=== PATIENT | male | born 1935 | race Caucasian/White ===

== ENCOUNTER 2016-03-12 15:58 | Inpatient (IN) | payer OTHER ==
[2016-03-12 16:07] VITALS: BMI 34.0
--- NOTE | 2016-03-12 17:07 | PDOC ---
History of Present Illness - General History Source: Patient - History of Present Illness Initial Comments: 03/12/16 18:50 Mr. Patel is a 80 y/o male witha PMH of HTN, CHF, Afib, DM Type 1 presenting to the ED today complaining of SOB and back pain x one week. He states that he has been having increasing SOB over the past week. The SOB is worse with exertion. He states he also has a productive cough and rhinorrhea. He has had associated back pain over the past week. ItsDenies fevers, chest pain, palpitations, edema, orthopnea, N/V/D, sick contacts and recent travel. He had his flu shot this year. GENERAL/CONSTITUTIONAL: No fever or chills. No weakness. No weight change. HEAD, EYES, EARS, NOSE AND THROAT: No change in vision. No ear pain or discharge. No sore throat. CARDIOVASCULAR: No chest pain or palpitations. RESPIRATORY: (+) cough, shortness of breath, dyspnea on exersion. (-)wheezing, GASTROINTESTINAL: No nausea, vomiting, diarrhea or constipation. GENITOURINARY: No dysuria, frequency, or change in urination. MUSCULOSKELETAL: No joint or muscle swelling or pain. No neck or back pain. SKIN: No rash or easy bruising. NEUROLOGIC: No headache, vertigo, loss of consciousness, or loss of sensation. PSYCHIATRIC: No depression or anxiety. ENDOCRINE: No increased thirst. No abnormal weight change. HEMATOLOGIC/LYMPHATIC: No anemia, easy bleeding, or history of blood clots. ALLERGIC/IMMUNOLOGIC: No hives or skin allergy. No latex allergy. <Amara Pino - Last Filed: 03/12/16 18:50> <Sumeet Washington - Last Filed: 03/12/16 21:26> - General Chief Complaint: Lightheaded Stated Complaint: BACK PAIN, SOB Time Seen by Provider: 03/12/16 16:53 Past History - Past Medical History Anemia: No Asthma: No Cancer: No Cardiac Disorders: Yes CVA: No COPD: Yes CHF: No Dementia: No Diabetes: Yes GI Disorders: No Disorders: Yes HTN: Yes Hypercholesterolemia: Yes Liver Disease: No Suicide Attempt (Hx): No Seizures: No Thyroid Disease: No - Surgical History Abdominal Surgery: Yes (Hernia repair) Appendectomy: No Cardiac Surgery: Yes (Stents X 4) Cholecystectomy: No Lung Surgery: No Neurologic Surgery: No Orthopedic Surgery: No - Immunization History Td Vaccination: Yes Immunization Up to Date: Yes - Psycho/Social/Smoking Cessation Hx Anxiety: No Suicidal Ideation: No Smoking Status: No Smoking History: Never smoked Years of Tobacco Use: 5 Have you smoked in the past 12 months: No Number of Cigarettes Smoked Daily: 0 If you are a former smoker, when did you quit?: 1955 Cigars Per Day: 4 'Breaking Loose' booklet given: 04/01/15 Hx Alcohol Use: No Drug/Substance Use Hx: No Substance Use Type: None Hx Substance Use Treatment: No <Amara Pino - Last Filed: 03/12/16 18:50> <Sumeet Washington - Last Filed: 03/12/16 21:26> - Past Medical History Allergies/Adverse Reactions: Allergies Allergy/AdvReac Type Severity Reaction Status Date / Time No Known Allergies Allergy Verified 03/12/16 16:08 Home Medications: Ambulatory Orders Atorvastatin Ca [Lipitor] 40 mg PO HS tablet 03/01/15 Diltiazem Cd [Cardizem Cd -] 180 mg PO DAILY cap.cd.24h 03/01/15 Insulin (Novolog 70/30) [Novolog Mix 70/30 Vial -] 20 units SQ BIDAC vial 03/01 Metoprolol Tartrate [Lopressor -] 25 mg PO BID tablet 03/01/15 Aspirin [Ecotrin] 81 mg PO DAILY 03/04/15 Apixaban [Eliquis] 2.5 mg PO DAILY 03/12/16 Budesonide/Formeterol Fumarate [SYMBICORT 160/4.5mcg -] 1 inh PO BID 03/12/16 Enalapril Maleate [Vasotec -] 2.5 mg PO DAILY 03/12/16 Furosemide [Lasix -] 20 mg PO DAILY 03/12/16 Nitroglycerin Patch [Nitro-Dur] 0.2 mg TD DAILY 03/12/16 *Physical Exam - Vital Signs Last Vital Signs Temp Pulse Resp BP Pulse Ox 98.3 F 64 20 102/63 98 03/12/16 16:05 03/12/16 16:05 03/12/16 16:05 03/12/16 16:05 03/12/16 16:05 - Physical Exam Comments: 03/12/16 19:04 GENERAL: The patient is awake, alert, and fully oriented, in no acute distress. Pt. is resting comfortably with an O2 sat of 98 ORA. HEAD: Normal with no signs of trauma. ENT: Pupils equal, round and reactive to light, extraocular movements intact, sclera anicteric, conjunctiva clear. Neck supple. LUNGS: Bibasilar rales. Normal excursion. No respiratory distress or use of accessory muscles. CV: RRR, S1/S2, no MRG. Cap refill < 2 sec. ABDOMEN: Soft, non-distended, non-tender. EXTREMITIES: Normal range of motion, no edema. No bowel or bladder incontinence. NEUROLOGICAL: Normal speech, normal gait. CN II-XII grossly intact. PSYCH: Normal mood, normal affect. SKIN: Warm, dry, normal turgor, no rashes or lesions noted. <Amara Pino - Last Filed: 03/12/16 18:50> - Vital Signs Last Vital Signs Temp Pulse Resp BP Pulse Ox 98.3 F 64 20 102/63 98 03/12/16 16:05 03/12/16 16:05 03/12/16 16:05 03/12/16 16:05 03/12/16 16:05 <Sumeet Washington - Last Filed: 03/12/16 21:26> ED Treatment Course - LABORATORY CBC & Chemistry Diagram: 03/12/16 17:45 03/12/16 17:45 <Amara Pino - Last Filed: 03/12/16 18:50> - LABORATORY CBC & Chemistry Diagram: 03/12/16 17:45 03/12/16 17:45 - ADDITIONAL ORDERS Additional order review: Laboratory Results 03/12/16 03/12/16 17:45 17:39 Sodium 143 Potassium 4.3 Chloride 103 Carbon Dioxide 29 Anion Gap 11 BUN 35 H Creatinine 2.1 H D Creat Clearance w eGFR 30.54 Random Glucose 60 L D Calcium 9.2 Total Bilirubin 1.1 H D AST 26 ALT 26 D Alkaline Phosphatase 172 H D Creatine Kinase 77 Troponin I < 0.02 B-Natriuretic Peptide 5142.05 H Total Protein 7.4 Albumin 3.4 D 03/12/16 17:45 Influenza Types A,B Antigen (MARIEL) - Final Nasopharyngeal Swab - Final 03/12/16 17:45 RBC 5.93 H D MCV 84.9 MCHC 32.9 RDW 15.9 D MPV 10.8 Neutrophils % 63.4 Lymphocytes % 21.9 D Monocytes % 9.2 Eosinophils % 4.2 Basophils % 1.3 - Medications Given in the ED: ED Medications Discontinued Medications Generic Name Dose Route Start Last Admin Trade Name Freq PRN Reason Stop Dose Admin Levofloxacin 150 mls @ 100 mls/hr 03/12/16 18:35 03/12/16 19:54 Levaquin 750 Mg Premixed Ivpb - IVPB 03/12/16 20:04 100 mls/hr ONCE ONE Administration <Sumeet Washington - Last Filed: 03/12/16 21:26> Medical Decision Making - Medical Decision Making 03/12/16 18:05 Mr. Patel is an 80 y/o male PHM for HTN, Afib, CHF, Type 1 DM, presents to the ED with shortness of breath x1 week. Most concerned for pneumonia vs CHF exacerbation. Exam is positive for bibasilar rales and dyspnea on exertion. Will also screen for influenza, ACS. Less likely PE d/t low criteria via PERC. Will order CXR, CBC, CMP, UA to screen for peumonia vs CHF Cardiac profile BNP, EKG to evaluate for CHF exacerbation. Will obtain influenza swab. Will re-evaluate 03/12/16 19:05 EKG shows an irregularly irregular rhythm with a mean rate of 80, no acute ST changes. CXR read by radiology states no acute pathology; however, upon reading the image it appears that there is an opacitiy over the L lung base. Will order antibiotics to cover probably pneumonia. WBC is also elevated at 11.5. 19:15 Sign out was given to Felix Fay OIL WELL DRILLER. Discussed the case and results of EKG and CXR. Still to look for labs including cardiac panel and BNP. Disposition will determined based on the rest of the lab work. <Amara Pino - Last Filed: 03/12/16 18:50> *DC/Admit/Observation/Transfer <Amara Pino - Last Filed: 03/12/16 18:50> - Discharge Dispostion Admit: Yes Decision to Admit order Date/Time: 03/12/16 21:[address] WALKER. WILL ADMIT INPATIENT. <Sumeet Washington - Last Filed: 03/12/16 21:26> Diagnosis at time of Disposition: CHF (congestive heart failure) Qualifiers: Congestive heart failure type: unspecified congestive heart failure type Congestive heart failure chronicity: acute on chronic Qualified Code(s): I50.9 - Heart failure, unspecified Pneumonia Qualifiers: Pneumonia type: due to unspecified organism Laterality: right Lung location: upper lobe of lung Qualified Code(s): J18.9 - Pneumonia, unspecified organism Type 2 diabetes mellitus with diabetic neuropathy, unspecified Qualifiers: Diabetes mellitus ad terminal makeup operator insulin use: unspecified care home insulin use status Qualified Code(s): E11.40 - Type 2 diabetes mellitus with diabetic neuropathy, unspecified - Discharge Dispostion Condition at time of disposition: Fair
[2016-03-12 18:02] LABS: BASOPHIL 1.3 % (0-2.0); EOSINOPHIL 4.2 % (0-4.5); MCH 27.9 pg (25.7-33.7); MCHC 32.9 g/dl (32.0-35.9); MEAN CELL VOLUME 84.9 fl (80-96); MEAN PLT VOLUME 10.8 fl (7.5-11.1); NEUTROPHILS 63.4 % (42.8-82.8); PLATELET COUNT 176 K/MM3 (134-434); RDW 15.9 % (11.9-15.9); WHITE BLOOD COUNT 11.5 K/mm3 (4.0-10.0)
[2016-03-12] MEDS ORDERED: LEVOFLOXACIN 750 MG IVPB 150 ML IVPB ONE (18:35)
[2016-03-12 19:01] LABS: ALBUMIN 3.4 g/dl (3.4-5.0); BILIRUBIN,TOTAL 1.1 mg/dL (0.2-1.0); CALCIUM 9.2 mg/dL (8.5-10.1); CREATININE 2.1 mg/dL (0.7-1.3); TOT PROT 7.4 g/dl (6.4-8.2)
--- NOTE | 2016-03-12 19:09 | PDOC ---
[id number] 98 03/12/16 16:05 03/12/16 16:05 03/12/16 16:05 03/12/16 16:05 03/12/16 16:05 ED Treatment Course - LABORATORY CBC & Chemistry Diagram: 03/14/16 06:30 03/15/16 06:15 - ADDITIONAL ORDERS Additional order review: Laboratory Results 03/12/16 17:45 Sodium 143 Potassium 4.3 Chloride 103 Carbon Dioxide 29 Anion Gap 11 BUN 35 H Creatinine 2.1 H D Creat Clearance w eGFR 30.54 Random Glucose 60 L D Calcium 9.2 Total Bilirubin 1.1 H D AST 26 ALT 26 D Alkaline Phosphatase 172 H D B-Natriuretic Peptide 5142.05 H Total Protein 7.4 Albumin 3.4 D 03/12/16 17:45 Influenza Types A,B Antigen (MARIEL) - Final Nasopharyngeal Swab - Final 03/12/16 17:45 RBC 5.93 H D MCV 84.9 MCHC 32.9 RDW 15.9 D MPV 10.8 Neutrophils % 63.4 Lymphocytes % 21.9 D Monocytes % 9.2 Eosinophils % 4.2 Basophils % 1.3 Progress Note - Progress Note Progress Note: I have discussed the case with the PA and I agree with her HPI and PE as noted in the EMR. My personal findings include an 80 y/o male with h/o HTN and DM who presents to the ED with c/o progressive SOB but several days of cough and fatigue. He denies chest pain but has had labored breathing all day. He denies fevers and chills at home. VSS; he is afebrile. His lungs are significant for bibasilar crackles. Differential diagnosis includes but is not limited to: PNA, CHF exacerbation, influenza, anemia, electrolyte abnormality, toxic/metabolic derangement. Plan: Agree with PA plan. Will get CXR, labs, EKG and influenza PCR. the patient will likely require admission to observation for serial cardiac enzymes pending results of labs, CXR. 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
[2016-03-12 19:49] LABS: TROPONIN I < 0.02 ng/ml (0.00-0.05)
[2016-03-12] MEDS ORDERED: FUROSEMIDE 40 MG/4 ML INJECTABLE VIAL IVPB ONE (21:29)
[2016-03-12] MEDS ORDERED: DEXTROSE 5%-0.45% SALINE 1,000 ML IV SCH (21:30)
[2016-03-12] MEDS ORDERED: FUROSEMIDE 40 MG/4 ML INJECTABLE VIAL ONE (21:36)
[2016-03-12] MEDS ORDERED: ACETAMINOPHEN 325 MG TABLET (FP) PO PRN (22:23)
[2016-03-12 23:42] LABS: TROPONIN I < 0.02 ng/ml (0.00-0.05)
[2016-03-13 07:12] LABS: BASOPHIL 0.8 % (0-2.0); EOSINOPHIL 5.5 % (0-4.5); MCH 28.2 pg (25.7-33.7); MCHC 32.7 g/dl (32.0-35.9); MEAN CELL VOLUME 86.1 fl (80-96); MEAN PLT VOLUME 10.2 fl (7.5-11.1); NEUTROPHILS 60.1 % (42.8-82.8); PLATELET COUNT 128 K/MM3 (134-434); RDW 15.5 % (11.9-15.9); WHITE BLOOD COUNT 9.8 K/mm3 (4.0-10.0)
[2016-03-13 07:45] LABS: ALBUMIN 2.9 g/dl (3.4-5.0); ANION GAP 15 (8-16); CO2 24 mmol/L (21-32); MAGNESIUM 2.3 mg/dL (1.8-2.4)
[2016-03-13 08:04] LABS: ALK PHOS 151 U/L (45-117); BILIRUBIN,TOTAL 1.1 mg/dL (0.2-1.0); CALCIUM 8.6 mg/dL (8.5-10.1); CHOLESTEROL 109 mg/dL (50-200); CREATININE 2.3 mg/dL (0.7-1.3); GLUCOSE,RANDOM 83 mg/dL (74-106); SGOT/AST 20 U/L (15-37); SGPT/ALT 23 U/L (12-78); TOT PROT 6.6 g/dl (6.4-8.2); TROPONIN I < 0.02 ng/ml (0.00-0.05)
[2016-03-13] MEDS: INSULIN (NOVOLOG MIX 70/30) 100 UNITS/ML MDV SQ SCH ×2 (09:40→18:07)
[2016-03-13 09:41] LABS: LDL CHOLESTEROL (ONLY SJRH) 74 mg/dL (5-100)
[2016-03-13] MEDS ORDERED: INSULIN (NOVOLOG MIX 70/30) 100 UNITS/ML MDV SQ ONE (09:51)
[2016-03-13] MEDS ORDERED: ASPIRIN 81 MG CHEWABLE TABLETS ONE (09:54)
[2016-03-13] MEDS ORDERED: METOPROLOL TARTRATE 25 MG TABLET (FP) ONE (09:55)
[2016-03-13] MEDS ORDERED: ENALAPRIL MALEATE 5 MG TABLET (FP) ONE (09:55)
[2016-03-13] MEDS ORDERED: FUROSEMIDE 40 MG/4 ML INJECTABLE VIAL ONE (09:55)
[2016-03-13] MEDS ORDERED: FUROSEMIDE 40 MG/4 ML INJECTABLE VIAL IVPB SCH (10:00)
[2016-03-13] MEDS ORDERED: FUROSEMIDE 20 MG TABLET (FP) PO SCH (10:00)
[2016-03-13] MEDS ORDERED: ENALAPRIL MALEATE 2.5 MG TABLET (FP) PO SCH (10:00)
[2016-03-13] MEDS: ASPIRIN COATED 81 MG TABLET.EC PO SCH (10:03)
[2016-03-13] MEDS: METOPROLOL TARTRATE 25 MG TABLET (FP) PO SCH ×2 (10:04→22:19)
--- NOTE | 2016-03-13 11:20 | HP ---
Admitting History and Physical - Primary Care Physician PCP: Vickey Johnson - Admission History of Present Illness: Mr. Patel is a 80 y/o male witha PMH of HTN, CHF, Afib, DM Type 1 presenting to the ED today complaining of SOB and back pain x one week. He states that he has been having increasing SOB over the past week. The SOB is worse with exertion. He states he also has a productive cough and rhinorrhea. He has had associated back pain over the past week. Denies fevers, chest pain, palpitations , edema, orthopnea, N/V/D, sick contacts and recent travel. He had his flu shot this year. 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 No: CHF Pulmonary: Yes: Bronchitis, COPD Gastrointestinal: Yes: Irritable Bowel Disease Infectious Disease: Yes: Other (INFECTED FOOT) Musculoskeletal: Yes: Other (RECURRENT FOOT INFECTION) Endocrine: Yes: Diabetes Mellitus - Past Surgical History Past Surgical History: Yes: Colonoscopy - Smoking History Smoking history: Never smoked Have you smoked in the past 12 months: No Aproximately how many cigarettes per day: 0 If you are a former smoker, when did you quit?: 1955 - Alcohol/Substance Use Hx Alcohol Use: No Home Medications - Allergies Allergies/Adverse Reactions: Allergies Allergy/AdvReac Type Severity Reaction Status Date / Time No Known Allergies Allergy Verified 03/12/16 16:08 - Home Medications Home Medications: Ambulatory Orders Atorvastatin Ca [Lipitor] 40 mg PO HS tablet 03/01/15 Diltiazem Cd [Cardizem Cd -] 180 mg PO DAILY cap.cd.24h 03/01/15 Insulin (Novolog 70/30) [Novolog Mix 70/30 Vial -] 20 units SQ BIDAC vial 03/01 Metoprolol Tartrate [Lopressor -] 25 mg PO BID tablet 03/01/15 Aspirin [Ecotrin] 81 mg PO DAILY 03/04/15 Apixaban [Eliquis] 2.5 mg PO DAILY 03/12/16 Budesonide/Formeterol Fumarate [SYMBICORT 160/4.5mcg -] 1 inh PO BID 03/12/16 Enalapril Maleate [Vasotec -] 2.5 mg PO DAILY 03/12/16 Furosemide [Lasix -] 20 mg PO DAILY 03/12/16 Nitroglycerin Patch [Nitro-Dur] 0.2 mg TD DAILY 03/12/16 Family Disease History - Family Disease History Family Disease History: Heart Disease: Father, Mother Review of Systems - Review of Systems Respiratory: reports: Cough Physical Examination Vital Signs: Vital Signs Temperature 98.3 F 03/13/16 02:00 Pulse Rate 80 03/13/16 06:44 Respiratory Rate 18 03/13/16 06:44 Blood Pressure 118/73 03/13/16 06:44 O2 Sat by Pulse Oximetry (%) 98 03/13/16 06:44 Constitutional: Yes: Calm Cardiovascular: Yes: Regular Rate and Rhythm, S1, S2 Respiratory: Yes: Diminished, Rhonchi Gastrointestinal: Yes: Normal Bowel Sounds, Soft Edema: No Neurological: Yes: Alert, Oriented Labs: CBC, BMP 03/13/16 06:15 03/13/16 06:15 Imaging - Results Cat Scan: Report Reviewed Problem List - Problems (1) CHF (congestive heart failure) Assessment/Plan: iv lasix echo monitior lytes and renal function Code(s): I50.9 - HEART FAILURE, UNSPECIFIED Qualifiers: Congestive heart failure type: unspecified congestive heart failure type Congestive heart failure chronicity: acute on chronic Qualified Code(s): I50.9 - Heart failure, unspecified (2) Pneumonia Assessment/Plan: iv abx wbc is trending down Code(s): J18.9 - PNEUMONIA, UNSPECIFIED ORGANISM Qualifiers: Pneumonia type: due to unspecified organism Laterality: right Lung location: upper lobe of lung Qualified Code(s): J18.9 - Pneumonia, unspecified organism (3) Type 2 diabetes mellitus with diabetic neuropathy, unspecified Assessment/Plan: hga1c endo insulin Code(s): E11.40 - TYPE 2 DIABETES MELLITUS WITH DIABETIC NEUROPATHY, UNSP Qualifiers: 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
[2016-03-13] MEDS: APIXABAN 2.5 MG TABLET PO SCH ×2 (11:43→22:19)
[2016-03-13] MEDS: BUDESONIDE/FORMETEROL FUMARATE 160/4.5 mcg INHALER IH SCH ×2 (11:43→22:19)
[2016-03-13] MEDS: NITROGLYCERIN 0.2 MG/HOUR TD PATCH TD SCH (11:43)
--- NOTE | 2016-03-13 14:09 | EKG ---
Test Reason : Blood Pressure : / mmHG Vent. Rate : 116 BPM Atrial Rate : 086 BPM P-R Int : 000 ms QRS Dur : 094 ms QT Int : 362 ms P-R-T Axes : 000 -19 016 degrees QTc Int : 503 ms ATRIAL FIBRILLATION WITH RAPID VENTRICULAR RESPONSE INCOMPLETE RIGHT BUNDLE BRANCH BLOCK NONSPECIFIC ST ABNORMALITY ABNORMAL ECG WHEN COMPARED WITH ECG OF 12-MAR-2016 21:27, NO SIGNIFICANT CHANGE WAS FOUND Confirmed by EZ DALE, MAXIM ([id number]) on 03/13/2016 2:09:24 PM Referred By: HARRIS WALKER Confirmed By:MAXIM HUI MD
--- NOTE | 2016-03-13 14:15 | EKG ---
Test Reason : Blood Pressure : / mmHG Vent. Rate : 099 BPM Atrial Rate : 141 BPM P-R Int : 000 ms QRS Dur : 100 ms QT Int : 366 ms P-R-T Axes : 000 -19 003 degrees QTc Int : 469 ms ATRIAL FIBRILLATION INCOMPLETE RIGHT BUNDLE BRANCH BLOCK NONSPECIFIC ST AND T WAVE ABNORMALITY ABNORMAL ECG WHEN COMPARED WITH ECG OF 16-JUN-2015 08:47, NO SIGNIFICANT CHANGE WAS FOUND Confirmed by MAXIM HUI MD ([id number]) on 03/13/2016 2:15:37 PM Referred By: Confirmed By:MAXIM HUI MD
[2016-03-13] MEDS ORDERED: LEVOFLOXACIN 250 MG IVPB 50 ML IVPB ONE (14:24)
--- NOTE | 2016-03-13 15:51 | CONSULT ---
Consult - text type - Consultation Consultation Note: Renal Consult for ABDULLAHI on CKD This is a 80 year old Gentleman with PMhx of CKD Stage 3 (baseline Cr 1.5-1.7), Hypertension, CAD, Pulmonary Hypertension, Afib who presented with complains of cough, chest pain and weakness and admitted for CHF/PNA with BUN/Cr of 5/2.1. Pt denies any CKD. Denies any history of kidney stones or contrast exposure. Denies any flank pain. No NSAID use. No recent abx use. No body rash. No fever or chills . No N/V/D. No FIELDS, confusion or lethargy. S/P IV lasix in the ED. PMhx: as above Allergies: NDKA Family hx: NC Social Hx: + second hand smoke exposure Home Meds: Medication Instructions Recorded Atorvastatin Ca [Lipitor] 40 mg PO HS tablet 03/01/15 Diltiazem Cd [Cardizem Cd -] 180 mg PO DAILY cap.cd.24h 03/01/15 Insulin (Novolog 70/30) [Novolog 20 units SQ BIDAC vial 03/01/15 Mix 70/30 Vial -] Metoprolol Tartrate [Lopressor -] 25 mg PO BID tablet 03/01/15 Aspirin [Ecotrin] 81 mg PO DAILY 03/04/15 Apixaban [Eliquis] 2.5 mg PO DAILY 03/12/16 Budesonide/Formeterol Fumarate 1 inh PO BID 03/12/16 [SYMBICORT 160/4.5mcg -] Enalapril Maleate [Vasotec -] 2.5 mg PO DAILY 03/12/16 Furosemide [Lasix -] 20 mg PO DAILY 03/12/16 Nitroglycerin Patch [Nitro-Dur] 0.2 mg TD DAILY 03/12/16 Vital Signs Temperature 97.9 F 03/13/16 14:29 Pulse Rate 89 03/13/16 14:29 Respiratory Rate 16 03/13/16 14:29 Blood Pressure 98/55 03/13/16 14:29 O2 Sat by Pulse Oximetry (%) 95 03/13/16 14:29 Intake & Output 03/10/16 03/11/16 03/12/16 03/13/16 23:59 23:59 23:59 23:59 Weight 198 lb 185 lb 8 oz Gen: NAD, awake and alert HEENT: NC/AT, MMM, No JVD, Neck supple CVS: RRR, No M/R Lungs: + fine crackles, no rales Abd: soft NT/ND Ext: trace edema, no clubbing or cyanosis : No bladder distension Neuro: No focal defects CBC, BMP 03/13/16 06:15 03/13/16 06:15 Laboratory Tests 03/13/16 03/13/16 06:15 06:15 Hemoglobin A1c % 7.6 H D Calcium 8.6 Magnesium 2.3 Albumin 2.9 L Current Medications Acetaminophen (Tylenol -) 650 mg PO Q4H PRN PRN Reason: FEVER OR PAIN Apixaban (Eliquis -) 2.5 mg PO BID [facility] Last Admin: 03/13/16 11:43 Dose: 2.5 mg Aspirin (Ecotrin -) 81 mg PO DAILY [facility] Last Admin: 03/13/16 10:03 Dose: 81 mg Atorvastatin Calcium (Lipitor -) 40 mg PO [facility] Budesonide/Formoterol Fumarate (Symbicort 160/4.5mcg -) 1 puff IH BID [facility] Last Admin: 03/13/16 11:43 Dose: 1 puff Diltiazem HCl (Cardizem Cd -) 180 mg PO DAILY [facility] Last Admin: 03/13/16 11:43 Dose: 180 mg Furosemide (Lasix Injection -) 40 mg IVPB DAILY [facility] Last Admin: 03/13/16 10:03 Dose: 40 mg Levofloxacin (Levaquin 250 Mg Premixed Ivpb -) 50 mls @ 50 mls/hr IVPB DAILY [facility] Insulin Aspart (Novolog Mix 70/30 Vial) 20 units SQ BIDAC [facility] Last Admin: 03/13/16 09:40 Dose: 20 units Metoprolol Tartrate (Lopressor -) 25 mg PO BID [facility] Last Admin: 03/13/16 10:04 Dose: 25 mg Nitroglycerin (Nitro-Dur Patch -) 0.2 mg TD DAILY [facility] Last Admin: 03/13/16 11:43 Dose: 0.2 mg A/P 80 year old Gentleman with PMhx of CKD Stage 3 (baseline Cr 1.5-1.7), Hypertension, CAD, Pulmonary Hypertension, Afib who presented with complains of cough, chest pain and weakness and admitted for CHF/PNA with BUN/Cr of 5/2.1. #Acute on Chronic Renal Insufficiency ? Cardio-renal syndrome vs. intravascular volume depletion vs. obstruction Check UA, UCPR, FeNA, FeUrea Check Renal and bladder US r/o obstruction Continue IV lasix daily for now hold ACEi until renal function stable Dose all meds for Cr Cl less then 20 avid IV contrast or nsaids #SOB/PNA/CHF Prior echo showed normal LV function but + pulmonary hypertension continue Lasix and empiric abx CT scan showed no effusions or infiltrate ? COPD (chronic second hand smoke exposure) may benefit from PFT's #Hypertension BP is marginal hold ACEi continue metoprolol/Cardizem for rate control Thank you Will follow Karel Cisneros DO
[2016-03-13] MEDS: LEVOFLOXACIN 250 MG IVPB 50 ML IVPB SCH (16:07)
[2016-03-13] MEDS ORDERED: PT OWN MED DRAWER 7, Y5N ONE (20:41)
[2016-03-13] MEDS: ATORVASTATIN CA 40 MG TABLET (FP) PO SCH (22:19)
[2016-03-14] MEDS: INSULIN (NOVOLOG MIX 70/30) 100 UNITS/ML MDV SQ SCH (06:51)
[2016-03-14 08:28] LABS: BASOPHIL 0.7 % (0-2.0); EOSINOPHIL 6.7 % (0-4.5); MCH 28.2 pg (25.7-33.7); MCHC 33.1 g/dl (32.0-35.9); MEAN CELL VOLUME 85.1 fl (80-96); MEAN PLT VOLUME 10.7 fl (7.5-11.1); NEUTROPHILS 58.8 % (42.8-82.8); PLATELET COUNT 123 K/MM3 (134-434); RDW 15.9 % (11.9-15.9); WHITE BLOOD COUNT 9.9 K/mm3 (4.0-10.0)
--- NOTE | 2016-03-14 09:28 | DS ---
Physical Examination Vital Signs: Vital Signs Temperature 97.7 F 03/14/16 09:00 Pulse Rate 79 03/14/16 09:00 Respiratory Rate 18 03/14/16 09:00 Blood Pressure 124/71 03/14/16 09:00 O2 Sat by Pulse Oximetry (%) 96 03/13/16 21:00 Labs: CBC, BMP 03/14/16 06:30 Discharge Summary Reason For Visit: CHF/PNEUMONIA / TYPE II DIABETES LO Current Active Problems CHF (congestive heart failure) (Acute) Pneumonia (Acute) Type 2 diabetes mellitus with diabetic neuropathy, unspecified (Acute) Hospital Course: Mr. Patel is a 80 y/o male witha PMH of HTN, CHF, Afib, DM Type 1 presenting to the ED today complaining of SOB and back pain x one week. He states that he has been having increasing SOB over the past week. The SOB is worse with exertion. He states he also has a productive cough and rhinorrhea. He has had associated back pain over the past week. Denies fevers, chest pain, palpitations , edema, orthopnea, N/V/D, sick contacts and recent travel. He had his flu shot this year. 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 No: CHF Pulmonary: Yes: Bronchitis, COPD Gastrointestinal: Yes: Irritable Bowel Disease Infectious Disease: Yes: Other (INFECTED FOOT) Musculoskeletal: Yes: Other (RECURRENT FOOT INFECTION) Endocrine: Yes: Diabetes Mellitus - Problems (1) CHF (congestive heart failure) Assessment/Plan: DC iv lasix--PO echo QA LEAD LV CT NO EVIDENCE OF FAILURE monitior lytes and renal function Code(s): I50.9 - HEART FAILURE, UNSPECIFIED Qualifiers: Congestive heart failure type: unspecified congestive heart failure type Congestive heart failure chronicity: acute on chronic Qualified Code(s): I50.9 - Heart failure, unspecified (2) Pneumonia Assessment/Plan: iv abx wbc is trending down Code(s): J18.9 - PNEUMONIA, UNSPECIFIED ORGANISM Qualifiers: Pneumonia type: due to unspecified organism Laterality: right Lung location: upper lobe of lung Qualified Code(s): J18.9 - Pneumonia, unspecified organism (3) Type 2 diabetes mellitus with diabetic neuropathy, unspecified Assessment/Plan: hga1c endo insulin Code(s): E11.40 - TYPE 2 DIABETES MELLITUS WITH DIABETIC NEUROPATHY, UNSP Qualifiers: 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: unspecified intermediate insulin use status Qualified Code(s): E11.40 - Type 2 diabetes mellitus with diabetic neuropathy, unspecified (4) Afib Assessment/Plan: eliquis rate control Code(s): I48.91 - UNSPECIFIED ATRIAL FIBRILLATION Qualifiers: Atrial fibrillation type: chronic Qualified Code(s): I48.2 - Chronic atrial fibrillation (5) COPD (chronic obstructive pulmonary disease) Assessment/Plan: bronchodilator oxygen as needed Code(s): J44.9 - CHRONIC OBSTRUCTIVE PULMONARY DISEASE, UNSPECIFIED (6) CKD Assessment/Plan: WORSENING DUE TO DIURETICS DC IV LASIX Condition: Improved - Instructions Referrals: Vickey Johnson MD [Primary Care Provider] - 1 Week Disposition: HOME - Home Medications Comprehensive Discharge Medication List: Ambulatory Orders Atorvastatin Ca [Lipitor] 40 mg PO HS tablet 03/01/15 Diltiazem Cd [Cardizem Cd -] 180 mg PO DAILY cap.cd.24h 03/01/15 Insulin (Novolog 70/30) [Novolog Mix 70/30 Vial -] 20 units SQ BIDAC vial 03/01 Metoprolol Tartrate [Lopressor -] 25 mg PO BID tablet 03/01/15 Aspirin [Ecotrin] 81 mg PO DAILY 03/04/15 Apixaban [Eliquis] 2.5 mg PO DAILY 03/12/16 Budesonide/Formeterol Fumarate [SYMBICORT 160/4.5mcg -] 1 inh PO BID 03/12/16 Enalapril Maleate [Vasotec -] 2.5 mg PO DAILY 03/12/16 Furosemide [Lasix -] 20 mg PO DAILY 03/12/16 Nitroglycerin Patch [Nitro-Dur Patch -] 0.2 mg TD DAILY 03/12/16 Levofloxacin [Levaquin -] 250 mg PO DAILY #7 tablet 03/14/16
[2016-03-14] MEDS ORDERED: FUROSEMIDE 40 MG TABLET (FP) PO SCH ×2 (10:00→10:32)
[2016-03-14 10:01] LABS: ALBUMIN 2.9 g/dl (3.4-5.0); BILIRUBIN,TOTAL 0.6 mg/dL (0.2-1.0); CALCIUM 8.2 mg/dL (8.5-10.1); CREATININE 2.4 mg/dL (0.7-1.3); MAGNESIUM 2.2 mg/dL (1.8-2.4); PHOSPHOROUS 4.4 mg/dL (2.5-4.9)
[2016-03-14] MEDS: METOPROLOL TARTRATE 25 MG TABLET (FP) PO SCH ×2 (10:09→21:59)
[2016-03-14] MEDS: ASPIRIN COATED 81 MG TABLET.EC PO SCH (10:09)
[2016-03-14] MEDS: APIXABAN 2.5 MG TABLET PO SCH ×2 (10:09→21:59)
[2016-03-14] MEDS: LEVOFLOXACIN 250 MG IVPB 50 ML IVPB SCH (10:10)
[2016-03-14] MEDS: BUDESONIDE/FORMETEROL FUMARATE 160/4.5 mcg INHALER IH SCH ×2 (10:12→22:00)
[2016-03-14] MEDS: NITROGLYCERIN 0.2 MG/HOUR TD PATCH TD SCH ×3 (10:13→17:49)
--- NOTE | 2016-03-14 11:49 | PN ---
Progress Note (short form) - Note Progress Note: Renal Follow up for ABDULLAHI on CKD Pt seen and examined at the bedside reports improvement in sob no chest pain still feels a little dizzy at times no chest pain or sob Vital Signs Temperature 97.7 F 03/14/16 09:00 Pulse Rate 79 03/14/16 09:00 Respiratory Rate 18 03/14/16 09:00 Blood Pressure 124/71 03/14/16 09:00 O2 Sat by Pulse Oximetry (%) 96 03/13/16 21:00 Intake & Output 03/11/16 03/12/16 03/13/16 03/14/16 23:59 23:59 23:59 23:59 Intake Total 450 Output Total 1 1 Balance 449 -1 Weight 198 lb 185 lb 8 oz 189 lb 3.2 oz Gen: NAD, awake and alert CVS: RRR, No M/R Lungs: + fine crackles, no rales Abd: soft NT/ND Ext: trace edema, no clubbing or cyanosis Neuro: No focal defects CBC, BMP 03/14/16 06:30 03/14/16 06:30 Current Medications Acetaminophen (Tylenol -) 650 mg PO Q4H PRN PRN Reason: FEVER OR PAIN Apixaban (Eliquis -) 2.5 mg PO BID [facility] Last Admin: 03/14/16 10:09 Dose: 2.5 mg Aspirin (Ecotrin -) 81 mg PO DAILY [facility] Last Admin: 03/14/16 10:09 Dose: 81 mg Atorvastatin Calcium (Lipitor -) 40 mg PO HS [facility] Last Admin: 03/13/16 22:19 Dose: 40 mg Budesonide/Formoterol Fumarate (Symbicort 160/4.5mcg -) 1 puff IH BID [facility] Last Admin: 03/14/16 10:12 Dose: 1 puff Diltiazem HCl (Cardizem Cd -) 180 mg PO DAILY [facility] Last Admin: 03/14/16 10:09 Dose: 180 mg Furosemide (Lasix -) 20 mg PO DAILY [facility] Levofloxacin (Levaquin 250 Mg Premixed Ivpb -) 50 mls @ 50 mls/hr IVPB DAILY [facility] Last Admin: 03/14/16 10:10 Dose: 50 mls/hr Insulin Aspart (Novolog Mix 70/30 Vial) 20 units SQ [facility] Last Admin: 03/14/16 06:51 Dose: 20 units Metoprolol Tartrate (Lopressor -) 25 mg PO BID [facility] Last Admin: 03/14/16 10:09 Dose: 25 mg Nitroglycerin (Nitro-Dur Patch -) 0.2 mg TD DAILY [facility] Last Admin: 03/14/16 10:13 Dose: 0.2 mg A/P 80 year old Gentleman with PMhx of CKD Stage 3 (baseline Cr 1.5-1.7), Hypertension, CAD, Pulmonary Hypertension, Afib who presented with complains of cough, chest pain and weakness and admitted for CHF/PNA with BUN/Cr of 5/2.1. #Acute on Chronic Renal Insufficiency Renal US showed showed normal size kidneys with mildly dilated collected system w/o evidence of obstruction. No prostate enlargement. Urine studies are pending Cr stable but BUN elevated with IV diuretics -> agree with holding IV Diuretics at this time Continue to hold Enalapril for now No indication for STRAND GALVANIZER hold IVF at this time given suspicion for HF Trend BUN/Cr daily if pt to be discharged would hold ACEi and have pt follow up in 1 3-4 days with repeat labs #SOB/PNA/CHF Prior echo showed normal LV function but + pulmonary hypertension on Oral lasix and Levaquin CT scan showed no effusions or infiltrate ? COPD (chronic second hand smoke exposure) may benefit from PFT's #Hypertension/Afib BP is marginal continue metoprolol/Cardizem for rate control Karel Cisneros DO
[2016-03-14 12:59] LABS: URINE APPEARANCE CLEAR; URINE BILIRUBIN NEGATIVE (NEGATIVE); URINE BLOOD NEGATIVE (NEGATIVE); URINE COLOR LTYELLOW; URINE GLUCOSE (UA) NEGATIVE (NEGATIVE); URINE KETONE NEGATIVE (NEGATIVE); URINE NITRITE NEGATIVE (NEGATIVE); URINE PROTEIN NEGATIVE (NEGATIVE); URINE UROBILINOGEN NEGATIVE E.U./dl (0.2-1.0)
[2016-03-14 13:01] LABS: URINE LEUK ESTERASE TRACE (NEGATIVE)
[2016-03-14 13:19] LABS: URINE MUCUS RARE; URINE RBC <1 /hpf (0-3); URINE WBC 5 /hpf (3-5)
[2016-03-14] MEDS ORDERED: PT OWN MED DRAWER 7, Y5N ONE (20:28)
[2016-03-14] MEDS: ATORVASTATIN CA 40 MG TABLET (FP) PO SCH (21:59)
--- NOTE | 2016-03-15 00:10 | CONSULT ---
Consult Consult Specialty:: endocrine Referred by:: dr.saba licona Reason for Consultation:: iddm - History of Present Illness Chief Complaint: high blood sugar cough and congestion History of Present Illness: 80 y/o male witha PMH of HTN, CHF, Afib, DM Type 1 presenting to the ED today complaining of SOB and back pain x one week. He states that he has been having increasing SOB over the past week. The SOB is worse with exertion. 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 No: CHF Pulmonary: Yes: Bronchitis, COPD Gastrointestinal: Yes: Irritable Bowel Disease Infectious Disease: Yes: Other (INFECTED FOOT) Musculoskeletal: Yes: Other (RECURRENT FOOT INFECTION) Endocrine: Yes: Diabetes Mellitus - Past Surgical History Past Surgical History: Yes: Colonoscopy - Alcohol/Substance Use Hx Alcohol Use: No - Smoking History Smoking history: Never smoked Have you smoked in the past 12 months: No Aproximately how many cigarettes per day: 0 If you are a former smoker, when did you quit?: 1955 Home Medications - Allergies Allergies/Adverse Reactions: Allergies Allergy/AdvReac Type Severity Reaction Status Date / Time No Known Allergies Allergy Verified 03/12/16 16:08 - Home Medications Home Medications: Ambulatory Orders Atorvastatin Ca [Lipitor] 40 mg PO HS tablet 03/01/15 Diltiazem Cd [Cardizem Cd -] 180 mg PO DAILY cap.cd.24h 03/01/15 Insulin (Novolog 70/30) [Novolog Mix 70/30 Vial -] 20 units SQ BIDAC vial 03/01 Metoprolol Tartrate [Lopressor -] 25 mg PO BID tablet 03/01/15 Aspirin [Ecotrin] 81 mg PO DAILY 03/04/15 Apixaban [Eliquis] 2.5 mg PO DAILY 03/12/16 Budesonide/Formeterol Fumarate [SYMBICORT 160/4.5mcg -] 1 inh PO BID 03/12/16 Enalapril Maleate [Vasotec -] 2.5 mg PO DAILY 03/12/16 Furosemide [Lasix -] 20 mg PO DAILY 03/12/16 Nitroglycerin Patch [Nitro-Dur Patch -] 0.2 mg TD DAILY 03/12/16 Levofloxacin [Levaquin -] 250 mg PO DAILY #7 tablet 03/14/16 Family Disease History - Family Disease History Family Disease History: Heart Disease: Father, Mother Review of Systems - Review of Systems Constitutional: reports: Loss of Appetite Eyes: reports: Blurred Vision HENT: reports: No Symptoms Neck: reports: No Symptoms Cardiovascular: reports: Palpitations, Shortness of Breath Respiratory: reports: Exercise Intolerance, SOB on Exertion Gastrointestinal: reports: Bloating Genitourinary: reports: No Symptoms Breasts: reports: No Symptoms Reported Musculoskeletal: reports: Extremity Pain, Muscle Pain, Muscle Cramps, Muscle Weakness Integumentary: reports: No Symptoms Neurological: reports: Dizziness, Unsteady Gait, Weakness Endocrine: reports: Unexplained Weight Gain Physical Exam Vital Signs: Vital Signs Temperature 97.6 F 03/14/16 16:56 Pulse Rate 74 03/14/16 16:56 Respiratory Rate 20 03/14/16 16:56 Blood Pressure 105/61 03/14/16 16:56 O2 Sat by Pulse Oximetry (%) 96 03/14/16 09:00 Constitutional: Yes: Anxious Eyes: Yes: EOM Intact HENT: Yes: Normocephalic Neck: Yes: Trachea Midline Cardiovascular: Yes: Tachycardia, Pulse Irregular Respiratory: Yes: SOB, Tachypnea Gastrointestinal: Yes: Normal Bowel Sounds ...Rectal Exam: Yes: Deferred Renal/: Yes: WNL Breast(s): Yes: WNL Musculoskeletal: Yes: WNL Extremities: Yes: WNL Edema: Yes Edema: LLE: Trace, RLE: 1+ Peripheral Pulses WNL: Yes Integumentary: Yes: WNL Neurological: Yes: Alert, Oriented Labs: CBC, BMP 03/14/16 06:30 03/14/16 06:30 Problem List - Problems (1) CHF (congestive heart failure) Code(s): I50.9 - HEART FAILURE, UNSPECIFIED Qualifiers: Congestive heart failure type: unspecified congestive heart failure type Congestive heart failure chronicity: acute on chronic Qualified Code(s): I50.9 - Heart failure, unspecified (2) Pneumonia Code(s): J18.9 - PNEUMONIA, UNSPECIFIED ORGANISM Qualifiers: Pneumonia type: due to unspecified organism Laterality: right Lung location: upper lobe of lung Qualified Code(s): J18.9 - Pneumonia, unspecified organism (3) Type 2 diabetes mellitus with diabetic neuropathy, unspecified Code(s): E11.40 - TYPE 2 DIABETES MELLITUS WITH DIABETIC NEUROPATHY, UNSP Qualifiers: Diabetes mellitus intermediate project manager insulin use: unspecified intermediate project manager insulin use status Qualified Code(s): E11.40 - Type 2 diabetes mellitus with diabetic neuropathy, unspecified (4) CAD (coronary artery disease) Code(s): I25.10 - ATHSCL HEART DISEASE OF [place] CORONARY ARTERY W/O ANG PCTRS Qualifiers: Coronary Disease-Associated Artery/Lesion type: [place] coronary artery (5) CHF exacerbation Code(s): I50.9 - HEART FAILURE, UNSPECIFIED Assessment/Plan diabetes mellitus iddm hyperglycemia Current Active Problems CHF (congestive heart failure) (Acute) Pneumonia (Acute) Type 2 diabetes mellitus with diabetic neuropathy, unspecified (Acute) Abnormal Lab Results 03/14/16 03/14/16 03/14/16 06:30 06:30 06:30 Plt Count 123 L Eosinophils % 6.7 H BUN 51 H D Creatinine 2.4 H Hemoglobin A1c % 8.0 H D Calcium 8.2 L Alkaline Phosphatase 134 H Total Protein 6.0 L Albumin 2.9 L HDL Cholesterol 20 L Ur Leukocyte Esterase 03/14/16 11:30 Plt Count Eosinophils % BUN Creatinine Hemoglobin A1c % Calcium Alkaline Phosphatase Total Protein Albumin HDL Cholesterol Ur Leukocyte Esterase Trace H Laboratory Tests 03/14/16 03/14/16 03/14/16 06:30 06:30 06:30 WBC 9.9 RBC 4.99 Hgb 14.0 D Hct 42.4 MCV 85.1 MCHC 33.1 RDW 15.9 Plt Count 123 L Neutrophils % 58.8 Sodium 141 Potassium 4.2 Chloride 103 Carbon Dioxide 23 Anion Gap 15 BUN 51 H D Creatinine 2.4 H Creat Clearance w eGFR 26.18 POC Glucometer Hemoglobin A1c % 8.0 H D 03/14/16 19:32 WBC RBC Hgb Hct MCV MCHC RDW Plt Count Neutrophils % Sodium Potassium Chloride Carbon Dioxide Anion Gap BUN Creatinine Creat Clearance w eGFR POC Glucometer 186 Hemoglobin A1c % Current Medications Generic Name Dose Route Start Last Admin Trade Name Freq PRN Reason Stop Dose Admin Acetaminophen 650 mg 03/12/16 22:23 Tylenol - PO Q4H PRN FEVER OR PAIN Apixaban 2.5 mg 03/13/16 10:00 03/14/16 21:59 Eliquis - PO 2.5 mg BID KIRSTEN Administration Aspirin 81 mg 03/13/16 10:00 03/14/16 10:09 Ecotrin - PO 81 mg DAILY KIRSTEN Administration Atorvastatin Calcium 40 mg 03/13/16 22:00 03/14/16 21:59 Lipitor - PO 40 mg HS KIRSTEN Administration Budesonide/Formoterol Fumarate 1 puff 03/13/16 10:00 03/14/16 22:00 Symbicort 160/4.5mcg - IH 1 puff BID KIRSTEN Administration Diltiazem HCl 180 mg 03/13/16 10:00 03/14/16 10:09 Cardizem Cd - PO 180 mg DAILY KIRSTEN Administration Furosemide 20 mg 03/14/16 10:32 Lasix - PO DAILY KIRSTEN Levofloxacin 50 mls @ 50 mls/hr 03/13/16 13:15 03/14/16 10:10 Levaquin 250 Mg Premixed Ivpb - IVPB 50 mls/hr DAILY KIRSTEN Administration Insulin Aspart 20 units 03/13/16 07:00 03/14/16 06:51 Novolog Mix 70/30 Vial SQ 20 units BIDAC KIRSTEN Administration Metoprolol Tartrate 25 mg 03/13/16 10:00 03/14/16 21:59 Lopressor - PO 25 mg BID KIRSTEN Administration Nitroglycerin 0.2 mg 03/14/16 15:30 03/14/16 17:17 Nitro-Dur Patch - TD 0.2 mg DAILY KIRSTEN Administration plan: bgm qid novolog coverage novolog 70/30 bid 20 units social service technician for intermediate project manager care diet consult
[2016-03-15] MEDS: INSULIN (NOVOLOG MIX 70/30) 100 UNITS/ML MDV SQ SCH (07:09)
[2016-03-15 08:36] LABS: CALCIUM 8.4 mg/dL (8.5-10.1); CREATININE 2.1 mg/dL (0.7-1.3)
[2016-03-15] MEDS ORDERED: PT OWN MED DRAWER 7, Y5N ONE ×2 (09:34→09:41)
[2016-03-15] MEDS: APIXABAN 2.5 MG TABLET PO SCH (09:39)
[2016-03-15] MEDS: ASPIRIN COATED 81 MG TABLET.EC PO SCH (09:39)
[2016-03-15] MEDS: METOPROLOL TARTRATE 25 MG TABLET (FP) PO SCH (09:39)
[2016-03-15] MEDS: LEVOFLOXACIN 250 MG IVPB 50 ML IVPB SCH (09:39)
[2016-03-15] MEDS: BUDESONIDE/FORMETEROL FUMARATE 160/4.5 mcg INHALER IH SCH (09:42)
--- NOTE | 2016-03-15 10:07 | DS ---
Physical Examination Vital Signs: Vital Signs Temperature 97.6 F 03/15/16 06:00 Pulse Rate 72 03/15/16 06:00 Respiratory Rate 20 03/15/16 06:00 Blood Pressure 104/68 03/15/16 06:00 O2 Sat by Pulse Oximetry (%) 96 03/14/16 21:00 Labs: CBC, BMP 03/14/16 06:30 03/15/16 06:15 Discharge Summary Reason For Visit: CHF/PNEUMONIA / TYPE II DIABETES LO Current Active Problems CHF (congestive heart failure) (Acute) Pneumonia (Acute) Type 2 diabetes mellitus with diabetic neuropathy, unspecified (Acute) Hospital Course: Mr. Patel is a 80 y/o male witha PMH of HTN, CHF, Afib, DM Type 1 presenting to the ED today complaining of SOB and back pain x one week. He states that he has been having increasing SOB over the past week. The SOB is worse with exertion. He states he also has a productive cough and rhinorrhea. He has had associated back pain over the past week. Denies fevers, chest pain, palpitations , edema, orthopnea, N/V/D, sick contacts and recent travel. He had his flu shot this year. 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 LV CT NO EVIDENCE OF FAILURE monitior lytes and renal function Code(s): I50.9 - HEART FAILURE, UNSPECIFIED Qualifiers: Congestive heart failure type: unspecified congestive heart failure type Congestive heart failure chronicity: acute on chronic Qualified Code(s): I50.9 - Heart failure, unspecified (2) Pneumonia Assessment/Plan: iv abx wbc is trending down Code(s): J18.9 - PNEUMONIA, UNSPECIFIED ORGANISM Qualifiers: Pneumonia type: due to unspecified organism Laterality: right Lung location: upper lobe of lung Qualified Code(s): J18.9 - Pneumonia, unspecified organism (3) Type 2 diabetes mellitus with diabetic neuropathy, unspecified Assessment/Plan: hga1c endo insulin Code(s): E11.40 - TYPE 2 DIABETES MELLITUS WITH DIABETIC NEUROPATHY, UNSP Qualifiers: Diabetes mellitus buttermaker continuous churn insulin use: unspecified custodial insulin use status Qualified Code(s): E11.40 - Type 2 diabetes mellitus with diabetic neuropathy, unspecified (4) Afib Assessment/Plan: eliquis rate control Code(s): I48.91 - UNSPECIFIED ATRIAL FIBRILLATION Qualifiers: Atrial fibrillation type: chronic Qualified Code(s): I48.2 - Chronic atrial fibrillation (5) COPD (chronic obstructive pulmonary disease) Assessment/Plan: bronchodilator oxygen as needed Code(s): J44.9 - CHRONIC OBSTRUCTIVE PULMONARY DISEASE, UNSPECIFIED (6) CKD Assessment/Plan: WORSENING DUE TO DIURETICS DC IV LASIX ON PO CR 2.1 Condition: Improved REFUSING SNF Condition: Improved - Instructions Referrals: Vickey Johnson MD [Primary Care Provider] - 1 Week Disposition: HOME - Home Medications Comprehensive Discharge Medication List: Ambulatory Orders Atorvastatin Ca [Lipitor] 40 mg PO HS tablet 03/01/15 Diltiazem Cd [Cardizem Cd -] 180 mg PO DAILY cap.cd.24h 03/01/15 Insulin (Novolog 70/30) [Novolog Mix 70/30 Vial -] 20 units SQ BIDAC vial 03/01 Metoprolol Tartrate [Lopressor -] 25 mg PO BID tablet 03/01/15 Aspirin [Ecotrin] 81 mg PO DAILY 03/04/15 Apixaban [Eliquis] 2.5 mg PO DAILY 03/12/16 Budesonide/Formeterol Fumarate [SYMBICORT 160/4.5mcg -] 1 inh PO BID 03/12/16 Enalapril Maleate [Vasotec -] 2.5 mg PO DAILY 03/12/16 Furosemide [Lasix -] 20 mg PO DAILY 03/12/16 Nitroglycerin Patch [Nitro-Dur Patch -] 0.2 mg TD DAILY 03/12/16 Levofloxacin [Levaquin -] 250 mg PO DAILY #7 tablet 03/14/16
--- NOTE | 2016-03-15 11:35 | PN ---
Progress Note (short form) - Note Progress Note: Renal Follow up for ABDULLAHI on CKD Pt seen and examined at the bedside no acute complaints Vital Signs Temperature 97.6 F 03/15/16 06:00 Pulse Rate 72 03/15/16 06:00 Respiratory Rate 20 03/15/16 06:00 Blood Pressure 104/68 03/15/16 06:00 O2 Sat by Pulse Oximetry (%) 96 03/14/16 21:00 Gen: NAD, awake and alert CVS: RRR, No M/R Lungs: + fine crackles, no rales Abd: soft NT/ND Ext: trace edema, no clubbing or cyanosis Neuro: No focal defects CBC, BMP 03/14/16 06:30 03/15/16 06:15 Current Medications Acetaminophen (Tylenol -) 650 mg PO Q4H PRN PRN Reason: FEVER OR PAIN Apixaban (Eliquis -) 2.5 mg PO BID [facility] Last Admin: 03/15/16 09:39 Dose: 2.5 mg Aspirin (Ecotrin -) 81 mg PO DAILY [facility] Last Admin: 03/15/16 09:39 Dose: 81 mg Atorvastatin Calcium (Lipitor -) 40 mg PO HS [facility] Last Admin: 03/14/16 21:59 Dose: 40 mg Budesonide/Formoterol Fumarate (Symbicort 160/4.5mcg -) 1 puff IH BID [facility] Last Admin: 03/15/16 09:42 Dose: 1 puff Diltiazem HCl (Cardizem Cd -) 180 mg PO DAILY [facility] Last Admin: 03/15/16 09:40 Dose: 180 mg Furosemide (Lasix -) 20 mg PO DAILY [facility] Last Admin: 03/15/16 09:38 Dose: 20 mg Levofloxacin (Levaquin 250 Mg Premixed Ivpb -) 50 mls @ 50 mls/hr IVPB DAILY [facility] Last Admin: 03/15/16 09:39 Dose: 50 mls/hr Insulin Aspart (Novolog Mix 70/30 Vial) 20 units SQ BIDAC [facility] Last Admin: 03/15/16 07:09 Dose: 20 units Metoprolol Tartrate (Lopressor -) 25 mg PO BID [facility] Last Admin: 03/15/16 09:39 Dose: 25 mg Nitroglycerin (Nitro-Dur Patch -) 0.2 mg TD DAILY [facility] Last Admin: 03/14/16 17:17 Dose: 0.2 mg A/P 80 year old Gentleman with PMhx of CKD Stage 3 (baseline Cr 1.5-1.7), Hypertension, CAD, Pulmonary Hypertension, Afib who presented with complains of cough, chest pain and weakness and admitted for CHF/PNA with BUN/Cr of 5/2.1. #Acute on Chronic Renal Insufficiency Renal US showed showed normal size kidneys with mildly dilated collected system w/o evidence of obstruction. No prostate enlargement. No significnat proteinuria renal function stable during the admission continue oral diuretics continue to hold [place]/ARB Follow up in the office in 1-2 weeks Repeat labs in 1 week avoid nsadis, IV contrast, Fleet enemas #SOB/PNA/CHF Prior echo showed normal LV function but + pulmonary hypertension Continue oral Lasix and Abx as per primary #Hypertension/Afib BP is marginal continue metoprolol/Cardizem for rate control Karel Cisneros DO
[2016-03-15] MEDS: NITROGLYCERIN 0.2 MG/HOUR TD PATCH TD SCH (14:01)
[2016-03-15 14:43] VITALS: BP 124/64; PULSE 73; TEMP 98.3
--- NOTE | 2016-03-18 23:31 | EKG ---
Test Reason : Blood Pressure : / mmHG Vent. Rate : 129 BPM Atrial Rate : 141 BPM P-R Int : 000 ms QRS Dur : 094 ms QT Int : 354 ms P-R-T Axes : 000 -24 -25 degrees QTc Int : 518 ms ATRIAL FIBRILLATION WITH RAPID VENTRICULAR RESPONSE WITH PREMATURE VENTRICULAR OR ABERRANTLY CONDUCTED COMPLEXES INCOMPLETE RIGHT BUNDLE BRANCH BLOCK NONSPECIFIC ST ABNORMALITY ABNORMAL ECG WHEN COMPARED WITH ECG OF 12-MAR-2016 18:13, NO SIGNIFICANT CHANGE WAS FOUND Confirmed by AMISH GONZALEZ MD ([id number]) on 03/18/2016 11:30:57 PM Referred By: Confirmed By:AMISH GONZALEZ MD
== END 2016-03-15 14:53 | disposition home or self-care (01) | DRG 291 ==
LOC: JER 15:58 → JERBED 22:23 → J8W 03-13 15:12
PROVIDERS: ADMIT Family Medicine; ATTEND Family Medicine
DX: I13.0 Hypertensive heart and chronic kidney disease with heart failure and stage 1 through stage 4 chronic kidney disease, or unspecified chronic kidney disease (principal); J18.9 Pneumonia, unspecified organism; N17.9 Acute kidney failure, unspecified; I50.9 Heart failure, unspecified; E11.40 Type 2 diabetes mellitus with diabetic neuropathy, unspecified; I48.2 Chronic atrial fibrillation; J44.9 Chronic obstructive pulmonary disease, unspecified; N18.3 Chronic kidney disease, stage 3 (moderate)
CPT/HCPCS: 36415; 71020-TC; 71250-TC; 76775-TC; 76856-TC; 80048; 80053; 80061; 81003; 81015; 82550; 82570; 83036; 83721; 83735; 83880; 84100; 84156; 84484; 84540; 85025; 87086; 87804; 93005; 93010; 93306-TC; 99282-25

== ENCOUNTER 2016-03-17 10:20 | Emergency (ER) | payer OTHER ==
[2016-03-17 10:42] VITALS: BP 127/61; PULSE 97; TEMP 97.6; BMI 31.7
--- NOTE | 2016-03-17 12:04 | PDOC ---
History of Present Illness <Scott Wakefield - Last Filed: 03/17/16 13:45> - General History Source: Patient, Old Records Exam Limitations: No Limitations - History of Present Illness Initial Comments: 03/17/16 12:28 The patient is a 80 year old male presenting with his daughter, with a significant past medical history of, who presents to the emergency department with left 4th digit pain for a month, swelling for last 5-6 days and a sudden sharp pain from the finger up the wrist and arm onset today. He notes that his pain ranges from mild to moderate, without radiation or modifying factors. He denies taking anything for the pain. He denies any kind of trauma. The patient was recently discharged from the hospital on 03/15/16 after a 3 day stay for pneumonia. The patient denies chest pain, shortness of breath, headache and dizziness. Denies fever, chills, nausea, vomit, diarrhea and constipation. Allergies: None Past surgical history: Cardiac Surgery (sents x4), abdominal hernia Social history: No alcohol, tobacco or drug use reported PMD - Dr. Vickey Johnson <Abdias Jaramillo - Last Filed: 03/17/16 13:54> - General Chief Complaint: Injury Stated Complaint: SWOLLEN LT RING FINGER Time Seen by Provider: 03/17/16 12:03 Past History - Past Medical History Anemia: No Asthma: No Cancer: No Cardiac Disorders: Yes CVA: No COPD: Yes CHF: No Dementia: No Diabetes: Yes GI Disorders: No Disorders: Yes HTN: Yes Hypercholesterolemia: Yes Liver Disease: No Suicide Attempt (Hx): No Seizures: No Thyroid Disease: No - Surgical History Abdominal Surgery: Yes (Hernia repair) Appendectomy: No Cardiac Surgery: Yes (Stents X 4) Cholecystectomy: No Lung Surgery: No Neurologic Surgery: No Orthopedic Surgery: No - Immunization History Td Vaccination: Yes Immunization Up to Date: Yes - Psycho/Social/Smoking Cessation Hx Anxiety: No Suicidal Ideation: No Smoking Status: No Smoking History: Never smoked Years of Tobacco Use: 5 Have you smoked in the past 12 months: No Number of Cigarettes Smoked Daily: 0 If you are a former smoker, when did you quit?: 1956 Cigars Per Day: 4 Information on smoking cessation initiated: No 'Breaking Loose' booklet given: 04/01/15 Hx Alcohol Use: No Drug/Substance Use Hx: No Substance Use Type: None Hx Substance Use Treatment: No <Scott Wakefield - Last Filed: 03/17/16 13:45> <Abdias Jaramillo - Last Filed: 03/17/16 13:54> - Past Medical History Allergies/Adverse Reactions: Allergies Allergy/AdvReac Type Severity Reaction Status Date / Time No Known Allergies Allergy Verified 03/17/16 10:39 Home Medications: Ambulatory Orders Atorvastatin Ca [Lipitor] 40 mg PO HS tablet 03/01/15 Diltiazem Cd [Cardizem Cd -] 180 mg PO DAILY cap.cd.24h 03/01/15 Insulin (Novolog 70/30) [Novolog Mix 70/30 Vial -] 20 units SQ BIDAC vial 03/01 Metoprolol Tartrate [Lopressor -] 25 mg PO BID tablet 03/01/15 Aspirin [Ecotrin] 81 mg PO DAILY 03/04/15 Apixaban [Eliquis] 2.5 mg PO DAILY 03/12/16 Budesonide/Formeterol Fumarate [SYMBICORT 160/4.5mcg -] 1 inh PO BID 03/12/16 Enalapril Maleate [Vasotec -] 2.5 mg PO DAILY 03/12/16 Furosemide [Lasix -] 20 mg PO DAILY 03/12/16 Nitroglycerin Patch [Nitro-Dur Patch -] 0.2 mg TD DAILY 03/12/16 Levofloxacin [Levaquin -] 250 mg PO DAILY #7 tablet 03/14/16 Indomethacin [Indocin -] 50 mg PO BID #14 capsule 03/17/16 Review of Systems - Review of Systems Constitutional: No: Chills, Fever Musculoskeletal: Yes: See HPI, Joint Pain Neurological: No: Tingling, Weakness <Scott Wakefield - Last Filed: 03/17/16 13:45> - Review of Systems Able to Perform ROS?: Yes <Abdias Jaramillo - Last Filed: 03/17/16 13:54> *Physical Exam - Vital Signs Last Vital Signs Temp Pulse Resp BP Pulse Ox 97.6 F 97 H 19 127/61 99 03/17/16 10:39 03/17/16 10:39 03/17/16 10:39 03/17/16 10:39 03/17/16 10:39 <Scott Wakefield - Last Filed: 03/17/16 13:45> - Vital Signs Last Vital Signs Temp Pulse Resp BP Pulse Ox 97.6 F 97 H 19 127/61 99 03/17/16 10:39 03/17/16 10:39 03/17/16 10:39 03/17/16 10:39 03/17/16 10:39 - Physical Exam Comments: 03/17/16 12:28 GENERAL: The patient is awake, alert, and fully oriented, in no acute distress. HEAD: Normal with no signs of trauma. EYES: Pupils equal, round and reactive to light, extraocular movements intact, sclera anicteric, conjunctiva clear. EXTREMITIES: +Arthritic changes in both hands in joints PIP and CIP, calcified deposits at DIP joint throughout. Left 4th digit soft tissue swelling and redness, no tracing cellulitis. No focal joint effusion, neurovascularly intact , limited flexion of the left 4th PIP due to swelling. Reproducible tenderness proximal phalange, no obvious deformity. NEUROLOGICAL: Normal speech, normal gait. PSYCH: Normal mood, normal affect. SKIN: Warm, Dry, normal turgor, no rashes or lesions noted. <Abdias Jaramillo - Last Filed: 03/17/16 13:54> ED Treatment Course - RADIOLOGY Radiograph Interpretation: 03/17/16 13:53 Left hand X-Ray Reviewed by: Dr. Hector Morris Impression: Focal erosive changes at the ulnar aspect of the head of the proximal phalanx of the fourth digit with soft tissue swelling about the PIP joint of the 4th digit. <Abdias Jaramillo - Last Filed: 03/17/16 13:54> Medical Decision Making - Medical Decision Making 03/17/16 12:16 A portion of this note was documented by scribe services under my direction. I have reviewed the details of the note, within reason, and agree with the documentation with the following case summary and management plan written by me. 80-year-old male with multiple medical problems, recent admission for pneumonia with CHF exacerbation status post discharge on 03/15 presents to the ED complaining of left fourth digit pain for one month and swelling for 5 days, did not have an evaluation while in inpatient. Patient states he fell about one month ago prior to the onset of the pain, has not taken anything for pain, denies any tracking cellulitis or fevers or chills or discharge. Afebrile. Exam as noted with swollen and tender left fourth digit, no expanding cellulitis or warmth or discharge. Patient has chronic changes in his hands consistent with rheumatoid arthritis. 80-year-old male with left fourth digit pain, question arthritis flare versus old traumatic injury. Neurovascular intact. No evidence of cellulitis or septic joint. Left hand x-ray Declines pain medicine Reassess and dispo 03/17/16 13:22 On my preliminary review of the x-ray, there is extensive arthritic changes but no obvious fracture. Patient is on antibiotics at home, will continue for pneumonia. Offered splint for comfort but declined. Accepted naproxen for pain control. Recommend ice and elevation, nsaid course - would avoid steroids given his diabetes. Hand follow-up, understands return criteria. 03/17/16 13:46 Reviewed with radiologist, ? erosive arthritis but head of proximal phalanx of L 4th digit does have suggestion of gout or infection. Again, given the chronicity of the complaint, much more likely inflammatory process especially since he's been on course of antibiotics without improvement. Will treat with anti-inflammatory, refer to rheumatology. Understands return criteria. <Scott Wakefield - Last Filed: 03/17/16 13:45> *DC/Admit/Observation/Transfer <Scott Wakefield - Last Filed: 03/17/16 13:45> - Attestations Scribe Attestion: 03/17/16 12:29 Documentation prepared by Abdias Jaramillo, acting as medical delivery driver for Scott Wakefield MD. <Abdias Jaramillo - Last Filed: 03/17/16 13:54> Diagnosis at time of Disposition: Pain in finger of left hand Rheumatoid arthritis Qualifiers: Rheumatoid arthritis location: hand Rheumatoid factor presence: unspecified presence Laterality: bilateral Qualified Code(s): M06.9 - Rheumatoid arthritis, unspecified - Discharge Dispostion Disposition: HOME Condition at time of disposition: Stable - Prescriptions Prescriptions: Indomethacin [Indocin -] 50 mg PO BID #14 capsule - Referrals Referrals: Vickey Johnson MD [Primary Care Provider] - Braydon Ballesteros MD [Staff Physician] - - Patient Instructions Printed Discharge Instructions: DI for Rheumatoid Arthritis Additional Instructions: Activity as tolerated. Stay hydrated. Your symptoms are likely due to arthritis in the hand joints, possibly worsened by the recent injury or pneumonia. Tylenol 1000 mg every 8 hours and/or naproxen 400 mg every 8 hours as needed for pain. Ice and elevate the affected areas for 20 minutes every 3-4 hours to reduce swelling. Continue your medications as previously prescribed by your physician. You should follow up with your primary doctor as soon as possible regarding today's emergency department visit. You should also see a hand specialist, consider calling Dr. Ballesteros. Return to the emergency department for any new or concerning symptoms, particularly persistent or worsening redness or swelling, fevers or chills, pus or bleeding, weakness.
[2016-03-17] MEDS ORDERED: NAPROXEN 500 MG TABLET (FP) PO ONE (13:08)
[2016-03-17] MEDS ORDERED: NAPROXEN 500 MG TABLET (FP) ONE (13:13)
== END 2016-03-17 13:53 | disposition home or self-care (01) ==
LOC: JERFT 10:20 → JER 10:20
DX: M06.842 Other specified rheumatoid arthritis, left hand (principal); I25.10 Atherosclerotic heart disease of native coronary artery without angina pectoris; I10 Essential (primary) hypertension; Z95.5 Presence of coronary angioplasty implant and graft; E11.9 Type 2 diabetes mellitus without complications; Z79.4 Long term (current) use of insulin; E78.00 Pure hypercholesterolemia, unspecified
CPT/HCPCS: 73130-TC-LT; 99281-25

== ENCOUNTER 2016-07-03 17:44 | Inpatient (IN) | payer OTHER ==
[2016-07-03] MEDS ORDERED: SODIUM CHLORIDE 0.9% 1000 ML INFUS.BAG IV PRN (19:34)
[2016-07-03 20:10] LABS: VENOUS BLOOD GAS HCO3 27.9 meq/L (19-25); VENOUS PH 7.41 (7.32-7.42)
[2016-07-03 20:14] LABS: EOSINOPHIL 4.3 % (0-4.5); MCH 27.8 pg (25.7-33.7); MCHC 32.8 g/dl (32.0-35.9); MEAN CELL VOLUME 84.7 fl (80-96); MEAN PLT VOLUME 10.3 fl (7.5-11.1); NEUTROPHILS 68.6 % (42.8-82.8); PLATELET COUNT 130 K/MM3 (134-434); RDW 15.9 % (11.9-15.9); WHITE BLOOD COUNT 10.2 K/mm3 (4.0-10.0)
[2016-07-03] MEDS ORDERED: ACETAMINOPHEN 1000 MG/100 ML VIAL (NON FORMULARY) IVPB ONE (20:33)
[2016-07-03 20:36] LABS: INR 1.28 (0.82-1.09); PROTHROMBIN TIME (PATIENT) 14.2 SEC (9.98-11.88)
[2016-07-03 20:39] LABS: ACTIVATED PTT 38.1 SECONDS (26.9-34.4)
[2016-07-03 20:44] LABS: ALBUMIN 3.5 g/dl (3.4-5.0); ANION GAP 10 (8-16); CALCIUM 8.8 mg/dL (8.5-10.1); CO2 28 mmol/L (21-32); COCKROFT - GAULT 44.02; CREATININE 1.7 mg/dL (0.7-1.3); GLUCOSE,RANDOM 105 mg/dL (74-106); SGOT/AST 20 U/L (15-37); SGPT/ALT 20 U/L (12-78)
[2016-07-03 20:47] LABS: ALK PHOS 137 U/L (45-117); BILIRUBIN,TOTAL 1.7 mg/dL (0.2-1.0); TOT PROT 7.3 g/dl (6.4-8.2); TROPONIN I < 0.02 ng/ml (0.00-0.05)
[2016-07-03] MEDS ORDERED: ACETAMINOPHEN INJECTION 100 ML IVPB ONE (20:55)
--- NOTE | 2016-07-03 21:39 | PDOC ---
History of Present Illness - General Chief Complaint: Cold Symptoms Stated Complaint: WEAKNESS Time Seen by Provider: 07/03/16 19:30 - History of Present Illness Initial Comments: 07/03/16 22:34 CHIEF COMPLAINT: cough, SOB HISTORY OF PRESENT ILLNESS: 80 yo M with hx of HTN, CHF, Afib, DM Type 1 presents to ED with shortness of breath and cough since yesterday. Patient reports feeling chills but is unsure of any fever. He denies any chest pain or palpitations. No recent travel or sick contacts. PAST MEDICAL HISTORY: Denies past medical history FAMILY HISTORY: Denies SOCIAL HISTORY: Former smoker. SURGICAL HISTORY: Denies ALLERGIES: No known drug allergies REVIEW OF SYSTEMS General/Constitutional: Chills, weakness. Denies weight change. HEENT: Denies change in vision. Denies ear pain or discharge. Denies sore throat. Cardiovascular: Denies chest pain. Respiratory: Cough, SOB. Denies wheezing, or hemoptysis. Gastrointestinal: Denies nausea, vomiting, diarrhea or constipation. Denies rectal bleeding. Genitourinary: Denies dysuria, frequency, or change in urination. Musculoskeletal: Denies joint or muscle swelling or pain. Denies neck or back pain. Skin and breasts: Denies rash or easy bruising. PHYSICAL EXAM General Appearance: Well-appearing, appropriately dressed. No apparent distress , no intoxication. HEENT: EOMI, PERRLA, normal ENT inspection, normal voice, TMs normal, pharynx normal. No conjunctival pallor. No photophobia, scleral icterus. Respiratory/Chest: Minimally decreased lung sounds to LLL. No wheezing, crackles appreciated. Cardiovascular: RRR. S1, S2. Gastrointestinal/Abdominal: Normal bowel sounds. Abdomen soft, non-distended. No tenderness or rebound tenderness. No organomegaly, pulsatile mass, guarding , hernia, hepatomegaly, splenomegaly. Musculoskeletal/Extremities: Normal inspection. FROM of all extremities, normal capillary refill. Pelvis Stable. No CVA tenderness. No tenderness to extremities, pedal edema, swelling, erythema or deformity. Integumentary: Appropriate color, dry, warm. 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 Fully oriented, alert. Appropriate mood/affect. Motor strength 5/5. No appreciable EOM palsy, facial droop or sensory deficit. 07/04/16 00:11 Past History - Past Medical History Allergies/Adverse Reactions: Allergies Allergy/AdvReac Type Severity Reaction Status Date / Time No Known Allergies Allergy Verified 07/03/16 17:56 Home Medications: Ambulatory Orders Atorvastatin Ca [Lipitor] 40 mg PO HS tablet 03/01/15 Insulin (Novolog 70/30) [Novolog Mix 70/30 Vial -] 20 units SQ BIDAC vial 03/01 Metoprolol Tartrate [Lopressor -] 25 mg PO BID tablet 03/01/15 Aspirin [Ecotrin] 81 mg PO DAILY 03/04/15 Apixaban [Eliquis] 2.5 mg PO DAILY 03/12/16 Budesonide/Formeterol Fumarate [SYMBICORT 160/4.5mcg -] 1 inh PO BID 03/12/16 Enalapril Maleate [Vasotec -] 2.5 mg PO DAILY 03/12/16 Furosemide [Lasix -] 40 mg PO DAILY 03/12/16 Nitroglycerin Patch [Nitro-Dur Patch -] 0.2 mg TD DAILY 03/12/16 Anemia: No Asthma: No Cancer: No Cardiac Disorders: Yes CVA: No COPD: Yes CHF: No Dementia: No Diabetes: Yes GI Disorders: No Disorders: Yes HTN: Yes Hypercholesterolemia: Yes Liver Disease: No Suicide Attempt (Hx): No Seizures: No Thyroid Disease: No - Surgical History Abdominal Surgery: Yes (Hernia repair) Appendectomy: No Cardiac Surgery: Yes (Stents X 4) Cholecystectomy: No Lung Surgery: No Neurologic Surgery: No Orthopedic Surgery: No - Immunization History Td Vaccination: Yes Immunization Up to Date: Yes - Psycho/Social/Smoking Cessation Hx Anxiety: No Suicidal Ideation: No Smoking Status: No Smoking History: Never smoked Years of Tobacco Use: 5 Have you smoked in the past 12 months: No Number of Cigarettes Smoked Daily: 0 If you are a former smoker, when did you quit?: 1955 Cigars Per Day: 4 'Breaking Loose' booklet given: 04/01/15 Hx Alcohol Use: No Drug/Substance Use Hx: No Substance Use Type: None Hx Substance Use Treatment: No *Physical Exam - Vital Signs Last Vital Signs Temp Pulse Resp BP Pulse Ox 101 F H 109 H 18 116/59 97 07/03/16 20:15 07/03/16 17:56 07/03/16 17:56 07/03/16 17:56 07/03/16 17:56 ED Treatment Course - LABORATORY CBC & Chemistry Diagram: 07/03/16 20:00 07/03/16 20:00 - ADDITIONAL ORDERS Additional order review: Laboratory Results 07/03/16 07/03/16 07/03/16 20:07 20:00 20:00 INR PTT (Actin FS) VBG pH POC VBG pCO2 POC VBG pO2 Mixed VBG HCO3 Sodium 141 Potassium 4.0 Chloride 103 Carbon Dioxide 28 D Anion Gap 10 BUN 27 H D Creatinine 1.7 H Creat Clearance w eGFR 38.97 Random Glucose 105 D Lactic Acid 1.466 Calcium 8.8 Total Bilirubin 1.7 H D AST 20 ALT 20 Alkaline Phosphatase 137 H Creatine Kinase 82 Troponin I < 0.02 Total Protein 7.3 D Albumin 3.5 D Blood Type Cancelled Antibody Screen Cancelled Spec Expiration Date Cancelled 07/03/16 07/03/16 20:00 20:00 INR 1.28 H PTT (Actin FS) 38.1 H VBG pH 7.41 POC VBG pCO2 45.2 POC VBG pO2 39.3 Mixed VBG HCO3 27.9 H Sodium Potassium Chloride Carbon Dioxide Anion Gap BUN Creatinine Creat Clearance w eGFR Random Glucose Lactic Acid Calcium Total Bilirubin AST ALT Alkaline Phosphatase Creatine Kinase Troponin I Total Protein Albumin Blood Type Antibody Screen Spec Expiration Date 07/03/16 20:00 RBC 5.69 H MCV 84.7 MCHC 32.8 RDW 15.9 MPV 10.3 Neutrophils % 68.6 Lymphocytes % 14.4 D Monocytes % 11.7 H Eosinophils % 4.3 Basophils % 1.0 - RADIOLOGY Radiology Studies Ordered: Category Date Time Status CHEST X-RAY PORTABLE* [RAD] Stat Radiology 07/03/16 19:34 Taken Medical Decision Making - Medical Decision Making 07/03/16 22:34 80 yo M with hx of HTN, CHF, Afib, DM presents to ED with shortness of breath and cough x 2 days. Vital signs notable for HR 109. Full sepsis workup. Rectal temp 101F. Chest x-ray with congestion to left lower lobe, possible pneumonia vs radiology read of pericardial effusion or cardiomegaly. Patient meets sepsis criteria, will admit for inpatient services. Labs. WBC 10.6, creatinine 1.7 (at baseline), BNP 2300 (decreased from prior 2 levels of 5000+) -Levaquin 500 mg IV Discussed case with admitting MD Zambrano who accepts patient for inpatient services. *DC/Admit/Observation/Transfer Diagnosis at time of Disposition: Cough, Diabetes, Pneumonia CHF (congestive heart failure) Qualifiers: Congestive heart failure type: unspecified congestive heart failure type Congestive heart failure chronicity: acute on chronic Qualified Code(s): I50.9 - Heart failure, unspecified - Discharge Dispostion Admit: Yes - Referrals
[2016-07-03 22:57] LABS: URINE APPEARANCE CLEAR; URINE BILIRUBIN NEGATIVE (NEGATIVE); URINE COLOR STRAW; URINE GLUCOSE (UA) NEGATIVE (NEGATIVE); URINE KETONE NEGATIVE (NEGATIVE); URINE LEUK ESTERASE NEGATIVE (NEGATIVE); URINE NITRITE NEGATIVE (NEGATIVE); URINE PROTEIN NEGATIVE (NEGATIVE); URINE UROBILINOGEN NEGATIVE E.U./dl (0.2-1.0)
[2016-07-03] MEDS ORDERED: LEVOFLOXACIN 500 MG IVPB 100 ML IVPB ONE ×2 (23:11→23:18)
[2016-07-03 23:18] LABS: URINE BLOOD 1+ (NEGATIVE)
[2016-07-03 23:20] LABS: URINE HYALINE CAST 6 /lpf; URINE MUCUS RARE; URINE RBC 1 /hpf (0-3); URINE WBC 1 /hpf (3-5)
[2016-07-04] MEDS ORDERED: ACETAMINOPHEN 325 MG TABLET (FP) PO PRN (01:42)
--- NOTE | 2016-07-04 01:47 | PDOC ---
*Physical Exam - Vital Signs Last Vital Signs Temp Pulse Resp BP Pulse Ox 97.8 F 80 20 107/76 97 07/04/16 01:35 07/04/16 01:35 07/04/16 01:35 07/04/16 01:35 07/03/16 23:14 ED Treatment Course - LABORATORY CBC & Chemistry Diagram: 07/03/16 20:00 07/03/16 20:00 - ADDITIONAL ORDERS Additional order review: Laboratory Results 07/03/16 07/03/16 07/03/16 22:45 22:30 20:46 INR PTT (Actin FS) VBG pH POC VBG pCO2 POC VBG pO2 Mixed VBG HCO3 Sodium Potassium Chloride Carbon Dioxide Anion Gap BUN Creatinine Creat Clearance w eGFR Random Glucose Lactic Acid Calcium Total Bilirubin AST ALT Alkaline Phosphatase Creatine Kinase Troponin I B-Natriuretic Peptide 2301.04 H Total Protein Albumin Urine Color Straw Urine Appearance Clear Urine pH 5.0 Urine Protein Negative Urine Glucose (UA) Negative Urine Ketones Negative Urine Blood 1+ H Urine Nitrite Negative Urine Bilirubin Negative Urine Urobilinogen Negative Ur Leukocyte Esterase Negative Urine RBC 1 Urine WBC 1 Hyaline Casts 6 Urine Mucus Rare Blood Type A NEGATIVE Antibody Screen Negative Spec Expiration Date 07/03/16 07/03/16 07/03/16 20:07 20:00 20:00 INR PTT (Actin FS) VBG pH POC VBG pCO2 POC VBG pO2 Mixed VBG HCO3 Sodium 141 Potassium 4.0 Chloride 103 Carbon Dioxide 28 D Anion Gap 10 BUN 27 H D Creatinine 1.7 H Creat Clearance w eGFR 38.97 Random Glucose 105 D Lactic Acid 1.466 Calcium 8.8 Total Bilirubin 1.7 H D AST 20 ALT 20 Alkaline Phosphatase 137 H Creatine Kinase 82 Troponin I < 0.02 B-Natriuretic Peptide Total Protein 7.3 D Albumin 3.5 D Urine Color Urine Appearance Urine pH Urine Protein Urine Glucose (UA) Urine Ketones Urine Blood Urine Nitrite Urine Bilirubin Urine Urobilinogen Ur Leukocyte Esterase Urine RBC Urine WBC Hyaline Casts Urine Mucus Blood Type Cancelled Antibody Screen Cancelled Spec Expiration Date Cancelled 07/03/16 07/03/16 20:00 20:00 INR 1.28 H PTT (Actin FS) 38.1 H VBG pH 7.41 POC VBG pCO2 45.2 POC VBG pO2 39.3 Mixed VBG HCO3 27.9 H Sodium Potassium Chloride Carbon Dioxide Anion Gap BUN Creatinine Creat Clearance w eGFR Random Glucose Lactic Acid Calcium Total Bilirubin AST ALT Alkaline Phosphatase Creatine Kinase Troponin I B-Natriuretic Peptide Total Protein Albumin Urine Color Urine Appearance Urine pH Urine Protein Urine Glucose (UA) Urine Ketones Urine Blood Urine Nitrite Urine Bilirubin Urine Urobilinogen Ur Leukocyte Esterase Urine RBC Urine WBC Hyaline Casts Urine Mucus Blood Type Antibody Screen Spec Expiration Date 07/03/16 20:00 RBC 5.69 H MCV 84.7 MCHC 32.8 RDW 15.9 MPV 10.3 Neutrophils % 68.6 Lymphocytes % 14.4 D Monocytes % 11.7 H Eosinophils % 4.3 Basophils % 1.0 - Medications Given in the ED: ED Medications Discontinued Medications Generic Name Dose Route Start Last Admin Trade Name Freq PRN Reason Stop Dose Admin Acetaminophen 1,000 mg 07/03/16 20:33 07/03/16 21:02 Ofirmev Injection - IVPB 07/03/16 20:34 1,000 mg ONCE ONE Administration Levofloxacin 100 mls @ 100 mls/hr 07/03/16 23:11 07/03/16 23:22 Levaquin 500 Mg Premixed Ivpb - IVPB 07/04/16 00:10 100 mls/hr ONCE ONE Administration Medical Decision Making - Medical Decision Making 07/04/16 01:47 agree with care from SURJIT Martinez *DC/Admit/Observation/Transfer Diagnosis at time of Disposition: Cough, Diabetes, Pneumonia CHF (congestive heart failure) Qualifiers: Congestive heart failure type: unspecified congestive heart failure type Congestive heart failure chronicity: acute on chronic Qualified Code(s): I50.9 - Heart failure, unspecified
[2016-07-04 03:47] VITALS: BMI 33.3
[2016-07-04] MEDS: SODIUM CHLORIDE 0.45%/POT 1,000 ML IV SCH ×2 (05:52→22:52)
[2016-07-04] MEDS: INSULIN (NOVOLOG MIX 70/30) 100 UNITS/ML MDV SQ SCH ×2 (06:51→18:09)
[2016-07-04] MEDS: INSULIN SLIDING SCALE (NOVOLOG) 1 VIAL SQ SCH ×4 (06:53→21:54)
--- NOTE | 2016-07-04 08:57 | HP ---
Admitting History and Physical - Primary Care Physician PCP: Vannesa Zambrano - Admission Chief Complaint: DYSPNEA/COUGH History of Present Illness: 80 Y/O MALE HISTORY OF DM,HTN, FORMER TOBACCO USER COPD HERE WITH SOB/DYSPNEA WITH A COUGH FOR 2 DAYS WORSENED YESTERDAY AND CAME TO ED FOUND TO HAVE ELEVATED BNP, LAST ECHO 2015 EF 63% WITH MITRAL REGURGE AND HIGH RIGHT SIDED PRESSURES. 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 No: CHF Pulmonary: Yes: Bronchitis, COPD Gastrointestinal: Yes: Irritable Bowel Disease Infectious Disease: Yes: Other (INFECTED FOOT) Musculoskeletal: Yes: Other (RECURRENT FOOT INFECTION) Endocrine: Yes: Diabetes Mellitus - Past Surgical History Past Surgical History: Yes: Colonoscopy - Smoking History Smoking history: Never smoked Have you smoked in the past 12 months: No Aproximately how many cigarettes per day: 0 If you are a former smoker, when did you quit?: 1955 - Alcohol/Substance Use Hx Alcohol Use: No Home Medications - Allergies Allergies/Adverse Reactions: Allergies Allergy/AdvReac Type Severity Reaction Status Date / Time No Known Allergies Allergy Verified 07/03/16 17:56 - Home Medications Home Medications: Ambulatory Orders Atorvastatin Ca [Lipitor] 40 mg PO HS tablet 03/01/15 Insulin (Novolog 70/30) [Novolog Mix 70/30 Vial -] 20 units SQ BIDAC vial 03/01 Metoprolol Tartrate [Lopressor -] 25 mg PO BID tablet 03/01/15 Aspirin [Ecotrin] 81 mg PO DAILY 03/04/15 Apixaban [Eliquis] 2.5 mg PO DAILY 03/12/16 Budesonide/Formeterol Fumarate [SYMBICORT 160/4.5mcg -] 1 inh PO BID 03/12/16 Enalapril Maleate [Vasotec -] 2.5 mg PO DAILY 03/12/16 Furosemide [Lasix -] 40 mg PO DAILY 03/12/16 Nitroglycerin Patch [Nitro-Dur Patch -] 0.2 mg TD DAILY 03/12/16 Family Disease History - Family Disease History Family Disease History: Heart Disease: Father, Mother Review of Systems - Review of Systems Constitutional: reports: Weakness Eyes: reports: No Symptoms HENT: reports: No Symptoms Neck: reports: No Symptoms Cardiovascular: reports: Shortness of Breath Respiratory: reports: Cough, Orthopnea, SOB Gastrointestinal: reports: No Symptoms Genitourinary: reports: No Symptoms Musculoskeletal: reports: Muscle Weakness Integumentary: reports: No Symptoms Neurological: reports: No Symptoms Endocrine: reports: No Symptoms Hematology/Lymphatic: reports: No Symptoms Psychiatric: reports: No Symptoms Physical Examination Vital Signs: Vital Signs Temperature 97.9 F 07/04/16 03:32 Pulse Rate 80 07/04/16 01:35 Respiratory Rate 20 07/04/16 03:32 Blood Pressure 108/71 07/04/16 03:32 O2 Sat by Pulse Oximetry (%) 97 07/04/16 03:32 Constitutional: Yes: Moderate Distress Eyes: Yes: WNL HENT: Yes: WNL Neck: Yes: WNL Cardiovascular: Yes: Murmur, Other Respiratory: Yes: Cough, Diminished, On Nasal O2, Poor Air Entry, SOB, SOB on Exertion Gastrointestinal: Yes: WNL Renal/: Yes: WNL Musculoskeletal: Yes: Muscle Weakness Extremities: Yes: WNL Edema: No Peripheral Pulses WNL: Yes Integumentary: Yes: WNL Wound/Incision: Yes: Clean/Dry Neurological: Yes: WNL ...Motor Strength: WNL Psychiatric: Yes: WNL Imaging - Results Chest X-ray: Report Reviewed Problem List - Problems (1) CHF (congestive heart failure) Code(s): I50.9 - HEART FAILURE, UNSPECIFIED Qualifiers: Congestive heart failure type: unspecified congestive heart failure type Congestive heart failure chronicity: acute on chronic Qualified Code(s): I50.9 - Heart failure, unspecified (2) Cough Code(s): R05 - COUGH (3) Diabetes Code(s): E11.9 - TYPE 2 DIABETES MELLITUS WITHOUT COMPLICATIONS Qualifiers: Diabetes mellitus complication status: with neurologic complications (4) Pneumonia Code(s): J18.9 - PNEUMONIA, UNSPECIFIED ORGANISM (5) Afib Code(s): I48.91 - UNSPECIFIED ATRIAL FIBRILLATION Qualifiers: (6) Bacteremia Code(s): R78.81 - BACTEREMIA (7) CAD (coronary artery disease) Code(s): I25.10 - ATHSCL HEART DISEASE OF [place] CORONARY ARTERY W/O ANG PCTRS (8) CHF exacerbation Code(s): I50.9 - HEART FAILURE, UNSPECIFIED (9) COPD (chronic obstructive pulmonary disease) Code(s): J44.9 - CHRONIC OBSTRUCTIVE PULMONARY DISEASE, UNSPECIFIED (10) Diabetes 1.5, managed as type 2 Code(s): E13.9 - OTHER SPECIFIED DIABETES MELLITUS WITHOUT COMPLICATIONS (11) Renal insufficiency Code(s): N28.9 - DISORDER OF KIDNEY AND URETER, UNSPECIFIED (12) Shortness of breath on exertion Code(s): R06.02 - SHORTNESS OF BREATH (13) Type 2 diabetes mellitus with diabetic neuropathy, unspecified Code(s): E11.40 - TYPE 2 DIABETES MELLITUS WITH DIABETIC NEUROPATHY, UNSP Assessment/Plan CARDIOLOGY/PULMONARY EVAL CONSULTED NEBS LASIX GENTLY WILL NEED SPIRIVA OUTPATIENT TO AVOID EXACERBATIONS OF COPD WEIGHT AND FLUID MANAGEMENT DIETARY CONSULT DAILY WEIGHTS 02 SUPPORT IV ABX CEFTRIAXONE/AZITHRO
--- NOTE | 2016-07-04 09:36 | CON.CARD ---
Consult Consult Specialty:: cardiology Referred by:: chris Reason for Consultation:: SOB - History of Present Illness Chief Complaint: sob/cough History of Present Illness: 80 year old male with a pmhx of dm, htn, ex-tobacco use, copd, and afib on apixaban who presents with dyspnea and cough. As per the patient, the last 2-3 days has been having progressively worse dry cough and sob. Feels like he just can't do much. Denies any chest pain or palpitations. No pnd, orthopnea, or edema. Denies fever but temp 101 on admission. Echo: nl rv/lv size and systolic function, mild lad, trace MR, RVSP 30-40mmHg, mod TR. 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 No: CHF Pulmonary: Yes: Bronchitis, COPD Gastrointestinal: Yes: Irritable Bowel Disease Infectious Disease: Yes: Other (INFECTED FOOT) Musculoskeletal: Yes: Other (RECURRENT FOOT INFECTION) Endocrine: Yes: Diabetes Mellitus - Past Surgical History Past Surgical History: Yes: Colonoscopy - Alcohol/Substance Use Hx Alcohol Use: No - Smoking History Smoking history: Never smoked Have you smoked in the past 12 months: No Aproximately how many cigarettes per day: 0 If you are a former smoker, when did you quit?: 1955 Home Medications - Allergies Allergies/Adverse Reactions: Allergies Allergy/AdvReac Type Severity Reaction Status Date / Time No Known Allergies Allergy Verified 07/03/16 17:56 - Home Medications Home Medications: Ambulatory Orders Atorvastatin Ca [Lipitor] 40 mg PO HS tablet 03/01/15 Insulin (Novolog 70/30) [Novolog Mix 70/30 Vial -] 20 units SQ BIDAC vial 03/01 Metoprolol Tartrate [Lopressor -] 25 mg PO BID tablet 03/01/15 Aspirin [Ecotrin] 81 mg PO DAILY 03/04/15 Apixaban [Eliquis] 2.5 mg PO DAILY 03/12/16 Budesonide/Formeterol Fumarate [SYMBICORT 160/4.5mcg -] 1 inh PO BID 03/12/16 Enalapril Maleate [Vasotec -] 2.5 mg PO DAILY 03/12/16 Furosemide [Lasix -] 40 mg PO DAILY 03/12/16 Nitroglycerin Patch [Nitro-Dur Patch -] 0.2 mg TD DAILY 03/12/16 Family Disease History - Family Disease History Family Disease History: Heart Disease: Father, Mother Vital Signs: Vital Signs Temperature 97.9 F 07/04/16 03:32 Pulse Rate 80 07/04/16 01:35 Respiratory Rate 20 07/04/16 03:32 Blood Pressure 108/71 07/04/16 03:32 O2 Sat by Pulse Oximetry (%) 97 07/04/16 03:32 Constitutional: Yes: No Distress Neck: Yes: WNL, Supple Respiratory: Yes: CTA Bilaterally Gastrointestinal: Yes: Normal Bowel Sounds, Soft Cardiovascular: Yes: Tachycardia, Pulse Irregular JVD: No Carotid Bruit: No Heart Sounds: Yes: S1, S2 Edema: No - Other Data Labs, Other Data: INR, PTT INR 1.28 (0.82-1.09) H 07/03/16 20:00 Echo: Report Reviewed Imaging - Results Chest X-ray: Report Reviewed Problem List - Problems (1) CHF (congestive heart failure) Code(s): I50.9 - HEART FAILURE, UNSPECIFIED Qualifiers: Congestive heart failure type: unspecified congestive heart failure type Congestive heart failure chronicity: acute on chronic Qualified Code(s): I50.9 - Heart failure, unspecified (2) Afib Code(s): I48.91 - UNSPECIFIED ATRIAL FIBRILLATION Qualifiers: Assessment/Plan 80 year old male with a pmhx of dm, htn, ex-tobacco use, copd, diastolic chf, and afib on apixaban who presents with dyspnea and cough. As per the patient, the last 2-3 days has been having progressively worse dry cough and sob. Feels like he just can't do much. Denies any chest pain or palpitations. No pnd, orthopnea, or edema. Denies fever but temp 101 on admission. Echo: nl rv/lv size and systolic function, mild lad, trace MR, RVSP 30-40mmHg, mod TR. CXF: no pna or chf 1) Dyspnea/sob -patient with history of diastolic chf and copd. Pulmonary evaluation for possible copd Patient's bnp level mildly elevated in but physical exam is not impressive for volume overload and no chf on cxray. Mild pulmonary htn on past echo. -Would continue PO furosemide 40mg daily. Would stop IVF's if giving furosemide -Patient reports recent stress test at his private doctors office. Says he was told it was fine but consider getting results. -Please get an ekg as patients is tachycardic on exam and if in afib rvr may be contributing to his current condition. If significant afib with rvr on ekg than would transfer to tele. 2) Afib -continue home low dose metoprolol On apixaban 2.5mg bid -EKG to assess HR patients is tachycardic on exam and if in afib rvr may be contributing to his current condition. If significant afib with rvr on ekg than would transfer to tele If significant tachycardia than would stop enalapril and increase metoprolol dose
[2016-07-04] MEDS ORDERED: CEFTRIAXONE 1 GM in DEXTROSE 5%-WATER - 100 ML IVPB SCH (10:00)
[2016-07-04] MEDS: PANTOPRAZOLE 40 MG TABLET (FP) PO SCH (10:37)
[2016-07-04] MEDS: cefTRIAXone 1 GM/50 ML BAG (PRE-DOCKED) IVPB SCH (10:37)
[2016-07-04] MEDS: FUROSEMIDE 40 MG TABLET (FP) PO SCH (10:37)
[2016-07-04] MEDS: METOPROLOL TARTRATE 25 MG TABLET (FP) PO SCH ×2 (10:37→21:49)
[2016-07-04] MEDS: ASPIRIN COATED 81 MG TABLET.EC PO SCH (10:37)
[2016-07-04] MEDS ORDERED: PT OWN MED DRAWER 7, Y5N ONE ×2 (11:14→20:43)
--- NOTE | 2016-07-04 13:11 | PN ---
Progress Note, Physician Chief Complaint: ID Full note dictated Feeling better Denies SOB fever minimal couph - Current Medication List Current Medications: Active Medications Acetaminophen (Tylenol -) 650 mg PO Q4H PRN PRN Reason: FEVER OR PAIN Apixaban (Eliquis -) 2.5 mg PO BID [facility] Aspirin (Ecotrin -) 81 mg PO DAILY [facility] Last Admin: 07/04/16 10:37 Dose: 81 mg Atorvastatin Calcium (Lipitor -) 40 mg PO HS [facility] Budesonide/Formoterol Fumarate (Symbicort 160/4.5mcg -) 1 puff IH BID [facility] Ceftriaxone Sodium (Rocephin 1gm Ivpb (Pre-Docked)) 1 gm IVPB DAILY [facility] Last Admin: 07/04/16 10:37 Dose: 1 gm Enalapril Maleate (Vasotec -) 2.5 mg PO DAILY [facility] Furosemide (Lasix -) 40 mg PO DAILY [facility] Last Admin: 07/04/16 10:37 Dose: 40 mg Potassium Chloride/Sodium Chloride (1/2ns+20meq Kcl) 1,000 mls @ 83 mls/hr IV ASDIR [facility] Last Admin: 07/04/16 05:52 Dose: 83 mls/hr Insulin Aspart (Novolog Mix 70/30 Vial) 20 units SQ BIDAC [facility] Last Admin: 07/04/16 06:51 Dose: Not Given Insulin Aspart (Novolog Vial Sliding Scale -) 1 vial SQ ACHS KIRSTEN PRN Reason: Protocol Last Admin: 07/04/16 06:53 Dose: Not Given Metoprolol Tartrate (Lopressor -) 25 mg PO BID [facility] Last Admin: 07/04/16 10:37 Dose: 25 mg Nitroglycerin (Nitro-Dur Patch -) 0.2 mg TD DAILY [facility] Pantoprazole Sodium (Protonix -) 40 mg PO DAILY [facility] Last Admin: 07/04/16 10:37 Dose: 40 mg Sodium Chloride (Normal Saline -) 1,000 ml IV Q20M PRN PRN Reason: MAP<65mm Hg OR SBP <90 - Objective Vital Signs: Vital Signs Temperature 97.9 F 07/04/16 03:32 Pulse Rate 80 07/04/16 01:35 Respiratory Rate 20 07/04/16 03:32 Blood Pressure 108/71 07/04/16 03:32 O2 Sat by Pulse Oximetry (%) 97 07/04/16 03:32 Constitutional: Yes: Well Nourished, No Distress Cardiovascular: Yes: S1, S2. No: Murmur Respiratory: Yes: WNL, Regular, CTA Bilaterally, Rales Gastrointestinal: Yes: Soft Edema: No Labs: INR, PTT INR 1.28 (0.82-1.09) H 07/03/16 20:00 Problem List - Problems (1) CHF (congestive heart failure) Code(s): I50.9 - HEART FAILURE, UNSPECIFIED Qualifiers: Congestive heart failure type: unspecified congestive heart failure type Congestive heart failure chronicity: acute on chronic Qualified Code(s): I50.9 - Heart failure, unspecified (2) COPD (chronic obstructive pulmonary disease) with acute bronchitis Code(s): J44.0 - CHRONIC OBSTRUCTIVE PULMON DISEASE W ACUTE LOWER RESP INFCT Assessment/Plan Microbiology Laboratory Tests 07/03/16 07/03/16 20:00 20:00 WBC 10.2 H Hgb 15.8 D Plt Count 130 L Creat Clearance w eGFR 38.97 Total Bilirubin 1.7 H D Assessment COPD with exacerbation acute bronchitis with fever 101 Plan Ceftriaxone alone adequate short cource then Ceftin Pulmonary consult Tom DALE
--- NOTE | 2016-07-04 14:12 | PN ---
Progress Note (short form) - Note Progress Note: PULMONARY CONSULTATION DICTATED 07/04/16 IMP DYSPNEA COPD EXACERBATION ACUTE BRONCHITIS ASHD S/P STENT AFIB PULMONARY HTN DIASTOLIC HF DM ACUTE ON CHRONIC KIDNEY DISEASE PLAN INHALED BRONCHODILATORS O2 ANTIBIOTICS CULTURES CHEST CT MONITOR CASH PEDRO Problem List - Problems (1) COPD (chronic obstructive pulmonary disease) with acute bronchitis Code(s): J44.0 - CHRONIC OBSTRUCTIVE PULMON DISEASE W ACUTE LOWER RESP INFCT (2) Cough Code(s): R05 - COUGH (3) Diabetes Code(s): E11.9 - TYPE 2 DIABETES MELLITUS WITHOUT COMPLICATIONS Qualifiers: Diabetes mellitus complication status: with neurologic complications (4) Afib Code(s): I48.91 - UNSPECIFIED ATRIAL FIBRILLATION Qualifiers: (5) CAD (coronary artery disease) Code(s): I25.10 - ATHSCL HEART DISEASE OF [place] CORONARY ARTERY W/O ANG PCTRS (6) COPD (chronic obstructive pulmonary disease) Code(s): J44.9 - CHRONIC OBSTRUCTIVE PULMONARY DISEASE, UNSPECIFIED (7) Hypertension Code(s): I10 - ESSENTIAL (PRIMARY) HYPERTENSION (8) PAD (peripheral artery disease) Code(s): I73.9 - PERIPHERAL VASCULAR DISEASE, UNSPECIFIED (9) Renal insufficiency Code(s): N28.9 - DISORDER OF KIDNEY AND URETER, UNSPECIFIED (10) Shortness of breath on exertion Code(s): R06.02 - SHORTNESS OF BREATH
[2016-07-04] MEDS: NITROGLYCERIN 0.2 MG/HOUR TD PATCH TD SCH (14:13)
[2016-07-04] MEDS: BUDESONIDE/FORMETEROL FUMARATE 160/4.5 mcg INHALER IH SCH ×2 (14:14→21:54)
[2016-07-04] MEDS: ENALAPRIL MALEATE 2.5 MG TABLET (FP) PO SCH (14:14)
[2016-07-04] MEDS: APIXABAN 2.5 MG TABLET PO SCH ×2 (14:14→22:20)
--- NOTE | 2016-07-04 15:09 | CONSULT ---
Consult Consult Specialty:: endocrine Referred by:: dr.rabadi lópez Reason for Consultation:: iddm - History of Present Illness Chief Complaint: difficulty breathing coughing History of Present Illness: 80year old male with a pmhx of dm, htn, ex-tobacco use, copd, and afib on apixaban who presents with dyspnea and cough. As per the patient, the last 2-3 days has been having progressively worse dry cough and sob. Feels like he just can't do much. Denies any chest pain or palpitations. No pnd, orthopnea, or edema. Denies fever but temp 101. 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 No: CHF Pulmonary: Yes: Bronchitis, COPD Gastrointestinal: Yes: Irritable Bowel Disease Infectious Disease: Yes: Other (INFECTED FOOT) Musculoskeletal: Yes: Other (RECURRENT FOOT INFECTION) Endocrine: Yes: Diabetes Mellitus - Past Surgical History Past Surgical History: Yes: Colonoscopy - Alcohol/Substance Use Hx Alcohol Use: No - Smoking History Smoking history: Never smoked Have you smoked in the past 12 months: No Aproximately how many cigarettes per day: 0 If you are a former smoker, when did you quit?: 1955 Home Medications - Allergies Allergies/Adverse Reactions: Allergies Allergy/AdvReac Type Severity Reaction Status Date / Time No Known Allergies Allergy Verified 07/03/16 17:56 - Home Medications Home Medications: Ambulatory Orders Atorvastatin Ca [Lipitor] 40 mg PO HS tablet 03/01/15 Insulin (Novolog 70/30) [Novolog Mix 70/30 Vial -] 20 units SQ BIDAC vial 03/01 Metoprolol Tartrate [Lopressor -] 25 mg PO BID tablet 03/01/15 Aspirin [Ecotrin] 81 mg PO DAILY 03/04/15 Apixaban [Eliquis] 2.5 mg PO DAILY 03/12/16 Budesonide/Formeterol Fumarate [SYMBICORT 160/4.5mcg -] 1 inh PO BID 03/12/16 Enalapril Maleate [Vasotec -] 2.5 mg PO DAILY 03/12/16 Furosemide [Lasix -] 40 mg PO DAILY 03/12/16 Nitroglycerin Patch [Nitro-Dur Patch -] 0.2 mg TD DAILY 03/12/16 Family Disease History - Family Disease History Family Disease History: Heart Disease: Father, Mother Review of Systems - Review of Systems Constitutional: reports: Weakness Eyes: reports: No Symptoms HENT: reports: No Symptoms Neck: reports: No Symptoms Cardiovascular: reports: Shortness of Breath Respiratory: reports: Exercise Intolerance, Snoring, SOB, SOB on Exertion Gastrointestinal: reports: No Symptoms Genitourinary: reports: No Symptoms Breasts: reports: No Symptoms Reported Musculoskeletal: reports: Muscle Pain, Muscle Cramps Integumentary: reports: No Symptoms Neurological: reports: Weakness Endocrine: reports: Unexplained Weight Gain Hematology/Lymphatic: reports: No Symptoms Physical Exam Vital Signs: Vital Signs Temperature 97.9 F 07/04/16 03:32 Pulse Rate 80 07/04/16 01:35 Respiratory Rate 20 07/04/16 03:32 Blood Pressure 108/71 07/04/16 03:32 O2 Sat by Pulse Oximetry (%) 97 07/04/16 03:32 Constitutional: Yes: Anxious Eyes: Yes: EOM Intact HENT: Yes: Normocephalic Neck: Yes: Trachea Midline Cardiovascular: Yes: Tachycardia Respiratory: Yes: Rhonchi, SOB, Tachypnea Gastrointestinal: Yes: Normal Bowel Sounds, Abdomen, Obese ...Rectal Exam: Yes: Deferred Renal/: Yes: WNL Breast(s): Yes: WNL Musculoskeletal: Yes: Back Pain Extremities: Yes: WNL Edema: No Peripheral Pulses WNL: Yes Neurological: Yes: Alert, Oriented Problem List - Problems (1) CHF (congestive heart failure) Code(s): I50.9 - HEART FAILURE, UNSPECIFIED Qualifiers: Congestive heart failure type: unspecified congestive heart failure type Congestive heart failure chronicity: acute on chronic Qualified Code(s): I50.9 - Heart failure, unspecified (2) COPD (chronic obstructive pulmonary disease) with acute bronchitis Code(s): J44.0 - CHRONIC OBSTRUCTIVE PULMON DISEASE W ACUTE LOWER RESP INFCT (3) Diabetes Code(s): E11.9 - TYPE 2 DIABETES MELLITUS WITHOUT COMPLICATIONS Qualifiers: Diabetes mellitus complication status: with neurologic complications Assessment/Plan Current Active Problems CHF (congestive heart failure) (Acute) COPD (chronic obstructive pulmonary disease) with acute bronchitis (Acute) Cough (Acute) Diabetes (Acute) Pneumonia (Acute) iddm uncontrolled;ckd insulin requiring diet non compliant Abnormal Lab Results 07/03/16 07/03/16 07/03/16 20:00 20:00 20:00 WBC 10.2 H RBC 5.69 H Plt Count 130 L Monocytes % 11.7 H INR 1.28 H PTT (Actin FS) 38.1 H Mixed VBG HCO3 27.9 H BUN Creatinine Total Bilirubin Alkaline Phosphatase B-Natriuretic Peptide Urine Blood 07/03/16 07/03/16 07/03/16 20:00 20:46 22:45 WBC RBC Plt Count Monocytes % INR PTT (Actin FS) Mixed VBG HCO3 BUN 27 H D Creatinine 1.7 H Total Bilirubin 1.7 H D Alkaline Phosphatase 137 H B-Natriuretic Peptide 2301.04 H Urine Blood 1+ H plan: bgm with novolog insulin coverage achs novolog 70/30 bid dosing Current Medications Generic Name Dose Route Start Last Admin Trade Name Freq PRN Reason Stop Dose Admin Acetaminophen 650 mg 07/04/16 01:42 Tylenol - PO Q4H PRN FEVER OR PAIN Apixaban 2.5 mg 07/04/16 10:00 07/04/16 14:14 Eliquis - PO 2.5 mg BID KIRSTEN Administration Aspirin 81 mg 07/04/16 10:00 07/04/16 10:37 Ecotrin - PO 81 mg DAILY KIRSTEN Administration Atorvastatin Calcium 40 mg 07/04/16 22:00 Lipitor - PO HS KIRSTEN Budesonide/Formoterol Fumarate 1 puff 07/04/16 10:00 07/04/16 14:14 Symbicort 160/4.5mcg - IH Not Given BID KIRSTEN Ceftriaxone Sodium 1 gm 07/04/16 10:00 07/04/16 10:37 Rocephin 1gm Ivpb (Pre-Docked) IVPB 1 gm DAILY KIRSTEN Administration Enalapril Maleate 2.5 mg 07/04/16 10:00 07/04/16 14:14 Vasotec - PO 2.5 mg DAILY KIRSTEN Administration Furosemide 40 mg 07/04/16 10:00 07/04/16 10:37 Lasix - PO 40 mg DAILY KIRSTEN Administration Potassium Chloride/Sodium Chloride 1,000 mls @ 83 mls/hr 07/04/16 01:45 05:52 1/2ns+20meq Kcl IV 83 mls/hr ASDIR KIRSTEN Administration Insulin Aspart 20 units 07/04/16 07:00 07/04/16 06:51 Novolog Mix 70/30 Vial SQ Not Given BIDAC KIRSTEN Insulin Aspart 1 vial 07/04/16 07:00 07/04/16 06:53 Novolog Vial Sliding Scale - SQ Not Given ACHS [facility] Protocol Metoprolol Tartrate 25 mg 07/04/16 10:00 07/04/16 10:37 Lopressor - PO 25 mg BID KIRSTEN Administration Nitroglycerin 0.2 mg 07/04/16 10:00 07/04/16 14:13 Nitro-Dur Patch - TD 0.2 mg DAILY KIRSTEN Administration Pantoprazole Sodium 40 mg 07/04/16 10:00 07/04/16 10:37 Protonix - PO 40 mg DAILY KIRSTEN Administration Sodium Chloride 1,000 ml 07/03/16 19:34 Normal Saline - IV Q20M PRN MAP<65mm Hg OR SBP <90
--- NOTE | 2016-07-04 16:14 | EKG ---
Test Reason : Blood Pressure : / mmHG Vent. Rate : 131 BPM Atrial Rate : 153 BPM P-R Int : 000 ms QRS Dur : 092 ms QT Int : 328 ms P-R-T Axes : 000 -23 036 degrees QTc Int : 484 ms ATRIAL FIBRILLATION WITH RAPID VENTRICULAR RESPONSE INCOMPLETE RIGHT BUNDLE BRANCH BLOCK NONSPECIFIC ST ABNORMALITY ABNORMAL ECG WHEN COMPARED WITH ECG OF 03-JUL-2016 19:52, NO SIGNIFICANT CHANGE WAS FOUND Confirmed by JOSE DALE, SHAWN ([id number]) on 07/04/2016 4:13:48 PM Referred By: CALDERON MORA Confirmed By:SHAWN GARCIA MD
--- NOTE | 2016-07-04 16:16 | EKG ---
Test Reason : Blood Pressure : / mmHG Vent. Rate : 102 BPM Atrial Rate : 156 BPM P-R Int : 000 ms QRS Dur : 096 ms QT Int : 356 ms P-R-T Axes : 000 -09 028 degrees QTc Int : 463 ms ATRIAL FIBRILLATION WITH RAPID VENTRICULAR RESPONSE WITH PREMATURE VENTRICULAR OR ABERRANTLY CONDUCTED COMPLEXES INCOMPLETE RIGHT BUNDLE BRANCH BLOCK NONSPECIFIC ST ABNORMALITY ABNORMAL ECG WHEN COMPARED WITH ECG OF 13-MAR-2016 08:50, NO SIGNIFICANT CHANGE WAS FOUND Confirmed by SHAWN GARCIA MD ([id number]) on 07/04/2016 4:15:38 PM Referred By: Confirmed By:SHAWN GARCIA MD
--- NOTE | 2016-07-04 16:48 | CONSULT ---
Consult - text type - Consultation Consultation Note: Renal Consult for CKD This is a 80 year old Gentleman with PMhx of CKD Stage 3 (baseline Cr 1.5-1.6), DM Type 1, Hypertension, COPD (hx of Tobacco use and 2nd hand smoke) presents with dyspnea and admitted with COPD exacerbation and found to have BUN/Cr of 27/ 1.7. Pt denies any NSAID use, no recent contrast exposure. Denies kidney stones , flank pain, dysuria or obstructive symptoms. No recent Abx use. No N/V/D. Has good oral intake. No chest pain. SOB is improved but not at baseline yet. PMhx: as above Allergies: NKDA Family Hx: NC Social Hx: Former smoker ROS: as per HPI Home Meds: Home Medications Medication Instructions Recorded Atorvastatin Ca [Lipitor] 40 mg PO HS tablet 03/01/15 Insulin (Novolog 70/30) [Novolog 20 units SQ BIDAC vial 03/01/15 Mix 70/30 Vial -] Metoprolol Tartrate [Lopressor -] 25 mg PO BID tablet 03/01/15 Aspirin [Ecotrin] 81 mg PO DAILY 03/04/15 Apixaban [Eliquis] 2.5 mg PO DAILY 03/12/16 Budesonide/Formeterol Fumarate 1 inh PO BID 03/12/16 [SYMBICORT 160/4.5mcg -] Enalapril Maleate [Vasotec -] 2.5 mg PO DAILY 03/12/16 Furosemide [Lasix -] 40 mg PO DAILY 03/12/16 Nitroglycerin Patch [Nitro-Dur 0.2 mg TD DAILY 03/12/16 Patch -] Vital Signs Temperature 97.9 F 07/04/16 03:32 Pulse Rate 80 07/04/16 01:35 Respiratory Rate 20 07/04/16 03:32 Blood Pressure 108/71 07/04/16 03:32 O2 Sat by Pulse Oximetry (%) 97 07/04/16 03:32 Intake & Output 07/01/16 07/02/16 07/03/16 07/04/16 23:59 23:59 23:59 23:59 Weight 198 lb 194 lb 8 oz Gen: NAD, awake and alert HEENT: NC/AT, MMM, No JVD CVS: RRR, No M/R Lung: Dec BS at lung bases but no wheeze or rales Abd: soft, Obese, NT/ND. Ext: No edema, clubbing or cyanosis : no bladder distension Neuro No focal defects CBC, BMP 07/03/16 20:00 07/03/16 20:00 Laboratory Tests 07/03/16 07/03/16 07/03/16 20:00 20:46 22:45 Calcium 8.8 B-Natriuretic Peptide 2301.04 H Albumin 3.5 D Urine Protein Negative Current Medications Acetaminophen (Tylenol -) 650 mg PO Q4H PRN PRN Reason: FEVER OR PAIN Apixaban (Eliquis -) 2.5 mg PO BID [facility] Last Admin: 07/04/16 14:14 Dose: 2.5 mg Aspirin (Ecotrin -) 81 mg PO DAILY [facility] Last Admin: 07/04/16 10:37 Dose: 81 mg Atorvastatin Calcium (Lipitor -) 40 mg PO HS [facility] Budesonide/Formoterol Fumarate (Symbicort 160/4.5mcg -) 1 puff IH BID [facility] Last Admin: 07/04/16 14:14 Dose: Not Given Ceftriaxone Sodium (Rocephin 1gm Ivpb (Pre-Docked)) 1 gm IVPB DAILY [facility] Last Admin: 07/04/16 10:37 Dose: 1 gm Enalapril Maleate (Vasotec -) 2.5 mg PO DAILY [facility] Last Admin: 07/04/16 14:14 Dose: 2.5 mg Furosemide (Lasix -) 40 mg PO DAILY [facility] Last Admin: 07/04/16 10:37 Dose: 40 mg Potassium Chloride/Sodium Chloride (1/2ns+20meq Kcl) 1,000 mls @ 83 mls/hr IV ASDIR [facility] Last Admin: 07/04/16 05:52 Dose: 83 mls/hr Insulin Aspart (Novolog Mix 70/30 Vial) 20 units SQ BIDAC [facility] Last Admin: 07/04/16 06:51 Dose: Not Given Insulin Aspart (Novolog Vial Sliding Scale -) 1 vial SQ ACHS [facility] PRN Reason: Protocol Last Admin: 07/04/16 06:53 Dose: Not Given Metoprolol Tartrate (Lopressor -) 25 mg PO BID [facility] Last Admin: 07/04/16 10:37 Dose: 25 mg Nitroglycerin (Nitro-Dur Patch -) 0.2 mg TD DAILY [facility] Last Admin: 07/04/16 14:13 Dose: 0.2 mg Pantoprazole Sodium (Protonix -) 40 mg PO DAILY [facility] Last Admin: 07/04/16 10:37 Dose: 40 mg Sodium Chloride (Normal Saline -) 1,000 ml IV Q20M PRN PRN Reason: MAP<65mm Hg OR SBP <90 A/p 80 year old Gentleman with PMhx of CKD Stage 3 (baseline Cr 1.5-1.6), DM Type 1 , Hypertension, COPD (hx of Tobacco use and 2nd hand smoke) presents with dyspnea and admitted with COPD exacerbation and found to have BUN/Cr of 27/1.7. 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
[2016-07-04] MEDS ORDERED: INSULIN (NOVOLOG MIX 70/30) 100 UNITS/ML MDV SQ ONE (18:04)
--- NOTE | 2016-07-04 18:08 | CONS ---
DATE OF CONSULTATION: 07/04/2016 PULMONARY CONSULTATION REFERRING PHYSICIAN: Rocio Coto M.D. HISTORY OF PRESENT ILLNESS: The patient is an 80-year-old white male with extensive past medical history includes insulin dependent diabetes mellitus, hypertension, COPD, atrial fibrillation on apixaban, history of ASHD status post stents, pulmonary hypertension, diastolic heart failure, admitted to [facility] on July 03 with complaint of 2-day history of increasing shortness of breath, cough, mild chest congestion. Patient denied any fever but was noted to have temperature of 101 on admission. He presented to the emergency department. In the ER on admission he was evaluated by Dr. Dorado of infectious disease and placed on antibiotics possible bronchitis versus pneumonia. Chest x-ray on admission revealed no acute infiltrates, did reveal evidence of cardiomegaly. Patient has a history of smoking, quit many years ago. 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 He denies any recent travel. There is no history of DVT or PE in the past. Denies any hemoptysis. Denies any history of recent travel. PAST MEDICAL HISTORY: Again includes atrial fibrillation, ASHD status post stents, diabetes mellitus, hypertension, COPD, pulmonary hypertension, bronchitis. CURRENT MEDICATIONS: Include Protonix, Ecotrin, Nitro-Dur, Lasix, Novolog, Lipitor, Lopressor, Eliquis, Rocephin, Vasotec, Symbicort. REVIEW OF SYSTEMS: Positive cough. Positive sputum. No chest pain. No palpitations. Positive fever. No chills. No hemoptysis. No abdominal pain. Positive shortness of breath. PHYSICAL EXAMINATION: General: The patient is a well-developed, well-nourished male, awake, alert, currently in no acute distress. Vital signs: T-max 101, currently 97.9, respiratory rate 18, blood pressure 98/65, O2 saturation is 97% on 2 L. HEENT: Head is normocephalic, atraumatic. Neck: Supple. Heart: Irregularly irregular. Normal S1, S2. Chest: A few crackles bilaterally at the bases. Abdomen: Soft. Bowel sounds positive. Extremities: No cyanosis, edema. LABORATORY: WBC is 10.2, hemoglobin 15.8, hematocrit 48.2 and platelet count of 130,000. INR 1.28. Venous blood gas: pH 7.41, pCO2 of 45, pO2 of 39. Chemistries: BUN 27, creatinine 1.7, BNP is 2301. Chest x-ray with cardiomegaly but no acute infiltrates and effusions. IMPRESSION: 1. Mild chronic obstructive pulmonary disease with exacerbation, most likely secondary to acute bronchitis or urinary tract infection. 2. Acute bronchitis. 3. Atrial fibrillation. 4. Atherosclerotic heart disease status post stent. 5. History of hypertension. 6. Pulmonary hypertension. 7. Diabetes. PLAN: Continue inhaled bronchodilators. Antibiotics as per infectious disease. Sputum for C&S. Plain chest CT to further evaluate pulmonary parenchyma underlying infiltrates, nasal O2, monitor heart rate. SCOTT PEDRO M.D. [id number]
--- NOTE | 2016-07-04 18:46 | CONS ---
DATE OF CONSULTATION: DATE OF DICTATION: 07/04/2016 HISTORY OF PRESENT ILLNESS: This is an 80-year-old male with a history of COPD, diabetes, hypertension and atrial fibrillation who presents to the hospital with shortness of breath, cough and fever to 101. He is a poor historian but notes that over the last 2-3 days, he has been feeling progressively weak, noting that he had difficulty moving his arms and legs, primarily as a result of weakness. He also noted a dry cough, which he says has already improved, and shortness of breath, which once again has also improved. He was empirically treated with ceftriaxone per Dr. Zambrano, and an echocardiogram shows normal systolic function with trace mitral regurgitation. His x-ray was negative for pneumonia or heart failure. PAST MEDICAL HISTORY: As noted above. CURRENT MEDICATIONS: Atorvastatin, insulin, metoprolol, aspirin, Eliquis, Symbicort, enalapril, Lasix, nitroglycerin patch. ALLERGIES: None known. SOCIAL HISTORY: Former smoker, quit many years ago. Denies alcohol use. Lives locally, no travel. FAMILY HISTORY: Positive for cardiovascular heart disease. REVIEW OF SYSTEMS: Respiratory: Shortness of breath, nonproductive cough as noted. Cardiac: No history of palpitations, syncope, chest pain. GI: No weight loss, abdominal pain, nausea or vomiting. : No dysuria, hematuria, urinary frequency. PHYSICAL EXAM: General: He was an alert male in no acute distress. Vital signs: The temperature was 97.9, pulse 88, blood pressure 108/71, respirations 20. O2 saturation 97% room air. Neck: Supple. Lungs: Clear with a few basilar rales. Heart: S1, S2. Irregularly irregular rhythm without murmur. Abdomen: Soft, nontender, without organomegaly. Extremities: Without clubbing, cyanosis or edema. LABS: The white count is 10.2, hemoglobin 15.8, platelets of 130. BUN of 227, creatinine 1.7. BNP 2300. Urinalysis: 1 RBC, 1 WBC. Chest x-ray dated July 03 shows no acute pulmonary disease. ASSESSMENT: Suspect exacerbation of COPD with acute bronchitis. Patient presents with fever to 101, cough now improved, fever resolved, blood cultures negative. PLAN: 1. Currently on ceftriaxone. Would continue for 24-48 hours. 2. Would switch to Ceftin, assuming clinical course continues to improve. 3. Pulmonary consult should be obtained for short-term and long-term management of COPD. TANYA JOE M.D. [id number]
[2016-07-04] MEDS: ATORVASTATIN CA 40 MG TABLET (FP) PO SCH (21:49)
[2016-07-05] MEDS: SODIUM CHLORIDE 0.45%/POT 1,000 ML IV SCH (06:05)
[2016-07-05] MEDS: INSULIN SLIDING SCALE (NOVOLOG) 1 VIAL SQ SCH ×4 (06:05→21:17)
[2016-07-05] MEDS: INSULIN (NOVOLOG MIX 70/30) 100 UNITS/ML MDV SQ SCH ×2 (06:50→17:42)
[2016-07-05 08:30] LABS: BASOPHIL 0.8 % (0-2.0); EOSINOPHIL 7.7 % (0-4.5); MCH 28.2 pg (25.7-33.7); MCHC 33.2 g/dl (32.0-35.9); MEAN CELL VOLUME 84.8 fl (80-96); MEAN PLT VOLUME 10.6 fl (7.5-11.1); NEUTROPHILS 50.8 % (42.8-82.8); PLATELET COUNT 108 K/MM3 (134-434); RDW 16.2 % (11.9-15.9); WHITE BLOOD COUNT 7.6 K/mm3 (4.0-10.0)
[2016-07-05 09:07] LABS: ALBUMIN 3.2 g/dl (3.4-5.0); ANION GAP 10 (8-16); CALCIUM 8.5 mg/dL (8.5-10.1); CO2 27 mmol/L (21-32); COCKROFT - GAULT 43.49; CREATININE 1.7 mg/dL (0.7-1.3); GLUCOSE,RANDOM 101 mg/dL (74-106); MAGNESIUM 2.1 mg/dL (1.8-2.4); PHOSPHOROUS 4.1 mg/dL (2.5-4.9); SGOT/AST 20 U/L (15-37); SGPT/ALT 16 U/L (12-78)
[2016-07-05 09:12] LABS: ALK PHOS 124 U/L (45-117); TOT PROT 6.9 g/dl (6.4-8.2); TROPONIN I < 0.02 ng/ml (0.00-0.05)
[2016-07-05] MEDS ORDERED: PT OWN MED DRAWER 7, Y5N ONE ×3 (09:31→20:22)
[2016-07-05] MEDS: ASPIRIN COATED 81 MG TABLET.EC PO SCH (09:51)
[2016-07-05] MEDS: FUROSEMIDE 40 MG TABLET (FP) PO SCH (09:51)
[2016-07-05] MEDS: PANTOPRAZOLE 40 MG TABLET (FP) PO SCH (09:51)
[2016-07-05] MEDS: cefTRIAXone 1 GM/50 ML BAG (PRE-DOCKED) IVPB SCH (09:51)
[2016-07-05] MEDS: METOPROLOL TARTRATE 25 MG TABLET (FP) PO SCH (09:51)
[2016-07-05] MEDS: APIXABAN 2.5 MG TABLET PO SCH ×2 (09:52→22:06)
[2016-07-05] MEDS: ENALAPRIL MALEATE 2.5 MG TABLET (FP) PO SCH (09:52)
[2016-07-05] MEDS: BUDESONIDE/FORMETEROL FUMARATE 160/4.5 mcg INHALER IH SCH ×2 (09:52→22:07)
--- NOTE | 2016-07-05 11:31 | PN ---
Progress Note, Physician History of Present Illness: PULMLONARY ALERT,FEELING BETTER,-LESS DYSPEIC,-CP,-COUGH - Current Medication List Current Medications: Active Medications Acetaminophen (Tylenol -) 650 mg PO Q4H PRN PRN Reason: FEVER OR PAIN Apixaban (Eliquis -) 2.5 mg PO BID [facility] Last Admin: 07/05/16 09:52 Dose: 2.5 mg Aspirin (Ecotrin -) 81 mg PO DAILY [facility] Last Admin: 07/05/16 09:51 Dose: 81 mg Atorvastatin Calcium (Lipitor -) 40 mg PO HS [facility] Last Admin: 07/04/16 21:49 Dose: 40 mg Budesonide/Formoterol Fumarate (Symbicort 160/4.5mcg -) 1 puff IH BID [facility] Last Admin: 07/05/16 09:52 Dose: 1 puff Ceftriaxone Sodium (Rocephin 1gm Ivpb (Pre-Docked)) 1 gm IVPB DAILY [facility] Last Admin: 07/05/16 09:51 Dose: 1 gm Enalapril Maleate (Vasotec -) 2.5 mg PO DAILY [facility] Last Admin: 07/05/16 09:52 Dose: 2.5 mg Furosemide (Lasix -) 40 mg PO DAILY [facility] Last Admin: 07/05/16 09:51 Dose: 40 mg Potassium Chloride/Sodium Chloride (1/2ns+20meq Kcl) 1,000 mls @ 83 mls/hr IV ASDIR [facility] Last Admin: 07/05/16 06:05 Dose: Not Given Insulin Aspart (Novolog Mix 70/30 Vial) 20 units SQ BIDAC [facility] Last Admin: 07/05/16 06:50 Dose: 20 units Insulin Aspart (Novolog Vial Sliding Scale -) 1 vial SQ ACHS [facility] PRN Reason: Protocol Last Admin: 07/05/16 06:05 Dose: Not Given Metoprolol Tartrate (Lopressor -) 25 mg PO BID [facility] Last Admin: 07/05/16 09:51 Dose: 25 mg Nitroglycerin (Nitro-Dur Patch -) 0.2 mg TD DAILY [facility] Last Admin: 07/04/16 14:13 Dose: 0.2 mg Pantoprazole Sodium (Protonix -) 40 mg PO DAILY [facility] Last Admin: 07/05/16 09:51 Dose: 40 mg Sodium Chloride (Normal Saline -) 1,000 ml IV Q20M PRN PRN Reason: MAP<65mm Hg OR SBP <90 - Objective Vital Signs: Vital Signs Temperature 97.7 F 07/05/16 06:00 Pulse Rate 86 07/05/16 06:00 Respiratory Rate 18 07/05/16 06:00 Blood Pressure 129/83 07/05/16 06:00 O2 Sat by Pulse Oximetry (%) 97 07/04/16 21:00 Constitutional: Yes: Well Nourished, Calm Eyes: Yes: WNL HENT: Yes: WNL Neck: Yes: WNL Cardiovascular: Yes: Regular Rate and Rhythm, S1, S2 Respiratory: Yes: CTA Bilaterally Gastrointestinal: Yes: Normal Bowel Sounds, Soft Extremities: Yes: WNL Edema: No Labs: CBC, BMP 07/05/16 07:30 07/05/16 07:30 INR, PTT INR 1.28 (0.82-1.09) H 07/03/16 20:00 Problem List - Problems (1) COPD (chronic obstructive pulmonary disease) with acute bronchitis Code(s): J44.0 - CHRONIC OBSTRUCTIVE PULMON DISEASE W ACUTE LOWER RESP INFCT (2) Cough Code(s): R05 - COUGH (3) Diabetes Code(s): E11.9 - TYPE 2 DIABETES MELLITUS WITHOUT COMPLICATIONS Qualifiers: Diabetes mellitus complication status: with neurologic complications (4) Afib Code(s): I48.91 - UNSPECIFIED ATRIAL FIBRILLATION Qualifiers: (5) CAD (coronary artery disease) Code(s): I25.10 - ATHSCL HEART DISEASE OF [place] CORONARY ARTERY W/O ANG PCTRS (6) COPD (chronic obstructive pulmonary disease) Code(s): J44.9 - CHRONIC OBSTRUCTIVE PULMONARY DISEASE, UNSPECIFIED (7) Hypertension Code(s): I10 - ESSENTIAL (PRIMARY) HYPERTENSION (8) PAD (peripheral artery disease) Code(s): I73.9 - PERIPHERAL VASCULAR DISEASE, UNSPECIFIED (9) Renal insufficiency Code(s): N28.9 - DISORDER OF KIDNEY AND URETER, UNSPECIFIED (10) Shortness of breath on exertion Code(s): R06.02 - SHORTNESS OF BREATH Assessment/Plan IMP DYSPNEA COPD EXACERBATION IMPROVING ACUTE BRONCHITIS ASHD S/P STENT AFIB PULMONARY HTN DIASTOLIC HF DM ACUTE ON CHRONIC KIDNEY DISEASE PLAN INHALED BRONCHODILATORS O2 ANTIBIOTICS MONITOR LYTES,RENAL FUNCTION CHEST CT DR PEDRO Problem List - Problems (1) COPD (chronic obstructive pulmonary disease) with acute bronchitis Code(s): J44.0 - CHRONIC OBSTRUCTIVE PULMON DISEASE W ACUTE LOWER RESP INFCT (2) Cough Code(s): R05 - COUGH (3) Diabetes Code(s): E11.9 - TYPE 2 DIABETES MELLITUS WITHOUT COMPLICATIONS Qualifiers: Diabetes mellitus complication status: with neurologic complications (4) Afib Code(s): I48.91 - UNSPECIFIED ATRIAL FIBRILLATION Qualifiers: (5) CAD (coronary artery disease) Code(s): I25.10 - ATHSCL HEART DISEASE OF [place] CORONARY ARTERY W/O ANG PCTRS (6) COPD (chronic obstructive pulmonary disease) Code(s): J44.9 - CHRONIC OBSTRUCTIVE PULMONARY DISEASE, UNSPECIFIED (7) Hypertension Code(s): I10 - ESSENTIAL (PRIMARY) HYPERTENSION (8) PAD (peripheral artery disease) Code(s): I73.9 - PERIPHERAL VASCULAR DISEASE, UNSPECIFIED (9) Renal insufficiency Code(s): N28.9 - DISORDER OF KIDNEY AND URETER, UNSPECIFIED (10) Shortness of breath on exertion Code(s): R06.02 - SHORTNESS OF BREATH
[2016-07-05] MEDS: NITROGLYCERIN 0.2 MG/HOUR TD PATCH TD SCH (12:10)
--- NOTE | 2016-07-05 12:47 | PN ---
Progress Note, Physician Chief Complaint: Dyspnea improved No chest pain No palpitations but elevated HR's History of Present Illness: 80 year old male with a pmhx of dm, htn, ex-tobacco use, copd, diastolic chf, and afib on apixaban who presents with dyspnea and cough. As per the patient, the last 2-3 days has been having progressively worse dry cough and sob. Feels like he just can't do much. Denies any chest pain or palpitations. No pnd, orthopnea, or edema. Denies fever but temp 101 on admission. Echo: nl rv/lv size and systolic function, mild lad, trace MR, RVSP 30-40mmHg, mod TR. CXF: no pna or chf - Current Medication List Current Medications: Active Medications Acetaminophen (Tylenol -) 650 mg PO Q4H PRN PRN Reason: FEVER OR PAIN Apixaban (Eliquis -) 2.5 mg PO BID [facility] Last Admin: 07/05/16 09:52 Dose: 2.5 mg Aspirin (Ecotrin -) 81 mg PO DAILY [facility] Last Admin: 07/05/16 09:51 Dose: 81 mg Atorvastatin Calcium (Lipitor -) 40 mg PO HS [facility] Last Admin: 07/04/16 21:49 Dose: 40 mg Budesonide/Formoterol Fumarate (Symbicort 160/4.5mcg -) 1 puff IH BID [facility] Last Admin: 07/05/16 09:52 Dose: 1 puff Ceftriaxone Sodium (Rocephin 1gm Ivpb (Pre-Docked)) 1 gm IVPB DAILY [facility] Last Admin: 07/05/16 09:51 Dose: 1 gm Enalapril Maleate (Vasotec -) 2.5 mg PO DAILY [facility] Last Admin: 07/05/16 09:52 Dose: 2.5 mg Furosemide (Lasix -) 40 mg PO DAILY [facility] Last Admin: 07/05/16 09:51 Dose: 40 mg Potassium Chloride/Sodium Chloride (1/2ns+20meq Kcl) 1,000 mls @ 83 mls/hr IV ASDIR [facility] Last Admin: 07/05/16 06:05 Dose: Not Given Insulin Aspart (Novolog Mix 70/30 Vial) 20 units SQ BIDAC [facility] Last Admin: 07/05/16 06:50 Dose: 20 units Insulin Aspart (Novolog Vial Sliding Scale -) 1 vial SQ ACHS [facility] PRN Reason: Protocol Last Admin: 07/05/16 12:05 Dose: Not Given Metoprolol Tartrate (Lopressor -) 25 mg PO BID [facility] Last Admin: 07/05/16 09:51 Dose: 25 mg Nitroglycerin (Nitro-Dur Patch -) 0.2 mg TD DAILY [facility] Last Admin: 07/05/16 12:10 Dose: 0.2 mg Pantoprazole Sodium (Protonix -) 40 mg PO DAILY [facility] Last Admin: 07/05/16 09:51 Dose: 40 mg Sodium Chloride (Normal Saline -) 1,000 ml IV Q20M PRN PRN Reason: MAP<65mm Hg OR SBP <90 - Objective Vital Signs: Vital Signs Temperature 97.7 F 07/05/16 06:00 Pulse Rate 86 07/05/16 06:00 Respiratory Rate 18 07/05/16 06:00 Blood Pressure 129/83 07/05/16 06:00 O2 Sat by Pulse Oximetry (%) 97 07/04/16 21:00 Constitutional: Yes: No Distress Neck: Yes: Supple Cardiovascular: Yes: Pulse Irregular, S1, S2 Respiratory: Yes: CTA Bilaterally Gastrointestinal: Yes: WNL, Normal Bowel Sounds, Soft Edema: No Labs: CBC, BMP 07/05/16 07:30 07/05/16 07:30 INR, PTT INR 1.28 (0.82-1.09) H 07/03/16 20:00 - ....Imaging Chest X-ray: Report Reviewed EKG: Image Reviewed Problem List - Problems (1) CHF (congestive heart failure) Code(s): I50.9 - HEART FAILURE, UNSPECIFIED Qualifiers: Congestive heart failure type: unspecified congestive heart failure type Congestive heart failure chronicity: acute on chronic Qualified Code(s): I50.9 - Heart failure, unspecified (2) Afib Code(s): I48.91 - UNSPECIFIED ATRIAL FIBRILLATION Qualifiers: Assessment/Plan 80 year old male with a pmhx of dm, htn, ex-tobacco use, copd, diastolic chf, and afib on apixaban who presents with dyspnea and cough. As per the patient, the last 2-3 days has been having progressively worse dry cough and sob. Feels like he just can't do much. Denies any chest pain or palpitations. No pnd, orthopnea, or edema. Denies fever but temp 101 on admission. Echo: nl rv/lv size and systolic function, mild lad, trace MR, RVSP 30-40mmHg, mod TR. CXF: no pna or chf 1) Dyspnea/sob -patient with history of diastolic chf and copd. Likely due to copd exacerbation as despite bnp 2000s physical exam is not impressive for volume overload and no chf on cxray -Would continue PO furosemide 40mg daily. Would stop IVF's -Patient reports recent stress test at his private doctors office. Says he was told it was fine but consider getting results. -Would aim for better rate control as this may be contributing to symptoms of dyspnea. EKG yesterday with Afib with RVR 131bpm 2) Afib -Increase metoprolol 50mg bid will hold low dose enalapril as we increase metoprolol to ensure no hypotension On apixaban 2.5mg bid Unclear why patient on nitroglycern patch at home. Patient denies any chest pain and says he never wears it anyway. Would not start and if has angina symptoms would treat with metoprolol and imdur po.
--- NOTE | 2016-07-05 14:02 | PN ---
Progress Note, Physician Chief Complaint: The patient seen in his bed. Comfortable. No shortness of breath. Occasional cough. Denies any chest pain. - Current Medication List Current Medications: Active Medications Acetaminophen (Tylenol -) 650 mg PO Q4H PRN PRN Reason: FEVER OR PAIN Apixaban (Eliquis -) 2.5 mg PO BID [facility] Last Admin: 07/05/16 09:52 Dose: 2.5 mg Aspirin (Ecotrin -) 81 mg PO DAILY [facility] Last Admin: 07/05/16 09:51 Dose: 81 mg Atorvastatin Calcium (Lipitor -) 40 mg PO HS [facility] Last Admin: 07/04/16 21:49 Dose: 40 mg Budesonide/Formoterol Fumarate (Symbicort 160/4.5mcg -) 1 puff IH BID [facility] Last Admin: 07/05/16 09:52 Dose: 1 puff Ceftriaxone Sodium (Rocephin 1gm Ivpb (Pre-Docked)) 1 gm IVPB DAILY [facility] Last Admin: 07/05/16 09:51 Dose: 1 gm Furosemide (Lasix -) 40 mg PO DAILY [facility] Last Admin: 07/05/16 09:51 Dose: 40 mg Insulin Aspart (Novolog Mix 70/30 Vial) 20 units SQ BIDAC [facility] Last Admin: 07/05/16 06:50 Dose: 20 units Insulin Aspart (Novolog Vial Sliding Scale -) 1 vial SQ ACHS [facility] PRN Reason: Protocol Last Admin: 07/05/16 12:05 Dose: Not Given Metoprolol Tartrate (Lopressor -) 50 mg PO BID [facility] Pantoprazole Sodium (Protonix -) 40 mg PO DAILY [facility] Last Admin: 07/05/16 09:51 Dose: 40 mg Sodium Chloride (Normal Saline -) 1,000 ml IV Q20M PRN PRN Reason: MAP<65mm Hg OR SBP <90 - Objective Vital Signs: Vital Signs Temperature 97.7 F 07/05/16 06:00 Pulse Rate 86 07/05/16 06:00 Respiratory Rate 18 07/05/16 06:00 Blood Pressure 129/83 07/05/16 06:00 O2 Sat by Pulse Oximetry (%) 97 07/04/16 21:00 Constitutional: Yes: Well Nourished, No Distress Eyes: Yes: Conjunctiva Clear HENT: Yes: Normocephalic Neck: Yes: Trachea Midline Cardiovascular: Yes: S1, S2 Respiratory: Yes: Diminished, Poor Air Entry Gastrointestinal: Yes: Normal Bowel Sounds, Abdomen, Obese Labs: CBC, BMP 07/05/16 07:30 07/05/16 07:30 INR, PTT INR 1.28 (0.82-1.09) H 07/03/16 20:00 Problem List - Problems (1) CHF (congestive heart failure) Code(s): I50.9 - HEART FAILURE, UNSPECIFIED Qualifiers: Congestive heart failure type: unspecified congestive heart failure type Congestive heart failure chronicity: acute on chronic Qualified Code(s): I50.9 - Heart failure, unspecified (2) COPD (chronic obstructive pulmonary disease) with acute bronchitis Code(s): J44.0 - CHRONIC OBSTRUCTIVE PULMON DISEASE W ACUTE LOWER RESP INFCT (3) Diabetes Code(s): E11.9 - TYPE 2 DIABETES MELLITUS WITHOUT COMPLICATIONS Qualifiers: Diabetes mellitus complication status: with neurologic complications (4) Pneumonia Code(s): J18.9 - PNEUMONIA, UNSPECIFIED ORGANISM (5) Afib Code(s): I48.91 - UNSPECIFIED ATRIAL FIBRILLATION Qualifiers: (6) Bacteremia Code(s): R78.81 - BACTEREMIA (7) CAD (coronary artery disease) Code(s): I25.10 - ATHSCL HEART DISEASE OF [place] CORONARY ARTERY W/O ANG PCTRS (8) Hypertension Code(s): I10 - ESSENTIAL (PRIMARY) HYPERTENSION (9) Renal insufficiency Code(s): N28.9 - DISORDER OF KIDNEY AND URETER, UNSPECIFIED (10) Rheumatoid arthritis Code(s): M06.9 - RHEUMATOID ARTHRITIS, UNSPECIFIED Qualifiers: Rheumatoid arthritis location: hand Rheumatoid factor presence: unspecified presence Laterality: bilateral Qualified Code(s): M06.9 - Rheumatoid arthritis, unspecified (11) Type 2 diabetes mellitus with diabetic neuropathy, unspecified Code(s): E11.40 - TYPE 2 DIABETES MELLITUS WITH DIABETIC NEUROPATHY, UNSP Assessment/Plan 80 y/o male with COPD, admitted with acute shortness of breath and COPD Exacerbation. Clinical status has improved remarkable. S/P Acute Kidney Injury superimposed on CKD. Has underlying CKD3, and the current renal functions are close to his baseline. IV fluids and IV antibiotics well tolerated. Will perodically monitor the renal functions. SANDRA PRESLEY MD
--- NOTE | 2016-07-05 16:45 | PN ---
Progress Note, Physician Chief Complaint: AWAKE ALERT FEELING BETTER STILL SOB - Current Medication List Current Medications: Active Medications Acetaminophen (Tylenol -) 650 mg PO Q4H PRN PRN Reason: FEVER OR PAIN Apixaban (Eliquis -) 2.5 mg PO BID [facility] Last Admin: 07/05/16 09:52 Dose: 2.5 mg Aspirin (Ecotrin -) 81 mg PO DAILY [facility] Last Admin: 07/05/16 09:51 Dose: 81 mg Atorvastatin Calcium (Lipitor -) 40 mg PO HS [facility] Last Admin: 07/04/16 21:49 Dose: 40 mg Budesonide/Formoterol Fumarate (Symbicort 160/4.5mcg -) 1 puff IH BID [facility] Last Admin: 07/05/16 09:52 Dose: 1 puff Ceftriaxone Sodium (Rocephin 1gm Ivpb (Pre-Docked)) 1 gm IVPB DAILY [facility] Last Admin: 07/05/16 09:51 Dose: 1 gm Furosemide (Lasix -) 40 mg PO DAILY [facility] Last Admin: 07/05/16 09:51 Dose: 40 mg Insulin Aspart (Novolog Mix 70/30 Vial) 20 units SQ BIDAC [facility] Last Admin: 07/05/16 06:50 Dose: 20 units Insulin Aspart (Novolog Vial Sliding Scale -) 1 vial SQ ACHS [facility] PRN Reason: Protocol Last Admin: 07/05/16 12:05 Dose: Not Given Metoprolol Tartrate (Lopressor -) 50 mg PO BID [facility] Pantoprazole Sodium (Protonix -) 40 mg PO DAILY [facility] Last Admin: 07/05/16 09:51 Dose: 40 mg Sodium Chloride (Normal Saline -) 1,000 ml IV Q20M PRN PRN Reason: MAP<65mm Hg OR SBP <90 - Objective Vital Signs: Vital Signs Temperature 98.7 F 07/05/16 15:55 Pulse Rate 91 H 07/05/16 15:55 Respiratory Rate 18 07/05/16 15:55 Blood Pressure 118/67 07/05/16 15:55 O2 Sat by Pulse Oximetry (%) 97 07/05/16 09:00 Constitutional: Yes: Mild Distress Eyes: Yes: WNL HENT: Yes: WNL Neck: Yes: WNL Cardiovascular: Yes: WNL Respiratory: Yes: WNL, On Nasal O2, Poor Air Entry, SOB Gastrointestinal: Yes: WNL Genitourinary: Yes: WNL Musculoskeletal: Yes: Muscle Weakness Extremities: Yes: WNL Edema: Yes Edema: LLE: Trace, RLE: Trace Peripheral Pulses WNL: Yes Integumentary: Yes: WNL Wound/Incision: Yes: Clean/Dry Neurological: Yes: WNL ...Motor Strength: WNL Psychiatric: Yes: WNL Labs: CBC, BMP 07/05/16 07:30 07/05/16 07:30 INR, PTT INR 1.28 (0.82-1.09) H 07/03/16 20:00 Problem List - Problems (1) CHF (congestive heart failure) Code(s): I50.9 - HEART FAILURE, UNSPECIFIED Qualifiers: Congestive heart failure type: unspecified congestive heart failure type Congestive heart failure chronicity: acute on chronic Qualified Code(s): I50.9 - Heart failure, unspecified (2) Cough Code(s): R05 - COUGH (3) Diabetes Code(s): E11.9 - TYPE 2 DIABETES MELLITUS WITHOUT COMPLICATIONS Qualifiers: Diabetes mellitus complication status: with neurologic complications (4) Pneumonia Code(s): J18.9 - PNEUMONIA, UNSPECIFIED ORGANISM (5) Afib Code(s): I48.91 - UNSPECIFIED ATRIAL FIBRILLATION Qualifiers: (6) Bacteremia Code(s): R78.81 - BACTEREMIA (7) CAD (coronary artery disease) Code(s): I25.10 - ATHSCL HEART DISEASE OF [place] CORONARY ARTERY W/O ANG PCTRS (8) CHF exacerbation Code(s): I50.9 - HEART FAILURE, UNSPECIFIED (9) COPD (chronic obstructive pulmonary disease) Code(s): J44.9 - CHRONIC OBSTRUCTIVE PULMONARY DISEASE, UNSPECIFIED (10) Diabetes 1.5, managed as type 2 Code(s): E13.9 - OTHER SPECIFIED DIABETES MELLITUS WITHOUT COMPLICATIONS (11) Renal insufficiency Code(s): N28.9 - DISORDER OF KIDNEY AND URETER, UNSPECIFIED (12) Shortness of breath on exertion Code(s): R06.02 - SHORTNESS OF BREATH (13) Type 2 diabetes mellitus with diabetic neuropathy, unspecified Code(s): E11.40 - TYPE 2 DIABETES MELLITUS WITH DIABETIC NEUROPATHY, UNSP Assessment/Plan CARDIOLOGY/PULMONARY EVAL CONSULTED NEBBeatriz BERRY GENTLY WILL NEED SPIRIVA OUTPATIENT TO AVOID EXACERBATIONS OF COPD WEIGHT AND FLUID MANAGEMENT DIETARY CONSULT DAILY WEIGHTS 02 SUPPORT IV ABX CEFTRIAXONE/AZITHRO
[2016-07-05] MEDS: METOPROLOL TARTRATE 50 MG TABLET (FP) PO SCH (22:06)
[2016-07-05] MEDS: ATORVASTATIN CA 40 MG TABLET (FP) PO SCH (22:06)
[2016-07-06] MEDS: INSULIN (NOVOLOG MIX 70/30) 100 UNITS/ML MDV SQ SCH ×2 (06:53→17:03)
[2016-07-06] MEDS: INSULIN SLIDING SCALE (NOVOLOG) 1 VIAL SQ SCH ×4 (06:53→21:10)
[2016-07-06] MEDS: METOPROLOL TARTRATE 50 MG TABLET (FP) PO SCH ×2 (10:11→21:11)
[2016-07-06] MEDS: ASPIRIN COATED 81 MG TABLET.EC PO SCH (10:11)
[2016-07-06] MEDS: FUROSEMIDE 40 MG TABLET (FP) PO SCH (10:11)
[2016-07-06] MEDS: cefTRIAXone 1 GM/50 ML BAG (PRE-DOCKED) IVPB SCH (10:11)
[2016-07-06] MEDS: PANTOPRAZOLE 40 MG TABLET (FP) PO SCH (10:11)
[2016-07-06] MEDS: APIXABAN 2.5 MG TABLET PO SCH ×2 (10:11→21:11)
[2016-07-06] MEDS: BUDESONIDE/FORMETEROL FUMARATE 160/4.5 mcg INHALER IH SCH ×2 (10:12→21:11)
--- NOTE | 2016-07-06 12:12 | PN ---
Progress Note, Physician History of Present Illness: pulmonary alert,feeling better,sob improving,-cp,-cough - Current Medication List Current Medications: Active Medications Acetaminophen (Tylenol -) 650 mg PO Q4H PRN PRN Reason: FEVER OR PAIN Apixaban (Eliquis -) 2.5 mg PO BID [facility] Last Admin: 07/06/16 10:11 Dose: 2.5 mg Aspirin (Ecotrin -) 81 mg PO DAILY [facility] Last Admin: 07/06/16 10:11 Dose: 81 mg Atorvastatin Calcium (Lipitor -) 40 mg PO HS [facility] Last Admin: 07/05/16 22:06 Dose: 40 mg Budesonide/Formoterol Fumarate (Symbicort 160/4.5mcg -) 1 puff IH BID [facility] Last Admin: 07/06/16 10:12 Dose: 1 puff Ceftriaxone Sodium (Rocephin 1gm Ivpb (Pre-Docked)) 1 gm IVPB DAILY [facility] Last Admin: 07/06/16 10:11 Dose: 1 gm Furosemide (Lasix -) 40 mg PO DAILY [facility] Last Admin: 07/06/16 10:11 Dose: 40 mg Insulin Aspart (Novolog Mix 70/30 Vial) 20 units SQ BIDAC [facility] Last Admin: 07/06/16 06:53 Dose: Not Given Insulin Aspart (Novolog Vial Sliding Scale -) 1 vial SQ ACHS [facility] PRN Reason: Protocol Last Admin: 07/06/16 06:53 Dose: Not Given Metoprolol Tartrate (Lopressor -) 50 mg PO BID [facility] Last Admin: 07/06/16 10:11 Dose: 50 mg Pantoprazole Sodium (Protonix -) 40 mg PO DAILY [facility] Last Admin: 07/06/16 10:11 Dose: 40 mg Sodium Chloride (Normal Saline -) 1,000 ml IV Q20M PRN PRN Reason: MAP<65mm Hg OR SBP <90 - Objective Vital Signs: Vital Signs Temperature 98.3 F 07/06/16 06:00 Pulse Rate 78 07/06/16 06:00 Respiratory Rate 18 07/06/16 06:00 Blood Pressure 132/74 07/06/16 06:00 O2 Sat by Pulse Oximetry (%) 97 07/05/16 21:00 Constitutional: Yes: Well Nourished, Calm Eyes: Yes: WNL HENT: Yes: WNL Neck: Yes: WNL Cardiovascular: Yes: Pulse Irregular, S1, S2 Respiratory: Yes: Diminished Gastrointestinal: Yes: Normal Bowel Sounds, Soft Extremities: Yes: WNL Edema: No Labs: CBC, BMP 07/05/16 07:30 INR, PTT INR 1.28 (0.82-1.09) H 07/03/16 20:00 Problem List - Problems (1) COPD (chronic obstructive pulmonary disease) with acute bronchitis Code(s): J44.0 - CHRONIC OBSTRUCTIVE PULMON DISEASE W ACUTE LOWER RESP INFCT (2) Cough Code(s): R05 - COUGH (3) Diabetes Code(s): E11.9 - TYPE 2 DIABETES MELLITUS WITHOUT COMPLICATIONS Qualifiers: Diabetes mellitus complication status: with neurologic complications (4) Afib Code(s): I48.91 - UNSPECIFIED ATRIAL FIBRILLATION Qualifiers: (5) CAD (coronary artery disease) Code(s): I25.10 - ATHSCL HEART DISEASE OF [place] CORONARY ARTERY W/O ANG PCTRS (6) COPD (chronic obstructive pulmonary disease) Code(s): J44.9 - CHRONIC OBSTRUCTIVE PULMONARY DISEASE, UNSPECIFIED (7) Hypertension Code(s): I10 - ESSENTIAL (PRIMARY) HYPERTENSION (8) PAD (peripheral artery disease) Code(s): I73.9 - PERIPHERAL VASCULAR DISEASE, UNSPECIFIED (9) Renal insufficiency Code(s): N28.9 - DISORDER OF KIDNEY AND URETER, UNSPECIFIED (10) Shortness of breath on exertion Code(s): R06.02 - SHORTNESS OF BREATH Assessment/Plan IMP DYSPNEA IMPROVING COPD EXACERBATION IMPROVING ACUTE BRONCHITIS ASHD S/P STENT AFIB PULMONARY HTN DIASTOLIC HF DM ACUTE ON CHRONIC KIDNEY DISEASE PLAN INHALED BRONCHODILATORS O2 PO ANTIBIOTICS MONITOR LYTES,RENAL FUNCTION DR PEDRO Problem List - Problems (1) COPD (chronic obstructive pulmonary disease) with acute bronchitis Code(s): J44.0 - CHRONIC OBSTRUCTIVE PULMON DISEASE W ACUTE LOWER RESP INFCT (2) Cough Code(s): R05 - COUGH (3) Diabetes Code(s): E11.9 - TYPE 2 DIABETES MELLITUS WITHOUT COMPLICATIONS Qualifiers: Diabetes mellitus complication status: with neurologic complications (4) Afib Code(s): I48.91 - UNSPECIFIED ATRIAL FIBRILLATION Qualifiers: (5) CAD (coronary artery disease) Code(s): I25.10 - ATHSCL HEART DISEASE OF [place] CORONARY ARTERY W/O ANG PCTRS (6) COPD (chronic obstructive pulmonary disease) Code(s): J44.9 - CHRONIC OBSTRUCTIVE PULMONARY DISEASE, UNSPECIFIED (7) Hypertension Code(s): I10 - ESSENTIAL (PRIMARY) HYPERTENSION (8) PAD (peripheral artery disease) Code(s): I73.9 - PERIPHERAL VASCULAR DISEASE, UNSPECIFIED (9) Renal insufficiency Code(s): N28.9 - DISORDER OF KIDNEY AND URETER, UNSPECIFIED (10) Shortness of breath on exertion Code(s): R06.02 - SHORTNESS OF BREATH
--- NOTE | 2016-07-06 13:32 | PN ---
Progress Note, Physician Chief Complaint: Dyspnea History of Present Illness: 80 year old male with a pmhx of dm, htn, ex-tobacco use, copd, diastolic chf, and afib on apixaban who presents with dyspnea and cough. As per the patient, the last 2-3 days has been having progressively worse dry cough and sob. Feels like he just can't do much. Denies any chest pain or palpitations. No pnd, orthopnea, or edema. Denies fever but temp 101 on admission. Echo: nl rv/lv size and systolic function, mild lad, trace MR, RVSP 30-40mmHg, mod TR. CXF: no pna or chf - Current Medication List Current Medications: Active Medications Acetaminophen (Tylenol -) 650 mg PO Q4H PRN PRN Reason: FEVER OR PAIN Apixaban (Eliquis -) 2.5 mg PO BID [facility] Last Admin: 07/06/16 10:11 Dose: 2.5 mg Aspirin (Ecotrin -) 81 mg PO DAILY [facility] Last Admin: 07/06/16 10:11 Dose: 81 mg Atorvastatin Calcium (Lipitor -) 40 mg PO HS [facility] Last Admin: 07/05/16 22:06 Dose: 40 mg Budesonide/Formoterol Fumarate (Symbicort 160/4.5mcg -) 1 puff IH BID [facility] Last Admin: 07/06/16 10:12 Dose: 1 puff Ceftriaxone Sodium (Rocephin 1gm Ivpb (Pre-Docked)) 1 gm IVPB DAILY [facility] Last Admin: 07/06/16 10:11 Dose: 1 gm Furosemide (Lasix -) 40 mg PO DAILY [facility] Last Admin: 07/06/16 10:11 Dose: 40 mg Insulin Aspart (Novolog Mix 70/30 Vial) 20 units SQ BIDAC [facility] Last Admin: 07/06/16 06:53 Dose: Not Given Insulin Aspart (Novolog Vial Sliding Scale -) 1 vial SQ ACHS [facility] PRN Reason: Protocol Last Admin: 07/06/16 12:04 Dose: Not Given Metoprolol Tartrate (Lopressor -) 50 mg PO BID [facility] Last Admin: 07/06/16 10:11 Dose: 50 mg Pantoprazole Sodium (Protonix -) 40 mg PO DAILY [facility] Last Admin: 07/06/16 10:11 Dose: 40 mg Sodium Chloride (Normal Saline -) 1,000 ml IV Q20M PRN PRN Reason: MAP<65mm Hg OR SBP <90 - Objective Vital Signs: Vital Signs Temperature 98.3 F 07/06/16 06:00 Pulse Rate 78 07/06/16 06:00 Respiratory Rate 18 07/06/16 06:00 Blood Pressure 132/74 07/06/16 06:00 O2 Sat by Pulse Oximetry (%) 97 07/05/16 21:00 Constitutional: Yes: No Distress Neck: Yes: Supple Cardiovascular: Yes: Pulse Irregular, S1, S2. No: Murmur Respiratory: Yes: Wheezes (minimal) Gastrointestinal: Yes: Normal Bowel Sounds, Soft Edema: No Labs: CBC, BMP 07/05/16 07:30 07/05/16 07:30 INR, PTT INR 1.28 (0.82-1.09) H 07/03/16 20:00 Problem List - Problems (1) CHF (congestive heart failure) Code(s): I50.9 - HEART FAILURE, UNSPECIFIED Qualifiers: Congestive heart failure type: unspecified congestive heart failure type Congestive heart failure chronicity: acute on chronic Qualified Code(s): I50.9 - Heart failure, unspecified (2) Afib Code(s): I48.91 - UNSPECIFIED ATRIAL FIBRILLATION Qualifiers: Assessment/Plan 80 year old male with a pmhx of dm, htn, ex-tobacco use, copd, diastolic chf, and afib on apixaban who presents with dyspnea and cough. As per the patient, the last 2-3 days has been having progressively worse dry cough and sob. Feels like he just can't do much. Denies any chest pain or palpitations. No pnd, orthopnea, or edema. Denies fever but temp 101 on admission. Echo: nl rv/lv size and systolic function, mild lad, trace MR, RVSP 30-40mmHg, mod TR. CXF: no pna or chf 1) Dyspnea/sob -patient with history of diastolic chf and copd. Dyspnea on this admission likely due to copd exacerbation -Would continue PO furosemide 40mg daily. -Hr's better controlled on increased metoprolol 50mg bid 2) Afib -metoprolol 50mg bid On apixaban 2.5mg bid
--- NOTE | 2016-07-06 18:45 | PN ---
Progress Note, Physician Chief Complaint: EATING BREAKFAST STABLE FEELS BETTER - Current Medication List Current Medications: Active Medications Acetaminophen (Tylenol -) 650 mg PO Q4H PRN PRN Reason: FEVER OR PAIN Apixaban (Eliquis -) 2.5 mg PO BID [facility] Last Admin: 07/06/16 10:11 Dose: 2.5 mg Aspirin (Ecotrin -) 81 mg PO DAILY [facility] Last Admin: 07/06/16 10:11 Dose: 81 mg Atorvastatin Calcium (Lipitor -) 40 mg PO HS [facility] Last Admin: 07/05/16 22:06 Dose: 40 mg Budesonide/Formoterol Fumarate (Symbicort 160/4.5mcg -) 1 puff IH BID [facility] Last Admin: 07/06/16 10:12 Dose: 1 puff Ceftriaxone Sodium (Rocephin 1gm Ivpb (Pre-Docked)) 1 gm IVPB DAILY [facility] Last Admin: 07/06/16 10:11 Dose: 1 gm Furosemide (Lasix -) 40 mg PO DAILY [facility] Last Admin: 07/06/16 10:11 Dose: 40 mg Insulin Aspart (Novolog Mix 70/30 Vial) 20 units SQ BIDAC [facility] Last Admin: 07/06/16 17:03 Dose: 20 units Insulin Aspart (Novolog Vial Sliding Scale -) 1 vial SQ ACHS [facility] PRN Reason: Protocol Last Admin: 07/06/16 17:00 Dose: Not Given Metoprolol Tartrate (Lopressor -) 50 mg PO BID [facility] Last Admin: 07/06/16 10:11 Dose: 50 mg Pantoprazole Sodium (Protonix -) 40 mg PO DAILY [facility] Last Admin: 07/06/16 10:11 Dose: 40 mg Sodium Chloride (Normal Saline -) 1,000 ml IV Q20M PRN PRN Reason: MAP<65mm Hg OR SBP <90 - Objective Vital Signs: Vital Signs Temperature 99.0 F 07/06/16 17:29 Pulse Rate 91 H 07/06/16 17:29 Respiratory Rate 18 07/06/16 17:29 Blood Pressure 148/67 07/06/16 17:29 O2 Sat by Pulse Oximetry (%) 97 07/06/16 09:00 Constitutional: Yes: No Distress Eyes: Yes: WNL HENT: Yes: WNL Neck: Yes: WNL Cardiovascular: Yes: Pulse Irregular Respiratory: Yes: Poor Air Entry, SOB Gastrointestinal: Yes: WNL Genitourinary: Yes: WNL Musculoskeletal: Yes: WNL Extremities: Yes: Deformity Edema: Yes Edema: LLE: 1+, RLE: 1+ Peripheral Pulses WNL: Yes Integumentary: Yes: Erythema Wound/Incision: Yes: Clean/Dry Neurological: Yes: WNL ...Motor Strength: LLE, RLE Psychiatric: Yes: WNL Labs: CBC, BMP 07/05/16 07:30 07/05/16 07:30 INR, PTT INR 1.28 (0.82-1.09) H 07/03/16 20:00 Problem List - Problems (1) CHF (congestive heart failure) Code(s): I50.9 - HEART FAILURE, UNSPECIFIED Qualifiers: Congestive heart failure type: unspecified congestive heart failure type Congestive heart failure chronicity: acute on chronic Qualified Code(s): I50.9 - Heart failure, unspecified (2) Cough Code(s): R05 - COUGH (3) Diabetes Code(s): E11.9 - TYPE 2 DIABETES MELLITUS WITHOUT COMPLICATIONS Qualifiers: Diabetes mellitus complication status: with neurologic complications (4) Pneumonia Code(s): J18.9 - PNEUMONIA, UNSPECIFIED ORGANISM (5) Afib Code(s): I48.91 - UNSPECIFIED ATRIAL FIBRILLATION Qualifiers: (6) Bacteremia Code(s): R78.81 - BACTEREMIA (7) CAD (coronary artery disease) Code(s): I25.10 - ATHSCL HEART DISEASE OF [place] CORONARY ARTERY W/O ANG PCTRS (8) CHF exacerbation Code(s): I50.9 - HEART FAILURE, UNSPECIFIED (9) COPD (chronic obstructive pulmonary disease) Code(s): J44.9 - CHRONIC OBSTRUCTIVE PULMONARY DISEASE, UNSPECIFIED (10) Diabetes 1.5, managed as type 2 Code(s): E13.9 - OTHER SPECIFIED DIABETES MELLITUS WITHOUT COMPLICATIONS (11) Renal insufficiency Code(s): N28.9 - DISORDER OF KIDNEY AND URETER, UNSPECIFIED (12) Shortness of breath on exertion Code(s): R06.02 - SHORTNESS OF BREATH (13) Type 2 diabetes mellitus with diabetic neuropathy, unspecified Code(s): E11.40 - TYPE 2 DIABETES MELLITUS WITH DIABETIC NEUROPATHY, UNSP Assessment/Plan CARDIOLOGY/PULMONARY EVAL CONSULTED NEBS LASIX GENTLY WILL NEED SPIRIVA OUTPATIENT TO AVOID EXACERBATIONS OF COPD WEIGHT AND FLUID MANAGEMENT DIETARY CONSULT DAILY WEIGHTS 02 SUPPORT IV ABX CEFTRIAXONE/AZITHRO
[2016-07-06] MEDS: ATORVASTATIN CA 40 MG TABLET (FP) PO SCH (21:11)
[2016-07-07] MEDS: INSULIN SLIDING SCALE (NOVOLOG) 1 VIAL SQ SCH ×2 (07:32→11:16)
[2016-07-07] MEDS: INSULIN (NOVOLOG MIX 70/30) 100 UNITS/ML MDV SQ SCH (07:33)
[2016-07-07 07:52] LABS: MCH 27.9 pg (25.7-33.7); MCHC 32.8 g/dl (32.0-35.9); MEAN CELL VOLUME 85.2 fl (80-96); MEAN PLT VOLUME 10.5 fl (7.5-11.1); PLATELET COUNT 109 K/MM3 (134-434); RDW 15.7 % (11.9-15.9)
[2016-07-07 08:22] LABS: ALBUMIN 3.1 g/dl (3.4-5.0); CALCIUM 8.9 mg/dL (8.5-10.1); COCKROFT - GAULT 42.57; CREATININE 1.7 mg/dL (0.7-1.3); TOT PROT 6.7 g/dl (6.4-8.2)
[2016-07-07 08:23] LABS: BILIRUBIN,TOTAL 0.8 mg/dL (0.2-1.0)
--- NOTE | 2016-07-07 08:33 | DS ---
Physical Examination Vital Signs: Vital Signs Temperature 97.9 F 07/07/16 06:00 Pulse Rate 86 07/07/16 06:00 Respiratory Rate 18 07/07/16 06:00 Blood Pressure 134/80 07/07/16 06:00 O2 Sat by Pulse Oximetry (%) 97 07/06/16 21:00 Cardiovascular: Yes: S1, S2 Respiratory: Yes: Regular, CTA Bilaterally Gastrointestinal: Yes: Normal Bowel Sounds, Soft Labs: CBC, BMP 07/07/16 06:30 07/07/16 06:30 Discharge Summary Reason For Visit: CHF/COUGH/PNEUMONIA Current Active Problems CHF (congestive heart failure) (Acute) COPD (chronic obstructive pulmonary disease) with acute bronchitis (Acute) Cough (Acute) Diabetes (Acute) Pneumonia (Acute) Hospital Course: History of Present Illness: 80 Y/O MALE HISTORY OF DM,HTN, FORMER TOBACCO USER COPD HERE WITH SOB/DYSPNEA WITH A COUGH FOR 2 DAYS WORSENED YESTERDAY AND CAME TO ED FOUND TO HAVE ELEVATED BNP, LAST ECHO 2015 EF 63% WITH MITRAL REGURGE AND HIGH RIGHT SIDED PRESSURES. 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 No: CHF Pulmonary: Yes: Bronchitis, COPD Gastrointestinal: Yes: Irritable Bowel Disease Infectious Disease: Yes: Other (INFECTED FOOT) Musculoskeletal: Yes: Other (RECURRENT FOOT INFECTION) Endocrine: Yes: Diabetes Mellitus - Past Surgical History Past Surgical History: Yes: Colonoscopy Assessment/Plan IMP DYSPNEA IMPROVING COPD EXACERBATION IMPROVING ACUTE BRONCHITIS ASHD S/P STENT AFIB PULMONARY HTN DIASTOLIC HF DM ACUTE ON CHRONIC KIDNEY DISEASE PLAN INHALED BRONCHODILATORS O2 PO ANTIBIOTICS MONITOR LYTES,RENAL FUNCTION Condition: Improved - Instructions Referrals: Vickey Johnson MD [Primary Care Provider] - 1 Week - Home Medications Comprehensive Discharge Medication List: Ambulatory Orders Atorvastatin Ca [Lipitor] 40 mg PO HS tablet 03/01/15 Insulin (Novolog 70/30) [Novolog Mix 70/30 Vial -] 20 units SQ BIDAC vial 03/01 Metoprolol Tartrate [Lopressor -] 25 mg PO BID tablet 03/01/15 Aspirin [Ecotrin] 81 mg PO DAILY 03/04/15 Apixaban [Eliquis] 2.5 mg PO DAILY 03/12/16 Budesonide/Formeterol Fumarate [SYMBICORT 160/4.5mcg -] 1 inh PO BID 03/12/16 Enalapril Maleate [Vasotec -] 2.5 mg PO DAILY 03/12/16 Furosemide [Lasix -] 40 mg PO DAILY 03/12/16 Nitroglycerin Patch [Nitro-Dur Patch -] 0.2 mg TD DAILY 03/12/16 Cefuroxime Axetil [Ceftin -] 500 mg PO Q12H #14 tablet 07/07/16 Pantoprazole Sodium [Protonix -] 40 mg PO DAILY #30 tab 07/07/16
[2016-07-07 08:56] VITALS: BP 133/72; PULSE 83; TEMP 98.8
[2016-07-07] MEDS ORDERED: PT OWN MED DRAWER 7, Y5N ONE (09:08)
[2016-07-07] MEDS: ASPIRIN COATED 81 MG TABLET.EC PO SCH (09:11)
[2016-07-07] MEDS: METOPROLOL TARTRATE 50 MG TABLET (FP) PO SCH (09:12)
[2016-07-07] MEDS: APIXABAN 2.5 MG TABLET PO SCH (09:12)
[2016-07-07] MEDS: cefTRIAXone 1 GM/50 ML BAG (PRE-DOCKED) IVPB SCH (09:12)
[2016-07-07] MEDS: PANTOPRAZOLE 40 MG TABLET (FP) PO SCH (09:12)
[2016-07-07] MEDS: FUROSEMIDE 40 MG TABLET (FP) PO SCH (09:12)
[2016-07-07] MEDS: BUDESONIDE/FORMETEROL FUMARATE 160/4.5 mcg INHALER IH SCH (09:13)
--- NOTE | 2016-07-07 09:51 | PN ---
Progress Note (short form) - Note Progress Note: PULMONARY States breathing is better. Mild cough with white sputum. No fevers or chills. Last Vital Signs Temp Pulse Resp BP Pulse Ox 98.8 F 83 16 133/72 97 07/07/16 08:35 07/07/16 08:35 07/07/16 08:35 07/07/16 08:35 07/06/16 21:00 Gen: NAD at rest Heart: RRR Lung: decreased breath sounds at the bases Abd: soft, nontender Ext: no edema CBC, BMP 07/07/16 06:30 07/07/16 06:30 Active Medications Acetaminophen (Tylenol -) 650 mg PO Q4H PRN PRN Reason: FEVER OR PAIN Apixaban (Eliquis -) 2.5 mg PO BID [facility] Last Admin: 07/07/16 09:12 Dose: 2.5 mg Aspirin (Ecotrin -) 81 mg PO DAILY [facility] Last Admin: 07/07/16 09:11 Dose: 81 mg Atorvastatin Calcium (Lipitor -) 40 mg PO HS [facility] Last Admin: 07/06/16 21:11 Dose: 40 mg Budesonide/Formoterol Fumarate (Symbicort 160/4.5mcg -) 1 puff IH BID [facility] Last Admin: 07/07/16 09:13 Dose: 1 puff Ceftriaxone Sodium (Rocephin 1gm Ivpb (Pre-Docked)) 1 gm IVPB DAILY [facility] Last Admin: 07/07/16 09:12 Dose: 1 gm Furosemide (Lasix -) 40 mg PO DAILY [facility] Last Admin: 07/07/16 09:12 Dose: 40 mg Insulin Aspart (Novolog Mix 70/30 Vial) 20 units SQ BIDAC [facility] Last Admin: 07/07/16 07:33 Dose: 20 units Insulin Aspart (Novolog Vial Sliding Scale -) 1 vial SQ ACHS [facility] PRN Reason: Protocol Last Admin: 07/07/16 07:32 Dose: Not Given Metoprolol Tartrate (Lopressor -) 50 mg PO BID [facility] Last Admin: 07/07/16 09:12 Dose: 50 mg Pantoprazole Sodium (Protonix -) 40 mg PO DAILY [facility] Last Admin: 07/07/16 09:12 Dose: 40 mg Sodium Chloride (Normal Saline -) 1,000 ml IV Q20M PRN PRN Reason: MAP<65mm Hg OR SBP <90 A/P Acute Bronchitis COPD CAD Atrial Fibrillation LV Diastolic Dysfunction Pulmonary HTN DM CKD - complete antibiotics - inhaled bronchodilators - rate controlled - continue anticoagulation
[2016-07-07] MEDS ORDERED: CEFUROXIME AXETIL 250 MG TABLET PO SCH (22:00)
== END 2016-07-07 14:44 | disposition home or self-care (01) | DRG 191 ==
LOC: JER 17:44 → JERBED 23:13 → UNDOADMIN 23:58 → JERBED 23:58 → J8W 07-04 03:22
PROVIDERS: ADMIT Family Medicine; ATTEND Family Medicine
DX: J44.0 Chronic obstructive pulmonary disease with (acute) lower respiratory infection (principal); I13.0 Hypertensive heart and chronic kidney disease with heart failure and stage 1 through stage 4 chronic kidney disease, or unspecified chronic kidney disease; N17.9 Acute kidney failure, unspecified; I50.32 Chronic diastolic (congestive) heart failure; J20.9 Acute bronchitis, unspecified; I48.91 Unspecified atrial fibrillation; I27.2 Other secondary pulmonary hypertension; N18.3 Chronic kidney disease, stage 3 (moderate); E11.22 Type 2 diabetes mellitus with diabetic chronic kidney disease; Z79.4 Long term (current) use of insulin; E11.65 Type 2 diabetes mellitus with hyperglycemia; J44.1 Chronic obstructive pulmonary disease with (acute) exacerbation; I25.10 Atherosclerotic heart disease of native coronary artery without angina pectoris; Z98.61 Coronary angioplasty status
CPT/HCPCS: 36415; 71010-TC; 80053; 81003; 81015; 82550; 82570; 82803; 83605; 83735; 83880; 84100; 84156; 84484; 85025; 85027; 85610; 85730; 86850; 86900; 86901; 87040; 87081; 87086; 93005; 93010; 97116-GP; 97161-GP; 99282-25; J3480

== ENCOUNTER 2016-12-09 10:33 | Inpatient (IN) | payer OTHER ==
[2016-12-09] MEDS ORDERED: dilTIAZem HCL 50 MG/10 ML - 10 ML VIAL IVPUSH ONE (11:27)
[2016-12-09] MEDS ORDERED: dilTIAZem HCL 125 MG/25 ML - 25 ML VIAL ONE (11:29)
--- NOTE | 2016-12-09 11:39 | PDOC ---
History of Present Illness - History of Present Illness Initial Comments: 12/09/16 11:51 The patient is a year old male, with a significant past medical history of insulin dependent diabetes, AFib (eliquis and 81 mg aspirin), hypertension ( metoprolol), who presents to the emergency department for evaluation of progressive onset of diarrhea, bilateral upper extremity numbness and heaviness , diaphoresis, chest pain, and one episode of emesis all starting a little earlier than 9am this morning. He reports his chest pain began at about 9am, after having multiple episodes of loose, watery, brown bowel movements. He reports his chest pain radiates across the chest and to his arms bilaterally. He denies pain to his upper extremities but states it feels hard to lift them . He states he has not eaten since yesterday when he reportedly ate tuna fish. He reports one episode of nonbloody emesis prior to his ED arrival. He also states he has not taken his medications today. He states he feels "sweaty" right now. He denies shortness of breath, headache and dizziness. He denies fever, chills, constipation. He denies dysuria, frequency, urgency and hematuria. 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 <Carito Castro - Last Filed: 12/09/16 12:05> <Lilliana Chandler - Last Filed: 12/09/16 13:49> - General Chief Complaint: Chest Pain Stated Complaint: CHEST PAIN, ARM NUMBNESS/diarrhea Time Seen by Provider: 12/09/16 11:04 Past History <Carito Castro - Last Filed: 12/09/16 12:05> - Past Medical History Anemia: No Asthma: No Cancer: No Cardiac Disorders: Yes (AFib) CVA: No COPD: Yes CHF: Yes Dementia: No Diabetes: Yes GI Disorders: No Disorders: Yes HTN: Yes Hypercholesterolemia: Yes Liver Disease: No Seizures: No Thyroid Disease: No - Surgical History Abdominal Surgery: Yes (Hernia repair) Appendectomy: No Cardiac Surgery: Yes (Stents X 4) Cholecystectomy: No Lung Surgery: No Neurologic Surgery: No Orthopedic Surgery: No - Immunization History Td Vaccination: Yes Immunization Up to Date: Yes - Suicide/Smoking/Psychosocial Hx Smoking Status: No Smoking History: Never smoked Years of Tobacco Use: 5 Have you smoked in the past 12 months: No Number of Cigarettes Smoked Daily: 0 If you are a former smoker, when did you quit?: 1956 Cigars Per Day: 4 Information on smoking cessation initiated: No 'Breaking Loose' booklet given: 04/01/15 Hx Alcohol Use: No Drug/Substance Use Hx: No Substance Use Type: None Hx Substance Use Treatment: No <Lilliana Chandler - Last Filed: 12/09/16 13:49> - Past Medical History Allergies/Adverse Reactions: Allergies Allergy/AdvReac Type Severity Reaction Status Date / Time No Known Allergies Allergy Verified 12/09/16 10:47 Home Medications: Ambulatory Orders Atorvastatin Ca [Lipitor] 40 mg PO HS tablet 03/01/15 Insulin (Novolog 70/30) [Novolog Mix 70/30 Vial -] 20 units SQ BIDAC vial 03/01 Metoprolol Tartrate [Lopressor -] 25 mg PO BID tablet 03/01/15 Enalapril Maleate [Vasotec -] 2.5 mg PO DAILY 03/12/16 Pantoprazole Sodium [Protonix -] 40 mg PO DAILY #30 tab 07/07/16 Review of Systems - Review of Systems Able to Perform ROS?: Yes Comments:: 12/09/16 11:51 GENERAL/CONSTITUTIONAL: No fever or chills. No weakness. HEAD, EYES, EARS, NOSE AND THROAT: No change in vision. No ear pain or discharge. No sore throat. GASTROINTESTINAL: (+) nausea, vomiting, diarrhea. No constipation. GENITOURINARY: No dysuria, frequency, or change in urination. CARDIOVASCULAR: (+) chest pain, No shortness of breath. RESPIRATORY: No cough, wheezing, or hemoptysis. MUSCULOSKELETAL: (+) upper extremity "numbness and heaviness" No joint or muscle swelling or pain. No neck or back pain. SKIN: No rash NEUROLOGIC: No headache, vertigo, loss of consciousness, or change in strength/ sensation. ENDOCRINE: No increased thirst. No abnormal weight change. HEMATOLOGIC/LYMPHATIC: No anemia, easy bleeding, or history of blood clots. ALLERGIC/IMMUNOLOGIC: No hives or skin allergy. <Carito Castro - Last Filed: 12/09/16 12:05> *Physical Exam - Vital Signs Last Vital Signs Temp Pulse Resp BP Pulse Ox 97.6 F 77 19 156/76 99 12/09/16 10:45 12/09/16 10:45 12/09/16 10:45 12/09/16 10:45 12/09/16 10:45 - Physical Exam Comments: 12/09/16 12:06 Constitutional: Awake, alert, oriented. No acute distress. Head: Normocephalic. Atraumatic Eyes: PERRL. EOMI. Conjunctivae are not pale. ENT: Mucous membranes are moist and intact. Posterior pharynx without exudates or erythema. Uvula midline. Neck: Supple. Full ROM. No lymphadenopathy. Cardiovascular: (+) Irregularly irregular. tachycardic. S1, S2 regular. Distal pulses are 2+ and symmetric. Pulmonary/Chest: No evidence of respiratory distress. Clear to auscultation bilaterally No wheezing, rales or rhonchi. Abdominal: Soft and non-distended. There is no tenderness. No rebound, guarding or rigidity. No organomegaly. No palpable masses. Good bowel sounds. Back: No CVA tenderness. Musculoskeletal: (+) Trace edema. No cyanosis. No clubbing. Full range of motion in all extremities. Nocalf tenderness. Radial/pedal pulses are intact and 2+ bilaterally Skin: Skin is warm and dry. No petechiae. No purpura. Neurological: Alert and oriented to person, place, and time. Cranial nerves II -XII are grossly intact. Normal speech. Strength is grossly symmetric. No sensory deficits. Psychiatric: Good eye contact. Normal interaction, affect and behavior. <Carito Castro - Last Filed: 12/09/16 12:05> - Vital Signs Last Vital Signs Temp Pulse Resp BP Pulse Ox 97.6 F 77 19 156/76 99 12/09/16 10:45 12/09/16 10:45 12/09/16 10:45 12/09/16 10:45 12/09/16 10:45 <Lilliana Chandler - Last Filed: 12/09/16 13:49> Heart Score/ECG Review - ECG Intrepretation Comment:: 12/09/16 11:38 afib at 147, L axis deviation, q waves inferior leads that are age indeterminate , no acute st/t wave findings <Miranda Chandleren - Last Filed: 12/09/16 13:49> ED Treatment Course - LABORATORY CBC & Chemistry Diagram: 12/09/16 11:30 12/09/16 11:30 - Medications Given in the ED: ED Medications Discontinued Medications Generic Name Dose Route Start Last Admin Trade Name Jessica PRN Reason Stop Dose Admin Diltiazem HCl 20 mg 12/09/16 11:27 12/09/16 11:39 Cardizem Injection - IVPUSH 12/09/16 11:28 20 mg ONCE ONE Administration <Carito Castro - Last Filed: 12/09/16 12:05> - LABORATORY CBC & Chemistry Diagram: 12/09/16 11:30 12/09/16 12:50 - RADIOLOGY Radiology Studies Ordered: Category Date Time Status CHEST X-RAY PORTABLE* [RAD] Stat Radiology 12/09/16 11:18 Taken <Lilliana Chandler - Last Filed: 12/09/16 13:49> Medical Decision Making - Critical Care Time Total Critical Care Time (minutes): 30 Critical Care Statement: The care of this patient involved high complexity decision making to prevent further life threatening deterioration of the patient 's condition and/or to evaluate & treat vital organ system(s) failure or risk of failure. <Carter Castroanda - Last Filed: 12/09/16 12:05> - Critical Care Time Total Critical Care Time (minutes): 30 Critical Care Statement: The care of this patient involved high complexity decision making to prevent further life threatening deterioration of the patient 's condition and/or to evaluate & treat vital organ system(s) failure or risk of failure. - Medical Decision Making 12/09/16 11:37 a/p: 80yo male with CP and palpitations since this AM -diaphoretic -in afib with RVR -hasn't taken meds today -will give IV cardizem -ekg -cxr -cardiac enzymes -consult to Dr. Campbell and poss admission 12/09/16 11:59 re-eval: HR 80s. will give regular PO meds 12/09/16 12:[address] Smith, accepts pt to service. Consult placed to Dr. Campbell 12/09/16 13:47 CBC reviewed, will start flagyl for elevated wbc and diarrhea. also ivf hydration given hgb of 18. pt will be admitted. <Lilliana Chandler - Last Filed: 12/09/16 13:49> *DC/Admit/Observation/Transfer - Attestations Scribe Attestion: 12/09/16 12:08 Documentation prepared by Carito Castro, acting as resident medical officer for Lilliana Chandler MD <Carito Castro - Last Filed: 12/09/16 12:05> - Discharge Dispostion Admit: Yes - Attestations Physician Attestion: 12/09/16 12:33 I, Dr. Lilliana Chandler, DO, attest that this document has been prepared under my direction and personally reviewed by me in its entirety. I further attest, that it accurately reflects all work, treatment, procedures and medical decision -making performed by me. <Lilliana Chandler - Last Filed: 12/09/16 13:49> Diagnosis at time of Disposition: Rapid atrial fibrillation, Diarrhea - Discharge Dispostion Condition at time of disposition: Guarded - Referrals
[2016-12-09] MEDS ORDERED: SODIUM CHLORIDE 0.9% 1000 ML INFUS.BAG IV ONE ×2 (11:40→12:35)
[2016-12-09 11:41] LABS: BASOPHIL 0.5 % (0-2.0); EOSINOPHIL 2.9 % (0-4.5); MCH 28.1 pg (25.7-33.7); MCHC 32.6 g/dl (32.0-35.9); MEAN CELL VOLUME 86.1 fl (80-96); MEAN PLT VOLUME 10.6 fl (7.5-11.1); NEUTROPHILS 78.6 % (42.8-82.8); PLATELET COUNT 176 K/MM3 (134-434); WHITE BLOOD COUNT 18.3 K/mm3 (4.0-10.0)
[2016-12-09 11:54] LABS: INR 1.14 (0.82-1.09); PROTHROMBIN TIME (PATIENT) 12.9 SEC (9.98-11.88)
[2016-12-09 11:57] LABS: ACTIVATED PTT 38.3 SECONDS (26.9-34.4)
[2016-12-09] MEDS ORDERED: METOPROLOL TARTRATE 25 MG TABLET (FP) PO ONE (11:57)
[2016-12-09] MEDS ORDERED: METOPROLOL TARTRATE 25 MG TABLET (FP) ONE (11:58)
[2016-12-09] MEDS ORDERED: METRONIDAZOLE 500 MG PREMIXED 100 ML IVPB ONE ×3 (12:35→18:01)
--- NOTE | 2016-12-09 13:40 | HP ---
Admitting History and Physical - Primary Care Physician PCP: Vickey Johnson - Admission History of Present Illness: The patient is a year old male, with a significant past medical history of insulin dependent diabetes, AFib (eliquis and 81 mg aspirin), hypertension ( metoprolol), who presents to the emergency department for evaluation of progressive onset of diarrhea, bilateral upper extremity numbness and heaviness , diaphoresis, chest pain, and one episode of emesis all starting a little earlier than 9am this morning. He reports his chest pain began at about 9am, after having multiple episodes of loose, watery, brown bowel movements. He reports his chest pain radiates across the chest and to his arms bilaterally. He denies pain to his upper extremities but states it feels hard to lift them . He states he has not eaten since yesterday when he reportedly ate tuna fish. He reports one episode of nonbloody emesis prior to his ED arrival. He also states he has not taken his medications today. He states he feels "sweaty" right now. per patient he also noticed his heart beating fast with chestpain and sob.in ER found afib He denies shortness of breath, headache and dizziness. He denies fever, chills, constipation. He denies dysuria, frequency, urgency and hematuria. 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 No: CHF Pulmonary: Yes: Bronchitis, COPD Gastrointestinal: Yes: Irritable Bowel Disease Infectious Disease: Yes: Other (INFECTED FOOT) Musculoskeletal: Yes: Other (RECURRENT FOOT INFECTION) Endocrine: Yes: Diabetes Mellitus - Past Surgical History Past Surgical History: Yes: Colonoscopy - Smoking History Smoking history: Never smoked Have you smoked in the past 12 months: No Aproximately how many cigarettes per day: 0 If you are a former smoker, when did you quit?: 1955 - Alcohol/Substance Use Hx Alcohol Use: No Home Medications - Allergies Allergies/Adverse Reactions: Allergies Allergy/AdvReac Type Severity Reaction Status Date / Time No Known Allergies Allergy Verified 12/09/16 10:47 - Home Medications Home Medications: Ambulatory Orders Atorvastatin Ca [Lipitor] 40 mg PO HS tablet 03/01/15 Insulin (Novolog 70/30) [Novolog Mix 70/30 Vial -] 20 units SQ BIDAC vial 03/01 Metoprolol Tartrate [Lopressor -] 25 mg PO BID tablet 03/01/15 Enalapril Maleate [Vasotec -] 2.5 mg PO DAILY 03/12/16 Pantoprazole Sodium [Protonix -] 40 mg PO DAILY #30 tab 07/07/16 Family Disease History - Family Disease History Family Disease History: Heart Disease: Father, Mother Review of Systems - Review of Systems Cardiovascular: reports: Palpitations Gastrointestinal: reports: Diarrhea Physical Examination Vital Signs: Vital Signs Temperature 97.6 F 12/09/16 11:57 Pulse Rate 89 12/09/16 11:57 Respiratory Rate 18 12/09/16 11:57 Blood Pressure 103/66 12/09/16 11:57 O2 Sat by Pulse Oximetry (%) 95 12/09/16 11:57 Constitutional: Yes: Calm Cardiovascular: Yes: Pulse Irregular, S1, S2 Respiratory: Yes: CTA Bilaterally Gastrointestinal: Yes: Soft Extremities: Yes: Other (right foot toe amputation) Edema: LLE: 1+, RLE: 1+ Neurological: Yes: Alert, Oriented Imaging - Results Chest X-ray: Report Reviewed Problem List - Problems (1) Diarrhea Assessment/Plan: leukocytosis check stool for c diff flagyl ID eval Code(s): R19.7 - DIARRHEA, UNSPECIFIED (2) Afib Assessment/Plan: rate control eliquis tele cardio metoprolol 25mg bid Code(s): I48.91 - UNSPECIFIED ATRIAL FIBRILLATION Qualifiers: (3) CAD (coronary artery disease) Assessment/Plan: BB, statin acei Code(s): I25.10 - ATHSCL HEART DISEASE OF [place] CORONARY ARTERY W/O ANG PCTRS (4) CHF (congestive heart failure) Assessment/Plan: echo Code(s): I50.9 - HEART FAILURE, UNSPECIFIED (5) COPD (chronic obstructive pulmonary disease) Code(s): J44.9 - CHRONIC OBSTRUCTIVE PULMONARY DISEASE, UNSPECIFIED (6) Diabetes Assessment/Plan: hga1c sliding sclae bgm insulin Code(s): E11.9 - TYPE 2 DIABETES MELLITUS WITHOUT COMPLICATIONS Qualifiers: Diabetes mellitus type: type 2 (7) Hypertension Assessment/Plan: BB,acei, Code(s): I10 - ESSENTIAL (PRIMARY) HYPERTENSION
[2016-12-09 13:43] LABS: ALBUMIN 3.1 g/dl (3.4-5.0); ANION GAP 12 (8-16); BILIRUBIN,TOTAL 1.2 mg/dL (0.2-1.0); CALCIUM 8.5 mg/dL (8.5-10.1); CO2 27 mmol/L (21-32); CREATININE 1.8 mg/dL (0.7-1.3); GLUCOSE,RANDOM 184 mg/dL (74-106); SGOT/AST 18 U/L (15-37); SGPT/ALT 18 U/L (12-78); TOT PROT 6.6 g/dl (6.4-8.2)
[2016-12-09 13:45] LABS: ALK PHOS 122 U/L (45-117); CPK 70 IU/L (39-308); TROPONIN I < 0.02 ng/ml (0.00-0.05)
--- NOTE | 2016-12-09 16:43 | PN ---
Progress Note (short form) - Note Progress Note: ID consult dictated imp/reccd 80 year old man with DM/afib ate tuna at mindnight and this am developed acute onset on nonbloody diarrhea 6 to 7 times and vomiting once no abdominal pain no fevers or chills he felt some shoulder and chest discomfort and came to ED-found to be in afib with RVR currently feels well- drinking gingerale no further vomiting and diarrhea is wondering if he can go home no travel no sick contacts lives with grandson no recent antibiotics labs notable for elevated wbc with elevated hgb/hct- ?hemoconcentration from diarrhea this am? no skin breakdown, no rash appears to have self limiting gastroenteritis agree with IVF stool culture and cdiff blood cultures too would hold off on antibiotics at this time as diarrhea appears selflimited obtaine RUQ US for elevated tbili and alk phos rapid afib- management per cardiology Problem List - Problems (1) Gastroenteritis Code(s): K52.9 - NONINFECTIVE GASTROENTERITIS AND COLITIS, UNSPECIFIED (2) Rapid atrial fibrillation Code(s): I48.91 - UNSPECIFIED ATRIAL FIBRILLATION
--- NOTE | 2016-12-09 17:43 | CONS ---
DATE OF CONSULTATION: DATE OF DICTATION: 12/09/2016 INFECTIOUS DISEASE CONSULTATION REQUESTING PHYSICIAN: CONSULTING PHYSICIAN: Rosemary Pruitt M.D. HISTORY OF PRESENT ILLNESS: This is an 80-year-old man who lives at home with his grandson. He uses a walker to ambulate. He was in his usual state of health yesterday. He does not eat very frequently, as he reports he likes to eat junk food. He went to the [facility], hung out with the [employer] for several hours, picked up some tuna, and had some tuna to eat around midnight last night. This morning he had acute onset of diarrhea that was watery 6 to 7 times. He had 1 episode that was nonbloody, there was no associated abdominal pain. He had 1 episode of nonbilious vomiting. He also noted this all happened and shortly thereafter he developed some chest discomfort with some pain in his shoulders. He came to the emergency room, where he was noted to be in rapid atrial fibrillation with an elevated white count and hemoglobin. I am asked to see him for further evaluation. He has currently been in the emergency room now for about over 5 hours. He reports he has had 1 small bowel movement since. He has had no cramps. He has had no blood. His vomiting has stopped. He is drinking adrián lacey. He feels quite well and wants to go home. His chest discomfort has all resolved. His rapid atrial fibrillation has now been corrected. There is no history of any travel. He has no sick contacts. He has a pet dog, and he lives with his grandson. ALLERGIES: He has no known drug allergies. SOCIAL HISTORY: He is not a smoker. He lives with his son. PAST MEDICAL HISTORY: Notable for a history of atrial fibrillation, COPD, CHF, diabetes, hypercholesterolemia. He has had a surgical history notable for hernia repair, and he has had cardiac stents in the past. REVIEW OF SYSTEMS: He currently has no pain whatsoever. His diarrhea is resolved. His vomiting has resolved, and he feels well. And he denies fevers or chills at home. He denies any dysuria. PHYSICAL EXAMINATION: General: He is awake and alert. Vital signs: Temperature is 97.6, pulse is 85, blood pressure 110/77. Respiratory rate 18. He is saturating 96%. He is a smiling elderly man in no acute distress. HEENT: Normocephalic. Eyes are anicteric. No conjunctival hemorrhages. He has no thrush. Neck: Supple. Lungs: Clear to auscultation. Heart: Irregularly irregular. Abdomen: Soft, nontender. He has no suprapubic pain. He has no CVA tenderness. He has no right upper quadrant pain. Extremities: Without edema. LABORATORY: White count is 18.3, hemoglobin 18.1, platelets are 176. INR is 1.1. His BUN and creatinine are 28 and 1.8. His baseline creatinine is 1.7. His LFTs are notable for a total bilirubin of 1.2 and an alkaline phosphatase of 122. Blood cultures have been ordered. IMPRESSION: In summary, this is an 80-year-old man admitted with what appears to be a self-limiting diarrhea, gastroenteritis. Would agree with intravenous fluid, stool culture and Clostridium difficile. Would obtain blood cultures too. Would hold off on antibiotics at this time. His diarrhea appears resolved. Rapid atrial fibrillation management per cardiology. Further recommendations to follow. [place] [id number]
[2016-12-09 18:02] LABS: URINE APPEARANCE SLCLOUDY; URINE BILIRUBIN NEGATIVE (NEGATIVE); URINE BLOOD NEGATIVE (NEGATIVE); URINE COLOR YELLOW; URINE GLUCOSE (UA) NEGATIVE (NEGATIVE); URINE KETONE NEGATIVE (NEGATIVE); URINE NITRITE NEGATIVE (NEGATIVE); URINE UROBILINOGEN NEGATIVE mg/dL (0.2-1.0)
[2016-12-09 18:04] LABS: URINE PROTEIN 2+ (NEGATIVE)
[2016-12-09 18:05] LABS: URINE HYALINE CAST 23 /lpf; URINE MUCUS RARE; URINE RBC 2 /hpf (0-3); URINE WBC 4 /hpf (3-5)
[2016-12-09] MEDS: METRONIDAZOLE 500 MG PREMIXED 100 ML IVPB SCH (18:06)
[2016-12-09 18:54] LABS: CPK 71 IU/L (39-308); TROPONIN I < 0.02 ng/ml (0.00-0.05)
[2016-12-09 20:22] LABS: URINE LEUK ESTERASE TRACE (NEGATIVE)
[2016-12-09] MEDS ORDERED: APIXABAN 5 MG TABLET PO SCH ×2 (22:00)
[2016-12-09] MEDS ORDERED: ATORVASTATIN CA 40 MG TABLET (FP) ONE (23:05)
[2016-12-09] MEDS: BUDESONIDE/FORMETEROL FUMARATE 160/4.5 mcg INHALER IH SCH (23:06)
[2016-12-09] MEDS: ATORVASTATIN CA 40 MG TABLET (FP) PO SCH (23:06)
[2016-12-10 00:19] VITALS: BMI 33.5
[2016-12-10] MEDS: METRONIDAZOLE 500 MG PREMIXED 100 ML IVPB SCH ×2 (01:27→10:15)
[2016-12-10 07:01] LABS: BASOPHIL 0.9 % (0-2.0); EOSINOPHIL 5.9 % (0-4.5); MCH 28.3 pg (25.7-33.7); MCHC 33.3 g/dl (32.0-35.9); MEAN CELL VOLUME 85.1 fl (80-96); MEAN PLT VOLUME 10.7 fl (7.5-11.1); NEUTROPHILS 57.1 % (42.8-82.8); PLATELET COUNT 132 K/MM3 (134-434); RDW 15.4 % (11.9-15.9); WHITE BLOOD COUNT 7.8 K/mm3 (4.0-10.0)
[2016-12-10 07:32] LABS: ALBUMIN 2.8 g/dl (3.4-5.0); ANION GAP 7 (8-16); CALCIUM 8.1 mg/dL (8.5-10.1); CO2 28 mmol/L (21-32); GLUCOSE,RANDOM 138 mg/dL (74-106)
[2016-12-10 07:36] LABS: ALK PHOS 108 U/L (45-117); BILIRUBIN,TOTAL 1.3 mg/dL (0.2-1.0); CHOLESTEROL 92 mg/dL (50-200); CREATININE 1.5 mg/dL (0.7-1.3); PHOSPHOROUS 3.3 mg/dL (2.5-4.9); SGOT/AST 15 U/L (15-37); SGPT/ALT 15 U/L (12-78); TOT PROT 5.9 g/dl (6.4-8.2); TROPONIN I < 0.02 ng/ml (0.00-0.05)
--- NOTE | 2016-12-10 08:57 | PN ---
Progress Note, Physician - Current Medication List Current Medications: Active Medications Apixaban (Eliquis -) 2.5 mg PO BID [facility] Aspirin (Ecotrin -) 81 mg PO DAILY KIRSTEN Atorvastatin Calcium (Lipitor -) 40 mg PO HS [facility] Last Admin: 12/09/16 23:06 Dose: 40 mg Budesonide/Formoterol Fumarate (Symbicort 160/4.5mcg -) 1 puff IH BID [facility] Last Admin: 12/09/16 23:06 Dose: 1 puff Furosemide (Lasix -) 40 mg PO DAILY [facility] Metronidazole (Flagyl 500mg Premixed Ivpb -) 100 mls @ 100 mls/hr IVPB Q8H-IV KIRSTEN Last Admin: 12/10/16 01:27 Dose: 100 mls/hr - Objective Vital Signs: Vital Signs Temperature 98 F 12/10/16 07:39 Pulse Rate 81 12/10/16 07:39 Respiratory Rate 20 12/10/16 07:39 Blood Pressure 121/74 12/10/16 07:39 O2 Sat by Pulse Oximetry (%) 98 12/09/16 17:16 Cardiovascular: Yes: Tachycardia, S1, S2 Respiratory: Yes: Regular, CTA Bilaterally Gastrointestinal: Yes: Normal Bowel Sounds, Soft, Abdomen, Obese Labs: CBC, BMP 12/10/16 06:40 12/10/16 06:40 INR, PTT INR 1.14 (0.82-1.09) 12/09/16 11:30 Assessment/Plan - Problems (1) Diarrhea Assessment/Plan: leukocytosis check stool for c diff flagyl ID eval Code(s): R19.7 - DIARRHEA, UNSPECIFIED (2) Afib Assessment/Plan: rate control eliquis tele cardio metoprolol 25mg bid Code(s): I48.91 - UNSPECIFIED ATRIAL FIBRILLATION Qualifiers: (3) CAD (coronary artery disease) Assessment/Plan: BB, statin acei Code(s): I25.10 - ATHSCL HEART DISEASE OF [place] CORONARY ARTERY W/O ANG PCTRS (4) CHF (congestive heart failure) Assessment/Plan: echo Code(s): I50.9 - HEART FAILURE, UNSPECIFIED (5) COPD (chronic obstructive pulmonary disease) Code(s): J44.9 - CHRONIC OBSTRUCTIVE PULMONARY DISEASE, UNSPECIFIED (6) Diabetes Assessment/Plan: hga1c sliding sclae bgm insulin Code(s): E11.9 - TYPE 2 DIABETES MELLITUS WITHOUT COMPLICATIONS Qualifiers: Diabetes mellitus type: type 2 (7) Hypertension Assessment/Plan: BB,acei, Code(s): I10 - ESSENTIAL (PRIMARY) HYPERTENSION
[2016-12-10] MEDS: BUDESONIDE/FORMETEROL FUMARATE 160/4.5 mcg INHALER IH SCH ×2 (10:15→22:35)
[2016-12-10] MEDS: FUROSEMIDE 40 MG TABLET (FP) PO SCH (10:16)
[2016-12-10] MEDS: ASPIRIN COATED 81 MG TABLET.EC PO SCH (10:16)
[2016-12-10] MEDS: APIXABAN 2.5 MG TABLET PO SCH ×2 (10:16→22:31)
[2016-12-10] MEDS: ENALAPRIL MALEATE 2.5 MG TABLET (FP) PO SCH (11:09)
[2016-12-10] MEDS: INSULIN SLIDING SCALE (NOVOLOG) 1 VIAL SQ SCH ×3 (11:09→22:35)
[2016-12-10] MEDS: METOPROLOL TARTRATE 25 MG TABLET (FP) PO SCH ×2 (11:09→22:31)
[2016-12-10] MEDS: PANTOPRAZOLE 40 MG TABLET (FP) PO SCH (11:09)
--- NOTE | 2016-12-10 12:44 | PN ---
Progress Note (short form) - Note Progress Note: feels well no further diarrhea or diarrhea no abdominal pain on telemetry for rapid afib Vital Signs Period Temp Pulse Resp BP Sys/Gomez Pulse Ox Last 24 Hr 97.3 F-98.3 F 77-85 16-20 110-140/64-88 96-98 cor-irreg lungs clear abdomen- soft,nt ext trace edema CBC, BMP 12/10/16 06:40 12/10/16 06:40 cultures pending GB ultrasound negtive for cholycystitis a/p gastroenteritis resolved can d/c flagyl please call back if needed rapid afib- management per cardiology Problem List - Problems (1) Gastroenteritis Code(s): K52.9 - NONINFECTIVE GASTROENTERITIS AND COLITIS, UNSPECIFIED (2) Rapid atrial fibrillation Code(s): I48.91 - UNSPECIFIED ATRIAL FIBRILLATION
--- NOTE | 2016-12-10 12:49 | CONSULT ---
Consult - text type - Consultation Consultation Note: Cardiology did'nt feel good, came to ED; no specific symptoms PE: HR 150/minute normal cardio-pulmonary exam abdomen soft trace leg edema Impression: afib RVR no CHF, SD or cardiac decompensation; EKG subtle ST depressions Rec: cardizem 30 mg TID continue RX
--- NOTE | 2016-12-10 13:02 | EKG ---
Test Reason : Blood Pressure : / mmHG Vent. Rate : 147 BPM Atrial Rate : 166 BPM P-R Int : 000 ms QRS Dur : 090 ms QT Int : 316 ms P-R-T Axes : 000 -36 006 degrees QTc Int : 494 ms POOR DATA QUALITY, INTERPRETATION MAY BE ADVERSELY AFFECTED ATRIAL FIBRILLATION WITH RAPID VENTRICULAR RESPONSE LEFT AXIS DEVIATION CANNOT RULE OUT ANTERIOR INFARCT , AGE UNDETERMINED ABNORMAL ECG WHEN COMPARED WITH ECG OF 04-JUL-2016 09:51, NO SIGNIFICANT CHANGE WAS FOUND Confirmed by MAYRA JIMENEZ MD ([id number]) on 12/10/2016 1:02:05 PM Referred By: Confirmed By:MAYRA JIMENEZ MD
[2016-12-10] MEDS: dilTIAZem HCL 30 MG TABLET (FP) PO SCH ×2 (14:14→22:31)
[2016-12-10] MEDS: ATORVASTATIN CA 40 MG TABLET (FP) PO SCH (22:31)
--- NOTE | 2016-12-10 23:08 | CONSULT ---
Consult Consult Specialty:: endocrine Referred by:: dr.saba licona Reason for Consultation:: diabetes mellitus - History of Present Illness Chief Complaint: difficulty breathing ,high sugars History of Present Illness: 80year old male, with a significant past medical history of insulin dependent diabetes, AFib (eliquis and 81 mg aspirin), hypertension (metoprolol), who presents to the emergency department for evaluation of progressive onset of diarrhea, bilateral upper extremity numbness and heaviness, diaphoresis, chest pain, and vomiting starting am of admission,requiring help from family to get out of bed sent to er for evaluation of dehydaration and vomiting and chest pain. - History Source History Provided By: Patient, Family Member - Past Medical History LOG ROLLER: Yes: Vertigo Cardio/Vascular: Yes: AFIB, CAD, HTN. No: CHF Pulmonary: Yes: Bronchitis, COPD Gastrointestinal: Yes: Irritable Bowel Disease Infectious Disease: Yes: Other (INFECTED FOOT) Musculoskeletal: Yes: Other (RECURRENT FOOT INFECTION) Endocrine: Yes: Diabetes Mellitus - Past Surgical History Past Surgical History: Yes: Colonoscopy - Alcohol/Substance Use Hx Alcohol Use: No - Smoking History Smoking history: Never smoked Have you smoked in the past 12 months: No Aproximately how many cigarettes per day: 0 If you are a former smoker, when did you quit?: 1955 Home Medications - Allergies Allergies/Adverse Reactions: Allergies Allergy/AdvReac Type Severity Reaction Status Date / Time No Known Allergies Allergy Verified 12/09/16 10:47 - Home Medications Home Medications: Ambulatory Orders Atorvastatin Ca [Lipitor] 40 mg PO HS tablet 03/01/15 Insulin (Novolog 70/30) [Novolog Mix 70/30 Vial -] 20 units SQ BIDAC vial 03/01 Metoprolol Tartrate [Lopressor -] 25 mg PO BID tablet 03/01/15 Enalapril Maleate [Vasotec -] 2.5 mg PO DAILY 03/12/16 Pantoprazole Sodium [Protonix -] 40 mg PO DAILY #30 tab 07/07/16 Family Disease History - Family Disease History Family Disease History: Heart Disease: Father, Mother Review of Systems - Review of Systems Constitutional: reports: Weakness Eyes: reports: No Symptoms HENT: reports: Hearing Loss Neck: reports: Decreased ROM Cardiovascular: reports: Palpitations, Shortness of Breath Respiratory: reports: Exercise Intolerance, SOB on Exertion Gastrointestinal: reports: Bloating, Constipation, Nausea Breasts: reports: No Symptoms Reported Musculoskeletal: reports: Muscle Pain, Muscle Cramps, Muscle Weakness Integumentary: reports: No Symptoms Neurological: reports: Unsteady Gait, Weakness Endocrine: reports: Unexplained Weight Gain Physical Exam Vital Signs: Vital Signs Temperature 98.0 F 12/10/16 17:00 Pulse Rate 84 12/10/16 17:00 Respiratory Rate 18 12/10/16 17:00 Blood Pressure 133/76 12/10/16 17:00 O2 Sat by Pulse Oximetry (%) 96 12/10/16 08:00 Constitutional: Yes: Anxious Eyes: Yes: EOM Intact HENT: Yes: Normocephalic Neck: Yes: Trachea Midline Cardiovascular: Yes: Tachycardia, Murmur, S3 Respiratory: Yes: Orthopnea, Rales, Rhonchi, SOB, Tachypnea Gastrointestinal: Yes: Abdomen, Obese, Tenderness, Epigastrium ...Rectal Exam: Yes: Deferred Renal/: Yes: WNL Breast(s): Yes: WNL Musculoskeletal: Yes: Joint Swelling, Muscle Pain, Muscle Weakness Extremities: Yes: WNL Edema: Yes Integumentary: Yes: WNL Neurological: Yes: Alert, Oriented, Tingling, Weakness Labs: CBC, BMP 12/10/16 06:40 12/10/16 06:40 Problem List - Problems (1) Diarrhea Code(s): R19.7 - DIARRHEA, UNSPECIFIED (2) Rapid atrial fibrillation Code(s): I48.91 - UNSPECIFIED ATRIAL FIBRILLATION (3) Afib Code(s): I48.91 - UNSPECIFIED ATRIAL FIBRILLATION Qualifiers: (4) CAD (coronary artery disease) Code(s): I25.10 - ATHSCL HEART DISEASE OF [place] CORONARY ARTERY W/O ANG PCTRS (5) CHF (congestive heart failure) Code(s): I50.9 - HEART FAILURE, UNSPECIFIED (6) Type 2 diabetes mellitus with diabetic autonomic (poly)neuropathy Code(s): E11.43 - TYPE 2 DIABETES W DIABETIC AUTONOMIC (POLY)NEUROPATHY Assessment/Plan Current Active Problems Diarrhea (Acute) Gastroenteritis (Acute) Rapid atrial fibrillation (Acute) diabetes melllitus hyperglycemia ckd chf cad Abnormal Lab Results 12/10/16 12/10/16 12/10/16 06:40 06:40 06:40 Plt Count 132 L D Eosinophils % 5.9 H D Anion Gap 7 L BUN 26 H Creatinine 1.5 H Random Glucose 138 H D Hemoglobin A1c % 8.0 H Calcium 8.1 L Total Bilirubin 1.3 H Total Protein 5.9 L Albumin 2.8 L Triglycerides 161 H HDL Cholesterol 22 L Laboratory Results - last 24 hr 12/10/16 12/10/16 12/10/16 06:04 06:40 06:40 WBC RBC Hgb Hct MCV MCH MCHC RDW Plt Count MPV Neutrophils % Lymphocytes % Monocytes % Eosinophils % Basophils % Sodium 142 Potassium 3.9 Chloride 107 Carbon Dioxide 28 Anion Gap 7 L BUN 26 H Creatinine 1.5 H Creat Clearance w eGFR 45.03 POC Glucometer 127 Random Glucose 138 H D Hemoglobin A1c % 8.0 H Calcium 8.1 L Phosphorus 3.3 Magnesium 2.0 Total Bilirubin 1.3 H AST 15 ALT 15 Alkaline Phosphatase 108 Troponin I < 0.02 Total Protein 5.9 L Albumin 2.8 L Triglycerides 161 H Cholesterol 92 Total LDL Cholesterol 57 HDL Cholesterol 22 L 12/10/16 12/10/16 12/10/16 06:40 11:07 22:34 WBC 7.8 D RBC 5.33 Hgb 15.1 D Hct 45.4 D MCV 85.1 MCH 28.3 MCHC 33.3 RDW 15.4 Plt Count 132 L D MPV 10.7 Neutrophils % 57.1 D Lymphocytes % 27.4 D Monocytes % 8.7 Eosinophils % 5.9 H D Basophils % 0.9 Sodium Potassium Chloride Carbon Dioxide Anion Gap BUN Creatinine Creat Clearance w eGFR POC Glucometer 197 174 Random Glucose Hemoglobin A1c % Calcium Phosphorus Magnesium Total Bilirubin AST ALT Alkaline Phosphatase Troponin I Total Protein Albumin Triglycerides Cholesterol Total LDL Cholesterol HDL Cholesterol plan: Current Medications Generic Name Dose Route Start Last Admin Trade Name Freq PRN Reason Stop Dose Admin Apixaban 2.5 mg 12/09/16 22:05 12/10/16 22:31 Eliquis - PO 2.5 mg BID KIRSTEN Administration Aspirin 81 mg 12/10/16 10:00 12/10/16 10:16 Ecotrin - PO 81 mg DAILY KIRSTEN Administration Atorvastatin Calcium 40 mg 12/09/16 22:00 12/10/16 22:31 Lipitor - PO 40 mg HS KIRSTEN Administration Budesonide/Formoterol Fumarate 1 puff 12/09/16 22:00 12/10/16 22:35 Symbicort 160/4.5mcg - IH 1 puff BID KIRSTEN Administration Diltiazem HCl 30 mg 12/10/16 13:00 12/10/16 22:31 Cardizem - PO 30 mg TID KIRSTEN Administration Enalapril Maleate 2.5 mg 12/10/16 10:30 12/10/16 11:09 Vasotec - PO 2.5 mg DAILY KIRSTEN Administration Furosemide 40 mg 12/10/16 10:00 12/10/16 10:16 Lasix - PO 40 mg DAILY KIRSTEN Administration Insulin Aspart 1 vial 12/10/16 11:00 12/10/16 22:35 Novolog Vial Sliding Scale - SQ Not Given ACHS [facility] Protocol Metoprolol Tartrate 25 mg 12/10/16 10:30 12/10/16 22:31 Lopressor - PO 25 mg BID KIRSTEN Administration Pantoprazole Sodium 40 mg 12/10/16 10:30 12/10/16 11:09 Protonix - PO 40 mg DAILY KIRSTEN Administration Laboratory Tests 12/10/16 12/10/16 12/10/16 06:04 11:07 22:34 POC Glucometer 127 197 174 levemir 20 units am continue bgm qid novolog scale
[2016-12-11] MEDS: INSULIN SLIDING SCALE (NOVOLOG) 1 VIAL SQ SCH ×4 (06:31→22:04)
[2016-12-11] MEDS: dilTIAZem HCL 30 MG TABLET (FP) PO SCH (06:39)
[2016-12-11] MEDS: INSULIN DETEMIR 100 UNITS/ML MDV SQ SCH (06:42)
[2016-12-11 06:43] LABS: BASOPHIL 0.6 % (0-2.0); MCH 28.9 pg (25.7-33.7); MCHC 33.7 g/dl (32.0-35.9); MEAN CELL VOLUME 85.8 fl (80-96); MEAN PLT VOLUME 11.1 fl (7.5-11.1); NEUTROPHILS 61.1 % (42.8-82.8); PLATELET COUNT 132 K/MM3 (134-434); RDW 15.5 % (11.9-15.9); WHITE BLOOD COUNT 8.1 K/mm3 (4.0-10.0)
[2016-12-11 07:06] LABS: ALBUMIN 2.9 g/dl (3.4-5.0); ANION GAP 11 (8-16); CALCIUM 8.1 mg/dL (8.5-10.1); CO2 25 mmol/L (21-32); GLUCOSE,RANDOM 139 mg/dL (74-106)
[2016-12-11 07:10] LABS: ALK PHOS 96 U/L (45-117); BILIRUBIN,TOTAL 0.8 mg/dL (0.2-1.0); CREATININE 1.5 mg/dL (0.7-1.3); SGOT/AST 12 U/L (15-37); SGPT/ALT 16 U/L (12-78); TOT PROT 6.2 g/dl (6.4-8.2)
--- NOTE | 2016-12-11 08:07 | PN ---
Progress Note, Physician History of Present Illness: FEELS BETTER RATE BETTER CONTROLLED - Current Medication List Current Medications: Active Medications Apixaban (Eliquis -) 2.5 mg PO BID [facility] Last Admin: 12/10/16 22:31 Dose: 2.5 mg Aspirin (Ecotrin -) 81 mg PO DAILY [facility] Last Admin: 12/10/16 10:16 Dose: 81 mg Atorvastatin Calcium (Lipitor -) 40 mg PO HS [facility] Last Admin: 12/10/16 22:31 Dose: 40 mg Budesonide/Formoterol Fumarate (Symbicort 160/4.5mcg -) 1 puff IH BID [facility] Last Admin: 12/10/16 22:35 Dose: 1 puff Diltiazem HCl (Cardizem -) 30 mg PO TID [facility] Last Admin: 12/11/16 06:39 Dose: 30 mg Enalapril Maleate (Vasotec -) 2.5 mg PO DAILY [facility] Last Admin: 12/10/16 11:09 Dose: 2.5 mg Furosemide (Lasix -) 40 mg PO DAILY [facility] Last Admin: 12/10/16 10:16 Dose: 40 mg Insulin Aspart (Novolog Vial Sliding Scale -) 1 vial SQ ACHS [facility] PRN Reason: Protocol Last Admin: 12/11/16 06:31 Dose: Not Given Insulin Detemir (Levemir Vial) 20 units SQ AM [facility] Last Admin: 12/11/16 06:42 Dose: 20 units Metoprolol Tartrate (Lopressor -) 25 mg PO BID [facility] Last Admin: 12/10/16 22:31 Dose: 25 mg Pantoprazole Sodium (Protonix -) 40 mg PO DAILY [facility] Last Admin: 12/10/16 11:09 Dose: 40 mg - Objective Vital Signs: Vital Signs Temperature 97.8 F 12/11/16 06:00 Pulse Rate 78 12/11/16 06:00 Respiratory Rate 20 12/11/16 06:00 Blood Pressure 138/87 12/11/16 06:00 O2 Sat by Pulse Oximetry (%) 97 12/10/16 21:00 Cardiovascular: Yes: S1, S2 Respiratory: Yes: Regular, CTA Bilaterally Gastrointestinal: Yes: Normal Bowel Sounds, Soft, Abdomen, Obese Labs: CBC, BMP 12/11/16 06:15 12/11/16 06:15 INR, PTT INR 1.14 (0.82-1.09) 12/09/16 11:30 Assessment/Plan - Problems (1) Diarrhea Assessment/Plan: leukocytosis check stool for c diff Microbiology 12/09/16 13:45 Blood Culture - Preliminary Blood - Peripheral Venous NO GROWTH OBTAINED AFTER 24 HOURS, INCUBATION TO CONTINUE FOR 4 DAYS. 12/09/16 13:45 Blood Culture - Preliminary Blood - Peripheral Venous NO GROWTH OBTAINED AFTER 24 HOURS, INCUBATION TO CONTINUE FOR 4 DAYS. 12/09/16 12:32 Clostridium difficile Antigen (MARIEL) - Final Stool Clostridium difficile Toxin Assay - Final flagyl ID eval Code(s): R19.7 - DIARRHEA, UNSPECIFIED (2) Afib Assessment/Plan: rate control--ON CARDIZEM 30 TID--CHANGE TO 120 CD eliquis tele cardio metoprolol 25mg bid Code(s): I48.91 - UNSPECIFIED ATRIAL FIBRILLATION Qualifiers: (3) CAD (coronary artery disease) Assessment/Plan: BB, statin acei Code(s): I25.10 - ATHSCL HEART DISEASE OF [place] CORONARY ARTERY W/O ANG PCTRS (4) CHF (congestive heart failure) Assessment/Plan: echo Code(s): I50.9 - HEART FAILURE, UNSPECIFIED (5) COPD (chronic obstructive pulmonary disease) Code(s): J44.9 - CHRONIC OBSTRUCTIVE PULMONARY DISEASE, UNSPECIFIED (6) Diabetes Assessment/Plan: hga1c sliding sclae bgm insulin Code(s): E11.9 - TYPE 2 DIABETES MELLITUS WITHOUT COMPLICATIONS Qualifiers: Diabetes mellitus type: type 2 (7) Hypertension Assessment/Plan: BB,acei, Code(s): I10 - ESSENTIAL (PRIMARY) HYPERTENSION
[2016-12-11] MEDS: APIXABAN 2.5 MG TABLET PO SCH ×2 (10:02→22:04)
[2016-12-11] MEDS: ENALAPRIL MALEATE 2.5 MG TABLET (FP) PO SCH (10:02)
[2016-12-11] MEDS: PANTOPRAZOLE 40 MG TABLET (FP) PO SCH (10:02)
[2016-12-11] MEDS: METOPROLOL TARTRATE 25 MG TABLET (FP) PO SCH ×2 (10:02→22:04)
[2016-12-11] MEDS: ASPIRIN COATED 81 MG TABLET.EC PO SCH (10:03)
[2016-12-11] MEDS: FUROSEMIDE 40 MG TABLET (FP) PO SCH (10:03)
[2016-12-11] MEDS: BUDESONIDE/FORMETEROL FUMARATE 160/4.5 mcg INHALER IH SCH ×2 (10:07→22:12)
--- NOTE | 2016-12-11 19:33 | CONSULT ---
Consult - text type - Consultation Consultation Note: Cardiology did'nt feel good, came to ED; no specific symptoms PE: HR 150/minute normal cardio-pulmonary exam abdomen soft trace leg edema Impression: afib RVR; controlled v-rate, on cardizem CD 120 mg daily, metoprolol and Eliquis no CHF, AL or cardiac decompensation; EKG subtle ST depressions lipids normal EChocardiogram moderate to severely redcued LV systolic dysfn, wall motion abnormalities Rec: continue RX can be discharged am with outpatient cardiac follow-up
[2016-12-11] MEDS: ATORVASTATIN CA 40 MG TABLET (FP) PO SCH (22:04)
[2016-12-12] MEDS: INSULIN DETEMIR 100 UNITS/ML MDV SQ SCH (05:59)
[2016-12-12] MEDS: INSULIN SLIDING SCALE (NOVOLOG) 1 VIAL SQ SCH (05:59)
[2016-12-12 08:19] VITALS: BP 135/82; PULSE 72; TEMP 97.6
--- NOTE | 2016-12-12 09:10 | DS ---
Physical Examination Vital Signs: Vital Signs Temperature 97.6 F 12/12/16 07:59 Pulse Rate 72 12/12/16 07:59 Respiratory Rate 18 12/12/16 07:59 Blood Pressure 135/82 12/12/16 07:59 O2 Sat by Pulse Oximetry (%) 96 12/12/16 07:59 Findings/Remarks: NO COMPLAINTS FEELS WELL Cardiovascular: Yes: S1, S2 Respiratory: Yes: Regular, CTA Bilaterally Gastrointestinal: Yes: Normal Bowel Sounds, Soft Labs: CBC, BMP 12/11/16 06:15 12/11/16 06:15 Discharge Summary Reason For Visit: ATRIAL FIBRILLATION Current Active Problems Diarrhea (Acute) Gastroenteritis (Acute) Rapid atrial fibrillation (Acute) Type 2 diabetes mellitus with diabetic autonomic (poly)neuropathy (Acute) Hospital Course: (2) Afib Assessment/Plan: rate control--PERIODS OF BRADICARDIA eliquis tele cardioNOTED CLEARED FOR DISCHARGE CARDIZEM 30 TID--CHANGE TO 120 CD metoprolol 25mg QD HOLTER MONITOR Code(s): I48.91 - UNSPECIFIED ATRIAL FIBRILLATION Qualifiers: (3) CAD (coronary artery disease) Assessment/Plan: BB, statin acei Code(s): I25.10 - ATHSCL HEART DISEASE OF [place] CORONARY ARTERY W/O ANG PCTRS (4) CHF (congestive heart failure) Assessment/Plan: echo Code(s): I50.9 - HEART FAILURE, UNSPECIFIED (5) COPD (chronic obstructive pulmonary disease) Code(s): J44.9 - CHRONIC OBSTRUCTIVE PULMONARY DISEASE, UNSPECIFIED (6) Diabetes Assessment/Plan: hga1c sliding sclae bgm insulin Code(s): E11.9 - TYPE 2 DIABETES MELLITUS WITHOUT COMPLICATIONS Qualifiers: Diabetes mellitus type: type 2 (7) Hypertension Assessment/Plan: BB,acei, Code(s): I10 - ESSENTIAL (PRIMARY) HYPERTENSION Condition: Guarded - Instructions Diet, Activity, Other Instructions: Follow up with lock master in 1-2 weeks Will need 24 hour Holter monitor Resume previous activities w/out strenuous exercises Maintain good hydration Avoid cuts and bruises Referrals: Vickey Johnson MD [Primary Care Provider] - - Home Medications Comprehensive Discharge Medication List: Ambulatory Orders Atorvastatin Ca [Lipitor] 40 mg PO HS tablet 03/01/15 Insulin (Novolog 70/30) [Novolog Mix 70/30 Vial -] 20 units SQ BIDAC vial 03/01 Enalapril Maleate [Vasotec -] 2.5 mg PO DAILY 03/12/16 Pantoprazole Sodium [Protonix -] 40 mg PO DAILY #30 tab 07/07/16 Apixaban [Eliquis -] 2.5 mg PO BID tablet 12/12/16 Aspirin Coated [Ecotrin -] 81 mg PO DAILY tab 12/12/16 Atorvastatin Ca [Lipitor] 40 mg PO HS tablet 12/12/16 Diltiazem Cd [Cardizem Cd -] 120 mg PO DAILY #30 tab 12/12/16 Furosemide [Lasix -] 40 mg PO DAILY tablet 12/12/16 Metoprolol Tartrate [Lopressor -] 25 mg PO DAILY tablet 12/12/16
[2016-12-12] MEDS ORDERED: PT OWN MED DRAWER 7, Y5N ONE (09:16)
[2016-12-12] MEDS: ENALAPRIL MALEATE 2.5 MG TABLET (FP) PO SCH (09:57)
[2016-12-12] MEDS: PANTOPRAZOLE 40 MG TABLET (FP) PO SCH (09:57)
[2016-12-12] MEDS: ASPIRIN COATED 81 MG TABLET.EC PO SCH (09:57)
[2016-12-12] MEDS: FUROSEMIDE 40 MG TABLET (FP) PO SCH (09:57)
[2016-12-12] MEDS: APIXABAN 2.5 MG TABLET PO SCH (09:57)
[2016-12-12] MEDS ORDERED: METOPROLOL TARTRATE 25 MG TABLET (FP) PO SCH (10:00)
[2016-12-12] MEDS: BUDESONIDE/FORMETEROL FUMARATE 160/4.5 mcg INHALER IH SCH (10:00)
== END 2016-12-12 10:55 | disposition home health service (06) | DRG 309 ==
LOC: JER 10:33 → JERBED 12:33 → J4W 12-10
PROVIDERS: ADMIT Student in an Organized Health Care Education/Training Program; ATTEND Student in an Organized Health Care Education/Training Program
DX: I48.91 Unspecified atrial fibrillation (principal); I13.0 Hypertensive heart and chronic kidney disease with heart failure and stage 1 through stage 4 chronic kidney disease, or unspecified chronic kidney disease; N18.9 Chronic kidney disease, unspecified; E11.43 Type 2 diabetes mellitus with diabetic autonomic (poly)neuropathy; E11.22 Type 2 diabetes mellitus with diabetic chronic kidney disease; E11.65 Type 2 diabetes mellitus with hyperglycemia; K52.9 Noninfective gastroenteritis and colitis, unspecified; Z79.4 Long term (current) use of insulin; J44.9 Chronic obstructive pulmonary disease, unspecified; E78.5 Hyperlipidemia, unspecified; Z95.5 Presence of coronary angioplasty implant and graft; I25.10 Atherosclerotic heart disease of native coronary artery without angina pectoris; E66.9 Obesity, unspecified; Z68.33 Body mass index [BMI] 33.0-33.9, adult; Z87.891 Personal history of nicotine dependence
CPT/HCPCS: 36415; 71010-TC; 76705-TC; 80053; 80061; 81003; 81015; 82550; 83036; 83690; 83721; 83735; 83880; 84100; 84484; 85025; 85610; 85730; 87040; 87045; 87046; 87086; 87324; 87449; 93005; 93010; 93306-TC; 99285-25

== ENCOUNTER 2017-03-10 11:58 | Emergency (ER) | payer OTHER ==
[2017-03-10 12:08] VITALS: BP 132/88; PULSE 110; TEMP 97.5; BMI 33.5
--- NOTE | 2017-03-10 14:15 | PDOC ---
History of Present Illness - General Chief Complaint: Weakness Stated Complaint: COUGH, BODYACHES Time Seen by Provider: 03/10/17 14:06 - History of Present Illness Initial Comments: 81 year old with PMH of IDDM, AFib (eliquis and 81 mg aspirin), and hypertension (metoprolol) presenting with 2 days of myalgias and fevers. Stets that he felt a little warm two days ago and then began toexperience muscle aches / pains directly after that. Cough is non productive/ non bloody. He denies nausea, vomiting, diarrhea, constipation, or other sick symptoms. 03/10/17 14:17 Past History - Past Medical History Allergies/Adverse Reactions: Allergies Allergy/AdvReac Type Severity Reaction Status Date / Time No Known Allergies Allergy Verified 03/10/17 12:08 Home Medications: Ambulatory Orders Atorvastatin Ca [Lipitor] 40 mg PO HS tablet 03/01/15 Insulin (Novolog 70/30) [Novolog Mix 70/30 Vial -] 20 units SQ BIDAC vial 03/01 Enalapril Maleate [Vasotec -] 2.5 mg PO DAILY 03/12/16 Apixaban [Eliquis -] 2.5 mg PO BID tablet 12/12/16 Aspirin Coated [Ecotrin -] 81 mg PO DAILY tab 12/12/16 Diltiazem Cd [Cardizem Cd -] 120 mg PO DAILY #30 tab 12/12/16 Furosemide [Lasix -] 40 mg PO DAILY tablet 12/12/16 Metoprolol Tartrate [Lopressor -] 25 mg PO DAILY tablet 12/12/16 Anemia: No Asthma: No Cancer: No Cardiac Disorders: Yes (AFib) CVA: No COPD: Yes CHF: Yes Dementia: No Diabetes: Yes GI Disorders: No Disorders: Yes HTN: Yes Hypercholesterolemia: Yes Liver Disease: No Seizures: No Thyroid Disease: No - Surgical History Abdominal Surgery: Yes (Hernia repair) Appendectomy: No Cardiac Surgery: Yes (Stents X 4) Cholecystectomy: No Lung Surgery: No Neurologic Surgery: No Orthopedic Surgery: No - Immunization History Td Vaccination: Yes Immunization Up to Date: Yes - Suicide/Smoking/Psychosocial Hx Smoking Status: No Smoking History: Never smoked Years of Tobacco Use: 5 Have you smoked in the past 12 months: No Number of Cigarettes Smoked Daily: 0 If you are a former smoker, when did you quit?: 1956 Cigars Per Day: 4 Information on smoking cessation initiated: No 'Breaking Loose' booklet given: 04/01/15 Hx Alcohol Use: No Drug/Substance Use Hx: No Substance Use Type: None Hx Substance Use Treatment: No Review of Systems - Review of Systems Constitutional: No: Chills, Diaphoresis, Fever, Loss of Appetite, Weakness HEENTM: Yes: Blurred Vision Respiratory: Yes: Cough, Shortness of Breath (at baseline), SOB with Exertion ( at baseline). No: Wheezing, Productive cough Cardiac (ROS): Yes: Irregular Heart Rate (at baseline afib). No: Chest Pain ABD/GI: Yes: Constipated, Diarrhea, Nausea, Vomiting : No: Burning, Dysuria, Discharge, Incontinence Integumentary: No: Bruising, Erythema, Rash Neurological: Yes: Headache *Physical Exam - Vital Signs Last Vital Signs Temp Pulse Resp BP Pulse Ox 97.5 F L 110 H 19 132/88 97 03/10/17 12:06 03/10/17 12:06 03/10/17 12:06 03/10/17 12:06 03/10/17 12:06 - Physical Exam General Appearance: Yes: Nourished, Appropriately Dressed. No: Apparent Distress HEENT: positive: EOMI, NOHEMY, Normal Voice, Pharynx Normal. negative: Normal ENT Inspection (Slightly erythematous conjunctiva bilaterally) Neck: positive: Trachea midline, Normal Thyroid, Supple. negative: Tender, Rigid Respiratory/Chest: positive: Lungs Clear, Normal Breath Sounds. negative: Chest Tender, Respiratory Distress, Accessory Muscle Use Cardiovascular: positive: Irregularly Irregular. negative: Regular Rhythm, Regular Rate Gastrointestinal/Abdominal: positive: Normal Bowel Sounds, Flat, Soft. negative : Tender Musculoskeletal: positive: Normal Inspection, CVA Tenderness Extremity: positive: Normal Capillary Refill, Normal Inspection, Normal Range of Motion. negative: Tender Integumentary: positive: Normal Color, Dry, Warm Neurologic: positive: Fully Oriented, Alert, Normal Mood/Affect, Motor Strength 5/5 ED Treatment Course - LABORATORY CBC & Chemistry Diagram: 03/10/17 15:30 03/10/17 15:30 Medical Decision Making - Medical Decision Making 81 year old with PMH of IDDM, AFib (eliquis and 81 mg aspirin), and hypertension (metoprolol) presenting with 2 days of myalgias and fevers likely concerning for influenza. However, given patient's comorbidities, PNA, and rudimentary cardiac dysfunction will be evaluated. Labs roughly WNL with the exception of HgB elevated to 17 (although he has bene as high as 18 in the past ) and creatinine at 1.5 (seems to be CKD as he has been in mid ones all year as high as mid 2s). CXr demonstrating possible LLL focal consolidation and patient is flu negative. 03/10/17 18:06 CXR official read by radiologist did not demonstrate PNA. HR nromalized and patient feels much better after tylenol and metop. 03/10/17 18:18 *DC/Admit/Observation/Transfer Diagnosis at time of Disposition: Upper respiratory infection, viral - Discharge Dispostion Disposition: HOME Condition at time of disposition: Improved Admit: No - Referrals Referrals: Vickey Johnson MD [Primary Care Provider] - - Patient Instructions Printed Discharge Instructions: DI for Viral Upper Respiratory Infection -- Adult Additional Instructions: We scanned your chest and the radiologist did not see any sign of pneumonia. We checked your labs and didn't see any sign of infection. Your flu swab was negative. You actually do not need antibiotics for this as it is likely some other viral infection of your throat and sinuses. Please use Tylenol at home for fevers, chills, and body pains. Please take your heart medication as written. - Post Discharge Activity
[2017-03-10] MEDS ORDERED: SODIUM CHLORIDE 1,000 ML IV STA (14:58)
[2017-03-10 15:38] LABS: BASO % 0.9 % (0-2.0); EOS % 4.2 % (0-4.5); LYMPH % 23.9 % (8-40); MCH 27.8 pg (25.7-33.7); MCHC 32.1 g/dl (32.0-35.9); MEAN CELL VOLUME 86.4 fl (80-96); MEAN PLT VOLUME 10.3 fl (7.5-11.1); MONO % 7.9 % (3.8-10.2); NEUT % 63.1 % (42.8-82.8); PLATELET COUNT 144 K/MM3 (134-434); RBC 6.14 M/mm3 (4.00-5.60); RDW 15.8 % (11.9-15.9); WHITE BLOOD COUNT 9.3 K/mm3 (4.0-10.0)
[2017-03-10 16:05] LABS: ALBUMIN 3.1 g/dl (3.4-5.0); ALK PHOS 135 U/L (45-117); ANION GAP 9 (8-16); BILIRUBIN,TOTAL 1.8 mg/dL (0.2-1.0); BLOOD UREA NITROGEN 29 mg/dL (7-18); CALCIUM 8.8 mg/dL (8.5-10.1); CHLORIDE 104 mmol/L (98-107); CO2 28 mmol/L (21-32); CREATININE 1.5 mg/dL (0.7-1.3); GLUCOSE,RANDOM 124 mg/dL (74-106); SGPT/ALT 23 U/L (12-78); SODIUM 141 mmol/L (136-145); TOT PROT 7.2 g/dl (6.4-8.2)
[2017-03-10 16:12] LABS: POTASSIUM 4.3 mmol/L (3.5-5.1); SGOT/AST 27 U/L (15-37)
[2017-03-10 16:14] LABS: URINE APPEARANCE CLEAR; URINE BILIRUBIN NEGATIVE (NEGATIVE); URINE BLOOD NEGATIVE (NEGATIVE); URINE COLOR YELLOW; URINE GLUCOSE (UA) NEGATIVE (NEGATIVE); URINE KETONE NEGATIVE (NEGATIVE); URINE LEUK ESTERASE TRACE (NEGATIVE); URINE NITRITE NEGATIVE (NEGATIVE); URINE UROBILINOGEN NEGATIVE mg/dL (0.2-1.0)
[2017-03-10 16:20] LABS: URINE PROTEIN 2+ (NEGATIVE)
[2017-03-10 16:21] LABS: URINE BACTERIA RARE /hpf (NONE SEEN); URINE MUCUS RARE
[2017-03-10] MEDS ORDERED: METOPROLOL TARTRATE 25 MG TABLET (FP) PO ONE (16:50)
[2017-03-10] MEDS ORDERED: ACETAMINOPHEN 500 MG TABLET (FP) PO ONE (16:55)
[2017-03-10] MEDS ORDERED: METOPROLOL TARTRATE 25 MG TABLET (FP) ONE (17:42)
[2017-03-10] MEDS ORDERED: ACETAMINOPHEN 325 MG TABLET (FP) ONE (17:42)
[2017-03-10] MEDS ORDERED: AZITHROMYCIN 500 MG TABLET PO ONE (18:00)
--- NOTE | 2017-03-10 18:10 | PDOC ---
Attending Attestation - Resident Resident Name: Kan Zelaya - ED Attending Attestation I have performed the following: I have examined & evaluated the patient, The case was reviewed & discussed with the resident, I agree w/resident's findings & plan, Exceptions are as noted - HPI HPI: 03/10/17 18:00 "The patient is a 81 year old female, with a significant past medical history of AFib, IDDM, hypertension, who presents to the emergency department with diffuse body aches and dry cough for 2 days. He states he felt feverish a couple of days ago and later developed the diffuse body aches. He reports one episodes of nonbloody diarrhea 2 days ago. He denies diarrhea since. The patient ambulates with a rolling walker at baseline. He denies chest pain, shortness of breath, headache and dizziness. He denies chills, nausea, vomit, and constipation. He denies dysuria, frequency, urgency and hematuria. Allergies: NKDA " - Physicial Exam PE: 03/10/17 18:01 """GENERAL: Awake, alert, and fully oriented, in no acute distress HEAD: No signs of trauma EYES: PERRLA, EOMI, sclera anicteric, conjunctiva clear ENT: Auricles normal inspection, hearing grossly normal, nares patent, oropharynx clear without exudates. Moist mucosa NECK: Nontender, no stepoffs, Normal ROM, supple, no lymphadenopathy, JVD, or masses LUNGS: CTAB. No wheezes, and no crackles HEART: (+) irregular heart rate with normal rhythm, normal S1 and S2, no murmurs , rubs or gallops ABDOMEN: Soft, nontender, normoactive bowel sounds. No guarding, no rebound. No masses EXTREMITIES: Normal range of motion, no edema. No clubbing or cyanosis. No cords, erythema, or tenderness NEUROLOGICAL: Cranial nerves II through XII intact. 5/5 strength and sensation in all extremities, Normal speech, normal gait SKIN: Warm, Dry, normal turgor, no rashes or lesions noted. """ - Medical Decision Making 03/10/17 18:01 81 M with cough and bodyaches. Viral URI vs PNA. Pt mildly tachycardic in ER. EKG shows afib with HR 110. Pt is on metoprolol 25mg BID, which he has not taken yet. - CXR clear - Labs unremarkable - Pt given home dose of metoprolol
[2017-03-10] MEDS ORDERED: AZITHROMYCIN 500 MG TABLET ONE (18:43)
--- NOTE | 2017-03-11 07:59 | EKG ---
Test Reason : Blood Pressure : / mmHG Vent. Rate : 106 BPM Atrial Rate : 104 BPM P-R Int : 000 ms QRS Dur : 090 ms QT Int : 374 ms P-R-T Axes : 000 -21 -22 degrees QTc Int : 496 ms POOR DATA QUALITY, INTERPRETATION MAY BE ADVERSELY AFFECTED ATRIAL FIBRILLATION WITH RAPID VENTRICULAR RESPONSE WITH PREMATURE VENTRICULAR OR ABERRANTLY CONDUCTED COMPLEXES NONSPECIFIC ST ABNORMALITY ABNORMAL ECG WHEN COMPARED WITH ECG OF 09-DEC-2016 11:00, NO SIGNIFICANT CHANGE WAS FOUND Confirmed by BARBARA DALE, MAYRA ([id number]) on 03/11/2017 7:59:08 AM Referred By: Confirmed By:MAYRA JIMENEZ MD
== END 2017-03-10 18:51 | disposition home or self-care (01) ==
LOC: JER 11:58
PROC: 3E0337Z Introduction of Electrolytic and Water Balance Substance into Peripheral Vein, Percutaneous Approach (ICD-10-PCS; principal; 2017-03-10)
DX: J06.9 Acute upper respiratory infection, unspecified (principal); I25.10 Atherosclerotic heart disease of native coronary artery without angina pectoris; I10 Essential (primary) hypertension; Z95.5 Presence of coronary angioplasty implant and graft; E11.9 Type 2 diabetes mellitus without complications; Z79.4 Long term (current) use of insulin; E78.00 Pure hypercholesterolemia, unspecified; I48.91 Unspecified atrial fibrillation; Z79.01 Long term (current) use of anticoagulants
CPT/HCPCS: 36415; 71046-TC; 80053; 81003; 81015; 85025; 87804; 93005; 93010; 96360; 99282-25

== ENCOUNTER 2017-07-07 09:16 | Inpatient (IN) | payer OTHER ==
--- NOTE | 2017-07-07 09:33 | PDOC ---
History of Present Illness - General Chief Complaint: Pain Stated Complaint: CHEST PAIN, ABD PAIN Time Seen by Provider: 07/07/17 09:29 - History of Present Illness Initial Comments: 07/07/17 09:31 81 yo M with h/o IDDM, HTN, CAD s/p stent placement x 3, A-fib w/RvR (on 2.5 mg Eliquis) , COPD, PAD who p/w watery stools. Patient tachycardic to 130's in triage. Patient with acute onset of multiple (does not recall quantity) loose watery dark colored stools, with absent BPR beginning 0300 AM. Also reports acute, transient (seconds vs. minutes) episode of diffuse, non pleuritic, non radiating dull chest pain ( now resolved). Nml PO intake, and denies abdominal pain. Endorses one episode of lightheadedness when ambulating to car. Patient denies taking his home medication this AM ( including Metoprolol). Denies F/C, N/V, CP, SOB, abdominal pain, constipation, urinary complaints, weakness, sensory changes. PMHx: as noted above ROS: as noted above. SHx: Tobacco cessation (1951). Denies alcohol use, or IVDA. Denies recent travel , sick contacts, or change in diet. PMD: Dr. Pulido Past History - Past Medical History Allergies/Adverse Reactions: Allergies Allergy/AdvReac Type Severity Reaction Status Date / Time No Known Allergies Allergy Verified 07/07/17 09:18 Home Medications: Ambulatory Orders Atorvastatin Ca [Lipitor] 40 mg PO HS tablet 03/01/15 Enalapril Maleate [Vasotec -] 2.5 mg PO DAILY 03/12/16 Apixaban [Eliquis -] 2.5 mg PO BID tablet 12/12/16 Aspirin Coated [Ecotrin -] 81 mg PO DAILY tab 12/12/16 Furosemide [Lasix -] 40 mg PO DAILY tablet 12/12/16 Metoprolol Tartrate [Lopressor -] 25 mg PO DAILY tablet 12/12/16 Insulin Aspart Prot/Insuln Asp [Novolog Mix 70-30 Flexpen Syrn] 20 unit SQ BID 07/07/17 Anemia: No Asthma: No Cancer: No Cardiac Disorders: Yes (AFib) CVA: No COPD: Yes CHF: Yes Dementia: No Diabetes: Yes GI Disorders: No Disorders: Yes HTN: Yes Hypercholesterolemia: Yes Liver Disease: No Seizures: No Thyroid Disease: No - Surgical History Abdominal Surgery: Yes (Hernia repair) Appendectomy: No Cardiac Surgery: Yes (Stents X 4) Cholecystectomy: No Lung Surgery: No Neurologic Surgery: No Orthopedic Surgery: No - Immunization History Td Vaccination: Yes Immunization Up to Date: Yes - Suicide/Smoking/Psychosocial Hx Smoking Status: No Smoking History: Former smoker Years of Tobacco Use: 5 Have you smoked in the past 12 months: No Number of Cigarettes Smoked Daily: 0 If you are a former smoker, when did you quit?: 6 Cigars Per Day: 4 Information on smoking cessation initiated: No 'Breaking Loose' booklet given: 04/01/15 Hx Alcohol Use: No Drug/Substance Use Hx: No Substance Use Type: None Hx Substance Use Treatment: No Review of Systems - Review of Systems Comments:: 07/07/17 09:32 GENERAL/CONSTITUTIONAL: No fever or chills. No weakness. HEAD, EYES, EARS, NOSE AND THROAT: No change in vision. No ear pain or discharge. No sore throat. CARDIOVASCULAR: No chest pain or shortness of breath RESPIRATORY: No cough, wheezing, or hemoptysis. GASTROINTESTINAL: + Diarrhea. No nausea, vomiting, constipation. GENITOURINARY: No dysuria, frequency, or change in urination. MUSCULOSKELETAL: No joint or muscle swelling or pain. No neck or back pain. SKIN: No rash NEUROLOGIC: No headache, vertigo, loss of consciousness, or change in strength/ sensation. ENDOCRINE: No increased thirst. No abnormal weight change HEMATOLOGIC/LYMPHATIC: No anemia, easy bleeding, or history of blood clots. ALLERGIC/IMMUNOLOGIC: No hives or skin allergy. *Physical Exam - Vital Signs Last Vital Signs Temp Pulse Resp BP Pulse Ox 97.5 F L 137 H 18 143/69 96 07/07/17 09:21 07/07/17 09:21 07/07/17 09:21 07/07/17 09:21 07/07/17 09:21 - Physical Exam Comments: 07/07/17 09:32 GENERAL: Awake, alert, and fully oriented, in no acute distress HEAD: No signs of trauma, normocephalic, atraumatic EYES: PERRLA, EOMI, sclera anicteric, conjunctiva clear ENT: Dry mucous membranes. Hearing grossly normal, nares patent, oropharynx clear without exudates. NECK: Normal ROM, supple, no lymphadenopathy, JVD, or masses LUNGS: No distress, speaks full sentences, clear to auscultation bilaterally HEART: Irregular rate and rhythm, normal S1 and S2, no murmurs, rubs or gallops , peripheral pulses normal and equal bilaterally. ABDOMEN: Diffusely ttp. Soft, normoactive bowel sounds. No guarding, no rebound. No masses. Neg CVA ttp. EXTREMITIES : Normal inspection, Normal range of motion, no edema. No clubbing or cyanosis. SKIN: Multiple excoriations on abdomen (pruitic at night) Warm, Dry, normal turgor. Moderate Sedation - Procedure Monitoring Vital Signs: Vital Signs Temp Pulse Resp BP Pulse Ox 97.5 F L 137 H 18 143/69 96 07/07/17 09:21 07/07/17 09:21 07/07/17 09:21 07/07/17 09:21 07/07/17 09:21 ED Treatment Course - LABORATORY CBC & Chemistry Diagram: 07/07/17 09:50 07/07/17 09:50 Medical Decision Making - Medical Decision Making 07/07/17 09:33 81 yo M with h/o IDDM, HTN, CAD s/p stent placement x 3, A-fib w/RvR (on 2.5 mg Eliquis) , COPD, PAD who p/w watery stools. HR 137, AF, vitals otherwise wnl. Patient with diarrheal illness. Reports dark colored stools. will consider UGI vs LGI bleed. FOBT. Patient in A-fib with RvR. Likely secondary to medication non adeherence vs. hypovlemeia vs. GI bleed (compensatory tachycardia). Will assess for electrolyte abnml, toxic or metabolic derangements,acid-base disturbances, or underlying infection. Possible gastroenteritis vs. colitis. ED Course: EKG: Afib with RvR. LAD. Absent ZOLTAN or STD. 500 NS 07/07/17 12:02 WBC: 13.08 RBC: 6.09 H/H: 17.3/53.2 07/07/17 12:03 BUN/Cr: 28/2.3 Trace blood on FOBT 500 NS 07/07/17 14:27 CT AP: Chronic calcific pancreatitis, 1.2 x 1.2 cystic lesion in pancreatic head. Possible pseudcyst vs. cystic neoplasm. F/u imaging with MRI or CT recommended. Spoke to Dr. Chapman. Agrees with decision to admit to inpt/tele for rate control. Patient with multiple cardiac risk factors and commorbidities. Will admit to [facility] service. 07/07/17 15:24 Patient admitted. HR 105-110's. Total 1.5 L NS. *DC/Admit/Observation/Transfer Diagnosis at time of Disposition: Atrial fibrillation with RVR, ABDULLAHI (acute kidney injury), Pancreatic cystic fibrosis - Discharge Dispostion Decision to Admit order: Yes - Referrals - Patient Instructions - Post Discharge Activity - Attestations Physician Attestion: 07/07/17 09:33 I attest to the information provided in this note.
--- NOTE | 2017-07-07 09:48 | PDOC ---
Attending Attestation - Resident Resident Name: Dennis Collazo - ED Attending Attestation I have performed the following: I have examined & evaluated the patient, The case was reviewed & discussed with the resident, I agree w/resident's findings & plan, Exceptions are as noted - HPI HPI: 07/07/17 10:12 81y M hx of IDDM, HTN, CAD s/p stent placement x 3, A-fib w/RvR (on 2.5 mg Eliquis) , COPD, PAD who p/w diarrhea, pt notes the stool is dark colored and watery, started this morning about 3am, he has not taken any of his AM meds due to concern of worsening the diarrhea. Pt notes intermittent abdominal pain, but dnies any cp sob, palpitations, he did feel a brief episode of lightheadedness on the way to the hospital. Constitutional - no reported Fever, Chills, HEENT: no reported vision changes, sore throat Respiratory: no reported cough, sob, hemoptysis Cardiac: + light headedness no reported chest pain, palpitations,, leg swelling Abd/GI: + abd pain, diarrhea no reported nausea, vomiting, blood per rectum, melena : no reported dysuria, frequency, discharge Musculskelatal - no reported back pain, joint swelling skin - no reported bruising, erythema, rash neurological: no reported headache, numbness, focal weakness, tingling, ataxia, hematologic: no reported easy bruising, easy bleeding GENERAL: The patient is awake, alert, Nontoxic - in no acute distress. HEAD: Normocephalic, atraumatic. EYES: extraocular movements intact, sclera anicteric, conjunctiva clear. ENT: Normal voice, mildly dry mucous membranes. NECK: Normal range of motion, supple LUNGS: Breath sounds equal, clear to auscultation bilaterally. No wheezes, no rhonchi, no rales. HEART: irregularly irregular, tachycardic ABDOMEN: mild diffuse abd tenderness, no rebound/guarding RECTAL: dark brownish stool EXTREMITIES: Normal range of motion, no edema. No clubbing or cyanosis. No cords, erythema, or tenderness. NEUROLOGICAL: No facial assymetry, Normal speech, PSYCH: Normal mood, normal affect. SKIN: Warm, Dry, normal turgor, - Physicial Exam PE: 07/09/17 18:41 see above - Critical Care Time Total Critical Care Time: 40 Critical Care Statement: The care of this patient involved high complexity decision making to prevent further life threatening deterioration of the patient 's condition and/or to evaluate & treat vital organ system(s) failure or risk of failure. - Medical Decision Making 07/07/17 11:16 ddx for rapid afib includes includes anemia secondary to gib, dehdyration, subtherpautic meds as he didnt take his meds will ck labs ro r/o anemia, metabolic dernagement will give fluids to see if he is fluid responsive, and will r/o anemia, if netither will give him his metoprolol Heart Score/ECG Review - ECG Impressions Comment:: 07/07/17 11:17 Twelve-lead EKG was performed and reviewed by me. Irregularly irregular, rate of 133 Left axis deviation, incomplete right bundle-branch block Submillimeter ST depressions in the lateral leads suspect secondary to demand ischemia Impression A. fib with RVR
[2017-07-07] MEDS ORDERED: SODIUM CHLORIDE 500 ML IV STA ×3 (09:50→14:06)
[2017-07-07 09:59] LABS: BASO % 0.7 % (0-2.0); EOS % 3.3 % (0-4.5); HEMATOCRIT 53.2 % (35.4-49); HEMOGLOBIN 17.3 GM/dL (11.7-16.9); LYMPH % 11.5 % (8-40); MCH 28.5 pg (25.7-33.7); MCHC 32.6 g/dl (32.0-35.9); MEAN CELL VOLUME 87.4 fl (80-96); MEAN PLT VOLUME 10.8 fl (7.5-11.1); MONO % 7.3 % (3.8-10.2); NEUT % 77.2 % (42.8-82.8); PLATELET COUNT 174 K/MM3 (134-434); RBC 6.09 M/mm3 (4.00-5.60); RDW 15.6 % (11.9-15.9); WHITE BLOOD COUNT 13.8 K/mm3 (4.0-10.0)
[2017-07-07 10:26] LABS: ALBUMIN 3.4 g/dl (3.4-5.0); ANION GAP 10 (8-16); BILIRUBIN,TOTAL 1.4 mg/dL (0.2-1.0); BLOOD UREA NITROGEN 28 mg/dL (7-18); CHLORIDE 107 mmol/L (98-107); CO2 25 mmol/L (21-32); CREATININE 2.3 mg/dL (0.7-1.3); GLUCOSE,RANDOM 299 mg/dL (74-106); SGPT/ALT 19 U/L (12-78); SODIUM 142 mmol/L (136-145); TOT PROT 7.1 g/dl (6.4-8.2)
[2017-07-07 10:27] LABS: ALK PHOS 142 U/L (45-117)
[2017-07-07 10:28] LABS: INR 1.5 (0.82-1.09)
[2017-07-07 10:31] LABS: POTASSIUM 4.1 mmol/L (3.5-5.1); SGOT/AST 25 U/L (15-37)
[2017-07-07] MEDS ORDERED: APIXABAN 2.5 MG TABLET PO ONE (12:08)
[2017-07-07] MEDS ORDERED: METOPROLOL TARTRATE 25 MG TABLET (FP) PO ONE (12:08)
[2017-07-07] MEDS ORDERED: METOPROLOL TARTRATE 25 MG TABLET (FP) ONE (12:13)
--- NOTE | 2017-07-07 16:13 | EKG ---
Test Reason : Blood Pressure : / mmHG Vent. Rate : 133 BPM Atrial Rate : 136 BPM P-R Int : 000 ms QRS Dur : 092 ms QT Int : 318 ms P-R-T Axes : 000 -40 026 degrees QTc Int : 473 ms ATRIAL FIBRILLATION WITH RAPID VENTRICULAR RESPONSE LEFT AXIS DEVIATION INCOMPLETE RIGHT BUNDLE BRANCH BLOCK NONSPECIFIC ST ABNORMALITY ABNORMAL ECG WHEN COMPARED WITH ECG OF 10-MAR-2017 14:38, NONSPECIFIC T WAVE ABNORMALITY HAS REPLACED INVERTED T WAVES IN INFERIOR LEADS Confirmed by MD Jered, Cyrus ([id number]) on 07/07/2017 4:13:23 PM Referred By: Confirmed By:Cyrus Lawton MD
[2017-07-08] MEDS: D5-1/2NS+20 MEQ KCL - 20 MEQ/1,000 ML INFUS.BAG IV SCH ×3 (02:03→22:28)
[2017-07-08] MEDS: PIPERACILLIN/TAZOB 3.375 GM 3.375 GM in DEXTROSE 5%-WATER - 50 ML IVPB SCH ×2 (02:03→08:27)
[2017-07-08] MEDS ORDERED: PIPERACILLIN/TAZOB 3.375 GM 3.375 GM/50 ML BAG IVPB ONE ×3 (02:07→08:00)
[2017-07-08 02:43] LABS: EOS % 6.2 % (0-4.5); HEMATOCRIT 50.1 % (35.4-49); HEMOGLOBIN 16.2 GM/dL (11.7-16.9); MCH 28.2 pg (25.7-33.7); MCHC 32.4 g/dl (32.0-35.9); MEAN CELL VOLUME 87.3 fl (80-96); MEAN PLT VOLUME 11.3 fl (7.5-11.1); MONO % 9.6 % (3.8-10.2); NEUT % 54.2 % (42.8-82.8); PLATELET COUNT 158 K/MM3 (134-434); RBC 5.74 M/mm3 (4.00-5.60); RDW 16.1 % (11.9-15.9); WHITE BLOOD COUNT 9.3 K/mm3 (4.0-10.0)
[2017-07-08 02:44] LABS: URINE APPEARANCE CLEAR; URINE BILIRUBIN NEGATIVE (<2.0 mg/dL); URINE COLOR YELLOW; URINE GLUCOSE (UA) 3+ (NEGATIVE); URINE KETONE NEGATIVE (NEGATIVE); URINE LEUK ESTERASE TRACE (NEGATIVE); URINE NITRITE NEGATIVE (NEGATIVE); URINE UROBILINOGEN NEGATIVE mg/dL (0.2-1.0)
[2017-07-08 02:48] LABS: URINE PROTEIN 2+ (NEGATIVE)
[2017-07-08 02:50] LABS: EPI CELLS RARE /HPF (FEW); URINE HYALINE CAST 1 /lpf; URINE MUCUS RARE
[2017-07-08 03:10] LABS: ALBUMIN 3.1 g/dl (3.4-5.0); ANION GAP 9 (8-16); BLOOD UREA NITROGEN 29 mg/dL (7-18); CALCIUM 8.5 mg/dL (8.5-10.1); CHLORIDE 111 mmol/L (98-107); CO2 25 mmol/L (21-32); CREATININE 1.8 mg/dL (0.7-1.3); GLUCOSE,RANDOM 188 mg/dL (74-106); POTASSIUM 4.1 mmol/L (3.5-5.1); SGOT/AST 16 U/L (15-37); SGPT/ALT 16 U/L (12-78); SODIUM 145 mmol/L (136-145)
[2017-07-08 03:13] LABS: ALK PHOS 126 U/L (45-117); TOT PROT 6.6 g/dl (6.4-8.2)
[2017-07-08 09:00] LABS: BASO % 0.7 % (0-2.0); EOS % 7.4 % (0-4.5); HEMATOCRIT 46.1 % (35.4-49); HEMOGLOBIN 14.9 GM/dL (11.7-16.9); MCH 28.1 pg (25.7-33.7); MCHC 32.3 g/dl (32.0-35.9); MEAN PLT VOLUME 10.7 fl (7.5-11.1); MONO % 9.1 % (3.8-10.2); NEUT % 57.8 % (42.8-82.8); PLATELET COUNT 150 K/MM3 (134-434); RDW 15.5 % (11.9-15.9); WHITE BLOOD COUNT 6.8 K/mm3 (4.0-10.0)
--- NOTE | 2017-07-08 09:00 | CON.ID ---
Consult Consult Specialty:: infectious disease Referred by:: chris Reason for Consultation:: diarrhea - History of Present Illness Chief Complaint: diarrhea History of Present Illness: acute onset of diarrhea nonbloody 7 to 8 times early yesterday am with weakness no fevers no chills no vomiting brought to ED by daughter found to be in rapid afib and with hypotension wbc 13k, creatinine 2.[address] scan- no colitis, no diverticulitis, ?pancreatic head lesion- WILL NEED FOLLOWUP diarrhea and rapid afib have resolved no specimen sent abdominal pain has resolved no sick contacts no unusual food preferences - History Source History Provided By: Patient Limitations to Obtaining History: No Limitations - Past Medical History 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 No: CHF Pulmonary: Yes: Bronchitis, COPD Gastrointestinal: Yes: Irritable Bowel Disease Infectious Disease: Yes: Other (INFECTED FOOT) Musculoskeletal: Yes: Other (RECURRENT FOOT INFECTION) Endocrine: Yes: Diabetes Mellitus - Past Surgical History Past Surgical History: Yes: Colonoscopy - Alcohol/Substance Use Hx Alcohol Use: No - Smoking History Smoking history: Former smoker Have you smoked in the past 12 months: No Aproximately how many cigarettes per day: 0 If you are a former smoker, when did you quit?: 1955 - Social History Usual Living Arrangement: Alone (retired) ADL: Independent Place of : [facility] History of Recent Travel: No Home Medications - Allergies Allergies/Adverse Reactions: Allergies Allergy/AdvReac Type Severity Reaction Status Date / Time No Known Allergies Allergy Verified 07/07/17 09:18 - Home Medications Home Medications: Ambulatory Orders Atorvastatin Ca [Lipitor] 40 mg PO HS tablet 03/01/15 Enalapril Maleate [Vasotec -] 2.5 mg PO DAILY 03/12/16 Apixaban [Eliquis -] 2.5 mg PO BID tablet 12/12/16 Aspirin Coated [Ecotrin -] 81 mg PO DAILY tab 12/12/16 Furosemide [Lasix -] 40 mg PO DAILY tablet 12/12/16 Metoprolol Tartrate [Lopressor -] 25 mg PO DAILY tablet 12/12/16 Insulin Aspart Prot/Insuln Asp [Novolog Mix 70-30 Flexpen Syrn] 20 unit SQ BID 07/07/17 Family Disease History - Family Disease History Family Disease History: Heart Disease: Father, Mother Review of Systems - Review of Systems Constitutional: reports: Weakness Eyes: reports: No Symptoms HENT: reports: No Symptoms Neck: reports: No Symptoms Cardiovascular: reports: Chest Pain (resolved) Respiratory: reports: Cough (chronic). denies: SOB Gastrointestinal: reports: Abdominal Pain (resolved), Diarrhea (resolved) Integumentary: reports: No Symptoms Physical Exam Vital Signs: Vital Signs Temperature 97.5 F L 07/08/17 02:49 Pulse Rate 81 07/08/17 06:44 Respiratory Rate 15 07/08/17 06:44 Blood Pressure 137/6 07/08/17 06:44 O2 Sat by Pulse Oximetry (%) 99 07/08/17 06:44 Constitutional: Yes: Well Nourished, No Distress Eyes: Yes: Conjunctiva Clear HENT: Yes: Atraumatic, Normocephalic. No: Pharyngeal Erythema, Tonsillar Exudate Neck: Yes: Supple, Trachea Midline Cardiovascular: Yes: Regular Rate and Rhythm Respiratory: Yes: Regular, CTA Bilaterally Gastrointestinal: Yes: Normal Bowel Sounds, Soft. No: Tenderness, Epigastrium ...Rectal Exam: Yes: Deferred Extremities: Yes: WNL, Other (well healed incision left foot) Psychiatric: Yes: Alert, Oriented Labs: CBC, BMP 07/08/17 08:39 Imaging - Results Chest X-ray: Report Reviewed Cat Scan: Report Reviewed Problem List - Problems (1) Diarrhea Code(s): R19.7 - DIARRHEA, UNSPECIFIED (2) Atrial fibrillation with RVR Code(s): I48.91 - UNSPECIFIED ATRIAL FIBRILLATION (3) ABDULLAHI (acute kidney injury) Code(s): N17.9 - ACUTE KIDNEY FAILURE, UNSPECIFIED (4) Pancreatic cystic fibrosis Code(s): E84.9 - CYSTIC FIBROSIS, UNSPECIFIED Assessment/Plan presented to ed with rapid afib and diarrhea (acute), also ABDULLAHI ?acute gastroenteritis would d/c antibiotics would get blood cultures afib- rate control abdullahi- responding to ivf outpt f/u pancreatic lesion d/w Dr Zambrano
--- NOTE | 2017-07-08 09:22 | PN ---
Progress Note, Physician History of Present Illness: 81y M hx of IDDM, HTN, CAD s/p stent placement x 3, A-fib w/RvR (on 2.5 mg Eliquis) , COPD, PAD who p/w diarrhea, pt notes the stool is dark colored and watery, started this morning about 3am, he has not taken any of his AM meds due to concern of worsening the diarrhea. Pt notes intermittent abdominal pain, but dnies any cp sob, palpitations, he did feel a brief episode of lightheadedness on the way to the hospital. - Current Medication List Current Medications: Active Medications Apixaban (Eliquis -) 2.5 mg PO BID [facility] Atorvastatin Calcium (Lipitor -) 40 mg PO HS [facility] Enalapril Maleate (Vasotec -) 2.5 mg PO DAILY [facility] Potassium Chloride/Dextrose/Sod Cl (D5-1/2ns+20 Meq Kcl -) 20 meq in 1,000 mls @ 125 mls/hr IV ASDIR [facility] Last Admin: 07/08/17 02:03 Dose: 125 mls/hr Metoprolol Tartrate (Lopressor -) 25 mg PO DAILY [facility] - Objective Vital Signs: Vital Signs Temperature 97.5 F L 07/08/17 02:49 Pulse Rate 84 07/08/17 09:08 Respiratory Rate 16 07/08/17 09:08 Blood Pressure 145/72 07/08/17 09:08 O2 Sat by Pulse Oximetry (%) 97 07/08/17 09:08 Cardiovascular: Yes: S1, S2 Respiratory: Yes: Regular, CTA Bilaterally Gastrointestinal: Yes: Normal Bowel Sounds, Soft, Abdomen, Obese. No: Tenderness Labs: CBC, BMP 07/08/17 08:39 INR, PTT INR 1.50 (0.82-1.09) H D 07/07/17 09:50
--- NOTE | 2017-07-08 09:26 | CON.CARD ---
Consult Consult Specialty:: Cardiology Referred by:: Dr. Zambrano Reason for Consultation:: Afib with RVR - History of Present Illness Chief Complaint: Diarrhea, abd pain History of Present Illness: 81 year old man h/o HTN, HLD, DMII, CAD prior stents, chronic Afib with intermittent RVR on prior admissions on eliquis, COPD, PAD admitted with diarrhea, abd pain, noted to be in Afib with RVR on presentation. Pt seen and examined in the ER in nad. Pt did not take his meds including metoprolol prior to ER presentation due to diarrhea. Denies chest pain, sob, palpitations. no dizziness, lightheadedness, syncope or near syncope. no pnd, orthopnea, or LE edema. Echo 02/2016: nl rv/lv size and systolic function, mild lad, trace MR, RVSP 30- 40mmHg, mod TR. 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 No: CHF Pulmonary: Yes: Bronchitis, COPD Gastrointestinal: Yes: Irritable Bowel Disease Infectious Disease: Yes: Other (INFECTED FOOT) Musculoskeletal: Yes: Other (RECURRENT FOOT INFECTION) Endocrine: Yes: Diabetes Mellitus - Past Surgical History Past Surgical History: Yes: Colonoscopy, Stent - Alcohol/Substance Use Hx Alcohol Use: No - Smoking History Smoking history: Former smoker Have you smoked in the past 12 months: No Aproximately how many cigarettes per day: 0 If you are a former smoker, when did you quit?: 1955 - Social History Usual Living Arrangement: Alone (retired) ADL: Independent History of Recent Travel: No Home Medications - Allergies Allergies/Adverse Reactions: Allergies Allergy/AdvReac Type Severity Reaction Status Date / Time No Known Allergies Allergy Verified 07/07/17 09:18 - Home Medications Home Medications: Ambulatory Orders Atorvastatin Ca [Lipitor] 40 mg PO HS tablet 03/01/15 Enalapril Maleate [Vasotec -] 2.5 mg PO DAILY 03/12/16 Apixaban [Eliquis -] 2.5 mg PO BID tablet 12/12/16 Aspirin Coated [Ecotrin -] 81 mg PO DAILY tab 12/12/16 Furosemide [Lasix -] 40 mg PO DAILY tablet 12/12/16 Metoprolol Tartrate [Lopressor -] 25 mg PO DAILY tablet 12/12/16 Insulin Aspart Prot/Insuln Asp [Novolog Mix 70-30 Flexpen Syrn] 20 unit SQ BID 07/07/17 Family Disease History - Family Disease History Family Disease History: Heart Disease: Father, Mother Review of Systems - Review of Systems Constitutional: denies: No Symptoms, Chills, Diaphoresis, Fever, Lethargy, Loss of Appetite, Malaise, Night Sweats, Unintentional Wgt. Loss, Weakness, Other Eyes: denies: No Symptoms, Blind Spots, Blurred Vision, Double Vision, Eye Pain , Floaters, Photophobia, Recent Change in Vision, Other HENT: denies: No Symptoms, Difficult Swallowing, Ear Discharge, Ear Pain, Epistaxis, Gingival Bleeding, Hearing Loss, Mouth Swelling, Nasal Congestion, Ocular Prosthesis, Throat Pain, Toothache, Ringing in Ears, Other Neck: denies: No Symptoms, Decreased ROM, Lumps, Pain on Movement, Stiffness, Swollen Glands, Tenderness, Other Cardiovascular: denies: No Symptoms, Chest Pain, Edema, Palpitations, Shortness of Breath, Other Respiratory: denies: No Symptoms, Cough, Exercise Intolerance, Hemoptysis, Orthopnea, PND, Snoring, SOB, SOB on Exertion, Wheezing, Other Gastrointestinal: reports: Abdominal Pain, Diarrhea. denies: No Symptoms, Bloating, Constipation, Dysphagia, Indigestion, Melena, Nausea, Rectal Bleeding , Vomiting, Vomiting Blood, Other Genitourinary: denies: No Symptoms, Burning, Discharge, Dysuria, Flank Pain, Frequency, Hematuria, Incontinence, Lesions, Menses, Pain, Testicular Mass, Testicular Pain, Testicular Swelling, Urgency, Vaginal Bleeding, Other Breasts: denies: No Symptoms Reported, See HPI, Breast Implants, Discharge from Nipple, Lumps, Pain, Skin Changes, Other Musculoskeletal: denies: No Symptoms, Back Pain, Crepitus, Decreased ROM, Extremity Pain, Joint Pain, Joint Swelling, Muscle Pain, Muscle Cramps, Muscle Weakness, Other Integumentary: denies: No Symptoms, Blister, Bruising, Change in Color, Eczema, Erythema, Incision, Lesions, Lump, Pallor, Pruritis, Rash, Wound, Other Neurological: denies: No Symptoms, Change in LOC, Change in Speech, Confusion, Dizziness, Headache, Incoordination, Numbness, Parasthesia, Pre-Existing Deficit , Seizure, Syncope, Tremors, Unsteady Gait, Weakness, Other Endocrine: denies: No Symptoms, Excessive Sweating, Flushing, Increased Hunger, Increased Thirst, Intolerance to Cold, Intolerance to Heat, Unexplained Weight Gain, Unexplained Weight Loss, Other Hematology/Lymphatic: denies: No Symptoms, Easily Bruised, Excessive Bleeding, Swollen Glands, Other Psychiatric: denies: No Symptoms, Altered Sleep Pattern, Anxiety, Depression, Hallucinations, Panic, Paranoia, Suicidal, Other - Risk Factors Known Risk Factors: Yes: Hypercholesterolemia, Hypertension Vital Signs: Vital Signs Temperature 97.5 F L 07/08/17 02:49 Pulse Rate 84 07/08/17 09:08 Respiratory Rate 16 07/08/17 09:08 Blood Pressure 145/72 07/08/17 09:08 O2 Sat by Pulse Oximetry (%) 97 07/08/17 09:08 Constitutional: Yes: Well Nourished, No Distress, Calm Eyes: Yes: WNL, Conjunctiva Clear, EOM Intact, PERRL HENT: Yes: WNL, Atraumatic, Normocephalic Neck: Yes: WNL, Supple, Trachea Midline Respiratory: Yes: WNL, Regular, CTA Bilaterally. No: Rales, Rhonchi, Wheezes Gastrointestinal: Yes: WNL, Normal Bowel Sounds, Soft. No: Distention, Tenderness Renal/: Yes: WNL Cardiovascular: Yes: Pulse Irregular. No: Regular Rate and Rhythm, Bradycardia , Tachycardia, Gallop, Rub, Varicosities JVD: No Carotid Bruit: No PMI: Non-Displaced Heart Sounds: Yes: S1, S2. No: Split S2, S3, S4, Clicks, Gallop, Rub, Bruit Murmur: No: Systolic Murmur, Diastolic Murmur Musculoskeletal: Yes: WNL Extremities: Yes: WNL Edema: No Peripheral Pulses WNL: Yes Peripheral Pulses: 2+ Left Doralis Pedis, 2+ Right Dorsalis Pedis Integumentary: Yes: WNL Neurological: Yes: WNL, Alert, Oriented, Cran Nerves II-XII Intact ...Motor Strength: WNL Psychiatric: Yes: WNL, Alert, Oriented - Other Data Labs, Other Data: CBC, BMP 07/08/17 08:39 INR, PTT INR 1.50 (0.82-1.09) H D 07/07/17 09:50 Troponin, BNP 07/07/17 07/07/17 09:45 09:50 Troponin I < 0.02 Cancelled Troponin, BNP 07/07/17 07/07/17 09:45 09:50 Troponin I < 0.02 Cancelled ekg-Afib with RVR 133bpm, LAD, NSST Echo: Report Reviewed Prior Cardiac Procedures: PTCA with Stent Imaging - Results Chest X-ray: Report Reviewed, Image Reviewed EKG: Report Reviewed, Image Reviewed Other: Report Reviewed Assessment/Plan 81 year old man h/o HTN, HLD, DMII, CAD prior stents, chronic Afib with intermittent RVR on prior admissions on eliquis, COPD, PAD admitted with diarrhea, abd pain, noted to be in Afib with RVR on presentation. Pt seen and examined in the ER in nad. Pt did not take his meds including metoprolol prior to ER presentation due to diarrhea. Denies chest pain, sob, palpitations. no dizziness, lightheadedness, syncope or near syncope. no pnd, orthopnea, or LE edema. Echo 02/2016: nl rv/lv size and systolic function, mild lad, trace MR, RVSP 30- 40mmHg, mod TR. Echo 11/2016 severe septal hypokinesis Afib-with RVR on admission, chronic -in setting of diarrhea, likely degree of dehydration -as well as pt did not take his metoprolol yesterday morning -HR is currently 80-90s -Ok to dc tele -resume home dose metoprolol, clarify dosing, currently ordered for once a day Lopressor -IVF hydration as needed -no additional inpatient cardiac work up needed at this point -cont home AC eliquis CAD prior stents, possible cardiomyopathy -cont home meds -outpatient f/up
[2017-07-08 09:29] LABS: ALBUMIN 2.8 g/dl (3.4-5.0); AMYLASE 67 U/L (25-115); ANION GAP 6 (8-16); BLOOD UREA NITROGEN 25 mg/dL (7-18); CALCIUM 8.2 mg/dL (8.5-10.1); CHLORIDE 110 mmol/L (98-107); CO2 27 mmol/L (21-32); GLUCOSE,RANDOM 193 mg/dL (74-106); MAGNESIUM 2.1 mg/dL (1.8-2.4); SODIUM 143 mmol/L (136-145)
[2017-07-08 09:31] LABS: LIPASE 261 U/L (73-393)
[2017-07-08 09:33] LABS: ALK PHOS 114 U/L (45-117); BILIRUBIN,TOTAL 1.4 mg/dL (0.2-1.0); CREATININE 1.6 mg/dL (0.7-1.3); SGOT/AST 12 U/L (15-37); SGPT/ALT 13 U/L (12-78)
--- NOTE | 2017-07-08 10:39 | CON.GI ---
Consult Consult Specialty:: GI Reason for Consultation:: acute onset diarrhea with hemodynamic instability - History of Present Illness History of Present Illness: chart reviewed. An 81-year-old gentleman who developed profuse watery diarrhea of 1 day duration. Acute onset in the middle of the night. No ill contacts, eating out, changes in medications, diet. Lives with his grandson who is asymptomatic. The duration of the above symptoms was 1 day. When arrived to ED yesterday was Was found to have leukocytosis, hypotension and tachycardia. The patient was resuscitated with IV fluids and antibiotics. At the time of this encounter the patient is asymptomatic. Reports resolution of diarrhea. On Eliquist. He reports no history of hematemesis, hematochezia, melena, change in stool caliber, unintentional weight loss. There is no personal, family history of inflammatory bowel disease, chronic colitis. Denies chronic alcohol, or NSAID use. 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 No: CHF Pulmonary: Yes: Bronchitis, COPD Gastrointestinal: Yes: Irritable Bowel Disease Infectious Disease: Yes: Other (INFECTED FOOT) Musculoskeletal: Yes: Other (RECURRENT FOOT INFECTION) Endocrine: Yes: Diabetes Mellitus - Past Surgical History Past Surgical History: Yes: Colonoscopy, Stent - Alcohol/Substance Use Hx Alcohol Use: No - Smoking History Smoking history: Former smoker Have you smoked in the past 12 months: No Aproximately how many cigarettes per day: 0 If you are a former smoker, when did you quit?: 1955 - Social History Usual Living Arrangement: Alone (retired) ADL: Independent History of Recent Travel: No Home Medications - Allergies Allergies/Adverse Reactions: Allergies Allergy/AdvReac Type Severity Reaction Status Date / Time No Known Allergies Allergy Verified 07/07/17 09:18 - Home Medications Home Medications: Ambulatory Orders Atorvastatin Ca [Lipitor] 40 mg PO HS tablet 03/01/15 Enalapril Maleate [Vasotec -] 2.5 mg PO DAILY 03/12/16 Apixaban [Eliquis -] 2.5 mg PO BID tablet 12/12/16 Aspirin Coated [Ecotrin -] 81 mg PO DAILY tab 12/12/16 Furosemide [Lasix -] 40 mg PO DAILY tablet 12/12/16 Metoprolol Tartrate [Lopressor -] 25 mg PO DAILY tablet 12/12/16 Insulin Aspart Prot/Insuln Asp [Novolog Mix 70-30 Flexpen Syrn] 20 unit SQ BID 07/07/17 Family Disease History - Family Disease History Family History: Unremarkable Family Disease History: Heart Disease: Father, Mother Review of Systems Findings/Remarks: as per H&P and HPI Physical Exam-GI Vital Signs: Vital Signs Temperature 97.5 F L 07/08/17 02:49 Pulse Rate 84 07/08/17 09:08 Respiratory Rate 16 07/08/17 09:08 Blood Pressure 145/72 07/08/17 09:08 O2 Sat by Pulse Oximetry (%) 97 07/08/17 09:08 Constitutional: Yes: Well Nourished, No Distress, Calm Eyes: Yes: Conjunctiva Clear HENT: Yes: Atraumatic Neck: Yes: Supple Cardiovascular: No: Bradycardia, Tachycardia Respiratory: Yes: Regular Gastrointestinal Inspection: Yes: Distention ...Auscultate: Yes: Normoactive Bowel Sounds ...Palpate: No: Firm/Rigid, Guarding, Tenderness, Tenderness, Epigastium, Tenderness, Rebound ...Percussion: Yes: Tympanitic ...Rectal Exam: Yes: Guaiac Trace Neurological: Yes: Alert, Oriented Labs: CBC, BMP 07/08/17 08:39 07/08/17 08:46 INR, PTT INR 1.50 (0.82-1.09) H D 07/07/17 09:50 Laboratory Last Values WBC 6.8 K/mm3 (4.0-10.0) 07/08/17 08:39 RBC 5.30 M/mm3 (4.00-5.60) 07/08/17 08:39 Hgb 14.9 GM/dL (11.7-16.9) 07/08/17 08:39 Hct 46.1 % (35.4-49) 07/08/17 08:39 MCV 87.0 fl (80-96) 07/08/17 08:39 MCH 28.1 pg (25.7-33.7) 07/08/17 08:39 MCHC 32.3 g/dl (32.0-35.9) 07/08/17 08:39 RDW 15.5 % (11.9-15.9) 07/08/17 08:39 Plt Count 150 K/MM3 (134-434) 07/08/17 08:39 MPV 10.7 fl (7.5-11.1) 07/08/17 08:39 Neutrophils % 57.8 % (42.8-82.8) 07/08/17 08:39 Lymphocytes % 25.0 % (8-40) 07/08/17 08:39 Monocytes % 9.1 % (3.8-10.2) 07/08/17 08:39 Eosinophils % 7.4 % (0-4.5) H 07/08/17 08:39 Basophils % 0.7 % (0-2.0) 07/08/17 08:39 Nucleated RBC % 0 % (0-0) 07/08/17 08:39 PT with INR 17.00 SEC (9.7-13.0) H 07/07/17 09:50 INR 1.50 (0.82-1.09) H D 07/07/17 09:50 Sodium 143 mmol/L (136-145) 07/08/17 08:46 Potassium 4.0 mmol/L (3.5-5.1) 07/08/17 08:46 Chloride 110 mmol/L (98-107) H 07/08/17 08:46 Carbon Dioxide 27 mmol/L (21-32) 07/08/17 08:46 Anion Gap 6 (8-16) L 07/08/17 08:46 BUN 25 mg/dL (7-18) H 07/08/17 08:46 Creatinine 1.6 mg/dL (0.7-1.3) H 07/08/17 08:46 Creat Clearance w eGFR 41.69 (>60) 07/08/17 08:46 Random Glucose 193 mg/dL (74-106) H 07/08/17 08:46 Calcium 8.2 mg/dL (8.5-10.1) L 07/08/17 08:46 Magnesium 2.1 mg/dL (1.8-2.4) 07/08/17 08:46 Total Bilirubin 1.4 mg/dL (0.2-1.0) H D 07/08/17 08:46 AST 12 U/L (15-37) L D 07/08/17 08:46 ALT 13 U/L (12-78) 07/08/17 08:46 Alkaline Phosphatase 114 U/L (45-117) 07/08/17 08:46 Creatine Kinase Cancelled 07/07/17 09:50 Troponin I Cancelled 07/07/17 09:50 Total Protein 6.0 g/dl (6.4-8.2) L 07/08/17 08:46 Albumin 2.8 g/dl (3.4-5.0) L 07/08/17 08:46 Total Amylase 67 U/L (25-115) 07/08/17 08:46 Lipase 261 U/L (73-393) 07/08/17 08:46 Urine Color Yellow 07/08/17 02:30 Urine Appearance Clear 07/08/17 02:30 Urine pH 5.0 (5.0-8.0) 07/08/17 02:30 Ur Specific [place] 1.014 (1.001-1.035) 07/08/17 02:30 Urine Protein 2+ (NEGATIVE) H 07/08/17 02:30 Urine Glucose (UA) 3+ (NEGATIVE) H 07/08/17 02:30 Urine Ketones Negative (NEGATIVE) 07/08/17 02:30 Urine Blood 1+ (NEGATIVE) H 07/08/17 02:30 Urine Nitrite Negative (NEGATIVE) 07/08/17 02:30 Urine Bilirubin Negative (<2.0 mg/dL) 07/08/17 02:30 Urine Urobilinogen Negative mg/dL (0.2-1.0) 07/08/17 02:30 Ur Leukocyte Esterase Trace (NEGATIVE) 07/08/17 02:30 Urine WBC (Auto) 10 /hpf (3-5) 07/08/17 02:30 Urine RBC (Auto) 3 /hpf (0-3) 07/08/17 02:30 Ur Epithelial Cells Rare /HPF (FEW) 07/08/17 02:30 Hyaline Casts 1 /lpf 07/08/17 02:30 Urine Mucus Rare 07/08/17 02:30 Stool Occult Blood Trace (NEGATIVE) 07/07/17 10:34 Imaging - Results Cat Scan: Report Reviewed ( evidence of chronic pancreatitis without signs of acute pancreatitis) Problem List - Problems (1) Viral gastroenteritis Code(s): A08.4 - VIRAL INTESTINAL INFECTION, UNSPECIFIED (2) Atrial fibrillation with RVR Code(s): I48.91 - UNSPECIFIED ATRIAL FIBRILLATION Assessment/Plan in 81-year-old gentleman with the above history presents with what appears to be an acute gastroenteritis, possibly viral. Doubt ischemic bowel, or bacterial infection at this time. No evidence of acute pancreatitis, colitis , or bowel obstruction. The presenting symptoms, leukocytosis and hemodynamic instability have resolved. Agree with low residual diet and observation. Will follow.
--- NOTE | 2017-07-08 10:54 | HP ---
Admitting History and Physical - Admission History of Present Illness: 81 yo M with h/o IDDM, HTN, CAD s/p stent placement x 3, A-fib w/RvR (on 2.5 mg Eliquis) , COPD, PAD who p/w watery stools. Patient tachycardic to 130's in triage. Patient with acute onset of multiple (does not recall quantity) loose watery dark colored stools, with absent BPR . Also reports acute, transient ( seconds vs. minutes) episode of diffuse, non pleuritic, non radiating dull chest pain ( now resolved). Nml PO intake, and denies abdominal pain. Endorses one episode of lightheadedness when ambulating to car. Patient denies taking his home medication yesterday ( including Metoprolol). 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 No: CHF Pulmonary: Yes: Bronchitis, COPD Gastrointestinal: Yes: Irritable Bowel Disease Infectious Disease: Yes: Other (INFECTED FOOT) Musculoskeletal: Yes: Other (RECURRENT FOOT INFECTION) Endocrine: Yes: Diabetes Mellitus - Past Surgical History Past Surgical History: Yes: Colonoscopy, Stent - Smoking History Smoking history: Former smoker Have you smoked in the past 12 months: No Aproximately how many cigarettes per day: 0 If you are a former smoker, when did you quit?: 1955 - Alcohol/Substance Use Hx Alcohol Use: No - Social History ADL: Independent History of Recent Travel: No Home Medications - Allergies Allergies/Adverse Reactions: Allergies Allergy/AdvReac Type Severity Reaction Status Date / Time No Known Allergies Allergy Verified 07/07/17 09:18 - Home Medications Home Medications: Ambulatory Orders Atorvastatin Ca [Lipitor] 40 mg PO HS tablet 03/01/15 Enalapril Maleate [Vasotec -] 2.5 mg PO DAILY 03/12/16 Apixaban [Eliquis -] 2.5 mg PO BID tablet 12/12/16 Aspirin Coated [Ecotrin -] 81 mg PO DAILY tab 12/12/16 Furosemide [Lasix -] 40 mg PO DAILY tablet 12/12/16 Metoprolol Tartrate [Lopressor -] 25 mg PO DAILY tablet 12/12/16 Insulin Aspart Prot/Insuln Asp [Novolog Mix 70-30 Flexpen Syrn] 20 unit SQ BID 07/07/17 Family Disease History - Family Disease History Family Disease History: Heart Disease: Father, Mother Review of Systems - Review of Systems Cardiovascular: denies: Chest Pain Respiratory: denies: SOB Gastrointestinal: reports: Abdominal Pain, Diarrhea, Nausea Genitourinary: reports: No Symptoms Neurological: reports: Weakness Physical Examination Vital Signs: Vital Signs Temperature 97.5 F L 07/08/17 02:49 Pulse Rate 84 07/08/17 09:08 Respiratory Rate 16 07/08/17 09:08 Blood Pressure 145/72 07/08/17 09:08 O2 Sat by Pulse Oximetry (%) 97 07/08/17 09:08 Cardiovascular: Yes: S1, S2 Respiratory: Yes: Regular, CTA Bilaterally Gastrointestinal: Yes: Normal Bowel Sounds, Soft, Abdomen, Obese. No: Tenderness Labs: CBC, BMP 07/08/17 08:39 07/08/17 08:46 Imaging - Results Cat Scan: Report Reviewed Problem List - Problems (1) Atrial fibrillation with RVR Assessment/Plan: -improved -mutiple afctors--[id number] taking meds -monitor -cardio on board Code(s): I48.91 - UNSPECIFIED ATRIAL FIBRILLATION (2) Viral gastroenteritis Assessment/Plan: -improved rapidly -d/w id and gi -cultures -ivf =hold off abx Code(s): A08.4 - VIRAL INTESTINAL INFECTION, UNSPECIFIED (3) CAD (coronary artery disease) Code(s): I25.10 - ATHSCL HEART DISEASE OF [place] CORONARY ARTERY W/O ANG PCTRS (4) Diabetes Assessment/Plan: -bgm -monitor on diet -endo Code(s): E11.9 - TYPE 2 DIABETES MELLITUS WITHOUT COMPLICATIONS
[2017-07-08] MEDS: METOPROLOL TARTRATE 25 MG TABLET (FP) PO SCH (11:11)
[2017-07-08] MEDS: ENALAPRIL MALEATE 2.5 MG TABLET (FP) PO SCH (11:11)
[2017-07-08] MEDS: APIXABAN 2.5 MG TABLET PO SCH ×2 (11:11→23:06)
--- NOTE | 2017-07-08 14:28 | EKG ---
Test Reason : Blood Pressure : / mmHG Vent. Rate : 088 BPM Atrial Rate : 300 BPM P-R Int : 000 ms QRS Dur : 106 ms QT Int : 396 ms P-R-T Axes : 000 -12 -02 degrees QTc Int : 479 ms ATRIAL FIBRILLATION INCOMPLETE RIGHT BUNDLE BRANCH BLOCK ABNORMAL ECG WHEN COMPARED WITH ECG OF 07-JUL-2017 09:21, VENT. RATE HAS DECREASED BY 45 BPM Confirmed by MAYRA JIMENEZ MD ([id number]) on 07/08/2017 2:27:52 PM Referred By: Confirmed By:MAYRA JIMENEZ MD
[2017-07-08] MEDS ORDERED: PIPERACILLIN/TAZOB 3.375 GM 3.375 GM in DEXTROSE 5%-WATER - 50 ML IVPB SCH (18:00)
[2017-07-08] MEDS ORDERED: ATORVASTATIN CA 40 MG TABLET (FP) PO SCH (22:00)
--- NOTE | 2017-07-09 00:09 | CONSULT ---
Consult Consult Specialty:: endocrine Referred by:: dr.annabi ramirez Reason for Consultation:: diabetes mellitus - History of Present Illness Chief Complaint: high sugars History of Present Illness: 81y M hx of IDDM, HTN, CAD s/p stent placement x 3, A-fib w/RvR (on 2.5 mg Eliquis) , COPD, PAD who p/w diarrhea, pt notes the stool is dark colored and watery, started this morning about 3am, he has not taken any of his AM meds due to concern of worsening the diarrhea. Pt notes intermittent abdominal pain, but dnies any cp sob, palpitations,he has elevated sugars and numbnes and tingling feet and hands,he denies low sugars l. 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 No: CHF Pulmonary: Yes: Bronchitis, COPD Gastrointestinal: Yes: Irritable Bowel Disease Infectious Disease: Yes: Other (INFECTED FOOT) Musculoskeletal: Yes: Other (RECURRENT FOOT INFECTION) Endocrine: Yes: Diabetes Mellitus - Past Surgical History Past Surgical History: Yes: Colonoscopy, Stent - Alcohol/Substance Use Hx Alcohol Use: No - Smoking History Smoking history: Former smoker Have you smoked in the past 12 months: No Aproximately how many cigarettes per day: 0 If you are a former smoker, when did you quit?: 1955 - Social History Usual Living Arrangement: Alone (retired) ADL: Independent History of Recent Travel: No Home Medications - Allergies Allergies/Adverse Reactions: Allergies Allergy/AdvReac Type Severity Reaction Status Date / Time No Known Allergies Allergy Verified 07/07/17 09:18 - Home Medications Home Medications: Ambulatory Orders Atorvastatin Ca [Lipitor] 40 mg PO HS tablet 03/01/15 Enalapril Maleate [Vasotec -] 2.5 mg PO DAILY 03/12/16 Apixaban [Eliquis -] 2.5 mg PO BID tablet 12/12/16 Aspirin Coated [Ecotrin -] 81 mg PO DAILY tab 12/12/16 Furosemide [Lasix -] 40 mg PO DAILY tablet 12/12/16 Metoprolol Tartrate [Lopressor -] 25 mg PO DAILY tablet 12/12/16 Insulin Aspart Prot/Insuln Asp [Novolog Mix 70-30 Flexpen Syrn] 20 unit SQ BID 07/07/17 Family Disease History - Family Disease History Family Disease History: Heart Disease: Father, Mother Review of Systems - Review of Systems Constitutional: reports: Lethargy, Weakness Eyes: reports: Blurred Vision HENT: reports: No Symptoms Neck: reports: No Symptoms Cardiovascular: reports: Shortness of Breath Respiratory: reports: Exercise Intolerance, SOB on Exertion Gastrointestinal: reports: Bloating, Indigestion Genitourinary: reports: No Symptoms Breasts: reports: No Symptoms Reported Musculoskeletal: reports: Muscle Pain, Muscle Cramps, Muscle Weakness Integumentary: reports: No Symptoms Neurological: reports: Numbness, Unsteady Gait, Weakness Physical Exam Vital Signs: Vital Signs Temperature 97.4 F L 07/08/17 17:00 Pulse Rate 81 07/08/17 17:00 Respiratory Rate 17 07/08/17 17:00 Blood Pressure 139/76 07/08/17 17:00 O2 Sat by Pulse Oximetry (%) 97 07/08/17 09:08 Constitutional: Yes: Anxious Eyes: Yes: EOM Intact HENT: Yes: Normocephalic Neck: Yes: Trachea Midline Cardiovascular: Yes: Regular Rate and Rhythm Respiratory: Yes: CTA Bilaterally Gastrointestinal: Yes: Abdomen, Obese, Hyperactive Bowel Sounds ...Rectal Exam: Yes: Deferred Renal/: Yes: WNL Musculoskeletal: Yes: Back Pain Extremities: Yes: WNL Neurological: Yes: Alert, Oriented Labs: CBC, BMP 07/08/17 08:39 07/08/17 08:46 Problem List - Problems (1) Type 2 diabetes mellitus with hyperglycemia Code(s): E11.65 - TYPE 2 DIABETES MELLITUS WITH HYPERGLYCEMIA Qualifiers: Diabetes mellitus shelter insulin use: without intermediate teacher use Qualified Code(s): E11.65 - Type 2 diabetes mellitus with hyperglycemia (2) ABDULLAHI (acute kidney injury) Code(s): N17.9 - ACUTE KIDNEY FAILURE, UNSPECIFIED (3) Atrial fibrillation with RVR Code(s): I48.91 - UNSPECIFIED ATRIAL FIBRILLATION (4) Pancreatic cystic fibrosis Code(s): E84.9 - CYSTIC FIBROSIS, UNSPECIFIED (5) Viral gastroenteritis Code(s): A08.4 - VIRAL INTESTINAL INFECTION, UNSPECIFIED (6) Afib Code(s): I48.91 - UNSPECIFIED ATRIAL FIBRILLATION Qualifiers: (7) CAD (coronary artery disease) Code(s): I25.10 - ATHSCL HEART DISEASE OF [place] CORONARY ARTERY W/O ANG PCTRS Assessment/Plan Current Active Problems ABDULLAHI (acute kidney injury) (Acute) Atrial fibrillation with RVR (Acute) Pancreatic cystic fibrosis (Acute) Viral gastroenteritis (Acute) diabetes mellitus hyperglycmia,diabetic gastroparesis dehydration hypovolemia Abnormal Lab Results 07/08/17 07/08/17 07/08/17 02:30 02:31 02:31 RBC 5.74 H Hct 50.1 H RDW 16.1 H MPV 11.3 H Eosinophils % 6.2 H D Chloride 111 H Anion Gap BUN 29 H Creatinine 1.8 H D Random Glucose 188 H D Hemoglobin A1c % Calcium Total Bilirubin AST Alkaline Phosphatase 126 H Total Protein Albumin 3.1 L Urine Protein 2+ H Urine Glucose (UA) 3+ H Urine Blood 1+ H 07/08/17 07/08/17 07/08/17 08:39 08:45 08:46 RBC Hct RDW MPV Eosinophils % 7.4 H Chloride 110 H Anion Gap 6 L BUN 25 H Creatinine 1.6 H Random Glucose 193 H Hemoglobin A1c % 8.0 H D Calcium 8.2 L Total Bilirubin 1.4 H D AST 12 L D Alkaline Phosphatase Total Protein 6.0 L Albumin 2.8 L Urine Protein Urine Glucose (UA) Urine Blood Laboratory Results - last 24 hr 07/08/17 07/08/17 07/08/17 02:30 02:31 02:31 WBC 9.3 D RBC 5.74 H Hgb 16.2 Hct 50.1 H MCV 87.3 MCH 28.2 MCHC 32.4 RDW 16.1 H Plt Count 158 MPV 11.3 H Neutrophils % 54.2 D Lymphocytes % 29.0 D Monocytes % 9.6 Eosinophils % 6.2 H D Basophils % 1.0 Nucleated RBC % 0 Sodium 145 Potassium 4.1 Chloride 111 H Carbon Dioxide 25 Anion Gap 9 BUN 29 H Creatinine 1.8 H D Creat Clearance w eGFR 36.39 Random Glucose 188 H D Hemoglobin A1c % Calcium 8.5 Magnesium Total Bilirubin 1.0 D AST 16 D ALT 16 Alkaline Phosphatase 126 H Total Protein 6.6 Albumin 3.1 L Total Amylase Lipase Urine Color Yellow Urine Appearance Clear Urine pH 5.0 Ur Specific [place] 1.014 Urine Protein 2+ H Urine Glucose (UA) 3+ H Urine Ketones Negative Urine Blood 1+ H Urine Nitrite Negative Urine Bilirubin Negative Urine Urobilinogen Negative Ur Leukocyte Esterase Trace Urine WBC (Auto) 10 Urine RBC (Auto) 3 Ur Epithelial Cells Rare Hyaline Casts 1 Urine Mucus Rare 07/08/17 07/08/17 07/08/17 08:39 08:45 08:46 WBC 6.8 RBC 5.30 Hgb 14.9 Hct 46.1 MCV 87.0 MCH 28.1 MCHC 32.3 RDW 15.5 Plt Count 150 MPV 10.7 Neutrophils % 57.8 Lymphocytes % 25.0 Monocytes % 9.1 Eosinophils % 7.4 H Basophils % 0.7 Nucleated RBC % 0 Sodium 143 Potassium 4.0 Chloride 110 H Carbon Dioxide 27 Anion Gap 6 L BUN 25 H Creatinine 1.6 H Creat Clearance w eGFR 41.69 Random Glucose 193 H Hemoglobin A1c % 8.0 H D Calcium 8.2 L Magnesium 2.1 Total Bilirubin 1.4 H D AST 12 L D ALT 13 Alkaline Phosphatase 114 Total Protein 6.0 L Albumin 2.8 L Total Amylase 67 Lipase 261 Urine Color Urine Appearance Urine pH Ur Specific [place] Urine Protein Urine Glucose (UA) Urine Ketones Urine Blood Urine Nitrite Urine Bilirubin Urine Urobilinogen Ur Leukocyte Esterase Urine WBC (Auto) Urine RBC (Auto) Ur Epithelial Cells Hyaline Casts Urine Mucus plan: continue iv fluid for replacement hypovolemia bgm novolog sliding scale insulin dose levemir 20 unit am once taking po well nutrition consultation
[2017-07-09 01:03] VITALS: BMI 32.9
[2017-07-09] MEDS: D5-1/2NS+20 MEQ KCL - 20 MEQ/1,000 ML INFUS.BAG IV SCH ×2 (02:41→06:42)
[2017-07-09] MEDS: INSULIN SLIDING SCALE (NOVOLOG) 1 VIAL SQ SCH ×3 (06:41→16:22)
[2017-07-09] MEDS ORDERED: INSULIN (LEVEMIR) 100 UNITS/ML UNITS SQ SCH (07:00)
[2017-07-09 07:48] LABS: BASO % 0.9 % (0-2.0); EOS % 6.6 % (0-4.5); HEMATOCRIT 46.5 % (35.4-49); HEMOGLOBIN 15.3 GM/dL (11.7-16.9); LYMPH % 20.6 % (8-40); MCH 28.6 pg (25.7-33.7); MCHC 32.8 g/dl (32.0-35.9); MEAN CELL VOLUME 87.4 fl (80-96); MEAN PLT VOLUME 10.5 fl (7.5-11.1); MONO % 8.3 % (3.8-10.2); NEUT % 63.6 % (42.8-82.8); PLATELET COUNT 121 K/MM3 (134-434); RBC 5.32 M/mm3 (4.00-5.60); RDW 15.5 % (11.9-15.9)
[2017-07-09 08:22] LABS: CHLORIDE 111 mmol/L (98-107); POTASSIUM 4.4 mmol/L (3.5-5.1); SODIUM 143 mmol/L (136-145)
[2017-07-09 08:42] LABS: ALBUMIN 2.8 g/dl (3.4-5.0); ALK PHOS 111 U/L (45-117); ANION GAP 7 (8-16); BILIRUBIN,TOTAL 1.7 mg/dL (0.2-1.0); BLOOD UREA NITROGEN 19 mg/dL (7-18); CALCIUM 8.3 mg/dL (8.5-10.1); CO2 25 mmol/L (21-32); CREATININE 1.3 mg/dL (0.7-1.3); GLUCOSE,RANDOM 159 mg/dL (74-106); SGOT/AST 15 U/L (15-37); SGPT/ALT 16 U/L (12-78)
[2017-07-09] MEDS: APIXABAN 2.5 MG TABLET PO SCH (09:37)
[2017-07-09] MEDS: ENALAPRIL MALEATE 2.5 MG TABLET (FP) PO SCH (09:38)
[2017-07-09] MEDS: METOPROLOL TARTRATE 25 MG TABLET (FP) PO SCH (09:42)
--- NOTE | 2017-07-09 11:48 | DS ---
Physical Examination Vital Signs: Vital Signs Temperature 97.2 F L 07/09/17 10:00 Pulse Rate 88 07/09/17 10:00 Respiratory Rate 18 07/09/17 10:00 Blood Pressure 129/77 07/09/17 10:00 O2 Sat by Pulse Oximetry (%) 96 07/08/17 22:00 Constitutional: Yes: No Distress Eyes: Yes: WNL HENT: Yes: WNL Neck: Yes: WNL Cardiovascular: Yes: Pulse Irregular Respiratory: Yes: WNL Gastrointestinal: Yes: WNL Renal/: Yes: WNL Musculoskeletal: Yes: WNL Extremities: Yes: WNL Edema: No Peripheral Pulses WNL: Yes Integumentary: Yes: WNL Wound/Incision: Yes: Clean/Dry Neurological: Yes: WNL ...Motor Strength: WNL Psychiatric: Yes: WNL Labs: CBC, BMP 07/09/17 06:45 07/09/17 06:45 Discharge Summary Reason For Visit: ACUTE KIDNEY INJURY,LESION OF PANCREAS Current Active Problems ABDULLAHI (acute kidney injury) (Acute) Atrial fibrillation with RVR (Acute) Pancreatic cystic fibrosis (Acute) Type 2 diabetes mellitus with hyperglycemia (Acute) Viral gastroenteritis (Acute) Procedures: Principal: ABD/STOOL WORKUP FOR DIARRHEA Hospital Course: ADMITTED FOR DIARRHEA, ACUTE VIRAL ENTERITIS, TREATED WITH IV ABX, CONTINUED ON FLAGYL PO FOR 14 DAYS WILL STOP LEVAQYIN PO ORDER, CHECKING STOOL CX, AND CDIFF NOW PRIOR TO DISCHARGE F/U OUT PATIENT IN 2-3 DAYS Condition: Good - Instructions Diet, Activity, Other Instructions: LOW RESIDUE DIET SEE DR WALKER IN 2-3 DAYS FOR CULTURE FOLLOW UP Disposition: VNS/HOME HEALTH CARE - Home Medications Comprehensive Discharge Medication List: Ambulatory Orders Atorvastatin Ca [Lipitor] 40 mg PO HS tablet 03/01/15 Enalapril Maleate [Vasotec -] 2.5 mg PO DAILY 03/12/16 Apixaban [Eliquis -] 2.5 mg PO BID tablet 12/12/16 Aspirin Coated [Ecotrin -] 81 mg PO DAILY tab 12/12/16 Furosemide [Lasix -] 40 mg PO DAILY tablet 12/12/16 Metoprolol Tartrate [Lopressor -] 25 mg PO DAILY tablet 12/12/16 Insulin Aspart Prot/Insuln Asp [Novolog Mix 70-30 Flexpen Syrn] 20 unit SQ BID 07/07/17
[2017-07-09] MEDS ORDERED: metroNIDAZOLE 250 MG TABLET PO SCH (14:00)
--- NOTE | 2017-07-09 14:37 | PN ---
Progress Note, Physician History of Present Illness: No events overnight. Tolerated regular diet. Denies nausea, vomiting, diarrhea, abdominal pain. - Current Medication List Current Medications: Active Medications Apixaban (Eliquis -) 2.5 mg PO BID [facility] Last Admin: 07/09/17 09:37 Dose: 2.5 mg Atorvastatin Calcium (Lipitor -) 40 mg PO HS [facility] Last Admin: 07/08/17 22:28 Dose: 40 mg Enalapril Maleate (Vasotec -) 2.5 mg PO DAILY [facility] Last Admin: 07/09/17 09:38 Dose: 2.5 mg Insulin Aspart (Novolog Vial Sliding Scale -) 1 vial SQ ACHS [facility]; Protocol Last Admin: 07/09/17 12:00 Dose: 3 units Insulin Detemir (Levemir Vial) 20 units SQ AM [facility] Last Admin: 07/09/17 06:41 Dose: 20 units Metoprolol Tartrate (Lopressor -) 25 mg PO DAILY [facility] Last Admin: 07/09/17 09:42 Dose: 25 mg Metronidazole (Flagyl -) 500 mg PO TID [facility] - Objective Vital Signs: Vital Signs Temperature 97.2 F L 07/09/17 10:00 Pulse Rate 88 07/09/17 10:00 Respiratory Rate 18 07/09/17 10:00 Blood Pressure 129/77 07/09/17 10:00 O2 Sat by Pulse Oximetry (%) 96 07/08/17 22:00 Constitutional: Yes: Well Nourished, No Distress, Calm Eyes: Yes: Conjunctiva Clear Gastrointestinal: Yes: Normal Bowel Sounds, Soft. No: Distention, Tenderness, Tenderness, Epigastrium, Tenderness, Rebound, Vomiting Labs: CBC, BMP 07/09/17 06:45 07/09/17 06:45 INR, PTT INR 1.50 (0.82-1.09) H D 07/07/17 09:50 Problem List - Problems (1) Viral gastroenteritis Code(s): A08.4 - VIRAL INTESTINAL INFECTION, UNSPECIFIED (2) Atrial fibrillation with RVR Code(s): I48.91 - UNSPECIFIED ATRIAL FIBRILLATION Assessment/Plan Resolved viral gastroenteritis. Okay to discharge from GI perspective. Avoid dairy products for 2 weeks
[2017-07-09 15:47] VITALS: BP 158/82; PULSE 113; TEMP 98.1
== END 2017-07-09 18:16 | disposition home health service (06) | DRG 392 ==
LOC: JER 09:16 → JERBED 15:11 → OBSVTOIN 22:33 → J5S 07-08 21:22
PROVIDERS: ADMIT Family Medicine; ATTEND Family Medicine
DX: A08.4 Viral intestinal infection, unspecified (principal); N17.9 Acute kidney failure, unspecified; I25.10 Atherosclerotic heart disease of native coronary artery without angina pectoris; I10 Essential (primary) hypertension; E78.5 Hyperlipidemia, unspecified; Z98.61 Coronary angioplasty status; E11.65 Type 2 diabetes mellitus with hyperglycemia; I48.2 Chronic atrial fibrillation; R19.7 Diarrhea, unspecified
CPT/HCPCS: 36415; 71045-TC-FY; 74176-TC; 80053; 81003; 81015; 82150; 82272; 82550; 82962; 83036; 83690; 83735; 84484; 85025; 85610; 85651; 86140; 87040; 93005; 93010; 99285-25; G0378

== ENCOUNTER 2018-02-18 12:05 | Emergency (ER) | payer OTHER ==
[2018-02-18 12:36] VITALS: TEMP 97.8; BMI 33.3
--- NOTE | 2018-02-18 13:10 | PDOC ---
History of Present Illness - General Chief Complaint: Cold Symptoms Stated Complaint: CONGESTED Time Seen by Provider: 02/18/18 12:47 History Source: Patient Exam Limitations: No Limitations - History of Present Illness Initial Comments: 02/18/18 13:10 82-year-old male with history of A. fib, COPD, CHF diabetes hypertension, dyslipidemia, then placement and hernia repair presents with cough and intermittent shortness of breath for the past 3 days without fever, chills, chest pain or productive sputum. Patient states has been taking his medication including his Lasix and denies orthopnea or worsening lower extremity edema. Timing/Duration: reports: getting worse, intermittent Severity: reports: moderate Possible Cause: Yes: occasional episodes Modifying Factors: improves with: activity, coughing Associated Symptoms: reports: cough, shortness of breath Past History - Travel Traveled outside of the country in the last 30 days: No Close contact w/someone who was outside of country & ill: No - Past Medical History Allergies/Adverse Reactions: Allergies Allergy/AdvReac Type Severity Reaction Status Date / Time No Known Allergies Allergy Verified 02/18/18 12:33 Home Medications: Ambulatory Orders Apixaban [Eliquis] 2.5 mg PO BID 10/03/17 Aspirin 81 mg PO DAILY 10/03/17 Atorvastatin Ca [Lipitor] 40 mg PO HS 10/03/17 Budesonide/Formeterol Fumarate [SYMBICORT 80/4.5mcg -] 1 inh PO DAILY 10/03/17 Enalapril Maleate 2.5 mg PO DAILY 10/03/17 Furosemide 40 mg PO DAILY 10/03/17 Amlodipine Besylate [Norvasc -] 5 mg PO DAILY #30 tablet 10/07/17 Metoprolol Succinate [Toprol XL -] 50 mg PO BID #60 tab.sr.24h 10/07/17 Insulin NPH Hum/Reg Insulin Hm [Novolin 70-30 100 Unit/ml Vial] 20 unit SQ DAILY 02/18/18 Anemia: No Asthma: No Cancer: No Cardiac Disorders: Yes (AFib) CVA: No COPD: Yes CHF: Yes Dementia: No Diabetes: Yes GI Disorders: No Disorders: Yes HTN: Yes Hypercholesterolemia: Yes Liver Disease: No Seizures: No Thyroid Disease: No - Surgical History Abdominal Surgery: Yes (Hernia repair) Appendectomy: No Cardiac Surgery: Yes (Stents X 4) Cholecystectomy: No Lung Surgery: No Neurologic Surgery: No Orthopedic Surgery: No - Immunization History Td Vaccination: Yes Immunization Up to Date: Yes - Suicide/Smoking/Psychosocial Hx Smoking Status: No Smoking History: Never smoked Years of Tobacco Use: 5 Have you smoked in the past 12 months: No Number of Cigarettes Smoked Daily: 0 If you are a former smoker, when did you quit?: 1955 Cigars Per Day: 4 'Breaking Loose' booklet given: 04/01/15 Hx Alcohol Use: No Drug/Substance Use Hx: No Substance Use Type: None Hx Substance Use Treatment: No Patient Lives Alone: No Lives with/in: daughter Review of Systems - Review of Systems Able to Perform ROS?: No Constitutional: No: Symptoms Reported HEENTM: No: Symptoms Reported Respiratory: Yes: Cough, SOB with Exertion, SOB at Rest. No: Orthopnea, Wheezing Cardiac (ROS): No: Symptoms Reported ABD/GI: No: Symptoms Reported : No: Symptoms Reported Musculoskeletal: No: Symptoms Reported Integumentary: No: Symptoms Reported Neurological: No: Symptoms reported *Physical Exam - Vital Signs Last Vital Signs Temp Pulse Resp BP Pulse Ox 97.8 F 81 18 122/74 96 02/18/18 12:33 02/18/18 12:33 02/18/18 12:33 02/18/18 12:33 02/18/18 12:33 - Physical Exam General Appearance: Yes: Nourished, Appropriately Dressed. No: Apparent Distress HEENT: positive: EOMI, NOHEMY, TMs Normal, Pharynx Normal. negative: Pale Conjunctivae Neck: positive: Supple Respiratory/Chest: positive: Lungs Clear, Normal Breath Sounds. negative: Respiratory Distress, Accessory Muscle Use, Decreased Breath Sounds Cardiovascular: positive: Regular Rhythm, Regular Rate. negative: Murmur Gastrointestinal/Abdominal: positive: Soft. negative: Tenderness Extremity: positive: Pedal Edema (1 + pitting) Integumentary: positive: Normal Color, Warm, Moist Neurologic: positive: Motor Strength 5/5 (ambulatory w/ walker) Moderate Sedation - Procedure Monitoring Vital Signs: Procedure Monitoring Vital Signs Temperature 97.8 F 02/18/18 12:33 Pulse Rate 81 02/18/18 12:33 Respiratory Rate 18 02/18/18 12:33 Blood Pressure 122/74 02/18/18 12:33 O2 Sat by Pulse Oximetry (%) 96 02/18/18 12:33 Heart Score/ECG Review - ECG Intrepretation Rhythm: Regular Rhythm (afib 105) ED Treatment Course - LABORATORY CBC & Chemistry Diagram: 02/18/18 13:25 02/18/18 13:25 - RADIOLOGY Radiology Studies Ordered: Category Date Time Status CHEST PA & LAT [RAD] Stat Radiology 02/18/18 12:59 Ordered Medical Decision Making - Medical Decision Making 02/18/18 13:10 CC: Nonproductive cough for the past few days and intermittent shortness of breath at rest but worsened with activity. Patient history of CHF currently on Lasix. Exam: Vital signs stable 1+ pedal pitting edema lungs clear to auscultation. Plan: Cardiac workup CHF workup 02/18/18 15:49 Laboratory Tests 03/12/16 07/03/16 12/09/16 17:45 20:46 12:50 B-Natriuretic Peptide 5142.05 H 2301.04 H 2397.56 H Laboratory Tests 03/12/16 07/03/16 07/09/17 17:45 20:46 06:45 WBC Hgb Hct MPV Neutrophils % Sodium Potassium Chloride Carbon Dioxide Anion Gap BUN Creatinine Random Glucose Calcium Magnesium Total Bilirubin 1.7 H D AST ALT Creatine Kinase B-Natriuretic Peptide 5142.05 H 2301.04 H Total Protein Albumin 10/03/17 10/04/17 10/05/17 11:49 06:10 05:30 WBC Hgb Hct MPV Neutrophils % Sodium Potassium Chloride Carbon Dioxide Anion Gap BUN 26 H 23 H Creatinine 2.1 H 1.7 H 1.5 H Random Glucose Calcium Magnesium Total Bilirubin 1.9 H AST ALT Creatine Kinase B-Natriuretic Peptide Total Protein Albumin 02/01/18 02/18/18 02/18/18 09:49 13:25 13:25 WBC 12.0 H Hgb 16.8 Hct 49.1 H MPV 11.5 H Neutrophils % 73.1 D Sodium 137 Potassium 3.8 Chloride 101 Carbon Dioxide 27 Anion Gap 9 BUN 25 H 27 H Creatinine 1.7 H 1.7 H Random Glucose 189 H Calcium 8.5 Magnesium 1.9 Total Bilirubin 1.9 H AST 19 ALT 15 Creatine Kinase 88 B-Natriuretic Peptide 2193.7 H Total Protein 7.2 Albumin 3.2 L 02/18/18 16:35 Chest x-ray shows no definite interval change in comparison with prior x-ray noted 10/03/2017. Patient will be treated for bronchitis secondary to complaints of cough and history of CHF. Patient also given instructions to return to the ED if he develops worsening shortness of breath or lower extremity edema. 02/18/18 16:36 I will recheck vitals prior to discharge 02/18/18 16:36 *DC/Admit/Observation/Transfer Diagnosis at time of Disposition: Cough - Discharge Dispostion Disposition: HOME Condition at time of disposition: Good - Referrals - Patient Instructions Printed Discharge Instructions: DI for Acute Bronchitis Additional Instructions: Take antibiotics as prescribed until completed. Elevate extremities when not walking. If he developed worsening shortness of breath or lower extremity swelling please return to the emergency room immediately - Post Discharge Activity
[2018-02-18 13:59] LABS: BASO % 0.9 % (0-2.0); EOS % 3.6 % (0-4.5); HEMATOCRIT 49.1 % (35.4-49); HEMOGLOBIN 16.8 GM/dL (11.7-16.9); LYMPH % 13.1 % (8-40); MCH 29.1 pg (25.7-33.7); MCHC 34.2 g/dl (32.0-35.9); MEAN CELL VOLUME 84.9 fl (80-96); MEAN PLT VOLUME 11.5 fl (7.5-11.1); MONO % 9.3 % (3.8-10.2); NEUT % 73.1 % (42.8-82.8); PLATELET COUNT 176 K/MM3 (134-434); RBC 5.79 M/mm3 (4.00-5.60); RDW 14.9 % (11.9-15.9)
[2018-02-18 14:18] LABS: URINE APPEARANCE CLEAR; URINE BILIRUBIN NEGATIVE (<2.0 mg/dL); URINE COLOR YELLOW; URINE GLUCOSE (UA) NEGATIVE (NEGATIVE); URINE KETONE NEGATIVE (NEGATIVE); URINE LEUK ESTERASE TRACE (NEGATIVE); URINE NITRITE NEGATIVE (NEGATIVE); URINE PROTEIN 2+ (NEGATIVE); URINE UROBILINOGEN NEGATIVE mg/dL (0.2-1.0)
[2018-02-18 14:27] LABS: ALBUMIN 3.2 g/dl (3.4-5.0); ALK PHOS 152 U/L (45-117); ANION GAP 9 MMOL/L (8-16); BILIRUBIN,TOTAL 1.9 mg/dL (0.2-1); BLOOD UREA NITROGEN 27 mg/dL (7-18); CALCIUM 8.5 mg/dL (8.5-10.1); CHLORIDE 101 mmol/L (98-107); CO2 27 mmol/L (21-32); CREATININE 1.7 mg/dL (0.55-1.3); GLUCOSE,RANDOM 189 mg/dL (74-106); MAGNESIUM 1.9 mg/dL (1.8-2.4); N-TERMINAL BNP 2193.7 pg/ml (5-450); POTASSIUM 3.8 mmol/L (3.5-5.1); SGOT/AST 19 U/L (15-37); SGPT/ALT 15 U/L (13-61); SODIUM 137 mmol/L (136-145); TOT PROT 7.2 g/dl (6.4-8.2)
[2018-02-18 14:46] LABS: URINE HYALINE CAST 13 /lpf; URINE MUCUS RARE
--- NOTE | 2018-02-18 16:14 | EKG ---
Test Reason : Blood Pressure : / mmHG Vent. Rate : 105 BPM Atrial Rate : 055 BPM P-R Int : 000 ms QRS Dur : 096 ms QT Int : 380 ms P-R-T Axes : 000 -24 021 degrees QTc Int : 502 ms ATRIAL FIBRILLATION WITH RAPID VENTRICULAR RESPONSE WITH PREMATURE VENTRICULAR OR ABERRANTLY CONDUCTED COMPLEXES INCOMPLETE RIGHT BUNDLE BRANCH BLOCK ABNORMAL ECG WHEN COMPARED WITH ECG OF 04-OCT-2017 10:10, NO SIGNIFICANT CHANGE WAS FOUND Confirmed by EZ DALE, MAXIM ([id number]) on 02/18/2018 4:13:48 PM Referred By: Confirmed By:MAXIM HUI MD
[2018-02-18 17:02] VITALS: BP 95/57; PULSE 79
== END 2018-02-18 17:01 | disposition home or self-care (01) ==
LOC: JER 12:05
DX: R05 Cough (principal); Z87.891 Personal history of nicotine dependence; Z95.5 Presence of coronary angioplasty implant and graft; J44.9 Chronic obstructive pulmonary disease, unspecified; E11.9 Type 2 diabetes mellitus without complications; I10 Essential (primary) hypertension; E78.00 Pure hypercholesterolemia, unspecified
CPT/HCPCS: 36415; 71046-TC-FY; 80053; 81003; 81015; 82550; 83735; 83880; 84484; 85025; 93005; 93010; 99282-25

== ENCOUNTER 2018-07-06 17:03 | Emergency (ER) | payer OTHER ==
--- NOTE | 2018-07-06 17:09 | PDOC ---
Rapid Medical Evaluation Chief Complaint: Abnormal Lab Results (Outside) Time Seen by Provider: 07/06/18 17:08 Medical Evaluation: Allergies Allergy/AdvReac Type Severity Reaction Status Date / Time No Known Allergies Allergy Verified 02/18/18 12:33 07/06/18 17:09 I have performed a brief in-person evaluation of this patient. The patient presents with a chief complaint of: elevated inr Pertinent physical exam findings:stable and in NAD, non-focal I have ordered the following:labs The patient will proceed to the ED for further evaluation. 07/06/18 17:09 Discharge Disposition - Referrals Referrals: Vickey Johnson MD [Primary Care Provider] - - Patient Instructions - Post Discharge Activity
[2018-07-06 17:11] VITALS: BP 159/78; PULSE 98; TEMP 97.9; BMI 31.6
--- NOTE | 2018-07-06 17:59 | PDOC ---
History of Present Illness - General Chief Complaint: Abnormal Lab Results (Outside) Stated Complaint: SENT BY PCP, HIGH INR Time Seen by Provider: 07/06/18 17:08 - History of Present Illness Initial Comments: 82 year old male with afib, HTN. and HLD presenting because of a call in to his house form his PCP because of an elevated INR while on Coumadin. States that he is taking 2.5 of Coumadin daily and hasn't changed his diet drastically. Of note , he was previously on Apixaban and could not afford the medication because of a huge barnett increase so he switched back to Coumadin. Denies weakness or blood from any orifice. Denies fevers, chills, nausea, vomiting, diarrhea, or other symptoms. 07/06/18 20:01 Past History - Past Medical History Allergies/Adverse Reactions: Allergies Allergy/AdvReac Type Severity Reaction Status Date / Time No Known Allergies Allergy Verified 02/18/18 12:33 Home Medications: Ambulatory Orders Apixaban [Eliquis] 2.5 mg PO BID 10/03/17 Aspirin 81 mg PO DAILY 10/03/17 Atorvastatin Ca [Lipitor] 40 mg PO HS 10/03/17 Budesonide/Formeterol Fumarate [SYMBICORT 80/4.5mcg -] 1 inh PO DAILY 10/03/17 Enalapril Maleate 2.5 mg PO DAILY 10/03/17 Furosemide 40 mg PO DAILY 10/03/17 Amlodipine Besylate [Norvasc -] 5 mg PO DAILY #30 tablet 10/07/17 Metoprolol Succinate [Toprol XL -] 50 mg PO BID #60 tab.sr.24h 10/07/17 Azithromycin [Zithromax Tri-Td (3 DAYS) -] 500 mg PO DAILY #3 tablet 02/18/18 Insulin NPH Hum/Reg Insulin Hm [Novolin 70-30 100 Unit/ml Vial] 20 unit SQ DAILY 02/18/18 Medical Supply, Miscellaneous [Anti-Embolism Stockings] 1 each HS #1 each 05/04 Anemia: No Asthma: No Cancer: No Cardiac Disorders: Yes (AFib) CVA: No COPD: Yes CHF: Yes Dementia: No Diabetes: Yes GI Disorders: No Disorders: Yes HTN: Yes Hypercholesterolemia: Yes Liver Disease: No Seizures: No Thyroid Disease: No - Surgical History Abdominal Surgery: Yes (Hernia repair) Appendectomy: No Cardiac Surgery: Yes (Stents X 4) Cholecystectomy: No Lung Surgery: No Neurologic Surgery: No Orthopedic Surgery: No - Immunization History Td Vaccination: Yes Immunization Up to Date: Yes - Suicide/Smoking/Psychosocial Hx Smoking Status: No Smoking History: Never smoked Years of Tobacco Use: 5 Have you smoked in the past 12 months: No Number of Cigarettes Smoked Daily: 0 If you are a former smoker, when did you quit?: 6 Cigars Per Day: 4 Information on smoking cessation initiated: No 'Breaking Loose' booklet given: 04/01/15 Hx Alcohol Use: No Drug/Substance Use Hx: No Substance Use Type: None Hx Substance Use Treatment: No Review of Systems - Review of Systems Constitutional: No: Chills, Diaphoresis, Fever HEENTM: No: Eye Pain, Blurred Vision, Tearing Respiratory: No: Cough, Orthopnea, Shortness of Breath Cardiac (ROS): No: Chest Pain, Edema, Irregular Heart Rate ABD/GI: No: Constipated, Diarrhea, Nausea, Poor Appetite, Vomiting : No: Burning, Dysuria, Discharge Musculoskeletal: No: Gout, Joint Pain Integumentary: No: Erythema, Flushing, Lesions Neurological: No: Headache, Numbness, Paresthesia Hematologic/Lymphatic: Yes: Easy Bleeding. No: Anemia, Blood Clots *Physical Exam - Vital Signs Last Vital Signs Temp Pulse Resp BP Pulse Ox 97.9 F 98 H 18 159/78 97 07/06/18 17:08 07/06/18 17:08 07/06/18 17:08 07/06/18 17:08 07/06/18 17:08 - Physical Exam General Appearance: Yes: Nourished, Appropriately Dressed. No: Apparent Distress HEENT: positive: EOMI, NOHEMY, Normal ENT Inspection, Normal Voice Neck: positive: Trachea midline, Normal Thyroid, Supple. negative: Tender, Rigid Respiratory/Chest: positive: Lungs Clear, Normal Breath Sounds. negative: Chest Tender, Respiratory Distress, Accessory Muscle Use Cardiovascular: positive: Regular Rhythm, Regular Rate Gastrointestinal/Abdominal: positive: Normal Bowel Sounds, Flat, Soft. negative : Tender Lymphatic: negative: Adenopathy, Tenderness Musculoskeletal: positive: Normal Inspection. negative: Decreased Range of Motion Extremity: positive: Normal Capillary Refill, Normal Inspection, Normal Range of Motion Integumentary: positive: Normal Color, Dry, Warm Neurologic: positive: Fully Oriented, Alert, Normal Mood/Affect, Normal Response , Motor Strength 06/20 ED Treatment Course - LABORATORY CBC & Chemistry Diagram: 07/06/18 19:00 07/06/18 19:00 Medical Decision Making - Medical Decision Making 82 year old male sent to our facility for elevated INR to 7 on outpatient clinic lab eval. No sign of bleeding, H&H stable. Repeat INR here 6.9. Will DC patient with instructions to DC Coumadin for two days and follow up with his PCP. He is OK with this plan and agrees to follow up with his PCP. 07/06/18 21:52 *DC/Admit/Observation/Transfer Diagnosis at time of Disposition: Elevated INR - Discharge Dispostion Disposition: HOME Condition at time of disposition: Improved Decision to Admit order: No - Referrals Referrals: Vickey Johnson MD [Primary Care Provider] - - Patient Instructions Printed Discharge Instructions: [facility] Additional Instructions: Please hold your Coumadin for two days and please follow up with your primary care doctor as soon as possible to have your levels checked and medications adjusted. Please return to the ED if you have new or worsening symptoms. - Post Discharge Activity
[2018-07-06 20:01] LABS: ALBUMIN 3.2 g/dl (3.4-5.0); BILIRUBIN,TOTAL 0.9 mg/dL (0.2-1); CALCIUM 8.8 mg/dL (8.5-10.1); CREATININE 1.6 mg/dL (0.55-1.3); POTASSIUM 3.8 mmol/L (3.5-5.1); TOT PROT 7.2 g/dl (6.4-8.2)
[2018-07-06 20:03] LABS: BASO % 0.8 % (0-2.0); EOS % 5.8 % (0-4.5); HEMATOCRIT 51.5 % (35.4-49); HEMOGLOBIN 16.5 GM/dL (11.7-16.9); LYMPH % 24.8 % (8-40); MCH 27.7 pg (25.7-33.7); MCHC 32.1 g/dl (32.0-35.9); MEAN CELL VOLUME 86.3 fl (80-96); MEAN PLT VOLUME 10.6 fl (7.5-11.1); MONO % 9.9 % (3.8-10.2); NEUT % 58.7 % (42.8-82.8); PLATELET COUNT 139 K/MM3 (134-434); RBC 5.96 M/mm3 (4.00-5.60)
[2018-07-06 20:11] LABS: PROTHROMBIN TIME (PATIENT) 73.1 SEC (9.7-13.0)
[2018-07-06 21:16] LABS: ACTIVATED PTT 93.4 SECONDS (25.2-36.5); INR 6.08 (0.83-1.09)
--- NOTE | 2018-07-06 21:21 | PDOC ---
Documentation entered by Adilene Ortiz SCRIBE, acting as scribe for Tricia De Leon MD. Tricia De Leon MD: This documentation has been prepared by the briana, Adilene Ortiz SCRIBE, under my direction and personally reviewed by me in its entirety. I confirm that the documentation accurately reflects all work, treatment, procedures, and medical decision making performed by me. Attending Attestation - Resident Resident Name: Kan Zelaya - ED Attending Attestation I have performed the following: I have examined & evaluated the patient, The case was reviewed & discussed with the resident, I agree w/resident's findings & plan, Exceptions are as noted - HPI HPI: 07/06/18 18:33 The patient is an 82-year-old male, with a past medical history of afib, CAD, HTN, COPD, bronchitis, IBS, IDDM, who presents to the ED for abnormal lab results. The patient received a call from his PCP, notifying him that his INR was elevated (7), which prompted his arrival to the ED. The patient states he is taking coumadin, with his last dose taken today. Patient denies rectal bleeding or any other symptoms. The patient denies chest pain, shortness of breath or dizziness. The patient denies fever, chills, nausea, vomiting, diarrhea or constipation. The patient denies dysuria, frequency, urgency or hematuria. PCP: Dr. Johnson Social History: Former smoker (quit in 1955). No reported alcohol or drug use. Surgical History: colonoscopy, stent placement, amputation of right great toe. Allergies: NKDA - Physicial Exam PE: 07/06/18 18:34 GENERAL: Awake, alert, and fully oriented, in no acute distress HEAD: No signs of trauma EYES: PERRLA, EOMI, sclera anicteric, conjunctiva clear ENT: Auricles normal inspection, hearing grossly normal, nares patent, oropharynx clear without exudates. Moist mucosa NECK: Normal ROM, supple, no lymphadenopathy, JVD, or masses LUNGS: Breath sounds equal, clear to auscultation bilaterally. No wheezes, and no crackles HEART: Regular rate and rhythm, normal S1 and S2, no murmurs, rubs or gallops ABDOMEN: (+)mild reducible ventral hernia. Soft, nontender, normoactive bowel sounds. No guarding, no rebound. No masses EXTREMITIES: (+) pitting edema. Normal range of motion. No clubbing or cyanosis. No cords, erythema. NEUROLOGICAL: Cranial nerves II through XII grossly intact. Normal speech, normal gait SKIN: Warm, Dry, normal turgor, no rashes or lesions noted. - Medical Decision Making 07/06/18 20:09 pt has no specific complaints labs reviewed CKD unchanged,hyperglycemia(diabetic), unremarkable cbc 07/06/18 20:24 07/06/18 21:18 INR=6.8 it had been 7.0 yesterday but he still took today's coumadin plan pt is not anemic,he has no active bleeding . He was told to STOP the coumadin tomorrow and the next day and see his PCP for repeat INR on Thursday
== END 2018-07-06 22:36 | disposition home or self-care (01) ==
LOC: JER 17:03
DX: D68.8 Other specified coagulation defects (principal); I25.10 Atherosclerotic heart disease of native coronary artery without angina pectoris; I10 Essential (primary) hypertension; Z95.5 Presence of coronary angioplasty implant and graft; I11.0 Hypertensive heart disease with heart failure; I50.9 Heart failure, unspecified; I48.91 Unspecified atrial fibrillation; Z79.01 Long term (current) use of anticoagulants; E78.5 Hyperlipidemia, unspecified; E11.9 Type 2 diabetes mellitus without complications; Z79.4 Long term (current) use of insulin
CPT/HCPCS: 36415; 80053; 85025; 85610; 85730; 99281-25

== ENCOUNTER 2018-08-19 14:29 | Emergency (ER) | payer OTHER ==
[2018-08-19 14:45] VITALS: TEMP 97.9; BMI 31.7
[2018-08-19] MEDS ORDERED: SODIUM CHLORIDE 1,000 ML IV STA (15:20)
--- NOTE | 2018-08-19 15:34 | PDOC ---
History of Present Illness - General Chief Complaint: Blood Sugar Problem Stated Complaint: BLOOD SUGAR PROBLEM Time Seen by Provider: 08/19/18 14:41 History Source: Patient, Family (grandson) Exam Limitations: No Limitations - History of Present Illness Initial Comments: 08/19/18 15:49 Vladimir Patel is an 82M with PMH IDDM, Afib on Eliquis, HTN, COPD presents with hypoglycemic episode. Patient reports getting up this afternoon, taking his insulin, then walking his dog with a walker for a few minutes before feeling light-headed and sitting down. Next event he recalls is being in an ambulance, has no recollection of events in-between. Per grandson who found him and called EMS, was sitting in a chair conscious but not speaking or responding. EMS initial BG 38, given bag of D10 and sugar improved to 178. Patient and grandson deny patient LOC, fall, or head/body injury. Patient normally takes 20mg Novolog in the AM before eating breakfast and 10mg Novolog in PM, normal AM BG 90s-100s. Denies prior episodes of hypoglycemia or lightheadedness despite this regimen. Ate small dinner last night, no breakfast for fluids this AM. Did not take AM meds Toprol XL 50mg, Eliquis, Furosemide. Denies headache, changes in vision, prior sickness. No chest pain/palpitations, has baseline cough from COPD but non-productive, no SOB. Baseline numbness in BLE 2/2 DM, unchanged. Walks with walker without issue. Past History - Past Medical History Allergies/Adverse Reactions: Allergies Allergy/AdvReac Type Severity Reaction Status Date / Time No Known Allergies Allergy Verified 08/19/18 14:47 Home Medications: Ambulatory Orders Apixaban [Eliquis] 2.5 mg PO BID 10/03/17 Aspirin 81 mg PO DAILY 10/03/17 Atorvastatin Ca [Lipitor] 40 mg PO HS 10/03/17 Budesonide/Formeterol Fumarate [SYMBICORT 80/4.5mcg -] 1 inh PO DAILY 10/03/17 Enalapril Maleate 2.5 mg PO DAILY 10/03/17 Furosemide 40 mg PO DAILY 10/03/17 Amlodipine Besylate [Norvasc -] 5 mg PO DAILY #30 tablet 10/07/17 Metoprolol Succinate [Toprol XL -] 50 mg PO BID #60 tab.sr.24h 10/07/17 Azithromycin [Zithromax Tri-Td (3 DAYS) -] 500 mg PO DAILY #3 tablet 02/18/18 Insulin NPH Hum/Reg Insulin Hm [Novolin 70-30 100 Unit/ml Vial] 20 unit SQ DAILY 02/18/18 Medical Supply, Miscellaneous [Anti-Embolism Stockings] 1 each HS #1 each 05/04 Anemia: No Asthma: No Cancer: No Cardiac Disorders: Yes (AFib) CVA: No COPD: Yes CHF: Yes Dementia: No Diabetes: Yes GI Disorders: No Disorders: Yes HTN: Yes Hypercholesterolemia: Yes Liver Disease: No Seizures: No Thyroid Disease: No - Surgical History Abdominal Surgery: Yes (Hernia repair) Appendectomy: No Cardiac Surgery: Yes (Stents X 4) Cholecystectomy: No Lung Surgery: No Neurologic Surgery: No Orthopedic Surgery: No - Immunization History Td Vaccination: Yes Immunization Up to Date: Yes - Suicide/Smoking/Psychosocial Hx Smoking Status: No Smoking History: Never smoked Years of Tobacco Use: 5 Have you smoked in the past 12 months: No Number of Cigarettes Smoked Daily: 0 If you are a former smoker, when did you quit?: 1956 Cigars Per Day: 4 Information on smoking cessation initiated: No 'Breaking Loose' booklet given: 04/01/15 Hx Alcohol Use: No Drug/Substance Use Hx: No Substance Use Type: None Hx Substance Use Treatment: No Review of Systems - Review of Systems Able to Perform ROS?: Yes Is the patient limited Indonesian proficient: No Constitutional: Yes: See HPI. No: Fever, Weakness, Unexplained wgt Loss HEENTM: Yes: See HPI. No: Blurred Vision, Difficulty Swallowing Respiratory: Yes: See HPI, Cough (at baseline). No: Shortness of Breath, Productive cough Cardiac (ROS): Yes: See HPI, Lightheadedness. No: Chest Pain, Edema, Palpitations, Syncope, Chest Tightness ABD/GI: Yes: Poor Appetite, Poor Fluid Intake. No: Abdominal Distended, Constipated, Diarrhea, Nausea, Vomiting : No: Burning, Frequency, Pain Integumentary: Yes: Sweating. No: Erythema, Rash Neurological: Yes: Numbness (known at baseline, 2/2 DM). No: Tremors, Weakness , Unsteady Gait Endocrine: No: Increased Thirst, Increased Urine *Physical Exam - Vital Signs Last Vital Signs Temp Pulse Resp BP Pulse Ox 97.9 F 73 16 116/90 100 08/19/18 14:34 08/19/18 14:34 08/19/18 14:34 08/19/18 14:34 08/19/18 14:34 - Physical Exam General Appearance: Yes: Nourished, Appropriately Dressed. No: Apparent Distress, Alcohol on Breath HEENT: positive: Normal Voice, Symmetrical, TMs Normal, Hearing Grossly Normal. negative: Pale Conjunctivae, Scleral Icterus (R), Scleral Icterus (L), Pharyngeal Erythema, Tonsillar Exudate, Nasal Congestion, Rhinorrhea Neck: positive: Trachea midline, Supple. negative: Decreased range of motion Respiratory/Chest: positive: Lungs Clear, Normal Breath Sounds, Rapid RR, Wheezing (bilateral lower lobe). negative: Chest Tender, Respiratory Distress, Crackles, Rales, Rhonchi Cardiovascular: positive: Tachycardia, Irregularly Irregular (Afib to 120s). negative: Edema, Murmur Gastrointestinal/Abdominal: positive: Normal Bowel Sounds, Soft, Hernia ( umbilican, reducible). negative: Organomegaly, Distended, Tenderness, Hepatomegaly Musculoskeletal: positive: Normal Inspection Extremity: positive: Normal Capillary Refill, Normal Inspection, Normal Range of Motion. negative: Tender, Pedal Edema, Swelling Integumentary: positive: Normal Color, Dry, Warm Neurologic: positive: Fully Oriented, Alert, Normal Mood/Affect, Normal Response , Motor Strength 5/5. negative: Facial Droop ED Treatment Course - LABORATORY CBC & Chemistry Diagram: 08/19/18 15:40 08/19/18 15:40 Medical Decision Making - Medical Decision Making 08/19/18 16:00 Vladimir Patel is an 83M with PMH IDDM, Afib on Eliquis, COPD, HTN presenting with hypoglycemic episode. Given history of pre-prandial AM insulin with heat today, most likely cause of hypoglycemia is insulin use combined with low PO intake. Presentation is unlikely to be be secondary to Afib or ACS given ECG showing baseline Afib without ST elevations, VS stable on admission, no chest pain or palpitations. Will obtain CMP, CBC, fingerstick glucose. Given HR in and out of Afib to 120s, given 50mg Toprol XL home dose to rate control. 1L NS bolus given for presumptive dehydration. 08/19/18 16:56 Creatinine 1.8, but WNL for patient who has had Cr 1.7 last 3 visits. Serum glucose 64 pre-meal in ED, after sandwich and juice fingerstick is 145. Reassessment reveals patient is feeling much better, will discharge home with instructions to see home field service supervisor for follow-up. *DC/Admit/Observation/Transfer Diagnosis at time of Disposition: Hypoglycemia - Discharge Dispostion Disposition: HOME Condition at time of disposition: Improved Decision to Admit order: No - Referrals - Patient Instructions Printed Discharge Instructions: DI for Hypoglycemia Additional Instructions: Please follow-up with your doctor who manages your diabetes, Dr. Johnson, in the next few days to help prevent you from getting low blood sugar again. Try to eat more frequent smaller meals to keep your blood sugar up, especially in the morning. Try to eat something before walking your dog. Please check your blood sugar with meals. Stay hydrated when it is hot outside. If you feel dizzy or weak, or start to feel jittery again, please return to the closest emergency room for further treatment. - Post Discharge Activity
[2018-08-19 15:51] LABS: BASO % 0.5 % (0-2.0); EOS % 2.5 % (0-4.5); HEMOGLOBIN 18.3 GM/dL (11.7-16.9); LYMPH % 13.8 % (8-40); MCH 28.4 pg (25.7-33.7); MCHC 32.8 g/dl (32.0-35.9); MEAN CELL VOLUME 86.6 fl (80-96); MEAN PLT VOLUME 10.6 fl (7.5-11.1); MONO % 10.4 % (3.8-10.2); NEUT % 72.8 % (42.8-82.8); PLATELET COUNT 163 K/MM3 (134-434); RBC 6.47 M/mm3 (4.00-5.60); RDW 15.7 % (11.9-15.9); WHITE BLOOD COUNT 9.7 K/mm3 (4.0-10.0)
[2018-08-19 16:15] LABS: ALBUMIN 3.4 g/dl (3.4-5.0); BILIRUBIN,TOTAL 1.2 mg/dL (0.2-1); BLOOD UREA NITROGEN 32.2 mg/dL (7-18); CALCIUM 8.9 mg/dL (8.5-10.1); CREATININE 1.8 mg/dL (0.55-1.3); POTASSIUM 3.1 mmol/L (3.5-5.1); TOT PROT 7.5 g/dl (6.4-8.2)
--- NOTE | 2018-08-19 17:17 | PDOC ---
Documentation entered by No Matute SCRIBE, acting as scribe for Inocencia Velasquez MD. Inocencia Velasquez MD: This documentation has been prepared by the Juju warren Nirvannie, SCRIBE, under my direction and personally reviewed by me in its entirety. I confirm that the documentation accurately reflects all work, treatment, procedures, and medical decision making performed by me. Attending Attestation - Resident Resident Name: Bill Ham - ED Attending Attestation I have performed the following: I have examined & evaluated the patient, The case was reviewed & discussed with the resident, I agree w/resident's findings & plan - HPI HPI: 08/19/18 16:10 The patient is an 82 year old male, with a significant past medical history of Afib, CAD, HTN, HLD, COPD, bronchitis, IBS, IDDM, who presents to the emergency department s/p episode of hypoglycemia with confusion. As per patient, he took his normal AM 20 units of 70/30 Novolog then, approximately 30 minutes later he went to walk his dog. He notes walking a block at which time he began to feel unwell thus, sat himself down. As per grandson at bedside, he was walking and noticed the patient sitting down gazed and confused. Upon EMSs arrival, patient notes his BGM was 30. While in the ED, patient notes feeling weak. He denies any recent nausea, vomiting, diarrhea or constipation. He denies any recent chest pain or shortness of breath. He denies any recent dysuria, frequency, urgency or hematuria. Allergies: NKDA Primary Care Physician: Dr. Johnson - Physicial Exam PE: 08/19/18 15:31 GENERAL: The patient is in no acute distress, weak over ENT: Ears normal, nares patent, oropharynx clear without exudates. Moist mucous membranes. NECK: Normal range of motion, supple LUNGS: Breath sounds equal, clear to auscultation bilaterally. No wheezes, and no crackles. HEART: Irregularly irregular, normal S1 and S2 ABDOMEN: Soft, nontender, normoactive bowel sounds. EXTREMITIES: Bilateral pitting edema L> R NEUROLOGICAL: Cranial nerves II through XII grossly intact. Normal speech. No focal neurological deficits. SKIN: Venous stasis changes 08/19/18 15:32 - Critical Care Time Total Critical Care Time: 35 Critical Care Statement: The care of this patient involved high complexity decision making to prevent further life threatening deterioration of the patient 's condition and/or to evaluate & treat vital organ system(s) failure or risk of failure. - Medical Decision Making 08/19/18 14:43 EKG - Afib rate of 89 bpm, axis nml, intervals nml, no st elevation or depression 08/19/18 15:32 82 yo M presenting with weakness S/p episode of hypoglycemia No complaints of chest pain or shortness of breath Will do: Labs Metoprolol for elevated heart rate IVF EKG Re Assess 08/19/18 16:16 Laboratory Tests 07/06/18 08/19/18 19:00 15:40 WBC 9.0 9.7 Hgb 16.5 18.3 H Hct 51.5 H 56.0 H Plt Count 139 D 163 08/19/18 17:15 Laboratory Tests 08/19/18 08/19/18 15:40 16:34 Sodium 143 Potassium 3.1 L Chloride 107 Carbon Dioxide 27 BUN 32.2 H Creatinine 1.8 H POC Glucometer 145 Random Glucose 64 L HR: 75 Pt states he feels better He has eaten a sandwich, drank orange juice, drank a bottle of coke Will plan to discharge to home Follow up with pmd with 2 -3 days Pt asked to check his blood sugar at home this evening Return to the ER via EMS for any other concerns or complaints Clinical Impression: hypoglycemia, initial presentation Afib with RVR, initial presentation Dehydration, initial presentation
[2018-08-19 17:18] VITALS: BP 110/78; PULSE 84
--- NOTE | 2018-08-22 13:46 | EKG ---
Test Reason : Blood Pressure : / mmHG Vent. Rate : 089 BPM Atrial Rate : 208 BPM P-R Int : 000 ms QRS Dur : 098 ms QT Int : 380 ms P-R-T Axes : 000 -29 -14 degrees QTc Int : 462 ms ATRIAL FIBRILLATION INCOMPLETE RIGHT BUNDLE BRANCH BLOCK NONSPECIFIC ST ABNORMALITY ABNORMAL ECG WHEN COMPARED WITH ECG OF 18-FEB-2018 13:33, NO SIGNIFICANT CHANGE WAS FOUND Confirmed by MD JAYESH, EMBER ([id number]) on 08/22/2018 1:45:57 PM Referred By: Confirmed By:EMBER MCCONNELL MD
== END 2018-08-19 17:21 | disposition home or self-care (01) ==
LOC: JER 14:29
PROC: 3E0337Z Introduction of Electrolytic and Water Balance Substance into Peripheral Vein, Percutaneous Approach (ICD-10-PCS; principal; 2018-08-19)
DX: E11.649 Type 2 diabetes mellitus with hypoglycemia without coma (principal); I48.91 Unspecified atrial fibrillation; Z79.01 Long term (current) use of anticoagulants; J44.9 Chronic obstructive pulmonary disease, unspecified; I10 Essential (primary) hypertension
CPT/HCPCS: 36415; 80053; 82962; 85025; 93005; 93010; 99281-25; J7030

== ENCOUNTER 2019-08-10 07:12 | Day surgery (SDC) | payer OTHER ==
[2019-08-09 14:28] VITALS: BMI 29.8
[~2019-08-10 07:12] MED LIST: ACETAMINOPHEN 325 MG TABLET (FP) PO PRN
[2019-08-10] MEDS ORDERED: EPINEPHrine/PF 1 MG/1 ML (1:1,000) AMPULE ONE (07:32)
[2019-08-10] MEDS ORDERED: TETRACAINE 0.5% OPHTH SOLN 2 ML BOTTLE ONE (07:33)
[2019-08-10] MEDS ORDERED: CYCLOPENTOLATE HCL 1% OPHTH SOLN 2 ML BOTTLE ONE (07:33)
[2019-08-10] MEDS ORDERED: LIDOCAINE HCL/PF 1% SDV 5ML VIAL ONE (07:33)
[2019-08-10] MEDS ORDERED: KETOROLAC TROMETHAMINE 0.5% EYE DROP 1 DROP DROPS ONE ×2 (07:33→07:35)
[2019-08-10] MEDS ORDERED: WATER FOR INJ,STERILE 10 ML ONE (07:33)
[2019-08-10] MEDS ORDERED: OFLOXACIN 0.3% OPHTHALMIC SOLUTION 5 ML BOTTLE ONE (07:33)
[2019-08-10] MEDS ORDERED: TROPICAMIDE 1% OPHTH SOLN 15 ML BOTTLE ONE (07:33)
[2019-08-10 07:43] VITALS: TEMP 97.4
[2019-08-10] MEDS: PHENYLEPHRINE 2.5% OPHTH SOLN 15 ML BOTTLE OP SCH ×2 (07:50→07:55)
[2019-08-10] MEDS: TROPICAMIDE 1% OPHTH SOLN 15 ML BOTTLE OP SCH ×2 (07:50→07:55)
[2019-08-10] MEDS: KETOROLAC TROMETHAMINE 0.5% EYE DROP 1 DROP DROPS OP SCH ×2 (07:50→07:55)
[2019-08-10] MEDS: CYCLOPENTOLATE HCL 1% OPHTH SOLN 2 ML BOTTLE OP SCH ×2 (07:50→07:55)
[2019-08-10] MEDS: OFLOXACIN 0.3% OPHTHALMIC SOLUTION 5 ML BOTTLE OP SCH ×2 (07:50→07:55)
[2019-08-10] MEDS ORDERED: METOPROLOL TARTRATE 5 MG/5 ML VIAL ONE (09:13)
[2019-08-10] MEDS ORDERED: LIDOCAINE HCL 1% PRESERVATIVE FREE - 30ML VIAL INF ONE (09:19)
[2019-08-10] MEDS ORDERED: POVIDONE-IODINE 5% OPHTHALMIC PREP 30 ML SOLUTION OD ONE (09:19)
[2019-08-10] MEDS ORDERED: EPINEPHrine/PF 1 MG/1 ML (1:1,000) AMPULE SQ ONE (09:19)
[2019-08-10] MEDS ORDERED: TETRACAINE 0.5% OPHTH SOLN 2 ML BOTTLE OD ONE (09:20)
[2019-08-10] MEDS ORDERED: CHONDROITIN SU A/HYALUR SOD 1 KIT ONE (10:07)
[2019-08-10 10:28] VITALS: BP 140/78; PULSE 87
--- NOTE | 2019-08-11 11:42 | SPEC ---
DATE OF OPERATION: DATE OF DICTATION: 08/10/2019 PREOPERATIVE DIAGNOSIS: Cataract, right eye. POSTOPERATIVE DIAGNOSIS: Cataract, right eye. PROCEDURE: Phacoemulsification of right cataract with posterior chamber intraocular lens implantation. Lens used [id number], 21.0-diopter power, serial #[id number]. ANESTHESIA: Topical, MAC. COMPLICATIONS: None. PROCEDURE: The patient was brought to the operating room and correctly identified along with the operative site and the correct intraocular lens cisse. The patient was then prepped and draped in the usual sterile fashion including 5% Betadine solution in the conjunctival sac and an eyelid drape. An eyelid speculum was then placed in the eye. A paracentesis port was created and approximately 0.5 mL of preservative-free lidocaine was then injected into the eye. Viscoelastic was then injected to inflate the anterior chamber. A temporal clear corneal wound was created. A continuous circular capsulorrhexis was performed. The nucleus was then hydrodissected with BSS and removed with phacoemulsification. The remaining cortical material was irrigated and aspirated. Viscoelastic was injected to inflate the capsular bag and the intraocular lens was then implanted into the capsular bag. The remaining Viscoelastic was irrigated and aspirated from the eye. The IOL was noted to be well centered and completely covered by the anterior capsulorrhexis. Topical vancomycin was placed and the eye patched and shielded. All wounds were tested and found to be watertight. No suture was placed. The eye was then shielded. The patient was then discharged from the operating room in stable condition. DYANA HALEY M.D. [id number]
== END 2019-08-10 12:00 | disposition home or self-care (01) ==
LOC: JASU-SURG 07:12
PROVIDERS: ATTEND Ophthalmology
PROC: 08RJ3JZ Replacement of Right Lens with Synthetic Substitute, Percutaneous Approach (ICD-10-PCS; principal; 2019-08-10 09:00)
DX: H26.9 Unspecified cataract (principal); E11.9 Type 2 diabetes mellitus without complications; Z79.4 Long term (current) use of insulin; I10 Essential (primary) hypertension
CPT/HCPCS: 82962

== ENCOUNTER 2019-12-28 13:27 | Emergency (ER) | payer OTHER | END 2019-12-28 13:39 | disposition home or self-care (01) | LOC: JVIRT 13:27 | DX: Z11.59 Encounter for screening for other viral diseases (principal) | CPT/HCPCS: C9803; G2012-GT; U0003 ==

== ENCOUNTER 2020-07-04 14:04 | Emergency (ER) | payer OTHER ==
[2020-07-04 14:37] VITALS: BMI 30.9
[2020-07-04] MEDS ORDERED: hydrOXYzine HCL 10 MG/5 ML LIQUID BULK BOTTLE PO ONE (16:27)
[2020-07-04 17:07] LABS: HEMATOCRIT 51.6 % (35.4-49); HEMOGLOBIN 17.1 GM/dL (11.7-16.9); LYMPH % 20.6 % (8-40); MCH 28.5 pg (25.7-33.7); MCHC 33.1 g/dl (32.0-35.9); MEAN CELL VOLUME 86.1 fl (80-96); MEAN PLT VOLUME 10.5 fl (7.5-11.1); MONO % 9.2 % (3.8-10.2); NEUT % 65.2 % (42.8-82.8); PLATELET COUNT 152 K/MM3 (134-434); RBC 5.99 M/mm3 (4.00-5.60); RDW 15.8 % (11.9-15.9); WHITE BLOOD COUNT 8.5 K/mm3 (4.0-10.0)
[2020-07-04 17:08] LABS: EPI CELLS 3 /uL (0-25.1); HYALINE CASTS 1 /uL (0-3.1); PH,URINE 5.5 (5.0-8.0); URINE APPEARANCE CLEAR; URINE BACTERIA 94 /uL (0-1359); URINE BILIRUBIN NEGATIVE (NEGATIVE); URINE COLOR YELLOW; URINE GLUCOSE (UA) NEGATIVE (NEGATIVE); URINE KETONE NEGATIVE (NEGATIVE); URINE LEUK ESTERASE TRACE (NEGATIVE); URINE NITRITE NEGATIVE (NEGATIVE); URINE PROTEIN 2+ (NEGATIVE); URINE RBC 5 /uL (0-23.9); URINE UROBILINOGEN 0.2 mg/dL (0.2-1.0); URINE WBC 10 /uL (0-25.8)
[2020-07-04 17:13] LABS: INR 1.15 (0.83-1.09); PROTHROMBIN TIME (PATIENT) 13.9 SEC (9.7-13.0)
[2020-07-04 17:16] LABS: ACTIVATED PTT 40.7 SECONDS (25.2-36.5)
[2020-07-04 17:59] LABS: CHLORIDE 103 mmol/L (98-107); SODIUM 124 mmol/L (136-145)
[2020-07-04 18:03] LABS: ALBUMIN 2.7 g/dl (3.4-5.0); CALCIUM 8.3 mg/dL (8.5-10.1)
[2020-07-04 18:04] LABS: BLOOD UREA NITROGEN 29.3 mg/dL (7-18); CO2 27 mmol/L (21-32); GLUCOSE,RANDOM 62 mg/dL (74-106); MAGNESIUM 2.5 mg/dL (1.8-2.4)
[2020-07-04 18:07] LABS: CREATININE 1.7 mg/dL (0.55-1.3)
[2020-07-04 18:08] LABS: TOT PROT 8.5 g/dl (6.4-8.2)
[2020-07-04] MEDS ORDERED: SODIUM CHLORIDE 0.9% 500 ML INFUS.BAG IV ONE (18:09)
[2020-07-04 18:11] LABS: ALK PHOS 108 U/L (45-117)
[2020-07-04 18:30] LABS: ANION GAP -5 MMOL/L (8-16)
[2020-07-04 19:23] LABS: VENOUS O2 SATURATION 92.6 % (70-80); VENOUS PCO2 40.7 mmHg (38-52); VENOUS PH 7.43 (7.310-7.410)
[2020-07-04 19:51] LABS: BLOOD UREA NITROGEN 28.1 mg/dL (7-18); CALCIUM 9.1 mg/dL (8.5-10.1)
[2020-07-04 19:53] LABS: ALBUMIN 2.9 g/dl (3.4-5.0)
[2020-07-04 19:59] LABS: BILIRUBIN,TOTAL 0.9 mg/dL (0.2-1); CREATININE 1.5 mg/dL (0.55-1.3)
[2020-07-04] MEDS ORDERED: CLINDAMYCIN HCL 150 MG CAPSULE (FP) PO ONE (20:59)
[2020-07-04] MEDS ORDERED: CLINDAMYCIN HCL 150 MG CAPSULE (FP) ONE (21:02)
[2020-07-04 21:12] VITALS: BP 120/68; PULSE 87; TEMP 98.6
== END 2020-07-04 21:13 | disposition home or self-care (01) ==
LOC: JER 14:04
DX: L73.9 Follicular disorder, unspecified (principal); N18.9 Chronic kidney disease, unspecified
CPT/HCPCS: 36415; 70450-TC; 72125-TC; 72131-TC; 74176-TC; 80053; 81003; 82803; 83036; 83735; 85025; 85610; 85730; 93005; 93010; 99285-25; C9803; U0003; U0005

== ENCOUNTER 2020-07-06 15:01 | Inpatient (IN) | payer OTHER ==
[2020-07-06 16:37] LABS: BASO % 0.7 % (0-2.0); EOS % 3.9 % (0-4.5); HEMATOCRIT 47.7 % (35.4-49); HEMOGLOBIN 15.6 GM/dL (11.7-16.9); LYMPH % 11.2 % (8-40); MCH 28.4 pg (25.7-33.7); MCHC 32.7 g/dl (32.0-35.9); MEAN CELL VOLUME 87.1 fl (80-96); MEAN PLT VOLUME 10.9 fl (7.5-11.1); MONO % 8.9 % (3.8-10.2); NEUT % 75.3 % (42.8-82.8); PLATELET COUNT 139 K/MM3 (134-434); RBC 5.47 M/mm3 (4.00-5.60); RDW 15.4 % (11.9-15.9); WHITE BLOOD COUNT 8.1 K/mm3 (4.0-10.0)
[2020-07-06] MEDS ORDERED: NITROGLYCERIN SUBLINGUAL 1/150 0.4 MG TAB SL ONE (16:42)
[2020-07-06 16:44] LABS: INR 1.21 (0.83-1.09); PROTHROMBIN TIME (PATIENT) 14.6 SEC (9.7-13.0)
[2020-07-06 16:46] LABS: ACTIVATED PTT 36.5 SECONDS (25.2-36.5)
[2020-07-06] MEDS ORDERED: NITROGLYCERIN 2% OINTMENT - 1GM PACKET TD ONE ×2 (16:48→17:06)
[2020-07-06 16:53] LABS: CHLORIDE 106 mmol/L (98-107); SODIUM 141 mmol/L (136-145)
[2020-07-06 16:55] LABS: ALBUMIN 2.9 g/dl (3.4-5.0); ANION GAP 6 MMOL/L (8-16); BLOOD UREA NITROGEN 33.5 mg/dL (7-18); CALCIUM 8.9 mg/dL (8.5-10.1); CO2 28 mmol/L (21-32); GLUCOSE,RANDOM 237 mg/dL (74-106)
[2020-07-06 16:59] LABS: CREATININE 1.8 mg/dL (0.55-1.3); SGOT/AST 20 U/L (15-37); SGPT/ALT 18 U/L (13-61)
[2020-07-06 17:01] LABS: TOT PROT 6.4 g/dl (6.4-8.2)
[2020-07-06 17:02] LABS: ALK PHOS 101 U/L (45-117)
[2020-07-06 22:19] VITALS: BMI 29.5
[2020-07-07] MEDS: ROSUVASTATIN CA 10 MG TABLET (FP) PO SCH ×2 (00:49→21:34)
[2020-07-07] MEDS: APIXABAN 2.5 MG TABLET PO SCH ×3 (00:49→21:34)
[2020-07-07] MEDS ORDERED: ALBUTEROL SO4 0.083% IH SOL 2.5 MG/3 ML VIAL.NEB. NEB PRN (04:23)
[2020-07-07] MEDS: INSULIN SLIDING SCALE (NOVOLOG) 1 VIAL SQ SCH ×4 (07:23→22:19)
[2020-07-07 08:00] LABS: BASO % 0.8 % (0-2.0); EOS % 6.9 % (0-4.5); HEMOGLOBIN 16.5 GM/dL (11.7-16.9); LYMPH % 20.4 % (8-40); MCH 28.5 pg (25.7-33.7); MCHC 32.9 g/dl (32.0-35.9); MEAN CELL VOLUME 86.6 fl (80-96); MEAN PLT VOLUME 10.8 fl (7.5-11.1); MONO % 9.1 % (3.8-10.2); NEUT % 62.8 % (42.8-82.8); PLATELET COUNT 127 K/MM3 (134-434); RBC 5.77 M/mm3 (4.00-5.60); RDW 15.3 % (11.9-15.9); WHITE BLOOD COUNT 8.4 K/mm3 (4.0-10.0)
[2020-07-07 08:15] LABS: CHLORIDE 107 mmol/L (98-107); SODIUM 141 mmol/L (136-145)
[2020-07-07 08:17] LABS: BLOOD UREA NITROGEN 31.5 mg/dL (7-18); CALCIUM 8.6 mg/dL (8.5-10.1)
[2020-07-07 08:18] LABS: ALBUMIN 2.8 g/dl (3.4-5.0)
[2020-07-07 08:20] LABS: ANION GAP 7 MMOL/L (8-16); CO2 28 mmol/L (21-32); SGOT/AST 16 U/L (15-37); SGPT/ALT 14 U/L (13-61)
[2020-07-07 08:21] LABS: CREATININE 1.5 mg/dL (0.55-1.3)
[2020-07-07 08:22] LABS: BILIRUBIN,TOTAL 1.6 mg/dL (0.2-1); TOT PROT 6.2 g/dl (6.4-8.2)
[2020-07-07 08:23] LABS: ALK PHOS 98 U/L (45-117)
[2020-07-07 08:35] LABS: GLUCOSE,RANDOM 124 mg/dL (74-106)
[2020-07-07] MEDS: FUROSEMIDE 40 MG TABLET (FP) PO SCH (10:18)
[2020-07-08] MEDS: INSULIN SLIDING SCALE (NOVOLOG) 1 VIAL SQ SCH ×4 (06:35→21:42)
[2020-07-08] MEDS: FUROSEMIDE 40 MG TABLET (FP) PO SCH (10:30)
[2020-07-08] MEDS: APIXABAN 2.5 MG TABLET PO SCH ×2 (10:30→21:11)
[2020-07-08] MEDS ORDERED: METOPROLOL TARTRATE 5 MG/5 ML VIAL IVPUSH PRN (11:14)
[2020-07-08 14:17] LABS: ALBUMIN 3.2 g/dl (3.4-5.0); BLOOD UREA NITROGEN 40.3 mg/dL (7-18); CALCIUM 8.9 mg/dL (8.5-10.1)
[2020-07-08 14:20] LABS: CREATININE 1.6 mg/dL (0.55-1.3)
[2020-07-08 14:22] LABS: BILIRUBIN,TOTAL 1.4 mg/dL (0.2-1); TOT PROT 7.1 g/dl (6.4-8.2)
[2020-07-08] MEDS: FAMOTIDINE 20 MG TABLET PO SCH (16:52)
[2020-07-08] MEDS: METOPROLOL TARTRATE 50 MG TABLET (FP) PO SCH (21:10)
[2020-07-08] MEDS: ROSUVASTATIN CA 10 MG TABLET (FP) PO SCH (21:11)
[2020-07-09] MEDS: INSULIN SLIDING SCALE (NOVOLOG) 1 VIAL SQ SCH ×4 (06:19→21:57)
[2020-07-09 07:31] LABS: HEMATOCRIT 50.5 % (35.4-49); HEMOGLOBIN 16.9 GM/dL (11.7-16.9); MCH 28.9 pg (25.7-33.7); MCHC 33.5 g/dl (32.0-35.9); MEAN CELL VOLUME 86.3 fl (80-96); MEAN PLT VOLUME 10.6 fl (7.5-11.1); PLATELET COUNT 145 K/MM3 (134-434); RBC 5.85 M/mm3 (4.00-5.60); RDW 14.9 % (11.9-15.9); WHITE BLOOD COUNT 9.2 K/mm3 (4.0-10.0)
[2020-07-09 07:53] LABS: BLOOD UREA NITROGEN 42.9 mg/dL (7-18)
[2020-07-09 07:54] LABS: BILIRUBIN,TOTAL 1.3 mg/dL (0.2-1); CALCIUM 8.5 mg/dL (8.5-10.1); TOT PROT 6.4 g/dl (6.4-8.2)
[2020-07-09 07:56] LABS: CREATININE 1.6 mg/dL (0.55-1.3)
[2020-07-09] MEDS: METOPROLOL TARTRATE 50 MG TABLET (FP) PO SCH ×2 (09:51→21:57)
[2020-07-09] MEDS: APIXABAN 2.5 MG TABLET PO SCH ×2 (09:51→21:57)
[2020-07-09] MEDS: FAMOTIDINE 20 MG TABLET PO SCH (09:51)
[2020-07-09] MEDS: FUROSEMIDE 40 MG TABLET (FP) PO SCH (09:51)
[2020-07-09] MEDS: amLODIPine BESYLATE 5 MG TABLET (FP) PO SCH (09:51)
[2020-07-09] MEDS: ROSUVASTATIN CA 10 MG TABLET (FP) PO SCH (21:57)
[2020-07-10] MEDS: INSULIN SLIDING SCALE (NOVOLOG) 1 VIAL SQ SCH ×2 (06:02→12:48)
[2020-07-10] MEDS: amLODIPine BESYLATE 5 MG TABLET (FP) PO SCH (09:41)
[2020-07-10] MEDS: APIXABAN 2.5 MG TABLET PO SCH (09:42)
[2020-07-10] MEDS: FAMOTIDINE 20 MG TABLET PO SCH (09:42)
[2020-07-10] MEDS: FUROSEMIDE 40 MG TABLET (FP) PO SCH (09:42)
[2020-07-10] MEDS: METOPROLOL TARTRATE 50 MG TABLET (FP) PO SCH (09:42)
[2020-07-10 12:17] VITALS: BP 149/99; PULSE 87; TEMP 87
[2020-07-10] MEDS ORDERED: busPIRone HCL 5 MG TABLET PO SCH (22:00)
== END 2020-07-10 17:19 | disposition home or self-care (01) | DRG 392 ==
LOC: JER 15:01 → JERBED 17:38 → J4W 21:55
PROVIDERS: ADMIT Internal Medicine; ATTEND Family Medicine
DX: K21.9 Gastro-esophageal reflux disease without esophagitis (principal); I47.1 Supraventricular tachycardia; N17.9 Acute kidney failure, unspecified; I48.20 Chronic atrial fibrillation, unspecified; I13.0 Hypertensive heart and chronic kidney disease with heart failure and stage 1 through stage 4 chronic kidney disease, or unspecified chronic kidney disease; E11.9 Type 2 diabetes mellitus without complications; E11.22 Type 2 diabetes mellitus with diabetic chronic kidney disease; N18.9 Chronic kidney disease, unspecified; I50.9 Heart failure, unspecified; I10 Essential (primary) hypertension; E78.5 Hyperlipidemia, unspecified; I25.10 Atherosclerotic heart disease of native coronary artery without angina pectoris; K58.9 Irritable bowel syndrome, unspecified; E11.51 Type 2 diabetes mellitus with diabetic peripheral angiopathy without gangrene; E11.319 Type 2 diabetes mellitus with unspecified diabetic retinopathy without macular edema; Z89.421 Acquired absence of other right toe(s); Z95.5 Presence of coronary angioplasty implant and graft; E66.9 Obesity, unspecified; Z68.29 Body mass index [BMI] 29.0-29.9, adult
CPT/HCPCS: 36415; 71045-TC-FY; 76700-TC; 80053; 82550; 82962; 83036; 84484; 85025; 85027; 85610; 85730; 87081; 93005; 93010; 93306-TC; 97116-GP; 97161-GP; 99285-25; C9803; U0003; U0005

== ENCOUNTER 2020-09-08 16:05 | Inpatient (IN) | payer OTHER ==
[2020-09-08] MEDS ORDERED: SODIUM CHLORIDE 0.9% 500 ML INFUS.BAG IV ONE (16:41)
[2020-09-08 17:01] LABS: BASO % 0.8 % (0-2.0); EOS % 0.7 % (0-4.5); HEMOGLOBIN 16.1 GM/dL (11.7-16.9); LYMPH % 16.6 % (8-40); MCH 28.3 pg (25.7-33.7); MCHC 32.9 g/dl (32.0-35.9); MEAN CELL VOLUME 85.8 fl (80-96); MEAN PLT VOLUME 9.7 fl (7.5-11.1); MONO % 21.7 % (3.8-10.2); NEUT % 60.2 % (42.8-82.8); PLATELET COUNT 109 10^3/uL (134-434); RBC 5.71 M/mm3 (4.00-5.60); RDW 15.3 % (11.9-15.9); WHITE BLOOD COUNT 5.9 K/mm3 (4.0-10.0)
[2020-09-08 17:09] LABS: INR 1.25 (0.83-1.09); PROTHROMBIN TIME (PATIENT) 15.3 SEC (9.7-13.0)
[2020-09-08 17:11] LABS: ACTIVATED PTT 35.6 SECONDS (25.2-36.5)
[2020-09-08 17:18] LABS: CHLORIDE 105 mmol/L (98-107); SODIUM 140 mmol/L (136-145)
[2020-09-08 17:20] LABS: ALBUMIN 3.3 g/dl (3.4-5.0); ANION GAP 7 MMOL/L (8-16); BLOOD UREA NITROGEN 28.9 mg/dL (7-18); CALCIUM 8.8 mg/dL (8.5-10.1); CO2 28 mmol/L (21-32)
[2020-09-08 17:21] LABS: GLUCOSE,RANDOM 122 mg/dL (74-106)
[2020-09-08 17:23] LABS: SGPT/ALT 19 U/L (13-61)
[2020-09-08 17:24] LABS: CREATININE 1.8 mg/dL (0.55-1.3); SGOT/AST 25 U/L (15-37)
[2020-09-08 17:25] LABS: BILIRUBIN,TOTAL 0.9 mg/dL (0.2-1); TOT PROT 7.2 g/dl (6.4-8.2)
[2020-09-08 17:26] LABS: ALK PHOS 104 U/L (45-117)
[2020-09-08] MEDS ORDERED: ACETAMINOPHEN 1000 MG/100 ML VIAL (NON FORMULARY) IVPB ONE (17:32)
[2020-09-08 17:39] LABS: ANISOCYTOSIS 1+; MACROCYTOSIS 0; PLATELET ESTIMATE DECREASED
[2020-09-08] MEDS ORDERED: ACETAMINOPHEN INJECTION 100 ML IVPB ONE (17:48)
[2020-09-08 18:09] LABS: EPI CELLS 2 /uL (0-25.1); HYALINE CASTS 1 /uL (0-3.1); URINE APPEARANCE CLEAR; URINE BACTERIA 7 /uL (0-1359); URINE BILIRUBIN NEGATIVE (NEGATIVE); URINE COLOR YELLOW; URINE GLUCOSE (UA) NEGATIVE (NEGATIVE); URINE KETONE NEGATIVE (NEGATIVE); URINE LEUK ESTERASE NEGATIVE (NEGATIVE); URINE NITRITE NEGATIVE (NEGATIVE); URINE PROTEIN 2+ (NEGATIVE); URINE RBC 13 /uL (0-23.9); URINE UROBILINOGEN 0.2 mg/dL (0.2-1.0); URINE WBC 5 /uL (0-25.8)
[2020-09-08] MEDS ORDERED: DEXAMETHASONE SOD PHOSPHATE 4 MG/1 ML VIAL IVPUSH ONE (20:15)
[2020-09-08] MEDS ORDERED: DEXAMETHASONE SOD PHOSPHATE 4 MG/1 ML VIAL ONE (20:23)
[2020-09-08] MEDS ORDERED: BENZOCAINE/MENTH/CETYLPYRD CL 1 EACH LOZENGE MM PRN (20:37)
[2020-09-08] MEDS ORDERED: ALBUTEROL SO4 HFA INHALER IH PRN (20:37)
[2020-09-08] MEDS ORDERED: ACETAMINOPHEN 325 MG TABLET (FP) PO PRN (20:37)
[2020-09-08] MEDS ORDERED: ZINC SULFATE 220 MG CAPSULE (FP) ONE (21:17)
[2020-09-08] MEDS ORDERED: CHOLECALCIFEROL (VIT D3) 1,000 UNIT (25 MCG) TABLET ONE (21:17)
[2020-09-08] MEDS ORDERED: ASCORBIC ACID 500 MG TABLET (FP) ONE (21:17)
[2020-09-08 21:39] LABS: MAGNESIUM 2.2 mg/dL (1.8-2.4)
[2020-09-08] MEDS: ASCORBIC ACID 500 MG TABLET (FP) PO SCH (21:42)
[2020-09-08] MEDS: CHOLECALCIFEROL (VIT D3) 1,000 UNIT (25 MCG) TABLET PO SCH (21:42)
[2020-09-08] MEDS: ZINC SULFATE 220 MG TABLET PO SCH (21:42)
[2020-09-08] MEDS ORDERED: ALBUTEROL SO4 HFA INHALER IH ONE (23:23)
[2020-09-09] MEDS ORDERED: guaiFENesin/D-M SUGAR-FREE/ACLHOL-FREE 118 ML BOTTLE PO PRN (04:29)
[2020-09-09] MEDS: INSULIN SLIDING SCALE (NOVOLOG) 1 VIAL SQ SCH ×4 (07:08→21:29)
[2020-09-09] MEDS ORDERED: guaiFENesin/D-M SUGAR-FREE/ACLHOL-FREE 5 ML UNIT DOSE PO PRN (07:27)
[2020-09-09 08:30] LABS: CALCIUM 8.7 mg/dL (8.5-10.1)
[2020-09-09 08:33] LABS: BLOOD UREA NITROGEN 36.5 mg/dL (7-18)
[2020-09-09 08:34] LABS: CREATININE 1.8 mg/dL (0.55-1.3)
[2020-09-09 08:35] LABS: BILIRUBIN,TOTAL 0.7 mg/dL (0.2-1)
[2020-09-09 08:36] LABS: TOT PROT 6.8 g/dl (6.4-8.2)
[2020-09-09] MEDS: DEXAMETHASONE SOD PHOSPHATE 4 MG/1 ML VIAL IVPUSH SCH (09:57)
[2020-09-09] MEDS: APIXABAN 2.5 MG TABLET PO SCH ×2 (09:57→21:28)
[2020-09-09] MEDS: METOPROLOL TARTRATE 50 MG TABLET (FP) PO SCH ×3 (09:57→21:29)
[2020-09-09] MEDS: CHOLECALCIFEROL (VIT D3) 1,000 UNIT (25 MCG) TABLET PO SCH (09:57)
[2020-09-09] MEDS: ASCORBIC ACID 500 MG TABLET (FP) PO SCH ×2 (09:57→21:28)
[2020-09-09 10:54] LABS: N-TERMINAL BNP 4893.2 pg/ml (5-450)
[2020-09-09] MEDS ORDERED: REMDESIVIR 200 MG in SODIUM CHLORIDE 250 ML IVPB ONE (12:00)
[2020-09-09] MEDS: ZINC SULFATE 220 MG TABLET PO SCH (12:47)
[2020-09-10] MEDS: INSULIN SLIDING SCALE (NOVOLOG) 1 VIAL SQ SCH ×4 (06:40→21:55)
[2020-09-10 08:00] LABS: BASO % 0.2 % (0-2.0); HEMATOCRIT 48.5 % (35.4-49); HEMOGLOBIN 16.2 GM/dL (11.7-16.9); LYMPH % 12.5 % (8-40); MCH 28.7 pg (25.7-33.7); MCHC 33.3 g/dl (32.0-35.9); MEAN CELL VOLUME 86.2 fl (80-96); NEUT % 79.3 % (42.8-82.8); PLATELET COUNT 112 10^3/uL (134-434); RBC 5.62 M/mm3 (4.00-5.60); RDW 15.3 % (11.9-15.9); WHITE BLOOD COUNT 8.9 K/mm3 (4.0-10.0)
[2020-09-10 08:32] LABS: ALBUMIN 2.8 g/dl (3.4-5.0); BLOOD UREA NITROGEN 45.8 mg/dL (7-18); CALCIUM 8.5 mg/dL (8.5-10.1)
[2020-09-10 08:35] LABS: CREATININE 1.7 mg/dL (0.55-1.3)
[2020-09-10 08:37] LABS: BILIRUBIN,TOTAL 0.5 mg/dL (0.2-1); TOT PROT 6.4 g/dl (6.4-8.2)
[2020-09-10] MEDS: DEXAMETHASONE SOD PHOSPHATE 4 MG/1 ML VIAL IVPUSH SCH (10:26)
[2020-09-10] MEDS: CHOLECALCIFEROL (VIT D3) 1,000 UNIT (25 MCG) TABLET PO SCH (10:27)
[2020-09-10] MEDS: APIXABAN 2.5 MG TABLET PO SCH ×2 (10:27→21:54)
[2020-09-10] MEDS: ASCORBIC ACID 500 MG TABLET (FP) PO SCH ×2 (10:27→21:54)
[2020-09-10] MEDS: METOPROLOL TARTRATE 50 MG TABLET (FP) PO SCH ×2 (10:27→21:54)
[2020-09-10] MEDS: REMDESIVIR 100 MG in SODIUM CHLORIDE 250 ML IVPB SCH (12:35)
[2020-09-10] MEDS: ZINC SULFATE 220 MG TABLET PO SCH (14:00)
[2020-09-10 17:16] VITALS: BMI 29.7
[2020-09-11] MEDS: INSULIN SLIDING SCALE (NOVOLOG) 1 VIAL SQ SCH ×4 (06:02→21:50)
[2020-09-11] MEDS: DEXAMETHASONE SOD PHOSPHATE 4 MG/1 ML VIAL IVPUSH SCH (09:31)
[2020-09-11] MEDS: ZINC SULFATE 220 MG CAPSULE (FP) PO SCH (09:34)
[2020-09-11] MEDS: METOPROLOL TARTRATE 50 MG TABLET (FP) PO SCH (09:34)
[2020-09-11] MEDS: MULTIVITAMINS (DAILY MVI) TABLET (FP) PO SCH (09:34)
[2020-09-11] MEDS: CHOLECALCIFEROL (VIT D3) 1,000 UNIT (25 MCG) TABLET PO SCH (09:34)
[2020-09-11] MEDS: ASCORBIC ACID 500 MG TABLET (FP) PO SCH ×2 (09:34→21:40)
[2020-09-11] MEDS: APIXABAN 2.5 MG TABLET PO SCH ×2 (09:34→21:40)
[2020-09-11 12:07] LABS: SARS-CoV-2 NAA Detected (Not Detected)
[2020-09-11] MEDS ORDERED: PT OWN MED DRAWER 7, Y5N ONE ×2 (12:13→18:52)
[2020-09-11] MEDS ORDERED: METOPROLOL TARTRATE 25 MG TABLET (FP) PO ONE (12:22)
[2020-09-11] MEDS: REMDESIVIR 100 MG in SODIUM CHLORIDE 250 ML IVPB SCH (13:10)
[2020-09-11] MEDS: METOPROLOL TARTRATE 25 MG TABLET (FP) PO SCH (21:39)
[2020-09-11] MEDS: ROSUVASTATIN CA 10 MG TABLET (FP) PO SCH (21:40)
[2020-09-12] MEDS: INSULIN SLIDING SCALE (NOVOLOG) 1 VIAL SQ SCH ×4 (06:19→21:22)
[2020-09-12 07:56] LABS: BASO % 0.2 % (0-2.0); HEMOGLOBIN 16.6 GM/dL (11.7-16.9); LYMPH % 13.2 % (8-40); MCH 28.6 pg (25.7-33.7); MCHC 33.3 g/dl (32.0-35.9); MEAN CELL VOLUME 85.9 fl (80-96); MEAN PLT VOLUME 10.9 fl (7.5-11.1); MONO % 7.5 % (3.8-10.2); NEUT % 79.1 % (42.8-82.8); PLATELET COUNT 108 10^3/uL (134-434); RBC 5.82 M/mm3 (4.00-5.60); RDW 15.5 % (11.9-15.9); WHITE BLOOD COUNT 8.5 K/mm3 (4.0-10.0)
[2020-09-12 08:06] LABS: BLOOD UREA NITROGEN 49.7 mg/dL (7-18)
[2020-09-12 08:07] LABS: CALCIUM 8.3 mg/dL (8.5-10.1)
[2020-09-12 08:08] LABS: MAGNESIUM 2.3 mg/dL (1.8-2.4)
[2020-09-12 08:09] LABS: CREATININE 1.4 mg/dL (0.55-1.3); PHOSPHOROUS 3.7 mg/dL (2.5-4.9)
[2020-09-12 08:10] LABS: BILIRUBIN,TOTAL 0.7 mg/dL (0.2-1); TOT PROT 6.5 g/dl (6.4-8.2)
[2020-09-12] MEDS: DEXAMETHASONE SOD PHOSPHATE 4 MG/1 ML VIAL IVPUSH SCH (09:42)
[2020-09-12] MEDS: CHOLECALCIFEROL (VIT D3) 1,000 UNIT (25 MCG) TABLET PO SCH (09:44)
[2020-09-12] MEDS: ASCORBIC ACID 500 MG TABLET (FP) PO SCH ×2 (09:44→21:25)
[2020-09-12] MEDS: METOPROLOL TARTRATE 25 MG TABLET (FP) PO SCH ×2 (09:44→21:24)
[2020-09-12] MEDS: ZINC SULFATE 220 MG CAPSULE (FP) PO SCH (09:44)
[2020-09-12] MEDS: APIXABAN 2.5 MG TABLET PO SCH ×2 (09:44→21:25)
[2020-09-12] MEDS: MULTIVITAMINS (DAILY MVI) TABLET (FP) PO SCH (09:45)
[2020-09-12] MEDS: REMDESIVIR 100 MG in SODIUM CHLORIDE 250 ML IVPB SCH (11:26)
[2020-09-12] MEDS: ROSUVASTATIN CA 10 MG TABLET (FP) PO SCH (21:24)
[2020-09-13] MEDS: INSULIN SLIDING SCALE (NOVOLOG) 1 VIAL SQ SCH ×3 (06:07→17:26)
[2020-09-13 07:31] LABS: HEMATOCRIT 50.8 % (35.4-49); HEMOGLOBIN 16.8 GM/dL (11.7-16.9); MCH 28.1 pg (25.7-33.7); MEAN CELL VOLUME 85.2 fl (80-96); MEAN PLT VOLUME 10.6 fl (7.5-11.1); PLATELET COUNT 100 10^3/uL (134-434); RBC 5.96 M/mm3 (4.00-5.60); RDW 15.4 % (11.9-15.9)
[2020-09-13 07:46] LABS: CALCIUM 8.3 mg/dL (8.5-10.1)
[2020-09-13 07:47] LABS: ALBUMIN 2.9 g/dl (3.4-5.0); MAGNESIUM 2.3 mg/dL (1.8-2.4)
[2020-09-13 07:50] LABS: CREATININE 1.3 mg/dL (0.55-1.3); PHOSPHOROUS 3.9 mg/dL (2.5-4.9)
[2020-09-13 07:51] LABS: BILIRUBIN,TOTAL 0.6 mg/dL (0.2-1)
[2020-09-13 07:52] LABS: TOT PROT 6.6 g/dl (6.4-8.2)
[2020-09-13] MEDS: DEXAMETHASONE SOD PHOSPHATE 4 MG/1 ML VIAL IVPUSH SCH (09:42)
[2020-09-13] MEDS: CHOLECALCIFEROL (VIT D3) 1,000 UNIT (25 MCG) TABLET PO SCH (09:43)
[2020-09-13] MEDS: MULTIVITAMINS (DAILY MVI) TABLET (FP) PO SCH (09:43)
[2020-09-13] MEDS: ZINC SULFATE 220 MG CAPSULE (FP) PO SCH (09:43)
[2020-09-13] MEDS: APIXABAN 2.5 MG TABLET PO SCH (09:43)
[2020-09-13] MEDS: METOPROLOL TARTRATE 25 MG TABLET (FP) PO SCH (09:43)
[2020-09-13] MEDS: ASCORBIC ACID 500 MG TABLET (FP) PO SCH (09:43)
[2020-09-13] MEDS: REMDESIVIR 100 MG in SODIUM CHLORIDE 250 ML IVPB SCH (14:26)
[2020-09-13 15:19] VITALS: BP 142/94; PULSE 68; TEMP 97.4
[2020-09-13] MEDS ORDERED: INSULIN (NOVOLOG) ASPART 100 UNITS/ML 10ML VIAL ONE (17:23)
== END 2020-09-13 18:26 | disposition home or self-care (01) | DRG 178 ==
LOC: JER 16:05 → JERBED 18:26 → J4W 09-09 01:13
PROVIDERS: ADMIT Internal Medicine; ATTEND Internal Medicine
PROC: XW033E5 Introduction of Remdesivir Anti-infective into Peripheral Vein, Percutaneous Approach, New Technology Group 5 (ICD-10-PCS; principal; 2020-09-09)
DX: U07.1 COVID-19 (principal); N17.9 Acute kidney failure, unspecified; I13.0 Hypertensive heart and chronic kidney disease with heart failure and stage 1 through stage 4 chronic kidney disease, or unspecified chronic kidney disease; E78.5 Hyperlipidemia, unspecified; I48.91 Unspecified atrial fibrillation; I25.10 Atherosclerotic heart disease of native coronary artery without angina pectoris; E11.9 Type 2 diabetes mellitus without complications; R50.9 Fever, unspecified; J44.9 Chronic obstructive pulmonary disease, unspecified; R05 Cough; K58.9 Irritable bowel syndrome, unspecified; R09.02 Hypoxemia; E11.22 Type 2 diabetes mellitus with diabetic chronic kidney disease; N18.9 Chronic kidney disease, unspecified; E66.9 Obesity, unspecified; I50.9 Heart failure, unspecified; Z95.5 Presence of coronary angioplasty implant and graft; Z89.421 Acquired absence of other right toe(s); Z68.29 Body mass index [BMI] 29.0-29.9, adult
CPT/HCPCS: 36415; 71045-TC-FY; 71250-TC; 74176-TC; 80053; 81003; 82728; 82962; 83036; 83605; 83615; 83735; 83880; 84100; 84484; 85025; 85027; 85379; 85384; 85610; 85651; 85730; 86140; 86308; 87040; 87086; 87804; 93005; 93010; 94761; 99285-25; C9399; C9803; J0131; U0003; U0005

== ENCOUNTER 2020-11-19 12:03 | Inpatient (IN) | payer OTHER ==
[2020-11-19 12:18] VITALS: BMI 30.9
[2020-11-19] MEDS ORDERED: ACETAMINOPHEN 1000 MG/100 ML VIAL IVPB ONE (12:59)
[2020-11-19 13:10] LABS: BASO % 0.7 % (0-2.0); EOS % 1.6 % (0-4.5); LYMPH % 14.4 % (8-40); MCH 28.3 pg (25.7-33.7); MCHC 32.8 g/dl (32.0-35.9); MEAN CELL VOLUME 86.4 fl (80-96); MEAN PLT VOLUME 10.6 fl (7.5-11.1); MONO % 10.7 % (3.8-10.2); NEUT % 72.6 % (42.8-82.8); PLATELET COUNT 166 10^3/uL (134-434); RBC 5.66 M/mm3 (4.00-5.60); WHITE BLOOD COUNT 11.8 K/mm3 (4.0-10.0)
[2020-11-19 13:18] LABS: INR 1.35 (0.83-1.09); PROTHROMBIN TIME (PATIENT) 16.6 SEC (9.7-13.0)
[2020-11-19] MEDS ORDERED: ACETAMINOPHEN INJECTION 100 ML IVPB ONE (13:27)
[2020-11-19 13:48] LABS: ALBUMIN 3.1 g/dl (3.4-5.0); BLOOD UREA NITROGEN 24.5 mg/dL (7-18); CALCIUM 9.2 mg/dL (8.5-10.1)
[2020-11-19 13:51] LABS: CREATININE 1.4 mg/dL (0.55-1.3)
[2020-11-19 13:53] LABS: TOT PROT 7.5 g/dl (6.4-8.2)
[2020-11-20] MEDS ORDERED: ACETAMINOPHEN 1000 MG/100 ML VIAL IVPB ONE (00:21)
[2020-11-20] MEDS ORDERED: ACETAMINOPHEN INJECTION 100 ML IVPB ONE (00:31)
[2020-11-20 07:07] LABS: BASO % 0.6 % (0-2.0); EOS % 1.2 % (0-4.5); HEMATOCRIT 46.6 % (35.4-49); HEMOGLOBIN 15.7 GM/dL (11.7-16.9); LYMPH % 19.1 % (8-40); MCH 28.8 pg (25.7-33.7); MCHC 33.6 g/dl (32.0-35.9); MEAN CELL VOLUME 85.8 fl (80-96); MEAN PLT VOLUME 10.6 fl (7.5-11.1); NEUT % 64.1 % (42.8-82.8); PLATELET COUNT 154 10^3/uL (134-434); RBC 5.43 M/mm3 (4.00-5.60); RDW 15.9 % (11.9-15.9); WHITE BLOOD COUNT 10.8 K/mm3 (4.0-10.0)
[2020-11-20 07:23] LABS: CHLORIDE 105 mmol/L (98-107); SODIUM 140 mmol/L (136-145)
[2020-11-20 07:29] LABS: CALCIUM 8.8 mg/dL (8.5-10.1)
[2020-11-20 07:30] LABS: ALBUMIN 2.8 g/dl (3.4-5.0); ANION GAP 6 MMOL/L (8-16); CO2 29 mmol/L (21-32); GLUCOSE,RANDOM 158 mg/dL (74-106)
[2020-11-20 07:31] LABS: SGOT/AST 22 U/L (15-37); SGPT/ALT 36 U/L (13-61)
[2020-11-20 07:32] LABS: BILIRUBIN,TOTAL 2.2 mg/dL (0.2-1)
[2020-11-20 07:33] LABS: CREATININE 1.3 mg/dL (0.55-1.3); TOT PROT 6.7 g/dl (6.4-8.2)
[2020-11-20 07:34] LABS: ALK PHOS 120 U/L (45-117)
[2020-11-20 07:40] LABS: BLOOD UREA NITROGEN 26.8 mg/dL (7-18)
[2020-11-20] MEDS: INSULIN SLIDING SCALE (NOVOLOG) 1 VIAL SQ SCH ×4 (09:34→21:28)
[2020-11-20] MEDS ORDERED: METOPROLOL TARTRATE 50 MG TABLET (FP) ONE (09:37)
[2020-11-20] MEDS ORDERED: APIXABAN 2.5 MG TABLET ONE (09:37)
[2020-11-20] MEDS ORDERED: METOPROLOL TARTRATE 25 MG TABLET (FP) ONE (09:37)
[2020-11-20] MEDS: APIXABAN 2.5 MG TABLET PO SCH ×2 (09:47→21:28)
[2020-11-20] MEDS: METOPROLOL TARTRATE 25 MG TABLET (FP) PO SCH ×2 (09:47→21:28)
[2020-11-20] MEDS ORDERED: ACETAMINOPHEN 500 MG TABLET (FP) PO PRN (18:19)
[2020-11-20] MEDS: ROSUVASTATIN CA 10 MG TABLET (FP) PO SCH (21:28)
[2020-11-21] MEDS: INSULIN SLIDING SCALE (NOVOLOG) 1 VIAL SQ SCH ×4 (06:48→21:35)
[2020-11-21] MEDS: INSULIN (LEVEMIR) 100 UNITS/ML UNITS SQ SCH (06:48)
[2020-11-21 07:05] LABS: MAGNESIUM 1.9 mg/dL (1.8-2.4)
[2020-11-21] MEDS: METOPROLOL TARTRATE 25 MG TABLET (FP) PO SCH ×2 (09:08→21:31)
[2020-11-21] MEDS: APIXABAN 2.5 MG TABLET PO SCH ×2 (09:08→21:31)
[2020-11-21] MEDS ORDERED: FLU VACC QS2021-22(6MOS UP)/PF 60 MCG/0.5 ML SYRINGE IM ONE (10:00)
[2020-11-21 12:06] LABS: BF WBC & OTHER NUCLEATED CELLS 13622 /mm3
[2020-11-21 13:36] LABS: BODY FLUID MONOCYTE 25 %
[2020-11-21] MEDS: ROSUVASTATIN CA 10 MG TABLET (FP) PO SCH (21:31)
[2020-11-22] MEDS: INSULIN SLIDING SCALE (NOVOLOG) 1 VIAL SQ SCH ×4 (06:10→21:25)
[2020-11-22] MEDS: INSULIN (LEVEMIR) 100 UNITS/ML UNITS SQ SCH (07:24)
[2020-11-22] MEDS: APIXABAN 2.5 MG TABLET PO SCH ×2 (09:49→21:18)
[2020-11-22] MEDS: METOPROLOL TARTRATE 25 MG TABLET (FP) PO SCH ×2 (09:49→21:18)
[2020-11-22] MEDS: ROSUVASTATIN CA 10 MG TABLET (FP) PO SCH (21:18)
[2020-11-23] MEDS: INSULIN (LEVEMIR) 100 UNITS/ML UNITS SQ SCH (06:13)
[2020-11-23] MEDS: INSULIN SLIDING SCALE (NOVOLOG) 1 VIAL SQ SCH ×3 (06:13→17:09)
[2020-11-23 09:59] VITALS: BP 150/90; PULSE 100; TEMP 98.2
[2020-11-23] MEDS: APIXABAN 2.5 MG TABLET PO SCH (10:27)
[2020-11-23] MEDS: METOPROLOL TARTRATE 25 MG TABLET (FP) PO SCH (10:28)
[2020-11-23] MEDS ORDERED: INSULIN (NOVOLOG) ASPART 100 UNITS/ML 10ML VIAL ONE (10:56)
== END 2020-11-23 17:42 | DRG 552 ==
LOC: JER 12:03 → JERBED 15:47 → OBSVTOIN 23:08 → J4S 11-20 10:53 → J4W 11-21 18:14
PROVIDERS: ADMIT Internal Medicine; ATTEND Family Medicine
PROC: 0S9D3ZX Drainage of Left Knee Joint, Percutaneous Approach, Diagnostic (ICD-10-PCS; principal; 2020-11-21)
DX: M47.816 Spondylosis without myelopathy or radiculopathy, lumbar region (principal); I13.0 Hypertensive heart and chronic kidney disease with heart failure and stage 1 through stage 4 chronic kidney disease, or unspecified chronic kidney disease; I48.91 Unspecified atrial fibrillation; I10 Essential (primary) hypertension; E78.5 Hyperlipidemia, unspecified; E11.9 Type 2 diabetes mellitus without complications; I25.10 Atherosclerotic heart disease of native coronary artery without angina pectoris; E11.42 Type 2 diabetes mellitus with diabetic polyneuropathy; M25.462 Effusion, left knee; M10.9 Gout, unspecified; M43.16 Spondylolisthesis, lumbar region; R32 Unspecified urinary incontinence; R29.898 Other symptoms and signs involving the musculoskeletal system; J44.9 Chronic obstructive pulmonary disease, unspecified; K58.9 Irritable bowel syndrome, unspecified; E11.319 Type 2 diabetes mellitus with unspecified diabetic retinopathy without macular edema; M51.34 Other intervertebral disc degeneration, thoracic region; M48.04 Spinal stenosis, thoracic region; M17.12 Unilateral primary osteoarthritis, left knee; E11.22 Type 2 diabetes mellitus with diabetic chronic kidney disease; N18.9 Chronic kidney disease, unspecified; I50.9 Heart failure, unspecified; Z95.5 Presence of coronary angioplasty implant and graft; Z89.421 Acquired absence of other right toe(s)
CPT/HCPCS: 36415; 70450-TC; 72131-TC; 73560-TC-LT-FY; 80053; 82962; 83036; 83735; 84443; 84484; 85025; 85610; 85651; 85730; 86140; 87070; 87075; 87205; 89060; 90686; 93005; 93010; 93971-TC; 97116-GP; 97161-GP; 99285-25; C9803; G0008; G0378; J0131; U0003; U0005

== ENCOUNTER 2021-04-22 14:13 | Emergency (ER) | payer OTHER ==
[2021-04-22 14:35] VITALS: PULSE 67; TEMP 97.9; BMI 29.8
[2021-04-22] MEDS ORDERED: ACETAMINOPHEN 325 MG TABLET (FP) PO ONE (17:06)
[2021-04-22] MEDS ORDERED: DIPHTH,PERTUSS(ACELL),TET 0.5 ML DISP.SYRIN IM ONE ×2 (17:21→18:46)
[2021-04-22] MEDS ORDERED: ACETAMINOPHEN 325 MG TABLET (FP) ONE (18:46)
[2021-04-22 19:18] VITALS: BP 169/83
== END 2021-04-22 19:18 | disposition home or self-care (01) ==
LOC: JER 14:13
PROC: 3E0234Z Introduction of Serum, Toxoid and Vaccine into Muscle, Percutaneous Approach (ICD-10-PCS; principal; 2021-04-22)
DX: S09.90XA Unspecified injury of head, initial encounter (principal); W01.0XXA Fall on same level from slipping, tripping and stumbling without subsequent striking against object, initial encounter
CPT/HCPCS: 70450-TC; 71046-TC-FY; 72125-TC; 90471; 90715; 99285-25

== ENCOUNTER 2021-06-13 16:39 | Inpatient (IN) | payer OTHER ==
[2021-06-13 19:00] LABS: EOS % 6.6 % (0-4.5); HEMATOCRIT 50.4 % (35.4-49); HEMOGLOBIN 16.4 GM/dL (11.7-16.9); LYMPH % 24.6 % (8-40); MCH 27.2 pg (25.7-33.7); MCHC 32.5 g/dl (32.0-35.9); MEAN CELL VOLUME 83.7 fl (80-96); MEAN PLT VOLUME 10.1 fl (7.5-11.1); MONO % 13.8 % (3.8-10.2); PLATELET COUNT 142 10^3/uL (134-434); RBC 6.02 M/mm3 (4.00-5.60); RDW 18.3 % (11.9-15.9); WHITE BLOOD COUNT 6.8 K/mm3 (4.0-10.0)
[2021-06-13 19:22] LABS: CHLORIDE 107 mmol/L (98-107); SODIUM 139 mmol/L (136-145)
[2021-06-13 19:24] LABS: CALCIUM 8.3 mg/dL (8.5-10.1)
[2021-06-13 19:25] LABS: ALBUMIN 2.7 g/dl (3.4-5.0); BLOOD UREA NITROGEN 17.7 mg/dL (7-18); CO2 31 mmol/L (21-32); GLUCOSE,RANDOM 141 mg/dL (74-106); MAGNESIUM 2.2 mg/dL (1.8-2.4)
[2021-06-13 19:28] LABS: CREATININE 1.5 mg/dL (0.55-1.3); PHOSPHOROUS 4.4 mg/dL (2.5-4.9); SGOT/AST 94 U/L (15-37)
[2021-06-13 19:29] LABS: BILIRUBIN,TOTAL 1.4 mg/dL (0.2-1); TOT PROT 6.9 g/dl (6.4-8.2)
[2021-06-13 19:31] LABS: ALK PHOS 141 U/L (45-117)
[2021-06-13 19:34] LABS: ANION GAP 0 MMOL/L (8-16); SGPT/ALT 31 U/L (13-61)
[2021-06-13] MEDS ORDERED: FUROSEMIDE 40 MG/4 ML INJECTABLE VIAL IVPUSH ONE (20:19)
[2021-06-13 20:51] LABS: EPI CELLS 8 /uL (0-25.1); HYALINE CASTS 2 /uL (0-3.1); URINE APPEARANCE CLEAR; URINE BACTERIA 6 /uL (0-1359); URINE BILIRUBIN NEGATIVE (NEGATIVE); URINE COLOR DK YELLOW; URINE GLUCOSE (UA) TRACE (NEGATIVE); URINE KETONE NEGATIVE (NEGATIVE); URINE LEUK ESTERASE NEGATIVE (NEGATIVE); URINE NITRITE NEGATIVE (NEGATIVE); URINE PROTEIN 3+ (NEGATIVE); URINE RBC 16 /uL (0-23.9); URINE WBC 17 /uL (0-25.8)
[2021-06-13] MEDS ORDERED: FUROSEMIDE 40 MG/4 ML INJECTABLE VIAL ONE (21:26)
[2021-06-13] MEDS ORDERED: ALBUTEROL SO4 2.5/IPRATROPIUM 0.5 INH SOL 3 ML VIAL.NEB. NEB ONE (22:09)
[2021-06-13 22:10] LABS: CALCIUM 8.6 mg/dL (8.5-10.1)
[2021-06-13 22:11] LABS: BLOOD UREA NITROGEN 17.4 mg/dL (7-18)
[2021-06-13] MEDS ORDERED: ALBUTEROL SO4 2.5/IPRATROPIUM 0.5 INH SOL 3 ML VIAL.NEB. NEB PRN (22:12)
[2021-06-13 22:14] LABS: CREATININE 1.3 mg/dL (0.55-1.3)
[2021-06-13] MEDS: APIXABAN 2.5 MG TABLET PO SCH (23:16)
[2021-06-13] MEDS ORDERED: APIXABAN 2.5 MG TABLET ONE (23:17)
[2021-06-14 02:08] LABS: ALBUMIN 2.7 g/dl (3.4-5.0)
[2021-06-14 02:13] LABS: BILIRUBIN,TOTAL 1.2 mg/dL (0.2-1); TOT PROT 6.4 g/dl (6.4-8.2)
[2021-06-14] MEDS ORDERED: AZITHROMYCIN IVPB 500 MG in DEXTROSE 5%-WATER - 250 ML IVPB ONE (04:33)
[2021-06-14] MEDS ORDERED: CEFTRIAXONE 1 GM in DEXTROSE 5%-WATER - 50 ML IVPB ONE (04:34)
[2021-06-14] MEDS ORDERED: cefTRIAXone SODIUM 1 GM VIAL ONE (06:22)
[2021-06-14] MEDS ORDERED: DEXTROSE 5%-WATER - 50 ML IVPB ONE (06:23)
[2021-06-14 08:10] LABS: BASO % 0.8 % (0-2.0); EOS % 7.2 % (0-4.5); HEMATOCRIT 47.7 % (35.4-49); HEMOGLOBIN 15.2 GM/dL (11.7-16.9); LYMPH % 25.4 % (8-40); MCH 26.8 pg (25.7-33.7); MCHC 31.8 g/dl (32.0-35.9); MEAN CELL VOLUME 84.2 fl (80-96); MEAN PLT VOLUME 10.5 fl (7.5-11.1); MONO % 14.5 % (3.8-10.2); NEUT % 52.1 % (42.8-82.8); PLATELET COUNT 127 10^3/uL (134-434); RBC 5.66 M/mm3 (4.00-5.60); RDW 17.6 % (11.9-15.9); WHITE BLOOD COUNT 5.9 K/mm3 (4.0-10.0)
[2021-06-14 08:30] LABS: ALBUMIN 2.6 g/dl (3.4-5.0); BLOOD UREA NITROGEN 21.9 mg/dL (7-18); CALCIUM 8.5 mg/dL (8.5-10.1); MAGNESIUM 1.9 mg/dL (1.8-2.4)
[2021-06-14 08:33] LABS: CREATININE 1.6 mg/dL (0.55-1.3)
[2021-06-14 08:34] LABS: TOT PROT 6.1 g/dl (6.4-8.2)
[2021-06-14] MEDS: APIXABAN 2.5 MG TABLET PO SCH ×2 (09:18→21:45)
[2021-06-14] MEDS: METOPROLOL TARTRATE 50 MG TABLET (FP) PO SCH ×2 (09:18→21:45)
[2021-06-14] MEDS: ROSUVASTATIN CA 10 MG TABLET PO SCH (21:47)
[2021-06-15] MEDS: INSULIN SLIDING SCALE (NOVOLOG) 1 VIAL SQ SCH ×3 (05:59→16:58)
[2021-06-15] MEDS ORDERED: INSULIN SLIDING SCALE (NOVOLOG) 1 VIAL SQ SCH (07:00)
[2021-06-15 07:13] LABS: BASO % 0.8 % (0-2.0); EOS % 6.7 % (0-4.5); HEMATOCRIT 49.7 % (35.4-49); HEMOGLOBIN 15.9 GM/dL (11.7-16.9); LYMPH % 24.7 % (8-40); MCH 27.1 pg (25.7-33.7); MCHC 31.9 g/dl (32.0-35.9); MEAN CELL VOLUME 84.8 fl (80-96); MEAN PLT VOLUME 10.4 fl (7.5-11.1); MONO % 11.5 % (3.8-10.2); NEUT % 56.3 % (42.8-82.8); PLATELET COUNT 133 10^3/uL (134-434); RBC 5.87 M/mm3 (4.00-5.60); RDW 17.6 % (11.9-15.9); WHITE BLOOD COUNT 7.9 K/mm3 (4.0-10.0)
[2021-06-15] MEDS: INSULIN (LEVEMIR) 100 UNITS/ML UNITS SQ SCH (07:21)
[2021-06-15 07:31] LABS: CALCIUM 8.7 mg/dL (8.5-10.1)
[2021-06-15 07:32] LABS: ALBUMIN 2.9 g/dl (3.4-5.0); BLOOD UREA NITROGEN 23.6 mg/dL (7-18); MAGNESIUM 2.2 mg/dL (1.8-2.4)
[2021-06-15 07:35] LABS: CREATININE 1.5 mg/dL (0.55-1.3); PHOSPHOROUS 4.4 mg/dL (2.5-4.9); URIC ACID 6.6 mg/dL (2.6-7.2)
[2021-06-15 07:36] LABS: BILIRUBIN,TOTAL 1.2 mg/dL (0.2-1); TOT PROT 6.7 g/dl (6.4-8.2)
[2021-06-15] MEDS ORDERED: METOPROLOL TARTRATE 50 MG TABLET (FP) PO SCH (09:21)
[2021-06-15] MEDS ORDERED: METOPROLOL TARTRATE 50 MG TABLET (FP) ONE ×2 (10:34→21:21)
[2021-06-15] MEDS ORDERED: METOPROLOL TARTRATE 25 MG TABLET (FP) ONE ×2 (10:35→21:21)
[2021-06-15] MEDS ORDERED: cefTRIAXone SODIUM 1 GM VIAL ONE (10:36)
[2021-06-15] MEDS ORDERED: DEXTROSE 5%-WATER - 50 ML IVPB ONE (10:36)
[2021-06-15] MEDS: APIXABAN 2.5 MG TABLET PO SCH ×2 (10:39→21:23)
[2021-06-15] MEDS: METOPROLOL TARTRATE 50 MG, METOPROLOL TARTRATE 25 MG PO SCH ×2 (10:39→21:23)
[2021-06-15] MEDS: CEFTRIAXONE 1 GM in DEXTROSE 5%-WATER - 50 ML IVPB SCH (10:40)
[2021-06-15] MEDS: FUROSEMIDE 40 MG/4 ML INJECTABLE VIAL IVPUSH SCH (10:40)
[2021-06-15] MEDS: AZITHROMYCIN IVPB 500 MG/250 ML BAG IVPB SCH (10:52)
[2021-06-15] MEDS: ROSUVASTATIN CA 10 MG TABLET PO SCH (21:23)
[2021-06-16] MEDS: INSULIN SLIDING SCALE (NOVOLOG) 1 VIAL SQ SCH ×3 (06:05→17:33)
[2021-06-16] MEDS ORDERED: METOPROLOL TARTRATE 50 MG TABLET (FP) ONE (09:10)
[2021-06-16] MEDS ORDERED: METOPROLOL TARTRATE 25 MG TABLET (FP) ONE (09:10)
[2021-06-16] MEDS ORDERED: DEXTROSE 5%-WATER - 50 ML IVPB ONE (09:11)
[2021-06-16] MEDS ORDERED: cefTRIAXone SODIUM 1 GM VIAL ONE (09:11)
[2021-06-16] MEDS: INSULIN (LEVEMIR) 100 UNITS/ML UNITS SQ SCH (09:24)
[2021-06-16] MEDS: FUROSEMIDE 40 MG/4 ML INJECTABLE VIAL IVPUSH SCH (10:03)
[2021-06-16] MEDS: METOPROLOL TARTRATE 50 MG, METOPROLOL TARTRATE 25 MG PO SCH (10:04)
[2021-06-16] MEDS: APIXABAN 2.5 MG TABLET PO SCH ×2 (10:04→22:20)
[2021-06-16] MEDS: CEFTRIAXONE 1 GM in DEXTROSE 5%-WATER - 50 ML IVPB SCH (10:05)
[2021-06-16] MEDS: AZITHROMYCIN IVPB 500 MG/250 ML BAG IVPB SCH (10:06)
[2021-06-16] MEDS ORDERED: FUROSEMIDE 40 MG/4 ML INJECTABLE VIAL IVPUSH ONE (16:00)
[2021-06-16] MEDS: ROSUVASTATIN CA 10 MG TABLET PO SCH (22:20)
[2021-06-16] MEDS: METOPROLOL TARTRATE 50 MG TABLET (FP) PO SCH (22:20)
[2021-06-17] MEDS: INSULIN SLIDING SCALE (NOVOLOG) 1 VIAL SQ SCH ×3 (06:05→18:05)
[2021-06-17] MEDS: INSULIN (LEVEMIR) 100 UNITS/ML UNITS SQ SCH (07:57)
[2021-06-17 08:05] LABS: ALBUMIN 2.6 g/dl (3.4-5.0)
[2021-06-17 08:06] LABS: BLOOD UREA NITROGEN 31.2 mg/dL (7-18)
[2021-06-17 08:07] LABS: CALCIUM 8.7 mg/dL (8.5-10.1)
[2021-06-17 08:09] LABS: TOT PROT 6.3 g/dl (6.4-8.2)
[2021-06-17 08:10] LABS: BILIRUBIN,TOTAL 1.2 mg/dL (0.2-1)
[2021-06-17 08:11] LABS: CREATININE 1.4 mg/dL (0.55-1.3)
[2021-06-17] MEDS ORDERED: cefTRIAXone SODIUM 1 GM VIAL ONE (10:34)
[2021-06-17] MEDS ORDERED: DEXTROSE 5%-WATER - 50 ML IVPB ONE (10:35)
[2021-06-17] MEDS: CEFTRIAXONE 1 GM in DEXTROSE 5%-WATER - 50 ML IVPB SCH (11:50)
[2021-06-17] MEDS: METOPROLOL TARTRATE 50 MG TABLET (FP) PO SCH ×2 (11:52→21:49)
[2021-06-17] MEDS: APIXABAN 2.5 MG TABLET PO SCH ×2 (11:52→21:49)
[2021-06-17] MEDS: FUROSEMIDE 40 MG/4 ML INJECTABLE VIAL IVPUSH SCH ×2 (11:52→16:57)
[2021-06-17] MEDS: AZITHROMYCIN IVPB 500 MG/250 ML BAG IVPB SCH (12:44)
[2021-06-17] MEDS: ROSUVASTATIN CA 10 MG TABLET PO SCH (21:49)
[2021-06-18] MEDS: FUROSEMIDE 40 MG/4 ML INJECTABLE VIAL IVPUSH SCH ×2 (06:04→14:20)
[2021-06-18] MEDS: INSULIN (LEVEMIR) 100 UNITS/ML UNITS SQ SCH (06:08)
[2021-06-18] MEDS: INSULIN SLIDING SCALE (NOVOLOG) 1 VIAL SQ SCH ×3 (06:08→16:25)
[2021-06-18] MEDS ORDERED: DEXTROSE 5%-WATER - 50 ML IVPB ONE (09:08)
[2021-06-18] MEDS ORDERED: cefTRIAXone SODIUM 1 GM VIAL ONE (09:08)
[2021-06-18] MEDS: APIXABAN 2.5 MG TABLET PO SCH ×2 (09:17→21:59)
[2021-06-18] MEDS: METOPROLOL TARTRATE 50 MG TABLET (FP) PO SCH ×2 (09:17→22:00)
[2021-06-18] MEDS: CEFTRIAXONE 1 GM in DEXTROSE 5%-WATER - 50 ML IVPB SCH (09:18)
[2021-06-18] MEDS: AZITHROMYCIN IVPB 500 MG/250 ML BAG IVPB SCH (09:24)
[2021-06-18] MEDS: ROSUVASTATIN CA 10 MG TABLET PO SCH (21:59)
[2021-06-19] MEDS: INSULIN SLIDING SCALE (NOVOLOG) 1 VIAL SQ SCH ×3 (06:15→17:25)
[2021-06-19] MEDS: FUROSEMIDE 40 MG/4 ML INJECTABLE VIAL IVPUSH SCH (06:30)
[2021-06-19] MEDS: INSULIN (LEVEMIR) 100 UNITS/ML UNITS SQ SCH (06:32)
[2021-06-19] MEDS ORDERED: cefTRIAXone SODIUM 1 GM VIAL ONE (09:43)
[2021-06-19] MEDS ORDERED: DEXTROSE 5%-WATER - 50 ML IVPB ONE (09:43)
[2021-06-19] MEDS: METOPROLOL TARTRATE 50 MG TABLET (FP) PO SCH ×2 (10:08→21:44)
[2021-06-19] MEDS: CEFTRIAXONE 1 GM in DEXTROSE 5%-WATER - 50 ML IVPB SCH (10:08)
[2021-06-19] MEDS: AZITHROMYCIN IVPB 500 MG/250 ML BAG IVPB SCH (10:09)
[2021-06-19] MEDS: APIXABAN 2.5 MG TABLET PO SCH ×2 (10:09→21:44)
[2021-06-19] MEDS: ROSUVASTATIN CA 10 MG TABLET PO SCH (21:44)
[2021-06-20] MEDS: INSULIN SLIDING SCALE (NOVOLOG) 1 VIAL SQ SCH ×3 (06:30→17:17)
[2021-06-20] MEDS: INSULIN (LEVEMIR) 100 UNITS/ML UNITS SQ SCH (07:33)
[2021-06-20 08:22] LABS: CALCIUM 9.7 mg/dL (8.5-10.1)
[2021-06-20 08:25] LABS: CREATININE 2.4 mg/dL (0.55-1.3)
[2021-06-20 08:27] LABS: BILIRUBIN,TOTAL 1.5 mg/dL (0.2-1); TOT PROT 6.7 g/dl (6.4-8.2)
[2021-06-20 08:31] LABS: BLOOD UREA NITROGEN 88.4 mg/dL (7-18)
[2021-06-20] MEDS ORDERED: DEXTROSE 5%-WATER - 50 ML IVPB ONE (09:09)
[2021-06-20] MEDS ORDERED: cefTRIAXone SODIUM 1 GM VIAL ONE (09:09)
[2021-06-20] MEDS ORDERED: FUROSEMIDE 40 MG/4 ML INJECTABLE VIAL IVPUSH SCH (10:00)
[2021-06-20] MEDS: METOPROLOL TARTRATE 50 MG TABLET (FP) PO SCH ×2 (10:18→22:08)
[2021-06-20] MEDS: CEFTRIAXONE 1 GM in DEXTROSE 5%-WATER - 50 ML IVPB SCH (10:18)
[2021-06-20] MEDS: APIXABAN 2.5 MG TABLET PO SCH ×2 (10:18→22:08)
[2021-06-20] MEDS: AZITHROMYCIN IVPB 500 MG/250 ML BAG IVPB SCH (10:21)
[2021-06-20] MEDS: ALBUTEROL SO4 2.5/IPRATROPIUM 0.5 INH SOL 3 ML VIAL.NEB. NEB SCH ×2 (14:48→20:21)
[2021-06-20] MEDS: ROSUVASTATIN CA 10 MG TABLET PO SCH (22:08)
[2021-06-21] MEDS: INSULIN SLIDING SCALE (NOVOLOG) 1 VIAL SQ SCH ×3 (06:06→18:03)
[2021-06-21] MEDS: INSULIN (LEVEMIR) 100 UNITS/ML UNITS SQ SCH (06:06)
[2021-06-21] MEDS: ALBUTEROL SO4 2.5/IPRATROPIUM 0.5 INH SOL 3 ML VIAL.NEB. NEB SCH ×3 (07:40→20:00)
[2021-06-21 07:50] LABS: ALBUMIN 2.6 g/dl (3.4-5.0); CALCIUM 8.9 mg/dL (8.5-10.1)
[2021-06-21 07:51] LABS: CREATININE 1.4 mg/dL (0.55-1.3)
[2021-06-21 07:52] LABS: BILIRUBIN,TOTAL 0.6 mg/dL (0.2-1)
[2021-06-21 07:53] LABS: TOT PROT 6.4 g/dl (6.4-8.2)
[2021-06-21 08:00] LABS: BLOOD UREA NITROGEN 45.8 mg/dL (7-18)
[2021-06-21] MEDS ORDERED: DEXTROSE 5%-WATER - 50 ML IVPB ONE (08:53)
[2021-06-21] MEDS ORDERED: cefTRIAXone SODIUM 1 GM VIAL ONE (08:53)
[2021-06-21] MEDS: CEFTRIAXONE 1 GM in DEXTROSE 5%-WATER - 50 ML IVPB SCH (10:07)
[2021-06-21] MEDS: METOPROLOL TARTRATE 50 MG TABLET (FP) PO SCH ×2 (10:08→21:37)
[2021-06-21] MEDS: APIXABAN 2.5 MG TABLET PO SCH ×2 (10:08→21:36)
[2021-06-21] MEDS: FUROSEMIDE 40 MG TABLET (FP) PO SCH (10:10)
[2021-06-21] MEDS: AZITHROMYCIN IVPB 500 MG/250 ML BAG IVPB SCH (11:16)
[2021-06-21] MEDS: ROSUVASTATIN CA 10 MG TABLET PO SCH (21:37)
[2021-06-22] MEDS: INSULIN (LEVEMIR) 100 UNITS/ML UNITS SQ SCH (06:06)
[2021-06-22] MEDS: INSULIN SLIDING SCALE (NOVOLOG) 1 VIAL SQ SCH ×3 (06:07→16:55)
[2021-06-22 07:33] LABS: BLOOD UREA NITROGEN 43.6 mg/dL (7-18); CALCIUM 8.8 mg/dL (8.5-10.1)
[2021-06-22 07:36] LABS: CREATININE 1.2 mg/dL (0.55-1.3)
[2021-06-22] MEDS: ALBUTEROL SO4 2.5/IPRATROPIUM 0.5 INH SOL 3 ML VIAL.NEB. NEB SCH ×3 (08:20→19:57)
[2021-06-22] MEDS ORDERED: DEXTROSE 5%-WATER - 50 ML IVPB ONE (09:30)
[2021-06-22] MEDS ORDERED: cefTRIAXone SODIUM 1 GM VIAL ONE (09:30)
[2021-06-22] MEDS: FUROSEMIDE 40 MG TABLET (FP) PO SCH (10:30)
[2021-06-22] MEDS: CEFTRIAXONE 1 GM in DEXTROSE 5%-WATER - 50 ML IVPB SCH (10:30)
[2021-06-22] MEDS: METOPROLOL TARTRATE 50 MG TABLET (FP) PO SCH ×2 (10:30→21:17)
[2021-06-22] MEDS: AZITHROMYCIN IVPB 500 MG/250 ML BAG IVPB SCH (10:30)
[2021-06-22] MEDS: APIXABAN 2.5 MG TABLET PO SCH ×2 (10:30→21:17)
[2021-06-22] MEDS: ROSUVASTATIN CA 10 MG TABLET PO SCH (21:17)
[2021-06-23] MEDS: INSULIN SLIDING SCALE (NOVOLOG) 1 VIAL SQ SCH ×3 (06:24→17:01)
[2021-06-23] MEDS: INSULIN (LEVEMIR) 100 UNITS/ML UNITS SQ SCH (06:28)
[2021-06-23 06:54] LABS: BASO % 0.7 % (0-2.0); EOS % 6.8 % (0-4.5); HEMATOCRIT 47.1 % (35.4-49); HEMOGLOBIN 15.1 GM/dL (11.7-16.9); LYMPH % 25.2 % (8-40); MCH 26.9 pg (25.7-33.7); MCHC 32.1 g/dl (32.0-35.9); MEAN CELL VOLUME 83.8 fl (80-96); MEAN PLT VOLUME 10.8 fl (7.5-11.1); MONO % 11.9 % (3.8-10.2); NEUT % 55.4 % (42.8-82.8); PLATELET COUNT 149 10^3/uL (134-434); RBC 5.62 M/mm3 (4.00-5.60); RDW 16.9 % (11.9-15.9); WHITE BLOOD COUNT 6.9 K/mm3 (4.0-10.0)
[2021-06-23 07:25] LABS: ALBUMIN 2.5 g/dl (3.4-5.0); CALCIUM 8.7 mg/dL (8.5-10.1)
[2021-06-23 07:26] LABS: BLOOD UREA NITROGEN 45.6 mg/dL (7-18)
[2021-06-23 07:28] LABS: CREATININE 1.3 mg/dL (0.55-1.3)
[2021-06-23 07:30] LABS: BILIRUBIN,TOTAL 0.6 mg/dL (0.2-1); TOT PROT 6.4 g/dl (6.4-8.2)
[2021-06-23] MEDS: ALBUTEROL SO4 2.5/IPRATROPIUM 0.5 INH SOL 3 ML VIAL.NEB. NEB SCH ×3 (07:36→20:00)
[2021-06-23] MEDS ORDERED: cefTRIAXone SODIUM 1 GM VIAL ONE (09:04)
[2021-06-23] MEDS ORDERED: DEXTROSE 5%-WATER - 50 ML IVPB ONE (09:04)
[2021-06-23] MEDS: METOPROLOL TARTRATE 50 MG TABLET (FP) PO SCH ×2 (09:16→23:04)
[2021-06-23] MEDS: FUROSEMIDE 40 MG TABLET (FP) PO SCH (09:16)
[2021-06-23] MEDS: CEFTRIAXONE 1 GM in DEXTROSE 5%-WATER - 50 ML IVPB SCH ×2 (09:16→10:28)
[2021-06-23] MEDS: APIXABAN 2.5 MG TABLET PO SCH ×2 (09:17→23:03)
[2021-06-23] MEDS: AZITHROMYCIN IVPB 500 MG/250 ML BAG IVPB SCH ×2 (09:18→10:28)
[2021-06-23] MEDS: amLODIPine BESYLATE 5 MG TABLET (FP) PO SCH (11:43)
[2021-06-24] MEDS: INSULIN (LEVEMIR) 100 UNITS/ML UNITS SQ SCH (06:38)
[2021-06-24] MEDS: INSULIN SLIDING SCALE (NOVOLOG) 1 VIAL SQ SCH ×3 (06:39→17:50)
[2021-06-24 07:25] LABS: BASO % 1.2 % (0-2.0); EOS % 7.6 % (0-4.5); HEMATOCRIT 45.9 % (35.4-49); HEMOGLOBIN 15.2 GM/dL (11.7-16.9); LYMPH % 26.6 % (8-40); MCH 27.3 pg (25.7-33.7); MCHC 33.1 g/dl (32.0-35.9); MEAN CELL VOLUME 82.5 fl (80-96); MEAN PLT VOLUME 10.7 fl (7.5-11.1); MONO % 10.6 % (3.8-10.2); PLATELET COUNT 146 10^3/uL (134-434); RBC 5.56 M/mm3 (4.00-5.60); RDW 16.6 % (11.9-15.9); WHITE BLOOD COUNT 6.6 K/mm3 (4.0-10.0)
[2021-06-24] MEDS: ALBUTEROL SO4 2.5/IPRATROPIUM 0.5 INH SOL 3 ML VIAL.NEB. NEB SCH ×3 (07:45→20:41)
[2021-06-24 08:03] LABS: CALCIUM 8.8 mg/dL (8.5-10.1)
[2021-06-24 08:04] LABS: ALBUMIN 2.6 g/dl (3.4-5.0); BLOOD UREA NITROGEN 55.3 mg/dL (7-18)
[2021-06-24 08:06] LABS: CREATININE 1.4 mg/dL (0.55-1.3)
[2021-06-24 08:07] LABS: BILIRUBIN,TOTAL 0.8 mg/dL (0.2-1); TOT PROT 6.3 g/dl (6.4-8.2)
[2021-06-24] MEDS: APIXABAN 2.5 MG TABLET PO SCH ×2 (10:13→21:19)
[2021-06-24] MEDS: FUROSEMIDE 40 MG TABLET (FP) PO SCH (10:13)
[2021-06-24] MEDS: METOPROLOL TARTRATE 50 MG TABLET (FP) PO SCH ×2 (10:13→21:19)
[2021-06-24] MEDS: amLODIPine BESYLATE 5 MG TABLET (FP) PO SCH (10:14)
[2021-06-24 20:08] VITALS: PULSE 18
[2021-06-24 23:07] VITALS: BP 122/98; TEMP 97.7
== END 2021-06-25 02:24 | DRG 291 ==
LOC: JER 16:39 → JERBED 20:32 → J4W 06-14 03:14
PROVIDERS: ADMIT Hospitalist; ATTEND Family Medicine
DX: I13.0 Hypertensive heart and chronic kidney disease with heart failure and stage 1 through stage 4 chronic kidney disease, or unspecified chronic kidney disease (principal); E11.00 Type 2 diabetes mellitus with hyperosmolarity without nonketotic hyperglycemic-hyperosmolar coma (NKHHC); J18.9 Pneumonia, unspecified organism; I50.31 Acute diastolic (congestive) heart failure; N17.9 Acute kidney failure, unspecified; J44.1 Chronic obstructive pulmonary disease with (acute) exacerbation; J44.0 Chronic obstructive pulmonary disease with (acute) lower respiratory infection; I48.19 Other persistent atrial fibrillation; J98.11 Atelectasis; E11.59 Type 2 diabetes mellitus with other circulatory complications; E78.5 Hyperlipidemia, unspecified; E11.42 Type 2 diabetes mellitus with diabetic polyneuropathy; I25.10 Atherosclerotic heart disease of native coronary artery without angina pectoris; K58.9 Irritable bowel syndrome, unspecified; R60.0 Localized edema; K21.9 Gastro-esophageal reflux disease without esophagitis; R94.5 Abnormal results of liver function studies; I35.0 Nonrheumatic aortic (valve) stenosis; E11.319 Type 2 diabetes mellitus with unspecified diabetic retinopathy without macular edema; E87.5 Hyperkalemia; E11.22 Type 2 diabetes mellitus with diabetic chronic kidney disease; N18.9 Chronic kidney disease, unspecified; Z89.421 Acquired absence of other right toe(s); Z95.5 Presence of coronary angioplasty implant and graft
CPT/HCPCS: 0241U-QW; 36415; 71045-TC-FY; 76700-TC; 80048; 80053; 80162; 81003; 82570; 82962; 83735; 83880; 84100; 84155; 84156; 84165; 84300; 84540; 84550; 85025; 87040; 87070; 87077; 87086; 87205; 87807; 87899; 93005; 93010; 93971-TC; 94640; 97116-GP; 97162-GP; 99285-25; C9803-CS; U0003; U0005

== ENCOUNTER 2021-09-24 14:02 | Emergency (ER) | payer OTHER ==
[2021-09-24 14:13] VITALS: BP 113/75; PULSE 81; RESP 16; TEMP 97.6; BMI 26.6
[2021-09-24] MEDS ORDERED: ACETAMINOPHEN 500 MG TABLET (FP) PO ONE (16:38)
[2021-09-24] MEDS ORDERED: ACETAMINOPHEN 325 MG TABLET (FP) ONE (17:12)
[2021-09-24 17:40] LABS: BASO % 0.5 % (0-2.0); EOS % 3.2 % (0-4.5); HEMATOCRIT 53.7 % (35.4-49); HEMOGLOBIN 17.7 GM/dL (11.7-16.9); LYMPH % 22.6 % (8-40); MCH 27.9 pg (25.7-33.7); MEAN CELL VOLUME 84.7 fl (80-96); MEAN PLT VOLUME 10.8 fl (7.5-11.1); MONO % 10.9 % (3.8-10.2); NEUT % 62.8 % (42.8-82.8); PLATELET COUNT 180 10^3/uL (134-434); RBC 6.34 M/mm3 (4.00-5.60); RDW 15.9 % (11.9-15.9); WHITE BLOOD COUNT 8.8 K/mm3 (4.0-10.0)
[2021-09-24 18:26] LABS: CHLORIDE 100 mmol/L (98-107); SODIUM 133 mmol/L (136-145)
[2021-09-24 18:28] LABS: CALCIUM 9.1 mg/dL (8.5-10.1); CO2 26 mmol/L (21-32); GLUCOSE,RANDOM 153 mg/dL (74-106)
[2021-09-24 18:32] LABS: CREATININE 1.8 mg/dL (0.55-1.3)
[2021-09-24 18:33] LABS: BILIRUBIN,TOTAL 0.9 mg/dL (0.2-1); TOT PROT 8.4 g/dl (6.4-8.2)
[2021-09-24 18:34] LABS: ALK PHOS 162 U/L (45-117); ANION GAP 6 MMOL/L (8-16); SGOT/AST 100 U/L (15-37); SGPT/ALT 40 U/L (13-61)
== END 2021-09-24 19:12 | disposition home or self-care (01) ==
LOC: JER 14:02
DX: H57.12 Ocular pain, left eye (principal)
CPT/HCPCS: 36415; 70450-TC; 80053; 85025; 93005; 93010; 99285-25

== ENCOUNTER 2021-09-26 10:49 | Emergency (ER) | payer OTHER ==
[2021-09-26 10:55] VITALS: TEMP 97.5; BMI 27.1
[2021-09-26 12:42] VITALS: RESP 22
[2021-09-26 12:53] LABS: BASO % 0.8 % (0-2.0); EOS % 2.9 % (0-4.5); HEMATOCRIT 49.5 % (35.4-49); HEMOGLOBIN 16.5 GM/dL (11.7-16.9); LYMPH % 19.2 % (8-40); MCH 28.4 pg (25.7-33.7); MCHC 33.4 g/dl (32.0-35.9); MEAN CELL VOLUME 85.2 fl (80-96); MEAN PLT VOLUME 11.2 fl (7.5-11.1); MONO % 9.3 % (3.8-10.2); NEUT % 67.8 % (42.8-82.8); PLATELET COUNT 197 10^3/uL (134-434); RBC 5.81 M/mm3 (4.00-5.60); RDW 15.6 % (11.9-15.9); WHITE BLOOD COUNT 9.9 K/mm3 (4.0-10.0)
[2021-09-26 13:00] LABS: INR 1.45 (0.83-1.09); PROTHROMBIN TIME (PATIENT) 16.7 SEC (9.7-13.0)
[2021-09-26 13:03] LABS: ACTIVATED PTT 39.9 SECONDS (25.2-36.5)
[2021-09-26 13:13] LABS: BLOOD UREA NITROGEN 62.2 mg/dL (7-18); MAGNESIUM 2.3 mg/dL (1.8-2.4)
[2021-09-26 13:17] LABS: PHOSPHOROUS 4.8 mg/dL (2.5-4.9)
[2021-09-26 13:18] LABS: TOT PROT 7.2 g/dl (6.4-8.2)
[2021-09-26 15:04] LABS: CALCIUM 8.9 mg/dL (8.5-10.1)
[2021-09-26 15:05] LABS: BLOOD UREA NITROGEN 65.9 mg/dL (7-18)
[2021-09-26 15:09] LABS: CREATININE 1.9 mg/dL (0.55-1.3)
[2021-09-26 16:01] VITALS: BP 137/98; PULSE 89
== END 2021-09-26 17:00 | disposition home or self-care (01) ==
LOC: JER 10:49
DX: R79.89 Other specified abnormal findings of blood chemistry (principal)
CPT/HCPCS: 36415; 71045-TC-FY; 80048; 80053; 82962; 83735; 84100; 84484; 85025; 85610; 85730; 93005; 93010; 99285-25

== ENCOUNTER 2022-12-25 21:29 | Inpatient (IN) | payer OTHER ==
[2022-12-25] MEDS ORDERED: SODIUM CHLORIDE 0.9% 500 ML INFUS.BAG IV ONE ×2 (22:06→23:17)
[2022-12-25] MEDS: ALBUTEROL SO4 2.5/IPRATROPIUM 0.5 INH SOL 3 ML VIAL.NEB. NEB SCH ×4 (22:15→23:07)
[2022-12-25] MEDS ORDERED: ALBUTEROL SO4 2.5/IPRATROPIUM 0.5 INH SOL 3 ML VIAL.NEB. NEB ONE (22:26)
[2022-12-25 22:47] LABS: BASO % 0.6 % (0-2.0); EOS % 1.8 % (0-4.5); HEMATOCRIT 51.1 % (35.4-49); HEMOGLOBIN 16.1 GM/dL (11.7-16.9); MCH 27.5 pg (25.7-33.7); MCHC 31.5 g/dl (32.0-35.9); MEAN CELL VOLUME 87.1 fl (80-96); MEAN PLT VOLUME 10.2 fl (7.5-11.1); MONO % 7.9 % (3.8-10.2); NEUT % 81.7 % (42.8-82.8); PLATELET COUNT 146 10^3/uL (134-434); RBC 5.87 M/mm3 (4.00-5.60); RDW 15.1 % (11.9-15.9); VENOUS BASE EXCESS 1.8 mmol/L (-2-2); VENOUS O2 SATURATION 66.4 % (70-80); VENOUS PCO2 53.2 mmHg (38-52); VENOUS PH 7.351 (7.310-7.410); WHITE BLOOD COUNT 15.2 K/mm3 (4.0-10.0)
[2022-12-25] MEDS ORDERED: VANCOMYCIN 1,000 MG in DEXTROSE 5%-WATER - 250 ML IVPB ONE (22:47)
[2022-12-25] MEDS ORDERED: PIPERACILLIN/TAZOB 4.5 GM 4.5 GM in DEXTROSE 5%-WATER 100 ML IVPB ONE (22:47)
[2022-12-25] MEDS ORDERED: PIPERACILLIN/TAZOB 4.5 GM 4.5 GM/100 ML BAG IVPB ONE (22:49)
[2022-12-25] MEDS ORDERED: VANCOMYCIN 1 GRAM (PRE-DOCKED) 1,000 MG/250 ML BAG IVPB ONE (22:49)
[2022-12-25 23:05] LABS: INR 1.45 (0.83-1.09); PROTHROMBIN TIME (PATIENT) 16.8 SEC (9.7-13.0)
[2022-12-25 23:07] LABS: ACTIVATED PTT 37.6 SECONDS (25.2-36.5)
[2022-12-25 23:18] LABS: POTASSIUM 4.3 mmol/L (3.5-5.1)
[2022-12-25 23:20] LABS: ALBUMIN 3.1 g/dl (3.4-5.0); CALCIUM 8.4 mg/dL (8.5-10.1)
[2022-12-25 23:21] LABS: BLOOD UREA NITROGEN 41.3 mg/dL (7-18); MAGNESIUM 2.1 mg/dL (1.8-2.4)
[2022-12-25 23:23] LABS: PHOSPHOROUS 4.1 mg/dL (2.5-4.9)
[2022-12-25 23:24] LABS: CREATININE 1.7 mg/dL (0.55-1.3)
[2022-12-25 23:25] LABS: BILIRUBIN,TOTAL 0.9 mg/dL (0.2-1); TOT PROT 7.3 g/dl (6.4-8.2)
[2022-12-25 23:26] LABS: N-TERMINAL BNP 5090.6 pg/ml (5-450)
[2022-12-25] MEDS ORDERED: ACETAMINOPHEN 1000 MG/100 ML BAG IVPB ONE (23:56)
[2022-12-26] MEDS ORDERED: ACETAMINOPHEN INJECTION 100 ML IVPB ONE (00:08)
[2022-12-26] MEDS ORDERED: SODIUM CHLORIDE 0.9% 500 ML INFUS.BAG IV ONE ×2 (00:20→03:01)
[2022-12-26 02:35] LABS: EPI CELLS 25 /uL (0-25.1); HYALINE CASTS 1 /uL (0-3.1); URINE APPEARANCE CLEAR; URINE BACTERIA 27 /uL (0-1359); URINE BILIRUBIN NEGATIVE (NEGATIVE); URINE COLOR YELLOW; URINE GLUCOSE (UA) NEGATIVE (NEGATIVE); URINE KETONE NEGATIVE (NEGATIVE); URINE LEUK ESTERASE 1+ (NEGATIVE); URINE NITRITE NEGATIVE (NEGATIVE); URINE PROTEIN 2+ (NEGATIVE); URINE RBC 16 /uL (0-23.9); URINE UROBILINOGEN 0.2 mg/dL (0.2-1.0); URINE WBC 84 /uL (0-25.8)
[2022-12-26] MEDS ORDERED: HEPARIN NA (PORCINE) 5,000 UNITS/ML 1ML VIAL SQ SCH (06:30)
[2022-12-26] MEDS ORDERED: PIPERACILLIN/TAZOB 3.375 GM 3.375 GM in DEXTROSE 5%-WATER - 50 ML IVPB SCH (08:00)
[2022-12-26 08:08] LABS: HEMATOCRIT 46.9 % (35.4-49); HEMOGLOBIN 15.6 GM/dL (11.7-16.9); MCH 28.2 pg (25.7-33.7); MCHC 33.2 g/dl (32.0-35.9); MEAN CELL VOLUME 84.8 fl (80-96); PLATELET COUNT 118 10^3/uL (134-434); RBC 5.53 M/mm3 (4.00-5.60); RDW 15.7 % (11.9-15.9); WHITE BLOOD COUNT 20.7 K/mm3 (4.0-10.0)
[2022-12-26 08:10] LABS: POTASSIUM 4.1 mmol/L (3.5-5.1)
[2022-12-26 08:52] LABS: ANISOCYTOSIS 3+; MACROCYTOSIS 0
[2022-12-26] MEDS: INSULIN SLIDING SCALE (NOVOLOG) 1 VIAL SQ SCH ×3 (08:53→18:30)
[2022-12-26] MEDS ORDERED: METOPROLOL TARTRATE 50 MG TABLET (FP) ONE (09:06)
[2022-12-26] MEDS ORDERED: APIXABAN 2.5 MG TABLET ONE (09:06)
[2022-12-26] MEDS ORDERED: TAMSULOSIN HCL 0.4 MG CAP ONE (09:07)
[2022-12-26] MEDS ORDERED: PIPERACILLIN/TAZOB 3.375 GM 3.375 GM/50 ML BAG IVPB ONE (09:07)
[2022-12-26 09:08] LABS: BILIRUBIN,TOTAL 1.4 mg/dL (0.2-1); TOT PROT 6.4 g/dl (6.4-8.2)
[2022-12-26 09:09] LABS: ALBUMIN 2.8 g/dl (3.4-5.0); BLOOD UREA NITROGEN 37.5 mg/dL (7-18)
[2022-12-26 09:12] LABS: CREATININE 1.8 mg/dL (0.55-1.3); PHOSPHOROUS 4.1 mg/dL (2.5-4.9)
[2022-12-26] MEDS: TAMSULOSIN HCL 0.4 MG CAP PO SCH (09:12)
[2022-12-26] MEDS: APIXABAN 2.5 MG TABLET PO SCH ×2 (09:12→21:23)
[2022-12-26] MEDS: METOPROLOL TARTRATE 50 MG TABLET (FP) PO SCH ×2 (09:21→21:23)
[2022-12-26] MEDS: PIPERACILLIN/TAZOB 3.375 GM 3.375 GM in DEXTROSE 5%-WATER - 50 ML IVPB SCH (18:39)
[2022-12-27] MEDS ORDERED: PIPERACILLIN/TAZOBACTAM 3.375 GM VIAL IVPB ONE (01:34)
[2022-12-27] MEDS: PIPERACILLIN/TAZOB 3.375 GM 3.375 GM in DEXTROSE 5%-WATER - 50 ML IVPB SCH ×3 (02:11→18:07)
[2022-12-27] MEDS: INSULIN SLIDING SCALE (NOVOLOG) 1 VIAL SQ SCH ×3 (06:07→17:00)
[2022-12-27 06:38] VITALS: RESP 18
[2022-12-27] MEDS: TAMSULOSIN HCL 0.4 MG CAP PO SCH (09:18)
[2022-12-27] MEDS: METOPROLOL TARTRATE 50 MG TABLET (FP) PO SCH ×2 (09:18→21:44)
[2022-12-27] MEDS: APIXABAN 2.5 MG TABLET PO SCH ×2 (09:18→21:44)
[2022-12-27 09:23] LABS: BASO % 0.5 % (0-2.0); EOS % 2.9 % (0-4.5); HEMATOCRIT 47.9 % (35.4-49); HEMOGLOBIN 15.1 GM/dL (11.7-16.9); LYMPH % 12.7 % (8-40); MCH 27.5 pg (25.7-33.7); MCHC 31.4 g/dl (32.0-35.9); MEAN CELL VOLUME 87.4 fl (80-96); MEAN PLT VOLUME 10.8 fl (7.5-11.1); MONO % 8.8 % (3.8-10.2); NEUT % 75.1 % (42.8-82.8); PLATELET COUNT 119 10^3/uL (134-434); RBC 5.48 M/mm3 (4.00-5.60); RDW 15.5 % (11.9-15.9); WHITE BLOOD COUNT 12.5 K/mm3 (4.0-10.0)
[2022-12-27 09:36] LABS: POTASSIUM 3.8 mmol/L (3.5-5.1)
[2022-12-27 09:38] LABS: BLOOD UREA NITROGEN 47.8 mg/dL (7-18); CALCIUM 8.4 mg/dL (8.5-10.1)
[2022-12-27 09:39] LABS: ALBUMIN 2.8 g/dl (3.4-5.0)
[2022-12-27 09:43] LABS: BILIRUBIN,TOTAL 1.6 mg/dL (0.2-1); TOT PROT 6.8 g/dl (6.4-8.2)
[2022-12-27] MEDS ORDERED: VANCOMYCIN/WATER FOR INJ (PEG) 1,000 MG/200 ML BAG IVPB ONE (13:00)
[2022-12-28] MEDS: PIPERACILLIN/TAZOB 3.375 GM 3.375 GM in DEXTROSE 5%-WATER - 50 ML IVPB SCH ×3 (01:41→18:16)
[2022-12-28] MEDS: INSULIN SLIDING SCALE (NOVOLOG) 1 VIAL SQ SCH ×3 (06:27→18:00)
[2022-12-28] MEDS ORDERED: INSULIN (NOVOLOG) ASPART 100 UNITS/ML 10ML VIAL ONE (11:28)
[2022-12-28] MEDS: METOPROLOL TARTRATE 50 MG TABLET (FP) PO SCH ×2 (11:33→22:41)
[2022-12-28] MEDS: APIXABAN 2.5 MG TABLET PO SCH ×2 (11:33→22:42)
[2022-12-28] MEDS: TAMSULOSIN HCL 0.4 MG CAP PO SCH (11:33)
[2022-12-28] MEDS ORDERED: VANCOMYCIN/WATER FOR INJ (PEG) 1,000 MG/200 ML BAG IVPB ONE (14:33)
[2022-12-28 18:21] LABS: BASO % 0.7 % (0-2.0); EOS % 3.7 % (0-4.5); HEMATOCRIT 43.5 % (35.4-49); HEMOGLOBIN 14.4 GM/dL (11.7-16.9); LYMPH % 13.8 % (8-40); MCH 28.4 pg (25.7-33.7); MCHC 33.2 g/dl (32.0-35.9); MEAN CELL VOLUME 85.5 fl (80-96); MEAN PLT VOLUME 10.5 fl (7.5-11.1); MONO % 11.4 % (3.8-10.2); NEUT % 70.4 % (42.8-82.8); PLATELET COUNT 124 10^3/uL (134-434); RBC 5.09 M/mm3 (4.00-5.60); RDW 15.5 % (11.9-15.9); WHITE BLOOD COUNT 10.1 K/mm3 (4.0-10.0)
[2022-12-29] MEDS ORDERED: ACETAMINOPHEN 325 MG TABLET (FP) PO PRN (01:40)
[2022-12-29] MEDS: PIPERACILLIN/TAZOB 3.375 GM 3.375 GM in DEXTROSE 5%-WATER - 50 ML IVPB SCH ×2 (02:05→09:32)
[2022-12-29] MEDS: MELATONIN 5 MG TABLETS PO PRN ×2 (02:14→22:13)
[2022-12-29] MEDS: INSULIN SLIDING SCALE (NOVOLOG) 1 VIAL SQ SCH ×3 (06:30→16:51)
[2022-12-29] MEDS: TAMSULOSIN HCL 0.4 MG CAP PO SCH (09:31)
[2022-12-29] MEDS: TOLTERODINE TARTRATE 2 MG TABLET PO SCH ×2 (09:31→23:04)
[2022-12-29] MEDS: APIXABAN 2.5 MG TABLET PO SCH ×2 (09:31→22:13)
[2022-12-29] MEDS: METOPROLOL TARTRATE 50 MG TABLET (FP) PO SCH ×2 (09:31→22:13)
[2022-12-29 10:21] LABS: POTASSIUM 4.4 mmol/L (3.5-5.1)
[2022-12-29 10:31] LABS: CALCIUM 8.9 mg/dL (8.5-10.1)
[2022-12-29 10:32] LABS: ALBUMIN 2.7 g/dl (3.4-5.0); BLOOD UREA NITROGEN 56.6 mg/dL (7-18)
[2022-12-29 10:35] LABS: CREATININE 2.6 mg/dL (0.55-1.3)
[2022-12-29 10:36] LABS: BILIRUBIN,TOTAL 1.6 mg/dL (0.2-1); TOT PROT 6.9 g/dl (6.4-8.2)
[2022-12-29] MEDS ORDERED: INSULIN (NOVOLOG) ASPART 100 UNITS/ML 10ML VIAL ONE (11:21)
[2022-12-29] MEDS: CEFTRIAXONE 1 GM in DEXTROSE 5%-WATER - 50 ML IVPB SCH (12:22)
[2022-12-29] MEDS ORDERED: ARTIFICIAL TEARS (POLYVINYL ALCOHOL) OPTH DROPS OU PRN (14:07)
[2022-12-30] MEDS: INSULIN SLIDING SCALE (NOVOLOG) 1 VIAL SQ SCH ×3 (06:17→16:38)
[2022-12-30 08:41] LABS: POTASSIUM 4.3 mmol/L (3.5-5.1)
[2022-12-30 08:48] LABS: CALCIUM 8.6 mg/dL (8.5-10.1)
[2022-12-30 08:49] LABS: BLOOD UREA NITROGEN 56.2 mg/dL (7-18)
[2022-12-30 08:52] LABS: CREATININE 2.6 mg/dL (0.55-1.3)
[2022-12-30] MEDS: APIXABAN 2.5 MG TABLET PO SCH ×2 (09:26→22:28)
[2022-12-30] MEDS: CEFTRIAXONE 1 GM in DEXTROSE 5%-WATER - 50 ML IVPB SCH (09:26)
[2022-12-30] MEDS: METOPROLOL TARTRATE 50 MG TABLET (FP) PO SCH ×2 (09:26→22:37)
[2022-12-30] MEDS: TAMSULOSIN HCL 0.4 MG CAP PO SCH (09:26)
[2022-12-30] MEDS: TOLTERODINE TARTRATE 2 MG TABLET PO SCH ×2 (09:27→22:29)
[2022-12-30] MEDS ORDERED: INSULIN (NOVOLOG) ASPART 100 UNITS/ML 10ML VIAL ONE ×2 (11:48→16:36)
[2022-12-30] MEDS: ALBUTEROL SO4 2.5/IPRATROPIUM 0.5 INH SOL 3 ML VIAL.NEB. NEB SCH ×3 (12:05→20:00)
[2022-12-31] MEDS: INSULIN SLIDING SCALE (NOVOLOG) 1 VIAL SQ SCH ×3 (06:51→18:06)
[2022-12-31] MEDS: ALBUTEROL SO4 2.5/IPRATROPIUM 0.5 INH SOL 3 ML VIAL.NEB. NEB SCH ×4 (08:20→20:15)
[2022-12-31] MEDS: TOLTERODINE TARTRATE 2 MG TABLET PO SCH ×4 (09:51→22:13)
[2022-12-31] MEDS: TAMSULOSIN HCL 0.4 MG CAP PO SCH (10:04)
[2022-12-31] MEDS: METOPROLOL TARTRATE 50 MG TABLET (FP) PO SCH ×2 (10:04→22:13)
[2022-12-31] MEDS: CEFTRIAXONE 1 GM in DEXTROSE 5%-WATER - 50 ML IVPB SCH (10:04)
[2022-12-31] MEDS: APIXABAN 2.5 MG TABLET PO SCH ×2 (10:05→22:13)
[2022-12-31 10:11] LABS: BASO % 0.9 % (0-2.0); EOS % 5.7 % (0-4.5); HEMATOCRIT 47.2 % (35.4-49); HEMOGLOBIN 14.9 GM/dL (11.7-16.9); MCH 27.7 pg (25.7-33.7); MCHC 31.6 g/dl (32.0-35.9); MEAN CELL VOLUME 87.7 fl (80-96); MEAN PLT VOLUME 10.7 fl (7.5-11.1); MONO % 11.6 % (3.8-10.2); NEUT % 59.8 % (42.8-82.8); PLATELET COUNT 134 10^3/uL (134-434); RBC 5.38 M/mm3 (4.00-5.60); RDW 15.4 % (11.9-15.9)
[2022-12-31 10:26] LABS: POTASSIUM 4.7 mmol/L (3.5-5.1)
[2022-12-31 10:37] LABS: ALBUMIN 2.8 g/dl (3.4-5.0); CALCIUM 8.6 mg/dL (8.5-10.1)
[2022-12-31 10:40] LABS: BILIRUBIN,TOTAL 1.1 mg/dL (0.2-1)
[2022-12-31 10:41] LABS: CREATININE 2.3 mg/dL (0.55-1.3)
[2022-12-31 10:42] LABS: TOT PROT 7.2 g/dl (6.4-8.2)
[2022-12-31] MEDS ORDERED: INSULIN (NOVOLOG) ASPART 100 UNITS/ML 10ML VIAL ONE ×2 (12:44→18:03)
[2022-12-31] MEDS ORDERED: FUROSEMIDE 40 MG/4 ML INJECTABLE VIAL IVPUSH ONE (12:45)
[2022-12-31] MEDS: CLOTRIMAZOLE 1% CREAM TP SCH (22:13)
[2023-01-01] MEDS ORDERED: INSULIN (NOVOLOG) ASPART 100 UNITS/ML 10ML VIAL ONE ×2 (06:05→10:51)
[2023-01-01] MEDS: INSULIN SLIDING SCALE (NOVOLOG) 1 VIAL SQ SCH ×2 (06:30→10:52)
[2023-01-01 07:02] VITALS: TEMP 97.6
[2023-01-01] MEDS: ALBUTEROL SO4 2.5/IPRATROPIUM 0.5 INH SOL 3 ML VIAL.NEB. NEB SCH ×3 (07:30→15:00)
[2023-01-01] MEDS: TAMSULOSIN HCL 0.4 MG CAP PO SCH (09:06)
[2023-01-01] MEDS: CEFTRIAXONE 1 GM in DEXTROSE 5%-WATER - 50 ML IVPB SCH (09:06)
[2023-01-01] MEDS: APIXABAN 2.5 MG TABLET PO SCH (09:06)
[2023-01-01] MEDS: METOPROLOL TARTRATE 50 MG TABLET (FP) PO SCH (09:06)
[2023-01-01] MEDS: TOLTERODINE TARTRATE 2 MG TABLET PO SCH (09:07)
[2023-01-01] MEDS: CLOTRIMAZOLE 1% CREAM TP SCH (09:55)
[2023-01-01 11:05] VITALS: BMI 26.6
[2023-01-01 14:08] VITALS: BP 128/71; PULSE 96
[2023-01-01] MEDS ORDERED: FUROSEMIDE 40 MG TABLET (FP) PO SCH (16:00)
== END 2023-01-01 16:34 | disposition home health service (06) | DRG 194 ==
LOC: JER 21:29 → JERBED 22:28 → J8W 12-26 18:26
PROVIDERS: ADMIT Internal Medicine; ATTEND Family Medicine
DX: J12.1 Respiratory syncytial virus pneumonia (principal); E11.52 Type 2 diabetes mellitus with diabetic peripheral angiopathy with gangrene; I13.0 Hypertensive heart and chronic kidney disease with heart failure and stage 1 through stage 4 chronic kidney disease, or unspecified chronic kidney disease; N17.9 Acute kidney failure, unspecified; J44.0 Chronic obstructive pulmonary disease with (acute) lower respiratory infection; K86.2 Cyst of pancreas; N39.0 Urinary tract infection, site not specified; J90 Pleural effusion, not elsewhere classified; E11.65 Type 2 diabetes mellitus with hyperglycemia; I70.0 Atherosclerosis of aorta; I73.9 Peripheral vascular disease, unspecified; K21.9 Gastro-esophageal reflux disease without esophagitis; I48.91 Unspecified atrial fibrillation; E78.5 Hyperlipidemia, unspecified; I25.10 Atherosclerotic heart disease of native coronary artery without angina pectoris; E86.0 Dehydration; E11.40 Type 2 diabetes mellitus with diabetic neuropathy, unspecified
CPT/HCPCS: 0241U-QW; 36415; 71045-TC-FY; 71275-TC; 74177-TC; 80048; 80053; 81003; 82550; 82803; 82962; 83036; 83605; 83690; 83735; 83880; 84100; 84443; 84484; 85025; 85610; 85730; 86301; 86850; 86900; 86901; 87040; 87077; 87081; 87086; 87899; 93005; 93010; 94640; 94761; 97116-GP; 97162-GP; 99285-25; G0480; Q9967

== ENCOUNTER 2023-03-13 19:27 | Inpatient (IN) | payer OTHER ==
[2023-03-13] MEDS ORDERED: ALBUTEROL SO4 2.5/IPRATROPIUM 0.5 INH SOL 3 ML VIAL.NEB. NEB ONE (20:23)
[2023-03-13 20:41] LABS: VENOUS BASE EXCESS 0.9 mmol/L (-2-2); VENOUS O2 SATURATION 58.5 % (70-80); VENOUS PCO2 52.9 mmHg (38-52); VENOUS PH 7.339 (7.310-7.410)
[2023-03-13 20:47] LABS: BASO % 0.8 % (0-2.0); EOS % 2.6 % (0-4.5); HEMATOCRIT 46.4 % (35.4-49); HEMOGLOBIN 15.4 GM/dL (11.7-16.9); LYMPH % 25.6 % (8-40); MCH 28.5 pg (25.7-33.7); MCHC 33.2 g/dl (32.0-35.9); MEAN CELL VOLUME 85.8 fl (80-96); MEAN PLT VOLUME 10.9 fl (7.5-11.1); PLATELET COUNT 120 10^3/uL (134-434); RDW 16.7 % (11.9-15.9); WHITE BLOOD COUNT 7.8 K/mm3 (4.0-10.0)
[2023-03-13 20:51] LABS: EPI CELLS 11 /uL (0-25.1); HYALINE CASTS 1 /uL (0-3.1); PH,URINE 6.5 (5.0-8.0); URINE APPEARANCE CLEAR; URINE BACTERIA 8 /uL (0-1359); URINE BILIRUBIN NEGATIVE (NEGATIVE); URINE COLOR YELLOW; URINE GLUCOSE (UA) NEGATIVE (NEGATIVE); URINE KETONE NEGATIVE (NEGATIVE); URINE LEUK ESTERASE TRACE (NEGATIVE); URINE NITRITE NEGATIVE (NEGATIVE); URINE PROTEIN 1+ (NEGATIVE); URINE RBC 18 /uL (0-23.9); URINE UROBILINOGEN 0.2 mg/dL (0.2-1.0); URINE WBC 130 /uL (0-25.8)
[2023-03-13 20:56] LABS: INR 1.53 (0.83-1.09); PROTHROMBIN TIME (PATIENT) 17.7 SEC (9.7-13.0)
[2023-03-13 20:58] LABS: ACTIVATED PTT 41.1 SECONDS (25.2-36.5)
[2023-03-13 21:07] LABS: POTASSIUM 4.8 mmol/L (3.5-5.1)
[2023-03-13 21:13] LABS: CREATININE 1.9 mg/dL (0.55-1.3)
[2023-03-13] MEDS ORDERED: AZITHROMYCIN IVPB 500 MG in DEXTROSE 5%-WATER - 250 ML IVPB ONE (21:14)
[2023-03-13] MEDS ORDERED: CEFTRIAXONE 1 GM in DEXTROSE 5%-WATER - 50 ML IVPB ONE (21:14)
[2023-03-13 21:15] LABS: BILIRUBIN,TOTAL 0.7 mg/dL (0.2-1); TOT PROT 7.6 g/dl (6.4-8.2)
[2023-03-13 21:18] LABS: N-TERMINAL BNP 6306.3 pg/ml (5-450)
[2023-03-13 21:27] LABS: ANISOCYTOSIS 1+; MACROCYTOSIS 0
[2023-03-13] MEDS ORDERED: CEFTRIAXONE 1 GM/50 ML BAG ONE (21:40)
[2023-03-13] MEDS ORDERED: AZITHROMYCIN IVPB 500 MG/250 ML BAG IVPB ONE (21:41)
[2023-03-13] MEDS ORDERED: methylPREDNISolone NA SUCC 125 MG/2 ML VIAL IVPUSH ONE (23:43)
[2023-03-13] MEDS ORDERED: ALBUTEROL SO4 HFA INHALER IH PRN (23:44)
[2023-03-14] MEDS ORDERED: methylPREDNISolone NA SUCC 125 MG/2 ML VIAL ONE (06:18)
[2023-03-14 07:40] LABS: BASO % 0.9 % (0-2.0); EOS % 4.4 % (0-4.5); HEMATOCRIT 43.9 % (35.4-49); HEMOGLOBIN 14.7 GM/dL (11.7-16.9); LYMPH % 34.9 % (8-40); MCH 28.8 pg (25.7-33.7); MCHC 33.6 g/dl (32.0-35.9); MEAN CELL VOLUME 85.7 fl (80-96); MEAN PLT VOLUME 10.6 fl (7.5-11.1); MONO % 15.8 % (3.8-10.2); PLATELET COUNT 105 10^3/uL (134-434); RBC 5.12 M/mm3 (4.00-5.60); RDW 15.8 % (11.9-15.9); WHITE BLOOD COUNT 6.6 K/mm3 (4.0-10.0)
[2023-03-14 07:59] LABS: POTASSIUM 3.8 mmol/L (3.5-5.1)
[2023-03-14 08:03] LABS: CALCIUM 8.9 mg/dL (8.5-10.1)
[2023-03-14 08:04] LABS: BLOOD UREA NITROGEN 43.6 mg/dL (7-18)
[2023-03-14 08:07] LABS: CREATININE 1.8 mg/dL (0.55-1.3)
[2023-03-14] MEDS ORDERED: methylPREDNISolone NA SUCC 40 MG/1 ML VIAL IVPUSH SCH ×2 (09:00→22:00)
[2023-03-14] MEDS ORDERED: AZITHROMYCIN IVPB 500 MG/250 ML BAG IVPB SCH (10:00)
[2023-03-14] MEDS ORDERED: CEFTRIAXONE 1 GM in DEXTROSE 5%-WATER - 50 ML IVPB SCH (10:00)
[2023-03-14] MEDS ORDERED: REMDESIVIR 100 MG in SODIUM CHLORIDE 250 ML IVPB SCH (10:15)
[2023-03-14] MEDS ORDERED: FUROSEMIDE 40 MG TABLET (FP) ONE (10:25)
[2023-03-14] MEDS ORDERED: TAMSULOSIN HCL 0.4 MG CAP ONE (10:26)
[2023-03-14] MEDS ORDERED: APIXABAN 2.5 MG TABLET ONE (10:26)
[2023-03-14] MEDS ORDERED: METOPROLOL TARTRATE 50 MG TABLET (FP) ONE (10:26)
[2023-03-14] MEDS ORDERED: methylPREDNISolone NA SUCC 40 MG/1 ML VIAL ONE (10:26)
[2023-03-14] MEDS: APIXABAN 2.5 MG TABLET PO SCH (10:52)
[2023-03-14] MEDS: TAMSULOSIN HCL 0.4 MG CAP PO SCH (10:52)
[2023-03-14] MEDS: METOPROLOL TARTRATE 50 MG TABLET (FP) PO SCH (10:52)
[2023-03-14] MEDS: FUROSEMIDE 40 MG TABLET (FP) PO SCH (10:52)
[2023-03-14] MEDS ORDERED: REMDESIVIR 200 MG in SODIUM CHLORIDE 250 ML IVPB ONE (11:00)
[2023-03-14] MEDS ORDERED: INSULIN (NOVOLOG) ASPART 100 UNITS/ML 10ML VIAL SQ ONE (19:52)
[2023-03-14] MEDS ORDERED: INSULIN (LEVEMIR) 100 UNITS/ML UNITS SQ ONE (20:55)
[2023-03-15] MEDS ORDERED: APIXABAN 2.5 MG TABLET ONE ×2 (00:03→21:18)
[2023-03-15] MEDS ORDERED: METOPROLOL TARTRATE 50 MG TABLET (FP) ONE (00:04)
[2023-03-15] MEDS: METOPROLOL TARTRATE 50 MG TABLET (FP) PO SCH ×3 (00:12→21:06)
[2023-03-15] MEDS: APIXABAN 2.5 MG TABLET PO SCH ×3 (00:12→21:26)
[2023-03-15] MEDS: TAMSULOSIN HCL 0.4 MG CAP PO SCH (09:25)
[2023-03-15] MEDS: FUROSEMIDE 40 MG TABLET (FP) PO SCH (09:25)
[2023-03-15] MEDS: REMDESIVIR 100 MG in SODIUM CHLORIDE 250 ML IVPB SCH (09:25)
[2023-03-15] MEDS: INSULIN ASPART SLIDING SCALE (NOVOLOG) 1 VIAL SQ SCH ×3 (13:01→21:26)
[2023-03-15] MEDS ORDERED: INSULIN (LEVEMIR) 100 UNITS/ML UNITS SQ ONE (21:19)
[2023-03-15] MEDS: INSULIN (LEVEMIR) 100 UNITS/ML UNITS SQ SCH (21:26)
[2023-03-16] MEDS: METOPROLOL TARTRATE 50 MG TABLET (FP) PO SCH ×2 (10:08→22:16)
[2023-03-16] MEDS: APIXABAN 2.5 MG TABLET PO SCH ×2 (10:08→22:16)
[2023-03-16] MEDS: FUROSEMIDE 40 MG TABLET (FP) PO SCH (10:08)
[2023-03-16] MEDS: TAMSULOSIN HCL 0.4 MG CAP PO SCH (10:08)
[2023-03-16] MEDS: INSULIN ASPART SLIDING SCALE (NOVOLOG) 1 VIAL SQ SCH ×4 (11:00→22:23)
[2023-03-16] MEDS: INSULIN (LEVEMIR) 100 UNITS/ML UNITS SQ SCH ×2 (12:15→22:16)
[2023-03-16] MEDS ORDERED: INSULIN (NOVOLOG) ASPART 100 UNITS/ML 10ML VIAL ONE (12:19)
[2023-03-16] MEDS: REMDESIVIR 100 MG in SODIUM CHLORIDE 250 ML IVPB SCH (12:22)
[2023-03-16 17:35] LABS: CALCIUM 8.4 mg/dL (8.5-10.1)
[2023-03-16 17:36] LABS: BLOOD UREA NITROGEN 66.4 mg/dL (7-18)
[2023-03-16 17:39] LABS: CREATININE 1.8 mg/dL (0.55-1.3)
[2023-03-16 21:01] VITALS: BMI 28.8
[2023-03-17] MEDS: INSULIN ASPART SLIDING SCALE (NOVOLOG) 1 VIAL SQ SCH ×4 (07:17→22:07)
[2023-03-17] MEDS: METOPROLOL TARTRATE 50 MG TABLET (FP) PO SCH ×2 (09:50→22:05)
[2023-03-17] MEDS: TAMSULOSIN HCL 0.4 MG CAP PO SCH (09:50)
[2023-03-17] MEDS: FUROSEMIDE 40 MG TABLET (FP) PO SCH (09:51)
[2023-03-17] MEDS: APIXABAN 2.5 MG TABLET PO SCH ×2 (09:51→22:06)
[2023-03-17] MEDS: INSULIN (LEVEMIR) 100 UNITS/ML UNITS SQ SCH (10:49)
[2023-03-17] MEDS ORDERED: INSULIN (NOVOLOG) ASPART 100 UNITS/ML 10ML VIAL ONE (21:37)
[2023-03-18] MEDS ORDERED: INSULIN (LEVEMIR) 100 UNITS/ML UNITS SQ SCH (07:00)
[2023-03-18] MEDS: INSULIN ASPART SLIDING SCALE (NOVOLOG) 1 VIAL SQ SCH ×2 (07:55→12:11)
[2023-03-18] MEDS: METOPROLOL TARTRATE 50 MG TABLET (FP) PO SCH (09:14)
[2023-03-18] MEDS: TAMSULOSIN HCL 0.4 MG CAP PO SCH (09:14)
[2023-03-18] MEDS: FUROSEMIDE 40 MG TABLET (FP) PO SCH (09:14)
[2023-03-18] MEDS: APIXABAN 2.5 MG TABLET PO SCH (09:14)
[2023-03-18 09:21] VITALS: RESP 20
[2023-03-18 15:21] VITALS: BP 114/72; PULSE 77; TEMP 97.5
== END 2023-03-18 15:26 | disposition home health service (06) | DRG 178 ==
LOC: JER 19:27 → JERBED 21:20 → OBSVTOIN 03-15 12:40 → J8W 03-16 08:23
PROVIDERS: ADMIT Internal Medicine; ATTEND Family Medicine
PROC: XW033E5 Introduction of Remdesivir Anti-infective into Peripheral Vein, Percutaneous Approach, New Technology Group 5 (ICD-10-PCS; principal; 2023-03-14)
DX: U07.1 COVID-19 (principal); I13.0 Hypertensive heart and chronic kidney disease with heart failure and stage 1 through stage 4 chronic kidney disease, or unspecified chronic kidney disease; J44.1 Chronic obstructive pulmonary disease with (acute) exacerbation; I10 Essential (primary) hypertension; E78.5 Hyperlipidemia, unspecified; J44.9 Chronic obstructive pulmonary disease, unspecified; I25.10 Atherosclerotic heart disease of native coronary artery without angina pectoris; E11.319 Type 2 diabetes mellitus with unspecified diabetic retinopathy without macular edema; I48.91 Unspecified atrial fibrillation; K21.9 Gastro-esophageal reflux disease without esophagitis; K58.9 Irritable bowel syndrome, unspecified; M06.9 Rheumatoid arthritis, unspecified; I35.0 Nonrheumatic aortic (valve) stenosis; E11.51 Type 2 diabetes mellitus with diabetic peripheral angiopathy without gangrene; E11.22 Type 2 diabetes mellitus with diabetic chronic kidney disease; N18.9 Chronic kidney disease, unspecified; I50.9 Heart failure, unspecified; Z99.81 Dependence on supplemental oxygen
CPT/HCPCS: 0241U-QW; 36415; 70450-TC; 71045-TC-FY; 80048; 80053; 81003; 82803; 82962; 83880; 84484; 85025; 85610; 85730; 87040; 87086; 93005; 93010; 97116-GP; 97162-GP; 99285-25; G0378; J0248

== ENCOUNTER 2023-10-20 06:53 | Inpatient (IN) | payer OTHER ==
[2023-10-20] MEDS: ALBUTEROL SO4 2.5/IPRATROPIUM 0.5 INH SOL 3 ML VIAL.NEB. NEB ONE (08:00)
[2023-10-20] MEDS ORDERED: ALBUTEROL SO4 2.5/IPRATROPIUM 0.5 INH SOL 3 ML VIAL.NEB. NEB ONE (08:23)
[2023-10-20 08:37] LABS: BASO % 0.7 % (0-2.0); EOS % 3.3 % (0-4.5); HEMATOCRIT 52.4 % (35.4-49); HEMOGLOBIN 17.4 GM/dL (11.7-16.9); LYMPH % 15.3 % (8-40); MCH 29.1 pg (25.7-33.7); MCHC 33.2 g/dl (32.0-35.9); MEAN CELL VOLUME 87.8 fl (80-96); MEAN PLT VOLUME 10.2 fl (7.5-11.1); MONO % 7.5 % (3.8-10.2); NEUT % 73.2 % (42.8-82.8); PLATELET COUNT 122 10^3/uL (134-434); RBC 5.96 M/mm3 (4.00-5.60); RDW 15.7 % (11.9-15.9); WHITE BLOOD COUNT 9.8 K/mm3 (4.0-10.0)
[2023-10-20 08:58] LABS: POTASSIUM 4.3 mmol/L (3.5-5.1)
[2023-10-20 09:00] LABS: ALBUMIN 3.3 g/dl (3.4-5.0); BLOOD UREA NITROGEN 39.8 mg/dL (7-18); CALCIUM 9.1 mg/dL (8.5-10.1)
[2023-10-20 09:04] LABS: CREATININE 1.7 mg/dL (0.55-1.3)
[2023-10-20 09:05] LABS: TOT PROT 7.5 g/dl (6.4-8.2)
[2023-10-20] MEDS ORDERED: CEFTRIAXONE 1 GM/50 ML BAG ONE (11:06)
[2023-10-20] MEDS ORDERED: AZITHROMYCIN IVPB 500 MG/250 ML BAG IVPB ONE (11:06)
[2023-10-20] MEDS: CEFTRIAXONE 1,000 MG in DEXTROSE 5%-WATER - 50 ML IVPB ONE (11:11)
[2023-10-20 11:18] LABS: EPI CELLS 3 /uL (0-25.1); HYALINE CASTS 0 /uL (0-3.1); PH,URINE 5.5 (5.0-8.0); URINE APPEARANCE CLEAR; URINE BACTERIA 6 /uL (0-1359); URINE BILIRUBIN NEGATIVE (NEGATIVE); URINE COLOR YELLOW; URINE GLUCOSE (UA) NEGATIVE (NEGATIVE); URINE KETONE NEGATIVE (NEGATIVE); URINE LEUK ESTERASE NEGATIVE (NEGATIVE); URINE NITRITE NEGATIVE (NEGATIVE); URINE PROTEIN 2+ (NEGATIVE); URINE RBC 6 /uL (0-23.9); URINE UROBILINOGEN 0.2 mg/dL (0.2-1.0); URINE WBC 4 /uL (0-25.8)
[2023-10-20] MEDS: AZITHROMYCIN IVPB 500 MG in DEXTROSE 5%-WATER - 250 ML IVPB ONE (11:41)
[2023-10-20 14:39] LABS: HIV INTERPRETATION NEGATIVE (NEGATIVE)
[2023-10-20] MEDS: APIXABAN 2.5 MG TABLET PO SCH (22:08)
[2023-10-20] MEDS: INSULIN ASPART SLIDING SCALE (NOVOLOG) 1 VIAL SQ SCH (22:08)
[2023-10-20] MEDS: METOPROLOL TARTRATE 50 MG TABLET (FP) PO SCH (22:08)
[2023-10-21] MEDS: TAMSULOSIN HCL 0.4 MG CAP PO SCH (08:27)
[2023-10-21] MEDS ORDERED: CEFTRIAXONE 1,000 MG in DEXTROSE 5%-WATER - 50 ML IVPB SCH (10:00)
[2023-10-21 10:25] LABS: BASO % 0.9 % (0-2.0); EOS % 5.3 % (0-4.5); HEMATOCRIT 49.8 % (35.4-49); HEMOGLOBIN 16.4 GM/dL (11.7-16.9); LYMPH % 21.8 % (8-40); MCH 28.7 pg (25.7-33.7); MCHC 32.9 g/dl (32.0-35.9); MEAN CELL VOLUME 87.2 fl (80-96); MEAN PLT VOLUME 10.4 fl (7.5-11.1); PLATELET COUNT 119 10^3/uL (134-434); RBC 5.71 M/mm3 (4.00-5.60); RDW 15.9 % (11.9-15.9); WHITE BLOOD COUNT 7.6 K/mm3 (4.0-10.0)
[2023-10-21 10:59] LABS: POTASSIUM 4.3 mmol/L (3.5-5.1)
[2023-10-21] MEDS: FUROSEMIDE 40 MG TABLET (FP) PO SCH (10:59)
[2023-10-21 11:09] LABS: CALCIUM 9.1 mg/dL (8.5-10.1)
[2023-10-21 11:10] LABS: ALBUMIN 2.7 g/dl (3.4-5.0); BLOOD UREA NITROGEN 36.1 mg/dL (7-18); MAGNESIUM 2.3 mg/dL (1.8-2.4)
[2023-10-21 11:13] LABS: CREATININE 1.6 mg/dL (0.55-1.3); PHOSPHOROUS 3.1 mg/dL (2.5-4.9)
[2023-10-21 11:15] LABS: BILIRUBIN,TOTAL 1.1 mg/dL (0.2-1); TOT PROT 6.3 g/dl (6.4-8.2)
[2023-10-21] MEDS: AZITHROMYCIN IVPB 500 MG/250 ML BAG IVPB SCH (11:48)
[2023-10-21] MEDS: CEFTRIAXONE 1 GM in DEXTROSE 5%-WATER - 50 ML IVPB SCH (11:48)
[2023-10-21] MEDS: ALBUTEROL SO4 2.5/IPRATROPIUM 0.5 INH SOL 3 ML VIAL.NEB. NEB SCH (19:03)
[2023-10-21] MEDS: BUDESONIDE/FORMETEROL FUMARATE 80/4.5 mcg INHALER IH SCH (22:05)
[2023-10-22 08:42] LABS: BASO % 0.7 % (0-2.0); HEMATOCRIT 46.9 % (35.4-49); HEMOGLOBIN 15.3 GM/dL (11.7-16.9); LYMPH % 25.8 % (8-40); MCH 28.8 pg (25.7-33.7); MCHC 32.7 g/dl (32.0-35.9); MEAN CELL VOLUME 88.1 fl (80-96); MONO % 9.4 % (3.8-10.2); NEUT % 58.1 % (42.8-82.8); PLATELET COUNT 122 10^3/uL (134-434); RBC 5.32 M/mm3 (4.00-5.60); RDW 15.5 % (11.9-15.9); WHITE BLOOD COUNT 8.1 K/mm3 (4.0-10.0)
[2023-10-22 09:03] LABS: POTASSIUM 4.4 mmol/L (3.5-5.1)
[2023-10-22 09:08] LABS: ALBUMIN 2.9 g/dl (3.4-5.0); BLOOD UREA NITROGEN 44.6 mg/dL (7-18)
[2023-10-22 09:11] LABS: CREATININE 1.7 mg/dL (0.55-1.3)
[2023-10-22 09:12] LABS: BILIRUBIN,TOTAL 0.8 mg/dL (0.2-1); TOT PROT 6.6 g/dl (6.4-8.2)
[2023-10-22] MEDS: ALBUTEROL SO4 2.5/IPRATROPIUM 0.5 INH SOL 3 ML VIAL.NEB. NEB SCH (11:36)
[2023-10-22] MEDS: methylPREDNISolone NA SUCC 40 MG/1 ML VIAL IVPUSH SCH (11:41)
[2023-10-23] MEDS: ASCORBIC ACID 500 MG TABLET (FP) PO SCH (12:23)
[2023-10-23] MEDS: MULTIVITAMINS THER W-MINERALS COMBO TABLET (FP) PO SCH (12:23)
[2023-10-24 12:59] VITALS: RESP 20
[2023-10-24 13:00] VITALS: BMI 28.3
[2023-10-24 14:57] VITALS: BP 106/86; PULSE 95; TEMP 97.3
== END 2023-10-24 17:29 | disposition home health service (06) | DRG 194 ==
LOC: JER 06:53 → JERBED 10:54 → J6S 14:32
PROVIDERS: ADMIT Internal Medicine; ATTEND Internal Medicine
DX: J18.9 Pneumonia, unspecified organism (principal); I13.0 Hypertensive heart and chronic kidney disease with heart failure and stage 1 through stage 4 chronic kidney disease, or unspecified chronic kidney disease; J44.1 Chronic obstructive pulmonary disease with (acute) exacerbation; J44.0 Chronic obstructive pulmonary disease with (acute) lower respiratory infection; I48.91 Unspecified atrial fibrillation; E11.51 Type 2 diabetes mellitus with diabetic peripheral angiopathy without gangrene; I25.10 Atherosclerotic heart disease of native coronary artery without angina pectoris; K58.9 Irritable bowel syndrome, unspecified; I35.0 Nonrheumatic aortic (valve) stenosis; E11.22 Type 2 diabetes mellitus with diabetic chronic kidney disease; N18.9 Chronic kidney disease, unspecified; I50.9 Heart failure, unspecified; Z89.421 Acquired absence of other right toe(s)
CPT/HCPCS: 0241U-QW; 36415; 71045-TC-FY; 80053; 81003; 82962; 83036; 83735; 84100; 84479; 84484; 85025; 86803; 87040; 87070; 87186; 87205; 87389; 87899; 93005; 93010; 94640; 97116-GP; 97162-GP; 99285-25

== ENCOUNTER 2023-12-10 12:28 | Emergency (ER) | payer OTHER ==
[2023-12-10 12:34] VITALS: TEMP 97.9; BMI 34.3
[2023-12-10] MEDS: ACETAMINOPHEN 325 MG TABLET (FP) PO ONE (13:11)
[2023-12-10] MEDS ORDERED: ACETAMINOPHEN 325 MG TABLET (FP) ONE (13:12)
[2023-12-10 14:27] VITALS: RESP 22
[2023-12-10] MEDS ORDERED: BACITRACIN 0.9 GM PACKET ONE (15:55)
[2023-12-10] MEDS ORDERED: BACITRACIN ZINC 15 GM TUBE TOPICAL OINTMENT ONE ×2 (15:56→16:01)
[2023-12-10] MEDS: BACITRACIN 0.9 GM PACKET TP ONE (16:08)
[2023-12-10] MEDS ORDERED: DIPHTH,PERTUSS(ACELL),TET 0.5 ML DISP.SYRIN IM ONE (16:08)
[2023-12-10] MEDS: DIPHTH,PERTUSS(ACELL),TET 0.5 ML DISP.SYRIN IM ONE (16:10)
[2023-12-10] MEDS: BACITRACIN ZINC 15 GM TUBE TOPICAL OINTMENT TP ONE (16:12)
[2023-12-10 17:33] VITALS: BP 119/81; PULSE 79
== END 2023-12-10 18:02 | disposition home or self-care (01) ==
LOC: JER 12:28
PROC: 3E0234Z Introduction of Serum, Toxoid and Vaccine into Muscle, Percutaneous Approach (ICD-10-PCS; principal; 2023-12-10)
DX: M54.2 Cervicalgia (principal); M25.562 Pain in left knee; M79.601 Pain in right arm; M25.511 Pain in right shoulder; R05.9 Cough, unspecified; W06.XXXA Fall from bed, initial encounter; Z23 Encounter for immunization
CPT/HCPCS: 70450-TC; 71045-TC-FY; 72125-TC; 73030-TC-RT-FY; 73560-TC-LT-FY; 90471; 90715; 99284-25

== ENCOUNTER 2023-12-22 16:01 | Emergency (ER) | payer OTHER ==
[2023-12-22 16:09] VITALS: BP 143/96; PULSE 88; RESP 16; TEMP 97.6; BMI 29.9
[2023-12-22 17:47] LABS: BASO % 0.9 % (0-2.0); EOS % 5.3 % (0-4.5); HEMATOCRIT 48.4 % (35.4-49); LYMPH % 22.7 % (8-40); MCHC 33.1 g/dl (32.0-35.9); MEAN CELL VOLUME 87.6 fl (80-96); MEAN PLT VOLUME 9.8 fl (7.5-11.1); MONO % 8.1 % (3.8-10.2); PLATELET COUNT 146 10^3/uL (134-434); RBC 5.52 M/mm3 (4.00-5.60); RDW 15.7 % (11.9-15.9); WHITE BLOOD COUNT 8.8 K/mm3 (4.0-10.0)
[2023-12-22 18:11] LABS: CALCIUM 9.1 mg/dL (8.5-10.1)
[2023-12-22 18:12] LABS: BLOOD UREA NITROGEN 37.6 mg/dL (7-18); MAGNESIUM 2.2 mg/dL (1.8-2.4)
[2023-12-22 18:15] LABS: CREATININE 1.7 mg/dL (0.55-1.3); PHOSPHOROUS 4.4 mg/dL (2.5-4.9)
[2023-12-22 18:16] LABS: BILIRUBIN,TOTAL 1.1 mg/dL (0.2-1); TOT PROT 6.9 g/dl (6.4-8.2)
[2023-12-22] MEDS ORDERED: CLINDAMYCIN HCL 150 MG CAPSULE (FP) ONE (18:35)
[2023-12-22] MEDS: CLINDAMYCIN HCL 300 MG CAPSULE PO ONE (18:43)
[2023-12-22 18:54] LABS: ERYTHROCYTE SEDIMENTATION RATE 13 mm/hr (0-20)
== END 2023-12-22 18:45 | disposition home or self-care (01) ==
LOC: JER 16:01
DX: S81.801A Unspecified open wound, right lower leg, initial encounter (principal); L03.115 Cellulitis of right lower limb; W19.XXXA Unspecified fall, initial encounter
CPT/HCPCS: 36415; 73590-TC-RT-FY; 80053; 83735; 84100; 85025; 85651; 86140; 93005; 93010; 99285-25

== ENCOUNTER 2024-02-22 12:16 | Observation (INO) | payer OTHER ==
[2024-02-22 14:00] LABS: HEMATOCRIT 47.8 % (35.4-49); MCH 27.5 pg (25.7-33.7); MCHC 31.3 g/dl (32.0-35.9); MEAN CELL VOLUME 87.8 fl (80-96); MEAN PLT VOLUME 10.5 fl (7.5-11.1); PLATELET COUNT 178 10^3/uL (134-434); RBC 5.44 M/mm3 (4.00-5.60); RDW 14.8 % (11.9-15.9); WHITE BLOOD COUNT 11.2 K/mm3 (4.0-10.0)
[2024-02-22 14:10] LABS: INR 1.77 (0.83-1.09); PROTHROMBIN TIME (PATIENT) 19.7 SEC (9.7-13.0)
[2024-02-22 14:34] LABS: POTASSIUM 3.9 mmol/L (3.5-5.1)
[2024-02-22 14:35] LABS: CALCIUM 8.9 mg/dL (8.5-10.1)
[2024-02-22 14:36] LABS: ALBUMIN 2.6 g/dl (3.4-5.0); BLOOD UREA NITROGEN 47.8 mg/dL (7-18)
[2024-02-22 14:39] LABS: CREATININE 1.7 mg/dL (0.55-1.3)
[2024-02-22 14:41] LABS: BILIRUBIN,TOTAL 1.4 mg/dL (0.2-1); TOT PROT 6.9 g/dl (6.4-8.2)
[2024-02-22 15:40] LABS: N-TERMINAL BNP 9464.8 pg/ml (5-450)
[2024-02-22] MEDS: FUROSEMIDE 40 MG/4 ML INJECTABLE VIAL IVPUSH ONE (17:25)
[2024-02-22] MEDS ORDERED: FUROSEMIDE 40 MG/4 ML INJECTABLE VIAL ONE (17:39)
[2024-02-22 20:52] VITALS: BMI 23.4
[2024-02-22] MEDS: ATORVASTATIN CA 40 MG TABLET (FP) PO SCH (21:08)
[2024-02-22] MEDS: INSULIN (LEVEMIR) 100 UNITS/ML UNITS SQ SCH (22:39)
[2024-02-22] MEDS: INSULIN ASPART SLIDING SCALE (NOVOLOG) 1 VIAL SQ SCH (22:40)
[2024-02-23 09:36] LABS: BASO % 0.5 % (0-2.0); LYMPH % 19.8 % (8-40); MCH 28.3 pg (25.7-33.7); MCHC 32.7 g/dl (32.0-35.9); MEAN CELL VOLUME 86.4 fl (80-96); MEAN PLT VOLUME 10.8 fl (7.5-11.1); MONO % 8.3 % (3.8-10.2); NEUT % 68.4 % (42.8-82.8); PLATELET COUNT 189 10^3/uL (134-434); RBC 5.67 M/mm3 (4.00-5.60); RDW 14.8 % (11.9-15.9); WHITE BLOOD COUNT 10.8 K/mm3 (4.0-10.0)
[2024-02-23] MEDS ORDERED: PATIENT'S OWN MEDICATION (NON-FORMULARY) (Vibegron [Gemtesa] 75 MG Tablet) PO SCH (10:00)
[2024-02-23 10:13] LABS: POTASSIUM 3.7 mmol/L (3.5-5.1)
[2024-02-23 10:31] LABS: ALBUMIN 2.6 g/dl (3.4-5.0); MAGNESIUM 2.2 mg/dL (1.8-2.4)
[2024-02-23 10:32] LABS: BLOOD UREA NITROGEN 46.8 mg/dL (7-18)
[2024-02-23 10:34] LABS: CREATININE 1.8 mg/dL (0.55-1.3); PHOSPHOROUS 4.2 mg/dL (2.5-4.9)
[2024-02-23 10:35] LABS: BILIRUBIN,TOTAL 1.1 mg/dL (0.2-1)
[2024-02-23 10:36] LABS: TOT PROT 7.2 g/dl (6.4-8.2)
[2024-02-23] MEDS: EZETIMIBE 10 MG TABLET (FP) PO SCH (10:48)
[2024-02-23] MEDS: FUROSEMIDE 40 MG/4 ML INJECTABLE VIAL IVPUSH SCH (10:48)
[2024-02-24] MEDS: LIDOCAINE 4% PATCH TP SCH (09:51)
[2024-02-24] MEDS: FUROSEMIDE 40 MG TABLET (FP) PO SCH (09:51)
[2024-02-24 10:12] LABS: HEMATOCRIT 47.5 % (35.4-49); HEMOGLOBIN 15.2 GM/dL (11.7-16.9); MCH 27.9 pg (25.7-33.7); MEAN CELL VOLUME 87.3 fl (80-96); MEAN PLT VOLUME 10.9 fl (7.5-11.1); PLATELET COUNT 193 10^3/uL (134-434); RBC 5.44 M/mm3 (4.00-5.60); RDW 14.4 % (11.9-15.9)
[2024-02-24 10:29] LABS: POTASSIUM 3.8 mmol/L (3.5-5.1)
[2024-02-24 10:33] LABS: ALBUMIN 2.4 g/dl (3.4-5.0); BLOOD UREA NITROGEN 46.1 mg/dL (7-18)
[2024-02-24 10:35] LABS: CALCIUM 8.7 mg/dL (8.5-10.1)
[2024-02-24 10:36] LABS: CREATININE 1.7 mg/dL (0.55-1.3)
[2024-02-24 10:39] LABS: BILIRUBIN,TOTAL 0.9 mg/dL (0.2-1)
[2024-02-24 10:40] LABS: TOT PROT 6.7 g/dl (6.4-8.2)
[2024-02-24] MEDS: LIDOCAINE PATCH REMOVAL MC SCH (21:37)
[2024-02-24] MEDS ORDERED: APIXABAN 2.5 MG TABLET PO SCH (22:00)
[2024-02-25] MEDS: APIXABAN 2.5 MG TABLET PO SCH ×2 (10:09→21:25)
[2024-02-26 10:03] LABS: POTASSIUM 4.6 mmol/L (3.5-5.1)
[2024-02-26 10:12] LABS: CALCIUM 8.9 mg/dL (8.5-10.1)
[2024-02-26 10:13] LABS: ALBUMIN 2.4 g/dl (3.4-5.0); BLOOD UREA NITROGEN 53.2 mg/dL (7-18); CREATININE 1.6 mg/dL (0.55-1.3)
[2024-02-26 10:15] LABS: BILIRUBIN,TOTAL 1.1 mg/dL (0.2-1)
[2024-02-26] MEDS: MELATONIN 5 MG TABLETS PO ONE (23:36)
[2024-02-28 06:51] VITALS: RESP 18
[2024-02-28 13:41] VITALS: BP 129/85; PULSE 94; TEMP 97.7
== END 2024-02-28 19:24 ==
LOC: JER 12:16 → JERBED 16:48 → J6S 20:06
PROVIDERS: ADMIT Internal Medicine; ATTEND Internal Medicine
PROC: 3E033GC Introduction of Other Therapeutic Substance into Peripheral Vein, Percutaneous Approach (ICD-10-PCS; principal; 2024-02-22)
PROC: 3E013VG Introduction of Insulin into Subcutaneous Tissue, Percutaneous Approach (ICD-10-PCS; 2024-02-22)
DX: R06.09 Other forms of dyspnea (principal); I11.0 Hypertensive heart disease with heart failure; I35.0 Nonrheumatic aortic (valve) stenosis; N18.9 Chronic kidney disease, unspecified; Z95.5 Presence of coronary angioplasty implant and graft; I48.0 Paroxysmal atrial fibrillation; R60.0 Localized edema; I25.10 Atherosclerotic heart disease of native coronary artery without angina pectoris; E11.22 Type 2 diabetes mellitus with diabetic chronic kidney disease; E78.5 Hyperlipidemia, unspecified; K86.2 Cyst of pancreas; R13.10 Dysphagia, unspecified; J44.9 Chronic obstructive pulmonary disease, unspecified; M25.462 Effusion, left knee; N40.0 Benign prostatic hyperplasia without lower urinary tract symptoms; Z89.421 Acquired absence of other right toe(s); F10.21 Alcohol dependence, in remission; R79.89 Other specified abnormal findings of blood chemistry; Z79.01 Long term (current) use of anticoagulants
CPT/HCPCS: 0241U-QW; 36415; 71045-TC-FY; 73560-TC-LT-FY; 74181-TC; 74230-TC-FY; 80053; 82550; 82962; 82977; 83516; 83735; 83880; 84100; 84484; 85025; 85027; 85610; 86038; 86704; 86708; 86803; 87340; 87517; 92611-GN; 93005; 93010; 93306-TC; 93971-TC; 96372; 96374; 96375; 97116-GP; 97162-GP; 99285-25; G0378

== ENCOUNTER 2024-08-25 10:38 | Inpatient (IN) | payer OTHER ==
[2024-08-25 12:33] LABS: MCHC 30.6 g/dl (32.3-36.5); MEAN CELL VOLUME 88.2 fl (79.0-92.2); RDW 16.0 % (12.6-16.6)
[2024-08-25 12:41] LABS: INR 1.5 (0.83-1.09); PROTHROMBIN TIME (PATIENT) 16.4 SEC (9.7-13.0)
[2024-08-25 12:44] LABS: ACTIVATED PTT 26.9 SECONDS (25.2-36.5)
[2024-08-25] MEDS ORDERED: PIPERACILLIN/TAZOB 4.5 GM 4.5 GM/100 ML BAG IVPB ONE (12:55)
[2024-08-25 12:59] LABS: CO2 30.0 mmol/L (21-32); GLUCOSE,RANDOM 110.0 mg/dL (74-106)
[2024-08-25 13:02] LABS: CREATININE 1.4 mg/dL (0.55-1.3); SGOT/AST 56.0 U/L (15-37); SGPT/ALT 49.0 U/L (13-61)
[2024-08-25] MEDS: PIPERACILLIN/TAZOB 4.5 GM 4.5 GM in DEXTROSE 5%-WATER 100 ML IVPB ONE (13:03)
[2024-08-25 13:04] LABS: TOT PROT 6.9 g/dl (6.4-8.2)
[2024-08-25 13:05] LABS: ALK PHOS 145.0 U/L (45-117)
[2024-08-25 13:52] LABS: HCV DIAGNOSTIC IN-HOUSE W/RFLX NON-REACTIVE (NONREACTIVE)
[2024-08-25 13:56] LABS: HIV INTERPRETATION NEGATIVE (NEGATIVE)
[2024-08-25] MEDS ORDERED: VANCOMYCIN/WATER 1250 MG 1,250 MG/250 ML BAG IVPB ONE (14:46)
[2024-08-25] MEDS: VANCOMYCIN/WATER 1250 MG 1,250 MG/250 ML BAG IVPB ONE (14:52)
[2024-08-25] MEDS ORDERED: INSULIN ASPART SLIDING SCALE (NOVOLOG) 1 VIAL SQ ONE (17:13)
[2024-08-25] MEDS: INSULIN ASPART SLIDING SCALE (NOVOLOG) 1 VIAL SQ SCH (17:17)
[2024-08-25] MEDS: PIPERACILLIN/TAZOB 2.25 GM 2.25 GM/50 ML BAG IVPB SCH (21:30)
[2024-08-25] MEDS ORDERED: HEPARIN NA (PORCINE) 5,000 UNITS/ML 1ML VIAL SQ SCH (22:00)
[2024-08-26 08:44] LABS: ABSOLUTE IMMATURE GRANULOCYTES 0.03 x10^3/uL (0.0-0.031); BASOPHILS # 0.07 x10^3/uL (0.01-0.08); EOSINOPHIL % 4.8 % (0.8-7.0); EOSINOPHILS # 0.40 x10^3/uL (0.04-0.54); MCHC 30.5 g/dl (32.3-36.5); MEAN CELL VOLUME 89.0 fl (79.0-92.2); MEAN PLT VOLUME 12.5 fl (9.4-12.4); MONOCYTE # 0.69 x10^3/uL (0.30-0.82); MONOCYTE % 8.3 % (5.3-12.2); RDW 16.0 % (12.6-16.6)
[2024-08-26 09:56] LABS: CO2 28.0 mmol/L (21-32); GLUCOSE,RANDOM 117.0 mg/dL (74-106)
[2024-08-26 09:58] LABS: CREATININE 1.7 mg/dL (0.55-1.3); SGOT/AST 46.0 U/L (15-37); SGPT/ALT 41.0 U/L (13-61)
[2024-08-26 10:01] LABS: ALK PHOS 125.0 U/L (45-117)
[2024-08-26 10:18] LABS: TOT PROT 6.6 g/dl (6.4-8.2)
[2024-08-26] MEDS: EZETIMIBE 10 MG TABLET (FP) PO SCH (10:40)
[2024-08-26] MEDS: SODIUM CHLORIDE 0.45% 1,000 ML IV SCH (17:38)
[2024-08-27] MEDS: ACETAMINOPHEN 325 MG TABLET (FP) PO PRN (09:28)
[2024-08-27] MEDS: COLLAGENASE CLOSTRIDIUM HIST. 30 GRAMS TUBE TP SCH (14:06)
[2024-08-28] MEDS ORDERED: PIPERACILLIN/TAZOB 2.25 GM 2.25 GM in DEXTROSE 5%-WATER - 50 ML IVPB SCH (03:04)
[2024-08-28] MEDS: PIPERACILLIN/TAZOB 2.25 GM 2.25 GM in DEXTROSE 5%-WATER - 50 ML IVPB SCH (03:38)
[2024-08-28 09:17] LABS: ABSOLUTE IMMATURE GRANULOCYTES 0.03 x10^3/uL (0.0-0.031); BASOPHILS # 0.10 x10^3/uL (0.01-0.08); EOSINOPHIL % 5.9 % (0.8-7.0); EOSINOPHILS # 0.57 x10^3/uL (0.04-0.54); MCHC 30.9 g/dl (32.3-36.5); MEAN CELL VOLUME 87.1 fl (79.0-92.2); MEAN PLT VOLUME 12.6 fl (9.4-12.4); MONOCYTE # 0.66 x10^3/uL (0.30-0.82); MONOCYTE % 6.8 % (5.3-12.2); RDW 15.9 % (12.6-16.6)
[2024-08-28 10:15] LABS: GLUCOSE,RANDOM 141.0 mg/dL (74-106)
[2024-08-28 10:18] LABS: CO2 25.0 mmol/L (21-32)
[2024-08-28 10:21] LABS: CREATININE 1.9 mg/dL (0.55-1.3); SGOT/AST 36.0 U/L (15-37); SGPT/ALT 34.0 U/L (13-61)
[2024-08-28 10:22] LABS: LDL CHOLESTEROL (ONLY SJRH) 65.0 mg/dL (5-100); TOT PROT 6.7 g/dl (6.4-8.2)
[2024-08-28 10:23] LABS: ALK PHOS 115.0 U/L (45-117)
[2024-08-29] MEDS ORDERED: HEPARIN NA (PORCINE) 5,000 UNITS/ML 1ML VIAL ONE (12:37)
[2024-08-29] MEDS ORDERED: SODIUM CHLORIDE 0.45% 1,000 ML IV SCH (13:09)
[2024-08-29] MEDS ORDERED: ONDANSETRON 4 MG/2 ML VIAL IVPUSH PRN ×2 (14:50→18:13)
[2024-08-29] MEDS ORDERED: LACTATED RINGERS SOLUTION 1,000 ML IV SCH (15:00)
[2024-08-29 15:09] LABS: CO2 25.0 mmol/L (21-32)
[2024-08-29 15:10] LABS: GLUCOSE,RANDOM 91.0 mg/dL (74-106)
[2024-08-29] MEDS ORDERED: MIDAZOLAM HCL 2 MG/2 ML SINGLE DOSE VIAL ONE (15:11)
[2024-08-29 15:13] LABS: CREATININE 1.4 mg/dL (0.55-1.3)
[2024-08-29] MEDS: BUPIVACAINE HCL/PF 0.5% (5 MG/ML) 30 ML VIAL IJ ONE ×2 (15:16)
[2024-08-29] MEDS: LIDOCAINE HCL 1%, 10 MG/ML (50 mL VIAL) INF ONE ×4 (15:16→15:48)
[2024-08-29] MEDS ORDERED: PIPERACILLIN/TAZOBACTAM 3.375 GM VIAL IVPB ONE (15:31)
[2024-08-29] MEDS ORDERED: DEXTROSE 50%-WATER 25 GM/50 ML DISP.SYRIN ONE (17:36)
[2024-08-29] MEDS: DEXTROSE 50%-WATER - 25 GM/50 ML VIAL IVPUSH ONE (17:44)
[2024-08-29] MEDS ORDERED: ACETAMINOPHEN 325 MG TABLET (FP) PO PRN (18:13)
[2024-08-29] MEDS ORDERED: CLOPIDOGREL BISULFATE 75 MG TABLET (FP) ONE (18:17)
[2024-08-29] MEDS ORDERED: ASPIRIN 81 MG CHEWABLE TABLETS ONE (18:17)
[2024-08-29] MEDS: ASPIRIN 81 MG CHEWABLE TABLETS PO SCH (18:21)
[2024-08-29] MEDS: CLOPIDOGREL BISULFATE 75 MG TABLET (FP) PO SCH (18:21)
[2024-08-29 18:54] VITALS: RESP 18
[2024-08-29] MEDS: SODIUM CHLORIDE 0.45% 1,000 ML IV SCH (21:45)
[2024-08-29] MEDS: PIPERACILLIN/TAZOB 2.25 GM 2.25 GM in DEXTROSE 5%-WATER - 50 ML IVPB SCH (21:45)
[2024-08-29] MEDS: LACTATED RINGERS SOLUTION 1,000 ML IV SCH (21:46)
[2024-08-29] MEDS: INSULIN ASPART SLIDING SCALE (NOVOLOG) 1 VIAL SQ SCH (21:53)
[2024-08-30 08:40] LABS: ABSOLUTE IMMATURE GRANULOCYTES 0.03 x10^3/uL (0.0-0.031); BASOPHILS # 0.08 x10^3/uL (0.01-0.08); EOSINOPHIL % 5.5 % (0.8-7.0); EOSINOPHILS # 0.49 x10^3/uL (0.04-0.54); MCHC 30.8 g/dl (32.3-36.5); MEAN CELL VOLUME 87.2 fl (79.0-92.2); MEAN PLT VOLUME 13.0 fl (9.4-12.4); MONOCYTE # 0.72 x10^3/uL (0.30-0.82); MONOCYTE % 8.1 % (5.3-12.2); RDW 16.4 % (12.6-16.6)
[2024-08-30 09:27] LABS: CO2 26.0 mmol/L (21-32); GLUCOSE,RANDOM 93.0 mg/dL (74-106)
[2024-08-30 09:31] LABS: SGPT/ALT 24.0 U/L (13-61)
[2024-08-30 09:32] LABS: TOT PROT 6.0 g/dl (6.4-8.2)
[2024-08-30 09:33] LABS: CREATININE 1.5 mg/dL (0.55-1.3); SGOT/AST 24.0 U/L (15-37)
[2024-08-30 09:34] LABS: ALK PHOS 98.0 U/L (45-117)
[2024-08-30] MEDS: EZETIMIBE 10 MG TABLET (FP) PO SCH (10:18)
[2024-08-30] MEDS: COLLAGENASE CLOSTRIDIUM HIST. 30 GRAMS TUBE TP SCH (10:21)
[2024-09-01] MEDS: LORazepam 4 MG/1 ML VIAL IVPUSH ONE (00:27)
[2024-09-01 11:21] LABS: CO2 27.0 mmol/L (21-32); GLUCOSE,RANDOM 92.0 mg/dL (74-106)
[2024-09-01 11:24] LABS: CREATININE 1.2 mg/dL (0.55-1.3); SGOT/AST 25.0 U/L (15-37); SGPT/ALT 21.0 U/L (13-61)
[2024-09-01 11:25] LABS: TOT PROT 5.9 g/dl (6.4-8.2)
[2024-09-01 11:27] LABS: ALK PHOS 106.0 U/L (45-117)
[2024-09-02] VITALS: BMI 26.4
[2024-09-02 06:31] VITALS: TEMP 97.5
[2024-09-02 13:04] VITALS: BP 144/93; PULSE 91
== END 2024-09-02 17:33 | disposition home health service (06) | DRG 253 ==
LOC: JER 10:38 → JERBED 13:55 → J6S 18:51
PROVIDERS: ADMIT Internal Medicine; ATTEND Internal Medicine
PROC: 0QBG3ZX Excision of Right Tibia, Percutaneous Approach, Diagnostic (ICD-10-PCS; principal; 2024-08-29 15:30)
PROC: 047T3ZZ Dilation of Right Peroneal Artery, Percutaneous Approach (ICD-10-PCS; 2024-08-29 15:30)
DX: E11.51 Type 2 diabetes mellitus with diabetic peripheral angiopathy without gangrene (principal); I13.0 Hypertensive heart and chronic kidney disease with heart failure and stage 1 through stage 4 chronic kidney disease, or unspecified chronic kidney disease; K86.2 Cyst of pancreas; L03.115 Cellulitis of right lower limb; M86.8X7 Other osteomyelitis, ankle and foot; L97.418 Non-pressure chronic ulcer of right heel and midfoot with other specified severity; J44.9 Chronic obstructive pulmonary disease, unspecified; E11.22 Type 2 diabetes mellitus with diabetic chronic kidney disease; N18.9 Chronic kidney disease, unspecified; I50.9 Heart failure, unspecified; E11.621 Type 2 diabetes mellitus with foot ulcer; E78.5 Hyperlipidemia, unspecified; I48.91 Unspecified atrial fibrillation; I35.0 Nonrheumatic aortic (valve) stenosis; I25.10 Atherosclerotic heart disease of native coronary artery without angina pectoris; E11.319 Type 2 diabetes mellitus with unspecified diabetic retinopathy without macular edema; E11.40 Type 2 diabetes mellitus with diabetic neuropathy, unspecified; E11.69 Type 2 diabetes mellitus with other specified complication; B96.5 Pseudomonas (aeruginosa) (mallei) (pseudomallei) as the cause of diseases classified elsewhere; Z89.421 Acquired absence of other right toe(s)
CPT/HCPCS: 36415; 76000-TC-FY; 80048; 80053; 80061; 82962; 83036; 83735; 85025; 85027; 85610; 85730; 86803; 86850; 86900; 86901; 87040; 87070; 87075; 87205; 87389; 93005; 93010; 94760; 99285-25; C1760; C1769; C1894; G0463-25